=== PATIENT | male | born 1995 | race Caucasian/White ===

== ENCOUNTER 2019-11-07 16:06 | Emergency (ER) | payer BC, SELFPAY ==
[2019-11-07 16:10] VITALS: BP 119/81; PULSE 83; RESP 16; TEMP 36.8; O2SAT 96; BMI 37.0
--- NOTE | 2019-11-07 16:28 | CT_ITS ---
STUDY: CT ABDOMEN AND PELVIS WITH CONTRAST REASON FOR EXAM: Male, 24 years old. Epigastric pain RADIATION DOSAGE (If Supplied By Facility): CTDIvol = ( 19.99 ) mGy, DLP = ( 1309.83 ) mGycm TECHNIQUE: Transaxial images were obtained from the dome of the diaphragm to the symphysis pubis without oral contrast. 100cc ISOVUE 370 was administered. Sagittal and coronal images were reconstructed. Individualized dose optimization techniques were used for this CT. COMPARISON: None. FINDINGS: Noncalcified 6 mm right lower lobe pulmonary nodule. The visualized portions of the heart are within normal limits. There is decreased attenuation of the liver consistent with steatosis. Normal gallbladder and extrahepatic biliary system. Normal spleen. Normal pancreas. Normal bilateral adrenal glands. Normal right kidney. Normal left kidney. Normal visualized stomach. Normal small intestine. Normal colon. The appendix is visualized and appears normal. Normal abdominal aorta. Normal inferior vena cava. Normal retroperitoneum. Normal urinary bladder. Normal visualized prostate gland. There is a small umbilical hernia containing fat. Normal osseous structures. CT/Abdomen/Pelvis WITH Contrast IMPRESSION: Noncalcified 6 mm right lower lobe pulmonary nodule. If patient at this age without a history of or increase in risk factors for malignancy this is favored to represent a infectious or inflammatory process as clinically indicated. Follow-up with a dedicated chest CT may be considered. Fatty liver. Electronically Signed: Fan Palafox, at 19:22 EST Tel , Service support ,
--- NOTE | 2019-11-07 16:32 | ED.VISSUMM ---
- ER Visit Summary Date of Service: 11/07/19 Chief Complaint: Abdominal pain History of Present Illness: The patient is a 24 M presenting with abdominal pain. Patient states this started last night. He has had nausea, vomiting, diarrhea. He states he ate food at [employer] and is unsure if this is related. He states his symptoms started 15 minutes after eating the food from [employer]. He denies sick contacts. Denies recent antibiotics or recent travel. He states he had small streaks of blood in his diarrhea. He denies fever. Denies other complaints. Physical Examination: Vitals are stable. Patient is afebrile. Alert no acute distress. HEENT exam is unremarkable. Neck is supple. Lungs are clear and equal bilaterally. Heart is regular rate and rhythm. Abdomen is soft epigastric and right lower quadrant tenderness with no rebound or guarding Extremities are unremarkable. Skin is warm and dry. No focal neurologic deficit. Remainder of exam is unremarkable. Emergency Department Course and Treatment: Patient was given IV fluids, morphine, Zofran IV. CBC, chemistries unremarkable. Liver lipase are normal. CT abdomen pelvis shows noncalcified 6 mm right lower lobe pulmonary nodule. If patient at this age without a history of or increase in risk factors for malignancy this is favored to represent a infectious or inflammatory process as clinically indicated. Follow-up with a dedicated chest CT may be considered. Findings were discussed with the patient. He states he has been told in the past that he had a nodule in his lung. He is advised to follow-up with primary care physician. He is given prescription for Bentyl and Zofran. Advised return the ED for worsening complaints. Disposition: Discharge home Impression: Vomiting and diarrhea This note was generated with [employer] dictation software. It may contain incorrect words, spelling, and punctuation that were not noted in review of the chart prior to signing ED Disposition - Plan for ED Patient: Instructions: ABDOMINAL PAIN, Unkown Cause, (Male) Prescriptions: Dicyclomine HCl [Bentyl] 20 mg PO TIDAC #20 cap Prescription Printed Ondansetron [Zofran Odt] 4 mg PO Q8H PRN PRN #10 tab PRN Reason: Nausea Prescription Printed Referrals: Durga Kaiser MD [NON-STAFF] -
[2019-11-07] MEDS: 0.9% Normal Saline 1,000 ML 1000 ML IV (16:43)
[2019-11-07] MEDS: Ondansetron 4 MG/2 ML Vial IV (16:44)
[2019-11-07 16:46] LABS: Absolute Neutrophil Count 7.1 X10^3/uL (2.0-7.7); Basophil# 0.05 X10^3/uL; Basophil% 0.5 % (0-1); Eosinophil# 0.44 X10^3/uL; Eosinophils% 4.3 % (0-5); Hematocrit 48.7 % (40-54); Lymphocyte % 17.8 % (19-41); Mean Corp Hgb Conc 34.9 g/dL (32-36); Mean Corpuscular Hgb 30.2 pg (27.0-32.0); Mean Corpuscular Volume 86.5 fL (80-94); Mean Platelet Vol. 9.4 fl (6.2-12.0); Monocyte# 0.74 X10^3/uL; Monocyte% 7.3 % (0-10); NRBC Flagged by Analyzer 0 % (0-5); Neutrophil # 7.06 X10^3/uL (2.7-7.7); Neutrophil % 69.6 % (47-70); Platelet Count 201 K/mm3 (150-450); Red Blood Count 5.63 M/mm3 (4.6-6.2); White Blood Count 10.1 K/mm3 (4.4-11.0)
[2019-11-07 17:47] LABS: ALB/GLOB Ratio 1.2 RATIO (0.9-2.4); AST(SGOT) 21 U/L (15-37); Alanine Aminotransfer ALT/SGPT 57 U/L (16-61); Albumin, Serum 4.1 g/dL (3.2-5.0); Alkaline Phosphatase 88 U/L (45-117); Anion Gap 3 (5-15); BUN 16 mg/dL (7-18); BUN/Creat Ratio 14.8 RATIO (10-20); Chloride 106 mmol/L (98-107); Creatinine, Serum 1.08 mg/dL (0.70-1.30); EST Glomerular Filtration Rate 90 mL/min (>60); Est Glom Filt Rate - Afr Amer 109 mL/min (>60); Estimated Creatinine Clearance 106.38 ml/min; Globulin 3.5 g/dL (2.2-4.2); Glucose 96 mg/dL (74-106); Lipase 90 U/L (73-393); Potassium 4.3 mmol/L (3.5-5.1); Protein, Total 7.6 g/dL (6.4-8.2); Sodium Level 138 mmol/L (136-145)
[2019-11-07 18:32] VITALS: BP 119/65; PULSE 74; RESP 16; O2SAT 98
--- NOTE | 2019-11-07 20:00 | ED.DEP ---
ED Disposition - Plan for ED Patient: Instructions: ABDOMINAL PAIN, Unkown Cause, (Male) Prescriptions: Dicyclomine HCl [Bentyl] 20 mg PO TIDAC #20 capsule Ondansetron [Zofran Odt] 4 mg PO Q8H PRN PRN #10 tablet PRN Reason: Nausea Referrals: Durga Kaiser MD [NON-STAFF] -
[2019-11-07 20:14] VITALS: PULSE 76; RESP 18; O2SAT 98
== END 2019-11-07 20:15 | disposition home or self-care (01) ==
PROVIDERS: Emergency Provider Emergency Medicine
DX: R10.13 Epigastric pain (principal); R10.31 Right lower quadrant pain; R11.2 Nausea with vomiting, unspecified; R19.7 Diarrhea, unspecified; R91.1 Solitary pulmonary nodule
CPT/HCPCS: 74177; 80053; 83690; 85025; 96361; 96374; 96375; 99283; J7030; Q9967; A4216; J2405

== ENCOUNTER 2020-07-15 23:20 | Emergency (ER) | payer BC, SELFPAY ==
[2020-07-15 23:20] VITALS: BP 152/94; PULSE 96; RESP 18; TEMP 36.4; O2SAT 94; BMI 34.4
--- NOTE | 2020-07-15 23:40 | ED.VIS.INJ ---
History of Present Illness Chief Complaint: Bite Informant: Patient Onset: Today Mechanism/Context: Puncture Wound Quality of Pain: Aching Narrative: Patient is a 25-year-old male without any significant past medical history presenting with dog bite to his left wrist. Patient states he is watching his brother's dog who is 5 years old. He went to put the dog out of the way and the dog bit him. Patient states the dog is up-to-date with his vaccinations. The dog is never displayed any aggressive behavior before. Patient is not sure when his last tetanus was but thinks it was when he was 19. Patient initially had some paresthesias of his hand but that is since resolved.He did not take anything for pain prior to arrival. He denies any other complaints at this time. Tetanus Immunization: 5-10 years Past Medical History - Allergies and Home Meds Allergies/Adverse Reactions: Allergies methylphenidate [From Concerta] Adverse Reaction (Verified 07/15/20 23:22) NEEDS FOLLOW-UP Primary Care Physician: Rafal Villatoro MD [Primary Care Provider] - Past Medical History: None Surgical History: noncontributory Lives: With Family Smoking Status: Current every day smoker Review of Systems General: Denies: Chills, Fever, Sweats Eyes: Denies: Visual changes - bilaterally, Diplopia ENT: Denies: Rhinorrhea, Sore throat Cardiovascular: Denies: Chest pain, Palpitations Respiratory: Denies: Dyspnea, Cough, Dyspnea on exertion Gastrointestinal: Denies: Abdominal pain, Nausea, Vomiting, Diarrhea, Melena, Hematochezia Genitourinary: Denies: Dysuria, Hematuria, Frequency Musculoskeletal: Reports: Extremity Pain - Left wrist. Denies: Back pain Skin: Reports: Wounds - Dog bite to left wrist. Denies: Rash Neurological: Denies: Headache, Weakness, Numbness Physical Exam Vital Signs/Narrative: Vital Signs Temp Pulse Resp BP Pulse Ox 07/15/20 23:20 97.6 F L 96 18 152/94 H 94 Inital Vital Signs reviewed: Yes General: Well nourished, Well developed Head: Normocephalic, Atraumatic Eyes: Perrl, EOMI ENT: No trauma, - - Mucosal membranes moist Neck: Nontender, Full ROM Cardiovascular: Regular rate, Regular rhythm Respiratory: No distress Back: Nontender Extremeties: Laceration to the left wrist but no bony deformities or joint abnormalities. Normal range of motion. Normal intrinsic and extrinsic muscle strength of the hand. Normal sensation in all dermatomes distal to the injury. Skin: Normal color, No rash, Trauma - Laceration to the left wrist, palmar aspect. Full-thickness, 3 cm in length. Neurological: Alert, Oriented x3, Cranial nerves II-XII grossly intact, Normal Strength, Normal Sensation Psychological: Normal affect - Glascow Coma Scale Eye Opening: Spontaneous Motor: Obeys Commands Verbal: Oriented Coma Scale Total: 15 Diagnostic/Tx/Re-eval - Medical Decision Making Patient is evaluated for a dog bite to his left wrist. He is neuro-vascularly intact. Does not appear to have any tendinous injury. Closure is performed with loose wound edge approximation. He is given first dose of Augmentin in the emergency room. He is discharged home in stable condition. Laceration No standard instances Length: 1.18 in Depth: Sub Q Shape: Linear Prep: Sterile Conditions, Chlorhexadine Laceration Repair: Lidocaine with epi Irrigated (ml): 999 - running water for 5 mintues Number of Sutures/Juve: 2 Stitch Description: Ethilon, Simple, 4-0 Comment: Loose approximation. No immediate complications. No foreign bodies detected. ED Disposition - Plan for ED Patient: Disposition: Home or Assisted Living Diagnosis: Dog bite of left wrist Instructions: ED BITE Dog Prescriptions: Amox/Clavulanate Tablet [Augmentin Tablet] 875 mg PO Q12H #14 tab Prescription Printed Referrals: Rafal Villatoro MD [Primary Care Provider] - Additional Instructions: Please follow-up with your primary care doctor in 10 to 14 days for wound check and likely suture removal. Take antibiotics as prescribed. Return with any signs of infection. Alternate Tylenol and ibuprofen as needed for pain.
[2020-07-15] MEDS: Ibuprofen 600 MG Tablet PO (23:45)
[2020-07-15] MEDS: Diphth,Pertuss(Acell),Tet Vac 0.5 ML Vial IM (23:46)
[2020-07-16] MEDS: BACITRACIN 15 GM Tube 1 APPLIC TOPICAL (01:20)
[2020-07-16] MEDS: Amox/Clavulanate 875 MG Tablet PO (01:20)
[2020-07-16 01:21] VITALS: BP 143/82; PULSE 76; RESP 16; O2SAT 98
== END 2020-07-16 01:21 | disposition home or self-care (01) ==
PROVIDERS: Emergency Provider Emergency Medicine; PCP Family Medicine
DX: S61.552A Open bite of left wrist, initial encounter (principal); F17.200 Nicotine dependence, unspecified, uncomplicated; W54.0XXA Bitten by dog, initial encounter
CPT/HCPCS: 12001; 90375; 90471; 90675; 90715; 96372; 99285

== ENCOUNTER 2021-08-02 17:26 | Emergency (ER) | payer BC, SELFPAY ==
[2021-08-02 17:26] VITALS: BP 128/82; PULSE 110; RESP 16; TEMP 36.6; O2SAT 96; BMI 34.7
== END 2021-08-02 18:15 | disposition left against medical advice (07) ==
LOC: ED 20:32
PROVIDERS: PCP Family Medicine
DX: Z53.21 Procedure and treatment not carried out due to patient leaving prior to being seen by health care provider (principal)

== ENCOUNTER 2021-08-02 22:40 | Emergency (ER) | payer BC, MEDICAID, SELFPAY ==
[2021-08-02 22:41] VITALS: BP 150/135; PULSE 103; RESP 18; TEMP 36.6; O2SAT 98
[2021-08-03] VITALS (8 sets, daily range): BP systolic 103–145; BP diastolic 83–90; PULSE 101–113; RESP 16–29; TEMP 36.7; O2SAT 96–98
--- NOTE | 2021-08-03 00:07 | EKG12_ITS ---
Test Reason : DYSRHYTHMIA Blood Pressure : / mmHG Vent. Rate : 091 BPM Atrial Rate : 091 BPM P-R Int : 186 ms QRS Dur : 092 ms QT Int : 336 ms P-R-T Axes : 007 038 003 degrees QTc Int : 413 ms Normal sinus rhythm Normal ECG Confirmed by EMMA VERONICA, MISTY ([id number]), food expeditor SHAWNA WELLS ([id number]) on 08/03/2021 1:51:32 PM Referred By: MESSI Confirmed By:MISTY CARTER MD
--- NOTE | 2021-08-03 00:11 | EDS_ITS ---
HPI History of Present Illness Chief Complaint: General Illness Narrative Narrative: Patient presents with right-sided back pain, upper respiratory infection type symptoms, that he thought was Covid. He states his symptoms began approximately 6 days ago on Tuesday. He had a Covid test yesterday which was negative. He complains of shortness of breath and a cough. Over the last 1 to 2 days he developed right-sided chest pain and back pain, sometimes pleuritic. He denies any leg swelling. No DVT or PE risk factors. He has had nasal congestion and runny nose with a cough. He states he went to urgent care and had them do a urinalysis to check his kidneys which was negative. He presents because of the continued pain in his right posterior back. He denies any high fevers, nausea, vomiting, or other symptoms. [facility] Medical History (Updated 08/03/21 @ 04:57 by Alfie Rodriguez MD) ADD (attention deficit disorder) Hypothyroidism Home Medications levothyroxine 112 mcg PO DAILY 11/07/19 [History Last Taken Unknown] dextroamphetamine-amphetamine [Adderall] 20 mg PO DAILY 07/15/20 [History Last Taken Unknown] Allergy/AdvReac Type Severity Reaction Status Date / Time methylphenidate AdvReac NEEDS Verified 08/02/21 22:44 [From Offermatica] FOLLOW-UP Social History Smoking Status: Current every day smoker tobacco type: cigarettes ROS ROS ED ROS Narrative Constitutional: No fever, no chills. HEENT: No sore throat. No neck pain. No loss of vision. Positive rhinorrhea. Cardiovascular: Right posterior chest pain. No palpitations. No pedal edema. Respiratory: Positive cough, mild shortness of breath. Abdominal: No abdominal pain. No nausea. No vomiting. Genitourinary: No dysuria. No hematuria. Musculoskeletal: No myalgias. No arthralgias. Positive back pain. Neurologic: No headaches. No dizziness. No lightheadedness. Skin: No rash. No change in color. Psychiatric: No depression. No anxiety. EXAM Physical Exam Narrative Exam Narrative: Afebrile. Vital signs noted. HEENT: Normocephalic. Atraumatic. PERRL, EOMI. Neck soft and supple. No point tenderness or step off. Cardiovascular: Regular rate and rhythm. No murmurs, rubs, or gallops appreciated. Respiratory: No tachypnea. Lungs clear to auscultation bilaterally. Gastrointestinal: Abdomen soft, nontender, with normoactive bowel sounds. No rebound or guarding. Neurological: Awake. Alert. Nonfocal, nonlateralizing. Skin: No rash. Normal color. No pallor. Musculoskeletal: No pedal edema. Full range of motion extremities. Const Vital Signs: 08/02/21 22:41 08/03/21 00:31 08/03/21 01:19 Temperature 97.8 F Temperature Source Temporal Pulse Rate 103 H Respiratory Rate 18 17 Respiratory Effort Normal Non-Labored Respiratory Pattern Normal Blood Pressure 150/135 H Blood Pressure Mean 140 Pulse Ox 98 Oxygen Delivery Method Room Air 08/03/21 01:34 08/03/21 01:49 08/03/21 03:10 Temperature 98.1 F Temperature Source Oral Pulse Rate 101 H 104 H Respiratory Rate 26 H 28 H Respiratory Effort Respiratory Pattern Blood Pressure Blood Pressure Mean Pulse Ox 98 97 Oxygen Delivery Method Room Air Room Air 08/03/21 03:19 08/03/21 03:26 08/03/21 04:14 Temperature Temperature Source Pulse Rate 107 H Respiratory Rate 29 H Respiratory Effort Respiratory Pattern Blood Pressure 145/89 H 141/83 H 132/83 H Blood Pressure Mean 107 102 99 Pulse Ox 96 Oxygen Delivery Method Room Air 08/03/21 05:17 Temperature Temperature Source Pulse Rate 113 H Respiratory Rate 16 Respiratory Effort Respiratory Pattern Blood Pressure 103/90 H Blood Pressure Mean Pulse Ox 98 Oxygen Delivery Method MDM MDM MDM Narrative Medical decision making narrative: Patient is afebrile here. His slightly elevated blood pressure. Mild tachycardia at 103 intermittently. Pulse ox is 98% on room air. Comprehensive work-up was pursued. I will obtain an EKG and a chest x-ray. However, I will also obtain laboratories including D-dimer and troponin. WBC count shows slight neutropenia at 4.0, hemoglobin stable at 13.9, hematocrit 40.2. Platelet count shows slightly low platelets at 112. His D- dimer is elevated at 1.57. Electrolyte panel is grossly unremarkable. His initial high-sensitivity troponin was elevated at 391. However, he is chest pain-free and has been. His initial blood pressure reading was 150/135 and he was tachycardic, however he states that he has had a problem with tachycardia since he was a child. He states his heart rate always gets high. His blood pressure has come down to 137/74. He is pain-free. As he had an initial elevated high-sensitivity troponin, I discussed patient with the hospitalist. As he is pain-free, and there is a bed shortage, it was thought that this was secondary to the patient's elevated blood pressure. Once again, patient has been pain-free here in the emergency department. I sent his Covid swab off and it was also negative, but it could also be a false negative. Troponin are elevated with COVID-19 and he has symptoms. His second high-sensitivity troponin slightly lower at 378. I discussed the patient initially with the hospitalist, who thought that his elevated troponins may have been secondary to elevated blood pressures. I did discuss the patient with the banking center manager on-call, Dr. Roman. As troponin may be elevated with Covid, and the patient is neutropenic, he suggested performing a PCR, and bringing the patient in for echocardiogram. However, in discussion with the patient, he would like to sign out AGAINST MEDICAL ADVICE. I feel he has a decision-making capacity to sign out. He was informed of the risk of heart attack, stroke, permanent disability, and and acknowledges understanding and prefers to follow-up with his primary care provider. Return instructions to the emergency department were reviewed. Disposition is signed out AGAINST MEDICAL ADVICE. Patient is in stable condition. Lab Data Attestation: I reviewed the patient's lab results. Labs: Laboratory Results - last 24 hr 08/03/21 08/03/21 08/03/21 00:22 00:22 00:22 WBC 4.0 L RBC 4.75 Hgb 13.9 Hct 40.2 MCV 84.6 MCH 29.3 MCHC 34.6 RDW Std Deviation 36.6 RDW Coeff of Daniel 12.0 Plt Count 112 L MPV 9.5 D-Dimer Quant (PE/DVT) 1.57 H* Sodium 139 Potassium 4.1 Chloride 105 Carbon Dioxide 27.0 Anion Gap 7 BUN 16 Creatinine 1.07 Estim Creat Clear Calc 3.81 Est GFR (MDRD) Af Amer 108 Est GFR (MDRD) Non-Af 89 BUN/Creatinine Ratio 15.0 Glucose 129 H Calcium 8.5 Troponin I High Sens 391 H* 08/03/21 02:35 WBC RBC Hgb Hct MCV MCH MCHC RDW Std Deviation RDW Coeff of Daniel Plt Count MPV D-Dimer Quant (PE/DVT) Sodium Potassium Chloride Carbon Dioxide Anion Gap BUN Creatinine Estim Creat Clear Calc Est GFR (MDRD) Af Amer Est GFR (MDRD) Non-Af BUN/Creatinine Ratio Glucose Calcium Troponin I High Sens 378 H* Radiography Diagnostic Testing: Radiology Impression Chest CTA 08/03/21 00:52 IMPRESSION: Normal CTA chest examination, without a demonstrated pulmonary embolism or arterial dissection. Bilateral atelectasis/lung scarring. Electronically Signed: Barry Still MD at 2:13 EDT Tel , Service support , Discharge Plan Triage Chief Complaint: General Illness ED Provider: Alfie Rodriguez Dx/Rx/DC Orders Clinical Impression: SOB (shortness of breath), Back pain, Viral syndrome, Elevated troponin, Chest pain, Left against medical advice Instructions: ED Chest Pain, Uncertain Cause, ED Dyspnea Prescriptions: No Action levothyroxine 112 MCG tablet 112 mcg PO DAILY RF: 0 dextroamphetamine-amphetamine [Adderall] 20 MG tablet 20 mg PO DAILY RF: 0 Primary Care Provider: Rafal Villatoro Referrals: Rafal Villatoro MD [Primary Care Provider] - 08/03/21 Disposition Disposition: Against Medical Advice Discharge Date/Time: 08/03/21 05:18
[2021-08-03] MEDS: 0.9% Normal Saline 1,000 ML 999 ML IV (00:29)
[2021-08-03 00:32] LABS: Hematocrit 40.2 % (40-54); Hemoglobin 13.9 g/dL (13.0-16.5); Mean Corp Hgb Conc 34.6 g/dL (32-36); Mean Corpuscular Hgb 29.3 pg (27.0-32.0); Mean Corpuscular Volume 84.6 fL (80-94); Mean Platelet Vol. 9.5 fl (6.2-12.0); Platelet Count 112 K/mm3 (150-450); RBC Distribution Width SD 36.6 fl (35.1-43.9); Red Blood Count 4.75 M/mm3 (4.6-6.2)
[2021-08-03 00:46] LABS: D-Dimer Quantitative (DVT/PE) 1.57 FEU/ug/m (0.27-0.49)
--- NOTE | 2021-08-03 00:49 | ED.RN ---
DR EASTMAN AWARE OF CRITICAL D-DIMER RESULTS
--- NOTE | 2021-08-03 00:52 | CT_ITS ---
STUDY: CTA CHEST REASON FOR EXAM: Male, 26 years old. Shortness of breath, right-sided back pain RADIATION DOSAGE (If Supplied By Facility): CTDIvol = ( 17.42 ) mGy, DLP = ( 591.70 ) mGycm TECHNIQUE: The examination was performed with the intravenous administration of IV- 100 ML ISOVUE 370. Post-processing of the angiographic images was performed, with multiplanar reformation and 3D reconstruction. Individualized dose optimization techniques were used for this CT. COMPARISON: None. FINDINGS: Normal enhancement of the main pulmonary artery and right and left pulmonary arteries. Normal enhancement of the bilateral peripheral pulmonary arteries. There is no demonstrated pulmonary embolism. Normal thoracic aorta and visualized great vessels. There is no demonstrated aortic dissection. Normal heart and pericardium. Normal mediastinum. Normal hilar regions. Normal visualized trachea and bronchi. The lungs are well expanded. Normal pulmonary parenchyma. 6 mm right lower lobe subpleural nodule, probably sequela of infection given patient age. Trace bilateral dependent atelectasis. Scattered areas of platelike atelectasis/lung scarring. Normal pleura. Normal chest wall structures. There are degenerative changes of thoracic spine. Normal visualized upper abdomen. CT/CTA Chest W/WO Contrast IMPRESSION: Normal CTA chest examination, without a demonstrated pulmonary embolism or arterial dissection. Bilateral atelectasis/lung scarring. Electronically Signed: Barry Still MD at 2:13 EDT Tel , Service support ,
[2021-08-03 01:12] LABS: Anion Gap 7 (5-15); BUN 16 mg/dL (7-18); Calcium,Total 8.5 mg/dL (8.5-10.1); Chloride 105 mmol/L (98-107); Creatinine, Serum 1.07 mg/dL (0.70-1.30); EST Glomerular Filtration Rate 89 mL/min (>60); Est Glom Filt Rate - Afr Amer 108 mL/min (>60); Estimated Creatinine Clearance 3.81 ml/min; Glucose 129 mg/dL (74-106); Potassium 4.1 mmol/L (3.5-5.1); Sodium Level 139 mmol/L (136-145); Troponin-I HS 391 pg/mL (3.0-78.0)
--- NOTE | 2021-08-03 03:26 | ED.RN ---
Not given medication or bp since bp 141/83 at this time
[2021-08-03 04:00] LABS: Troponin-I HS 378 pg/mL (3.0-78.0)
== END 2021-08-03 05:18 | disposition left against medical advice (07) ==
PROVIDERS: Emergency Provider Emergency Medicine; PCP Family Medicine
DX: R06.02 Shortness of breath (principal); M54.9 Dorsalgia, unspecified; B34.9 Viral infection, unspecified; R77.8 Other specified abnormalities of plasma proteins; R07.9 Chest pain, unspecified; F17.210 Nicotine dependence, cigarettes, uncomplicated; E03.9 Hypothyroidism, unspecified; Z53.29 Procedure and treatment not carried out because of patient's decision for other reasons; Z79.899 Other long term (current) drug therapy
CPT/HCPCS: 71275; 80048; 84484; 85027; 85379; 87426; 93005; 99284; J7030; Q9967; A4216

== ENCOUNTER 2021-08-03 21:58 | Emergency (ER) | payer BC, SELFPAY ==
[2021-08-03 22:00] VITALS: BP 136/86; PULSE 120; RESP 16; TEMP 37.2; O2SAT 96; BMI 34.4
--- NOTE | 2021-08-03 22:31 | ED.RN ---
Pt states i'll come back tomorrow and i'm feeling fine. Pt informed that he doesnt need to return if he is feelng well.
== END 2021-08-03 22:31 | disposition left against medical advice (07) ==
LOC: ED 23:09
PROVIDERS: PCP Family Medicine
DX: Z53.21 Procedure and treatment not carried out due to patient leaving prior to being seen by health care provider (principal)

== ENCOUNTER 2021-08-04 10:27 | Emergency (ER) | payer BC, MEDICAID, SELFPAY ==
[2021-08-04 10:29] VITALS: BP 130/85; PULSE 117; RESP 18; TEMP 38.2; O2SAT 95; BMI 33.5
[2021-08-04 10:54] VITALS: BP 130/85; PULSE 118; RESP 19; TEMP 37.3; O2SAT 96
--- NOTE | 2021-08-04 11:15 | EKG12_ITS ---
Test Reason : GENERAL ILLNESS Blood Pressure : / mmHG Vent. Rate : 113 BPM Atrial Rate : 113 BPM P-R Int : 182 ms QRS Dur : 092 ms QT Int : 302 ms P-R-T Axes : 009 041 011 degrees QTc Int : 414 ms Sinus tachycardia Poor R wave progression Confirmed by LUIS VERONICA, RADHA ([id number]), associate editor SHAWNA WELLS ([id number]) on 08/05/2021 1:24:08 PM Referred By: EDWARD Confirmed By:RADHA SMTIH MD
--- NOTE | 2021-08-04 11:33 | RAD_ITS ---
History: chest pain EXAMINATION/TECHNIQUE: XR Chest 1 View: COMPARISON: None FINDINGS: LINES/DEVICES: None. LUNGS: No consolidation, edema or effusion. Linear scarring or atelectasis noted within the lingula. No pneumothorax. MEDIASTINUM AND CARDIOVASCULAR STRUCTURES: Cardiac silhouette not enlarged. Central airways and mediastinal contour are unremarkable. BONES AND SOFT TISSUES: Unremarkable. RAD/Chest 1 View (Portable) IMPRESSION: No radiographic evidence of acute cardiopulmonary disease. at 1211 Reported and signed by: Raúl Whittaker MD Electronically Signed: Raúl Whittaker MD at 12:10 EDT Tel , Service support ,
[2021-08-04 11:34] LABS: Absolute Lymphocyte Count 1.61 X10^3/uL (0.83-4.51); Absolute Neutrophil Count 3.1 X10^3/uL (2.0-7.7); Basophil# 0.02 X10^3/uL; Basophil% 0.4 % (0-1); Hematocrit 39.1 % (40-54); Hemoglobin 13.5 g/dL (13.0-16.5); Lymphocyte # 1.61 X10^3/ul (0.83-4.51); Mean Corp Hgb Conc 34.5 g/dL (32-36); Mean Corpuscular Hgb 28.5 pg (27.0-32.0); Mean Corpuscular Volume 82.5 fL (80-94); Mean Platelet Vol. 9.2 fl (6.2-12.0); Monocyte# 0.76 X10^3/uL; Monocyte% 13.7 % (0-10); NRBC Flagged by Analyzer 0 % (0-5); Neutrophil # 3.13 X10^3/uL (2.7-7.7); Neutrophil % 56.2 % (47-70); Platelet Count 122 K/mm3 (150-450); RBC Distribution Width CV 11.9 % (11.6-14.6); RBC Distribution Width SD 36.4 fl (35.1-43.9); Red Blood Count 4.74 M/mm3 (4.6-6.2); White Blood Count 5.6 K/mm3 (4.4-11.0)
[2021-08-04 11:44] VITALS: BP 130/85; PULSE 118; RESP 19; TEMP 37.3; O2SAT 96
[2021-08-04 11:51] LABS: Anion Gap 6 (5-15); BUN 12 mg/dL (7-18); BUN/Creat Ratio 10.2 RATIO (10-20); Calcium,Total 8.7 mg/dL (8.5-10.1); Chloride 101 mmol/L (98-107); Creatinine, Serum 1.18 mg/dL (0.70-1.30); EST Glomerular Filtration Rate 80 mL/min (>60); Est Glom Filt Rate - Afr Amer 97 mL/min (>60); Estimated Creatinine Clearance 101.92 ml/min; Glucose 130 mg/dL (74-106); Sodium Level 132 mmol/L (136-145); Troponin-I HS 61 pg/mL (3.0-78.0)
[2021-08-04] MEDS: Aspirin 81 MG TAB.CHEW 324 MG PO (11:53)
[2021-08-04 13:48] LABS: Troponin-I HS 57 pg/mL (3.0-78.0)
[2021-08-04 13:49] VITALS: BP 148/64; PULSE 90; RESP 18; O2SAT 96
--- NOTE | 2021-08-04 15:09 | EDS_ITS ---
HPI History of Present Illness Chief Complaint: General Illness Informant: patient Onset/Context/Timing Onset: Weeks (1) Context: Gradual Onset Timing: Continuous Quality: Dull Location: Substernal Worsened by: Sleeping in a bed Relieved by: Nothing Narrative Narrative: Patient presents with chest pain, headache, and fever that has been constant for the past 1 week. Patient states his temperature at home was up to 102. Patient describes his pain as dull and substernal. Patient states it is worse when he sleeps in the bed. Patient states he normally sleeps on a couch which is more comfortable for him. Patient admits to a cough but denies any sputum production. Patient admits to nausea but denies any vomiting or diarrhea. Patient does admit to some pain in his neck and back. Patient also admits to a headache that has been constant. [facility] Medical History (Updated 08/04/21 @ 15:[address] Uziel Tijerina DO) ADD (attention deficit disorder) Hypothyroidism Home Medications levothyroxine 112 mcg PO DAILY 11/07/19 [History Last Taken Unknown] dextroamphetamine-amphetamine [Adderall] 20 mg PO DAILY 07/15/20 [History Last Taken Unknown] Allergy/AdvReac Type Severity Reaction Status Date / Time bee venom protein (honey bee) Allergy Anaphylaxis Verified 08/04/21 10:31 methylphenidate AdvReac NEEDS Verified 08/04/21 08:46 [From Concerta] FOLLOW-UP Surgical History (Updated 08/04/21 @ 17:[address] Uziel Tijerina DO) Hx of thyroidectomy Social History Smoking Status: Current every day smoker tobacco type: cigarettes ROS ROS ED Constitutional Constitutional ED: Reports fever(s); Denies chills Eyes Eyes: Denies blurry vision or change in vision ENT ENT ED: Denies rhinorrhea or sore throat Cardiovascular Cardiovascular: Reports chest pain; Denies palpitations Respiratory/Chest Respiratory/Chest: Reports cough; Denies dyspnea Gastrointestinal Gastrointestinal: Reports nausea; Denies diarrhea or vomiting Genitourinary Genitourinary ED: Denies dysuria or hematuria Musculoskeletal Musculoskeletal: Reports back pain and neck pain Integumentary Denies abscess or rash Neurologic Neurologic: Reports headache(s); Denies weakness Allergic/Immunologic Allergic/Immunologic ED: Denies mouth swelling or urticaria EXAM Physical Exam Const Vital Signs: 08/04/21 10:29 08/04/21 10:54 08/04/21 11:44 Temperature 100.8 F H 99.2 F H 99.2 F H Temperature Source Temporal Temporal Temporal Pulse Rate 117 H 118 H 118 H Respiratory Rate 18 19 H 19 H Blood Pressure 130/85 H 130/85 H 130/85 H Blood Pressure Mean 100 100 100 Pulse Ox 95 96 96 Oxygen Delivery Method Room Air Room Air Room Air 08/04/21 13:49 08/04/21 15:11 Temperature Temperature Source Pulse Rate 90 79 Respiratory Rate 18 14 Blood Pressure 148/64 H Blood Pressure Mean 92 Pulse Ox 96 99 Oxygen Delivery Method Positive well nourished and well developed General Appearance ED: well developed HEENT Reports moist mucous membranes Neck supple and no JVD Resp normal respiratory effort and clear to auscultation bilaterally Cardio regular rhythm and no murmurs Rate: tachycardic GI normal to inspection, nondistended, normoactive bowel sounds and non-tender Palpation: soft Extremity normal to inspection General Extremety ED: Negative for edema or tenderness General Extremity: Negative for edema Neuro oriented x3, CN's II-XII intact bilaterally and no sensory deficits noted Sensorium / Orientation: alert Motor Exam: strength 5/5 throughout Psych mental status grossly normal Skin no rashes or lesions noted MDM MDM MDM Narrative Medical decision making narrative: EKG was obtained. On my interpretation, it showed a sinus tachycardia with a rate of 113. VA interval, QRS interval, and QTc intervals were all normal. [place] was normal. There are no acute ST or T wave changes. This was unchanged compared to previous EKG dated 08/03/2021. Portable 1 view chest x-ray was obtained. On my interpretation, lung dior are clear. There is normal cardiac silhouette. Bony thorax is normal. There is no acute process noted. Radiologist also interpreted the x-ray and agrees. CBC and basic metabolic profile were obtained and were within normal limits. High-sensitivity troponin was normal. 2-hour repeat high-sensitivity troponin was normal. Patient has a HEART score of 1. Review of his previous visit yesterday showed that his troponins were elevated yesterday. Patient signed out AMA yesterday. Patient was advised of his findings. Patient was advised that he should follow-up with his primary care physician for further evaluation. Patient was advised he likely needs an outpatient stress test. Patient understood and was agreeable with the plan. All questions were answered. Lab Data Attestation: I reviewed the patient's lab results. Labs: Laboratory Results - last 24 hr 08/04/21 08/04/21 08/04/21 11:23 11:23 13:25 WBC 5.6 RBC 4.74 Hgb 13.5 Hct 39.1 L MCV 82.5 MCH 28.5 MCHC 34.5 RDW Std Deviation 36.4 RDW Coeff of Daniel 11.9 Plt Count 122 L MPV 9.2 Immature Gran % (Auto) 0.700 Neut % (Auto) 56.2 Lymph % (Auto) 29.0 [place] % (Auto) 13.7 H Eos % (Auto) 0.0 Baso % (Auto) 0.4 Absolute Neuts (auto) 3.1 Absolute Lymphs (auto) 1.61 Nucleated RBC % 0 Sodium 132 L Potassium 4.0 Chloride 101 Carbon Dioxide 25.0 Anion Gap 6 BUN 12 Creatinine 1.18 Estim Creat Clear Calc 101.92 Est GFR (MDRD) Af Amer 97 Est GFR (MDRD) Non-Af 80 BUN/Creatinine Ratio 10.2 Glucose 130 H Calcium 8.7 Troponin I High Sens 61 57 Radiography Diagnostic Testing: Radiology Impression Chest X-Ray 08/04/21 11:33 IMPRESSION: No radiographic evidence of acute cardiopulmonary disease. at 1211 Reported and signed by: Raúl Whittaker MD Electronically Signed: Raúl Whittaker MD at 12:10 EDT Tel , Service support , EKG Initial EKG: Attestation: I personally reviewed and interpreted this EKG as follows: Interpretation: No Acute Injury Pattern and Sinus Tachycardia (113) Prior EKG tracings: available for review Prior: Unchanged (08/03/2021) Discharge Plan Triage Chief Complaint: General Illness ED Provider: Uziel Tijerina Dx/Rx/DC Orders Clinical Impression: Chest pain Instructions: ED Chest Pain, Uncertain Cause Prescriptions: No Action levothyroxine 112 MCG tablet 112 mcg PO DAILY RF: 0 dextroamphetamine-amphetamine [Adderall] 20 MG tablet 20 mg PO DAILY RF: 0 Primary Care Provider: Rafal Villatoro Referrals: Rafal Villatoro MD [Primary Care Provider] - [facility] appointment Disposition Disposition: Home, Self Care Discharge Date/Time: 08/04/21 15:23
[2021-08-04 15:11] VITALS: PULSE 79; RESP 14; O2SAT 99
--- NOTE | 2021-08-04 19:44 | ED.RN ---
patient called in asking about test results and vitals signs, information given to patient at this time
== END 2021-08-04 15:23 | disposition home or self-care (01) ==
PROVIDERS: Emergency Provider Emergency Medicine; PCP Family Medicine
DX: R07.9 Chest pain, unspecified (principal); R51.9 Headache, unspecified; R50.9 Fever, unspecified; F17.210 Nicotine dependence, cigarettes, uncomplicated; E03.9 Hypothyroidism, unspecified; Z79.899 Other long term (current) drug therapy
CPT/HCPCS: 71045; 80048; 84484; 85025; 87426; 93005; 99284; J7030

== ENCOUNTER 2021-08-08 12:03 | Inpatient (IN) | payer BC, MEDICAID, SELFPAY ==
[2021-08-08 12:03] VITALS: BP 133/87; PULSE 100; RESP 20; TEMP 37; O2SAT 95; BMI 34.7
--- NOTE | 2021-08-08 12:22 | RAD_ITS ---
STUDY: X-RAY CHEST REASON FOR EXAM: Male, 26 years old. Chest pain TECHNIQUE: Single AP portable view of the chest. COMPARISON: August 04, 2021 chest x-ray, CT scan chest August 03 2021 FINDINGS: There is a stable focus of minimal lingular atelectasis and/or scarring seen on the prior study. There is no demonstrated pleural abnormality. Normal size heart. Normal mediastinum and edgar. Normal visualized pulmonary arteries. Normal visualized aortic arch and descending thoracic aorta. There are diffuse degenerative changes of the visualized thoracic spine. Normal visualized ribs, clavicles, and shoulders. There is no demonstrated abnormality of the visualized soft tissue structures of the upper abdomen. RAD/Chest 1 View (Portable) IMPRESSION: Stable chest minimal lingular atelectasis and/or scarring. Electronically Signed: Macey Dorsey MD at 13:25 EDT Tel , Service support ,
--- NOTE | 2021-08-08 12:23 | EKG12_ITS ---
Test Reason : GEN ILLNESS Blood Pressure : / mmHG Vent. Rate : 100 BPM Atrial Rate : 100 BPM P-R Int : 194 ms QRS Dur : 098 ms QT Int : 338 ms P-R-T Axes : 009 037 -21 degrees QTc Int : 436 ms Normal sinus rhythm Inferior infarct , age undetermined Abnormal ECG Confirmed by LUIS VERONICA, RADHA ([id number]), sports editor SHAWNA WELLS ([id number]) on 08/10/2021 10:39:07 AM Referred By: ARGELIA Confirmed By:RADHA SMITH MD
--- NOTE | 2021-08-08 12:24 | EX.ED.DYSGE1 ---
HPI History of Present Illness Chief Complaint: General Illness Detail of Chief Complaint: Not feeling well for 11 days Informant: patient Narrative Narrative: Patient presents to the emergency department complaint not feeling well for the last 11 days. He complains of intermittent fevers, chest pain, shortness of breath and generally not feeling well. Patient states that at times he feels like he is dissociated from his body. Patient complained of some paresthesias to his right arm yesterday that then resolved. Patient's been seen in the emergency department twice for this illness and also has been to urgent care and his primary care physician x3. Patient states that he was told that he had a viral infection. Patient states he is been tested for Covid 5 times and has been negative all 5 times. Patient has history of asthma and hypothyroidism. Patient is a smoker. [facility] Medical History ADD (attention deficit disorder) Hypothyroidism Home Medications levothyroxine 112 mcg PO DAILY 11/07/19 [History Last Taken Unknown] dextroamphetamine-amphetamine [Adderall] 20 mg PO DAILY 07/15/20 [History Last Taken Unknown] Allergy/AdvReac Type Severity Reaction Status Date / Time bee venom protein (honey bee) Allergy Anaphylaxis Verified 08/04/21 10:31 methylphenidate AdvReac NEEDS Verified 08/04/21 08:46 [From Concerta] FOLLOW-UP Surgical History Hx of thyroidectomy Social History Smoking Status: Current every day smoker tobacco type: cigarettes ROS ROS ED Constitutional Constitutional ED: Reports systems reviewed and no addt'l complaints, except as documented; Denies body ache(s), change in weight or chills Eyes Eyes: Denies acute decrease in peripheral vision, change in vision, double vision or loss of vision ENT ENT ED: Reports none; Denies ear pain, lip swelling, loss taste/smell, neck pain, otalgia or sore throat Cardiovascular Cardiovascular: Reports none and chest pain; Denies abdominal pain, chest pain with activity, leg edema, lightheadedness, palpitations, rapid heart rate or syncope Respiratory/Chest Respiratory/Chest: Reports none, cough and dyspnea; Denies change in mental status, dry cough, hemoptysis, shortness of breath at rest or shortness of breath with exertion Gastrointestinal Gastrointestinal: Reports none; Denies abdominal pain, change in stool character, diarrhea, hematemesis, hematochezia, melena, rectal bleeding or vomiting Genitourinary Genitourinary ED: Reports none and urinary frequency; Denies abdominal discomfort, anuria, dysuria, genital pain or polyuria Musculoskeletal Musculoskeletal: Reports none; Denies arthralgias, back pain, difficulty walking, extremity pain, muscle weakness or myalgias Integumentary Reports none; Denies abscess or rash Neurologic Neurologic: Reports none; Denies abnormal gait, confusion, focal weakness, frequent falls, headache(s), loss of vision, numbness, paresthesias, radicular pain, vertigo or weakness Psychiatric Psychiatric: Reports systems reviewed and no addt'l complaints, except as documented and none; Denies behavioral changes, confusion, difficulty concentrating, hallucinations, suicidal ideation, tactile hallucinations or visual hallucinations Endocrine Endocrinology: Denies none, cold intolerance, excessive sweating, fatigue or heat intolerance Hematologic/Lymphatic Hematologic/Lymphatic: Reports none; Denies anemia, easy bleeding or easy bruising Allergic/Immunologic Allergic/Immunologic ED: Denies as per HPI, none, lip swelling, mouth swelling, throat swelling, tongue swelling or hives EXAM Physical Exam Const Vital Signs: 08/08/21 12:03 08/08/21 12:41 08/08/21 15:30 Temperature 98.6 F Temperature Source Temporal Pulse Rate 100 97 Respiratory Rate 20 H 23 H Respiratory Effort Normal Non-Labored Respiratory Pattern Normal Blood Pressure 133/87 H 106/63 Blood Pressure Mean 102 77 Pulse Ox 95 96 Oxygen Delivery Method Room Air Room Air 08/08/21 17:45 Temperature Temperature Source Pulse Rate 90 Respiratory Rate 15 Respiratory Effort Respiratory Pattern Blood Pressure 109/64 Blood Pressure Mean 79 Pulse Ox Oxygen Delivery Method Positive well nourished and well developed General Appearance ED: well developed and NAD HEENT Reports TM's clear and moist mucous membranes normocephalic and atraumatic; Negative for trauma or tenderness Tympanic Membrane ED: Yes TM's clear Eyes PERRL and EOMs intact bilaterally General Eye ED: Negative for pale conjunctiva or scleral icterus Neck no lymphadenopathy, supple and no JVD General: Negative for tenderness Chest Wall inspection of chest normal and palpation of chest normal Chest: Negative for tenderness Resp normal respiratory effort and clear to auscultation bilaterally Effort and Inspection: Negative for respiratory distress or pain with movement Auscultation: Negative for rhonchi, wheezes or diminished lung sounds Cardio regular rate, regular rhythm, S1 normal heart sound, S2 normal heart sound and no murmurs Peripheral Pulses: pulses 2+ throughout GI normal to inspection, nondistended, normoactive bowel sounds, soft to palpation, non-distended and no masses GI Narrative: Patient has some mild right upper quadrant tenderness on palpation. There are some mild guarding. There is no rebound, rigidity, or frail signs. Palpation: soft Back/Spine no CVA tenderness and no thoracic nor lumbar tenderness Extremity normal to inspection General Extremety ED: Negative for edema General Extremity: Negative for edema Neuro oriented x3, CN's II-XII intact bilaterally, no sensory deficits noted and gait normal Sensorium / Orientation: awake, alert, oriented to person, oriented to place and oriented to time Motor Exam: strength 5/5 throughout and strength abnormal Psych mental status grossly normal Skin no rashes or lesions noted and no wounds MDM MDM MDM Narrative Medical decision making narrative: Case discussed with patient and also with general surgeon on-call Dr. Jonh Pagan who presented to the emergency department to evaluate the patient. On ultrasound it was felt patient had thickened gallbladder wall and pericholecystic fluid which may be consistent with a calculus cholecystitis. After he was evaluated by general surgeon it was not felt that he had an acute cholecystitis and was recommended that I obtain a CT scan with IV and p.o. contrast and also consult GI regarding patient's elevated liver enzymes. CT scan of the abdomen pelvis with IV and p.o. contrast was read by radiology as acute cholecystitis. Boiler Water Tester Dr. Brannon evaluated patient in the emergency department as well. Case was once again discussed with general surgeon and also with hospitalist will evaluate patient for admission for concern of acute cholecystitis. Patient was started on Zosyn 4.5 g IV. Lab Data Attestation: I reviewed the patient's lab results. Labs: Laboratory Results - last 24 hr 08/08/21 08/08/21 08/08/21 12:32 12:32 12:32 WBC 6.6 RBC 4.34 L Hgb 12.6 L Hct 35.4 L MCV 81.6 MCH 29.0 MCHC 35.6 RDW Std Deviation 38.6 RDW Coeff of Daniel 12.9 Plt Count 157 MPV 9.5 Immature Gran % (Auto) 1.500 H Neut % (Auto) 57.0 Lymph % (Auto) 28.0 [place] % (Auto) 12.6 H Eos % (Auto) 0.3 Baso % (Auto) 0.6 Absolute Neuts (auto) 3.8 Absolute Lymphs (auto) 1.85 Nucleated RBC % 0 D-Dimer Quant (PE/DVT) Sodium 134 L Potassium 3.3 L Chloride 99 Carbon Dioxide 26.0 Anion Gap 9 BUN 9 Creatinine 0.98 Estim Creat Clear Calc 122.73 Est GFR (MDRD) Af Amer 119 Est GFR (MDRD) Non-Af 98 BUN/Creatinine Ratio 9.1 L Glucose 146 H Calcium 8.2 L Total Bilirubin 1.20 H AST 88 H ALT 196 H Alkaline Phosphatase 155 H Lactate Dehydrogenase 443 H Troponin I High Sens 8 C-React Prot Ext Range 133.00 H Total Protein 6.5 Albumin 2.5 L Globulin 4.0 Albumin/Globulin Ratio 0.6 L Lipase 87 Urine Color Urine Clarity Urine pH Ur Specific [place] Urine Protein Urine Glucose (UA) Urine Ketones Urine Occult Blood Urine Nitrite Urine Bilirubin Urine Urobilinogen Ur Leukocyte Esterase Urine RBC Urine WBC Ur Squamous Epith Cells Urine Bacteria Urine Mucus COVID-19 ([place]) 08/08/21 08/08/21 08/08/21 12:41 13:15 17:30 WBC RBC Hgb Hct MCV MCH MCHC RDW Std Deviation RDW Coeff of Daniel Plt Count MPV Immature Gran % (Auto) Neut % (Auto) Lymph % (Auto) [place] % (Auto) Eos % (Auto) Baso % (Auto) Absolute Neuts (auto) Absolute Lymphs (auto) Nucleated RBC % D-Dimer Quant (PE/DVT) 3.70 H* Sodium Potassium Chloride Carbon Dioxide Anion Gap BUN Creatinine Estim Creat Clear Calc Est GFR (MDRD) Af Amer Est GFR (MDRD) Non-Af BUN/Creatinine Ratio Glucose Calcium Total Bilirubin AST ALT Alkaline Phosphatase Lactate Dehydrogenase Troponin I High Sens C-React Prot Ext Range Total Protein Albumin Globulin Albumin/Globulin Ratio Lipase Urine Color Yellow Urine Clarity Clear Urine pH 6.5 Ur Specific [place] 1.010 Urine Protein 15 H Urine Glucose (UA) Normal Urine Ketones 5 H Urine Occult Blood Negative Urine Nitrite Negative Urine Bilirubin Negative Urine Urobilinogen 8 H Ur Leukocyte Esterase Negative Urine RBC 0 SEEN Urine WBC 0 SEEN Ur Squamous Epith Cells 0-5 SEEN Urine Bacteria RARE Urine Mucus 0 SEEN COVID-19 ([place]) Not Detected Radiography Diagnostic Testing: Radiology Impression Chest X-Ray 08/08/21 12:22 IMPRESSION: Stable chest minimal lingular atelectasis and/or scarring. Electronically Signed: Macey Dorsey MD at 13:25 EDT Tel , Service support , Gallbladder Ultrasound 08/08/21 13:43 IMPRESSION: Hepatic steatosis hepatic enlargement. Thick-walled appearing gallbladder with possible minimal sludge with pericholecystic fluid. Sonographic Joseph sign is described as negative, medication unknown. Consider possible chronic acalculous cholecystitis. Electronically Signed: Macey Dorsey MD at 15:36 EDT Tel , Service support , Abdomen/Pelvis CT 08/08/21 17:10 IMPRESSION: Acute cholecystitis. Electronically Signed: Lyn Snell MD at 19:47 EDT Tel , Service support , EKG Initial EKG: Attestation: I personally reviewed and interpreted this EKG as follows: Comments: Sinus rhythm with a ventricular rate of 100 bpm with old inferior infarct otherwise nothing acute Discharge Plan Dx/Rx/DC Orders Clinical Impression: Abdominal pain, Acute cholecystitis Disposition Disposition: Acute Care [facility]
[2021-08-08 12:42] LABS: Absolute Lymphocyte Count 1.85 X10^3/uL (0.83-4.51); Absolute Neutrophil Count 3.8 X10^3/uL (2.0-7.7); Basophil# 0.04 X10^3/uL; Basophil% 0.6 % (0-1); Eosinophil# 0.02 X10^3/uL; Eosinophils% 0.3 % (0-5); Hematocrit 35.4 % (40-54); Hemoglobin 12.6 g/dL (13.0-16.5); Lymphocyte # 1.85 X10^3/ul (0.83-4.51); Mean Corp Hgb Conc 35.6 g/dL (32-36); Mean Corpuscular Volume 81.6 fL (80-94); Mean Platelet Vol. 9.5 fl (6.2-12.0); Monocyte# 0.83 X10^3/uL; Monocyte% 12.6 % (0-10); NRBC Flagged by Analyzer 0 % (0-5); Neutrophil # 3.77 X10^3/uL (2.7-7.7); Platelet Count 157 K/mm3 (150-450); RBC Distribution Width CV 12.9 % (11.6-14.6); RBC Distribution Width SD 38.6 fl (35.1-43.9); Red Blood Count 4.34 M/mm3 (4.6-6.2); White Blood Count 6.6 K/mm3 (4.4-11.0)
[2021-08-08 12:46] LABS: Mucous, Urine 0 SEEN /hpf (<or=2+); Red Blood Cells-Urine 0 SEEN /hpf (0-5); White Blood Cells 0 SEEN /hpf (0-5)
[2021-08-08 12:50] LABS: Color, Urine Yellow (Yellow); Glucose, Dipstick Normal (Normal); Ketone-Dipstick 5 mg/dl (Negative); Leukocyte Esterase-Dipstick Negative /ul (Negative); Nitrite-Dipstick Negative (Negative); Occult Blood-Urine Negative /ul (Negative); Protein-Dipstick 15 mg/dl (Negative); Urine Bilirubin Dipstick Negative (Negative); Urine Clarity Clear (Clear); Urine Urobilinogen 8 mg/dl (Normal); Urine pH 6.5 (5.0 - 8.0)
[2021-08-08 12:56] LABS: Bacteria RARE /hpf (None Seen); Squamous Epithelial Cells - UA 0-5 SEEN /hpf (0-5)
[2021-08-08] MEDS: 0.9% Normal Saline 1,000 ML 150 ML IV (12:58)
[2021-08-08 13:00] LABS: ALB/GLOB Ratio 0.6 RATIO (0.9-2.4); AST(SGOT) 88 U/L (15-37); Alanine Aminotransfer ALT/SGPT 196 U/L (16-61); Albumin, Serum 2.5 g/dL (3.2-5.0); Alkaline Phosphatase 155 U/L (45-117); Anion Gap 9 (5-15); BUN 9 mg/dL (7-18); BUN/Creat Ratio 9.1 RATIO (10-20); Calcium,Total 8.2 mg/dL (8.5-10.1); Chloride 99 mmol/L (98-107); Creatinine, Serum 0.98 mg/dL (0.70-1.30); EST Glomerular Filtration Rate 98 mL/min (>60); Est Glom Filt Rate - Afr Amer 119 mL/min (>60); Estimated Creatinine Clearance 122.73 ml/min; Glucose 146 mg/dL (74-106); Lipase 87 U/L (73-393); Potassium 3.3 mmol/L (3.5-5.1); Protein, Total 6.5 g/dL (6.4-8.2); Sodium Level 134 mmol/L (136-145); Troponin-I HS 8 pg/mL (3.0-78.0)
--- NOTE | 2021-08-08 13:43 | US_ITS ---
STUDY: ABDOMINAL ULTRASOUND - RIGHT UPPER QUADRANT REASON FOR VISIT: Male, 26 years old abdominal pain TECHNIQUE: Ultrasound evaluation of the right upper quadrant was performed with real-time and static arboleda-scale imaging. TECHNICAL QUALITY: Adequate. COMPARISON: CT scan chest August 03, 2021 FINDINGS: Liver: The liver measures 18.9 cm. There is increased echogenicity consistent with fatty infiltration. The bile ducts are within normal limits. There is hepatic color flow. The direction of portal flow is hepatopetal. There is no demonstrated mass lesion. Gallbladder: There is a contracted gallbladder. The gallbladder wall measures 4.8 mm. There is a negative sonographic Joseph''s sign. There is pericholecystic fluid. There is trace sludge suggested within the gallbladder. Common Bile Duct (C.B.D.): The common bile duct measures 3.2 mm. Pancreas: Normal size of the head, body and tail of the pancreas. There is increased echogenicity of the pancreas. There is no demonstrated pancreatic mass or cyst. Right Kidney: Normal size of the right kidney. The right kidney measures 11.3 x 6.1 x 5 cm. Normal renal cortex. The right cortex measures 2.5 cm. There is no demonstrated renal mass or cyst. There is no right hydronephrosis. US/Gallbladder IMPRESSION: Hepatic steatosis hepatic enlargement. Thick-walled appearing gallbladder with possible minimal sludge with pericholecystic fluid. Sonographic Joseph sign is described as negative, medication unknown. Consider possible chronic acalculous cholecystitis. Electronically Signed: Macey Dorsey MD at 15:36 EDT Tel , Service support ,
[2021-08-08 15:30] VITALS: BP 106/63; PULSE 97; RESP 23; O2SAT 96
--- NOTE | 2021-08-08 17:10 | CT_ITS ---
STUDY: CT ABDOMEN AND PELVIS WITH CONTRAST REASON FOR EXAM: Male, 26 years old. Abdominal pain epigastric RADIATION DOSAGE (If Supplied By Facility): CTDIvol = ( 23.87 ) mGy, DLP = ( 1975.19 ) mGycm TECHNIQUE: CT images were obtained from the dome of the diaphragm to the symphysis pubis without oral contrast. Oral and amp; IV Gastrografin and amp; 100mL Isovue-300 was administered. Sagittal and coronal images were reconstructed. Individualized dose optimization techniques were used for this CT. COMPARISON: 07 November 2019 FINDINGS: The visualized lung bases are unremarkable. The visualized portions of the heart are within normal limits. Normal liver. There is acute cholecystitis. There is no biliary dilation. Normal spleen. Normal pancreas. Normal bilateral adrenal glands. Normal right kidney. Normal left kidney. Normal visualized stomach. Normal small intestine. Normal colon. The appendix is visualized and appears normal. Normal abdominal aorta. Normal inferior vena cava. Normal retroperitoneum. Normal urinary bladder. Normal abdominal wall. Normal osseous structures. CT/Abdomen/Pelvis WITH Contrast IMPRESSION: Acute cholecystitis. Electronically Signed: Lyn Snell MD at 19:47 EDT Tel , Service support ,
--- NOTE | 2021-08-08 17:20 | CON.PCM.SX_ITS ---
Assessment & Plan Assessment/Plan (1) Elevated liver function tests: (2) Epigastric abdominal pain: PLAN: His presentation is not classic for gallbladder disease and with a contracted gallbladder and no right upper quadrant abdominal discomfort I really do not think this is acute cholecystitis. I do believe he would benefit from coming into the hospital being admitted and having further work-up. I am going to obtain a CAT scan of the abdomen and pelvis with both IV and p.o. contrast. I have consulted Dr. Brannon from gastroenterology to come and evaluate the patient as well. He quite possibly could need an EGD to assess his stomach given the pain that he is having of the epigastric area. He certainly is behaving like somebody has some form of viral syndrome. And a significant number of his family members over the last several weeks has been sick but their illness only lasted a week and his is going on 11 days. In addition he does have a brother with hepatitis but he states that he has not been around him. We will probably need to order a HIDA scan with ejection fraction sometime tomorrow. HPI Consult Data Date of Consult: 08/08/21 HPI Narrative HPI Narrative: OCTAVIANO ALANIS, is a 26 M who presents to the emergency department complaint not feeling well for the last 11 days. He complains of intermittent fevers, chest pain, shortness of breath and generally not feeling well. Patient states that at times he feels like he is dissociated from his body. Patient complained of some paresthesias to his right arm yesterday that then resolved. Patient's been seen in the emergency department twice for this illness and also has been to urgent care and his primary care physician x3. Patient states that he was told that he had a viral infection. Patient states he is been tested for Covid 5 times and has been negative all 5 times. Patient has history of asthma and hypothyroidism. Patient is a smoker. Patient was initially seen in the emergency department on at that time he was tachycardic had an elevated troponin and negative Covid testing. The patient at that time left AGAINST MEDICAL ADVICE. Subsequently presented to the urgent care on complaining of cough congestion and mouth pain he has had some fever and chills and moderate fatigue as well. He went from the urgent care back to the emergency department he was still co mplaining of dull pain in the substernal area still complaining of some nausea but no vomiting nor diarrhea his troponins had normalized by then. Today his white count is still normal his hemoglobin is 12.6 hematocrit is 34.5 his D-dimer is elevated at 3.70 And all of his liver function tests are slightly elevated. I have no other liver function test to compare it to though. Gallbladder ultrasound was obtained which showed a contracted gallbladder gallbladder wall measured 4.8 mm negative sonographic Joseph sign there was some pericholecystic fluid and some trace sludge within the gallbladder itself. [facility] Medical History ADD (attention deficit disorder) Hypothyroidism Home Medications levothyroxine 112 mcg PO DAILY 11/07/19 [History Last Taken Unknown] dextroamphetamine-amphetamine [Adderall] 20 mg PO DAILY 07/15/20 [History Last Taken Unknown] Allergy/AdvReac Type Severity Reaction Status Date / Time bee venom protein (honey bee) Allergy Anaphylaxis Verified 08/04/21 10:31 methylphenidate AdvReac NEEDS Verified 08/04/21 08:46 [From Concerta] FOLLOW-UP Surgical History Hx of thyroidectomy Social History Smoking Status: Current every day smoker tobacco type: cigarettes ROS Constitutional Constitutional: Reports anorexia, chills, fatigue and fever(s) Eyes Eyes: Reports change in vision bilateral ENT HEENT: Reports facial pain and nasal congestion Cardiovascular Cardiovascular: Reports chest pain and chest pain with activity Respiratory/Chest Respiratory/Chest: Denies cough or dyspnea Gastrointestinal Gastrointestinal: Reports abdominal pain and nausea; Denies coffee ground emesis, constipation, diarrhea or vomiting Genitourinary Genitourinary: Denies change in urinary stream or difficulty urinating Musculoskeletal Musculoskeletal: Reports back pain Neurologic Neurologic: Reports weakness Physical Exam Const alert and oriented x3 General Appearance: cooperative HEENT normocephalic, head/scalp atraumatic and TM's normal bilaterally Eyes PERRL, EOMs intact bilaterally and conjunctivae normal Neck full ROM Resp clear to auscultation bilaterally Cardio Rate: regular rate Rhythm: regular rhythm GI soft to palpation Auscultation: normoactive bowel sounds Palpation: tender epigastric; Negative for guarding or hernia Back/Spine no CVA tenderness Extremity no calf tenderness Skin no rashes or lesions noted and no jaundice Neuro CN's II-XII intact bilaterally Psych mental status grossly normal and affect normal Appearance: grossly normal Lab / Micro Data Result Diagrams: 08/08/21 12:32 08/08/21 12:32 Labs: Laboratory Results - last 24 hr 08/08/21 12:32: WBC 6.6, RBC 4.34 L, Hgb 12.6 L, Hct 35.4 L, MCV 81.6, MCH 29.0, MCHC 35.6, RDW Std Deviation 38.6, RDW Coeff of Daniel 12.9, Plt Count 157, MPV 9.5, Immature Gran % (Auto) 1.500 H, Neut % (Auto) 57.0, Lymph % (Auto) 28.0, [place] % (Auto) 12.6 H, Eos % (Auto) 0.3, Baso % (Auto) 0.6, Absolute Neuts (auto) 3.8, Absolute Lymphs (auto) 1.85, Nucleated RBC % 0 08/08/21 12:32: Sodium 134 L, Potassium 3.3 L, Chloride 99, Carbon Dioxide 26.0, Anion Gap 9, BUN 9, Creatinine 0.98, Estim Creat Clear Calc 122.73, Est GFR (MDRD) Af Amer 119, Est GFR (MDRD) Non-Af 98, BUN/Creatinine Ratio 9.1 L, Glucose 146 H, Calcium 8.2 L, Total Bilirubin 1.20 H, AST 88 H, ALT 196 H, Alkaline Phosphatase 155 H, Troponin I High Sens 8, Total Protein 6.5, Albumin 2.5 L, Globulin 4.0, Albumin/Globulin Ratio 0.6 L, Lipase 87 08/08/21 12:41: Urine Color Yellow, Urine Clarity Clear, Urine pH 6.5, Ur Spec ific [place] 1.010, Urine Protein 15 H, Urine Glucose (UA) Normal, Urine Ketones 5 H, Urine Occult Blood Negative, Urine Nitrite Negative, Urine Bilirubin Negative, Urine Urobilinogen 8 H, Ur Leukocyte Esterase Negative, Urine RBC 0 SEEN, Urine WBC 0 SEEN, Ur Squamous Epith Cells 0-5 SEEN, Urine Bacteria RARE, Urine Mucus 0 SEEN 08/08/21 13:15: D-Dimer Quant (PE/DVT) 3.70 H* Radiology Impression Chest X-Ray 08/08/21 12:22 IMPRESSION: Stable chest minimal lingular atelectasis and/or scarring. Electronically Signed: Macey Dorsey MD at 13:25 EDT Tel , Service support , Gallbladder Ultrasound 08/08/21 13:43 IMPRESSION: Hepatic steatosis hepatic enlargement. Thick-walled appearing gallbladder with possible minimal sludge with pericholecystic fluid. Sonographic Joseph sign is described as negative, medication unknown. Consider possible chronic acalculous cholecystitis. Electronically Signed: Macey Dorsey MD at 15:36 EDT Tel , Service support ,
[2021-08-08 17:45] VITALS: BP 109/64; PULSE 90; RESP 15
--- NOTE | 2021-08-08 19:44 | CON.PCM.GI_ITS ---
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 He was doing well until about 2 weeks ago when he developed weakness, fever, chills and night sweats. He went and got a Covid test and it was negative. He followed up with his primary care doctor who sent him to urgent care and got another Covid test and that was negative. He got progressively weaker and weaker and weaker and decided to come to the emergency room. When he came to the emergency room he got another Covid test and that was subsequently negative. He had a biochemical analysis that did not show any signs of leukocytosis. It did show a mild hypokalemia and a mild hyponatremia consistent with dehydration. He got IV fluids. A CT scan abdomen pelvis was ordered but he left AGAINST MEDICAL ADVICE. He also was determined to have a elevated troponin level. His EKG was normal and chest x-ray was normal. Today his white count is still normal his hemoglobin is 12.6 hematocrit is 34.5 his D-dimer is elevated at 3.70 And all of his liver function tests are slightly elevated. Gallbladder ultrasound was obtained which showed a contracted gallbladder gallbladder wall measured 4.8 mm negative sonographic Joseph sign there was some pericholecystic fluid and some trace sludge within the gallbladder itself. I was called to see him today because he had an elevation of his liver function test and liver enzymes. He has no history of alcohol use or abuse. He has no history of hepatitis C. He has no family history of liver disease. He is not received any transfusions. He has never been to senior care. He did get a CT and it is reading it as acute cholecystitis. [facility], [facility] Medical History ADD (attention deficit disorder) Hypothyroidism Home Medications levothyroxine 112 mcg PO DAILY 11/07/19 [History Last Taken Unknown] dextroamphetamine-amphetamine [Adderall] 20 mg PO DAILY 07/15/20 [History Last Taken Unknown] Allergy/AdvReac Type Severity Reaction Status Date / Time bee venom protein (honey bee) Allergy Anaphylaxis Verified 08/04/21 10:31 methylphenidate AdvReac NEEDS Verified 08/04/21 08:46 [From Concerta] FOLLOW-UP Surgical History Hx of thyroidectomy Social History Smoking Status: Current every day smoker tobacco type: cigarettes ROS Review of Systems ROS Unobtainable: other Constitutional Constitutional: Denies fatigue, fever(s), poor appetite, weight gain or weight loss ENT HEENT: Denies mouth lesions Cardiovascular Cardiovascular: Denies abdominal bloating, abdominal edema or abdominal pain Respiratory/Chest Respiratory/Chest: Denies change in mental status, change in phlegm color, chest congestion or chest tightness Gastrointestinal Gastrointestinal: Denies belching, bloating, change in bowel habits, change in stool character, chewing difficulty, coffee ground emesis, constipation, cramping, diarrhea, dyspepsia, dysphagia, early satiety, excessive flatus, fecal incontinence, heartburn, hematemesis, hematochezia, hemorrhoids, loose stools, melena, nausea, odynophagia, rectal bleeding, tenesmus, vomiting or weight changes Genitourinary Genitourinary: Denies abdominal discomfort, burning urination or itching Musculoskeletal Musculoskeletal: Reports as per HPI; Denies muscle weakness or myalgias Integumentary Integumentary: Denies jaundice Neurologic Neurologic: Denies lack of coordination or weakness Psychiatric Psychiatric: Denies confusion, depression, memory loss, mood swings, paranoia or suicidal ideation Endocrine Endocrinology: Denies systems reviewed and no addt'l complaints, except as documented Hematologic/Lymphatic Hematologic/Lymphatic: Denies anemia, easy bleeding, easy bruising or lymphadenopathy Allergic/Immunologic Allergic/Immunologic: Denies systems reviewed and no addt'l complaints, except as documented Physical Exam Const alert General Appearance: cooperative Orientation / Consciousness: oriented to person HEENT hearing grossly normal bilaterally Head and Scalp: normal to inspection Face and Sinus: face symmetric Nose: external nose normal Mouth: oral and palatal mucosa normal Eyes conjunctivae normal General Eye: normal appearance of both eyes Neck full ROM General: normal visual inspection Lymph Lymphatic: no lymphadenopathy noted Chest inspection of chest normal and palpation of chest normal Chest: symmetrical chest wall rise Resp normal respiratory effort Effort and Inspection: able to speak in complete sentences Cardio regular rate GI non-distended Percussion: normal to percussion Rectal Exam: deferred Neuro Speech: speech normal Gait (Neuro): normal gait Lab / Micro Data Result Diagrams: 08/08/21 12:32 08/08/21 12:32 Labs: Laboratory Results - last 24 hr 08/08/21 12:32: WBC 6.6, RBC 4.34 L, Hgb 12.6 L, Hct 35.4 L, MCV 81.6, MCH 29.0, MCHC 35.6, RDW Std Deviation 38.6, RDW Coeff of Daniel 12.9, Plt Count 157, MPV 9.5, Immature Gran % (Auto) 1.500 H, Neut % (Auto) 57.0, Lymph % (Auto) 28.0, [place] % (Auto) 12.6 H, Eos % (Auto) 0.3, Baso % (Auto) 0.6, Absolute Neuts (auto) 3.8, Absolute Lymphs (auto) 1.85, Nucleated RBC % 0 08/08/21 12:32: Sodium 134 L, Potassium 3.3 L, Chloride 99, Carbon Dioxide 26.0, Anion Gap 9, BUN 9, Creatinine 0.98, Estim Creat Clear Calc 122.73, Est GFR (MDRD) Af Amer 119, Est GFR (MDRD) Non-Af 98, BUN/Creatinine Ratio 9.1 L, Glucose 146 H, Calcium 8.2 L, Total Bilirubin 1.20 H, AST 88 H, ALT 196 H, Alkaline Phosphatase 155 H, Troponin I High Sens 8, Total Protein 6.5, Albumin 2.5 L, Globulin 4.0, Albumin/Globulin Ratio 0.6 L, Lipase 87 08/08/21 12:41: Urine Color Yellow, Urine Clarity Clear, Urine pH 6.5, Ur Specific [place] 1.010, Urine Protein 15 H, Urine Glucose (UA) Normal, Urine Ketones 5 H, Urine Occult Blood Negative, Urine Nitrite Negative, Urine Bilirubin Negative, Urine Urobilinogen 8 H, Ur Leukocyte Esterase Negative, Urine RBC 0 SEEN, Urine WBC 0 SEEN, Ur Squamous Epith Cells 0-5 SEEN, Urine Bacteria RARE, Urine Mucus 0 SEEN 08/08/21 13:15: D-Dimer Quant (PE/DVT) 3.70 H* Radiology Impression Chest X-Ray 08/08/21 12:22 IMPRESSION: Stable chest minimal lingular atelectasis and/or scarring. Electronically Signed: Macey Dorsey MD at 13:25 EDT Tel , Service support , Gallbladder Ultrasound 08/08/21 13:43 IMPRESSION: Hepatic steatosis hepatic enlargement. Thick-walled appearing gallbladder with possible minimal sludge with pericholecystic fluid. Sonographic Joseph sign is described as negative, medication unknown. Consider possible chronic acalculous cholecystitis. Electronically Signed: Macey Dorsey MD at 15:36 EDT Tel , Service support , Assessment & Plan Assessment/Plan (1) Elevated liver function tests: PLAN: The differential diagnosis for elevated liver enzymes and liver func tion test in a patient that has an ALT to alkaline phosphatase ratio 2:1 in the setting of a viral syndrome would be acute infectious mononucleosis most (ie, 80-100%) of patients with acute infectious mononucleosis have elevated liver enzymes, even though jaundice is not usually present. Alkaline phosphatase, aspartate aminotransferase (AST), and bilirubin levels peak 5-14 days after onset, and gamma-glutamyltransferase (GGT) levels peak at 1-3 weeks after onset. Recommend to order Monospot test, CMV IgM and EBV IgM and IgG Also in the differential diagnosis would be could be acute cholecystitis with local inflammation to the hepatobiliary system. (2) Epigastric abdominal pain: PLAN: If he does not go for cholecystectomy he could get an upper en doscopy had to rule out peptic ulcer disease. Charges/Coding Visit Charges Inpatient E&M: 11581 Init Hosp L3
[2021-08-08 20:02] LABS: LDH 443 U/L (87-241)
--- NOTE | 2021-08-08 20:43 | PCM.HP.STD ---
HPI - General General Date of Admission: 08/08/21 Date of Service: 08/08/21 Chief Complaint: Flulike symptoms HPI Narrative OCTAVIANO ALANIS, is a 26 M with a significant history of ADHD; asthma; tobacco abuse; iatrogenic hypothyroidism from thyroidectomy who presents to emergency department with 11-day history of flulike symptoms. He described flulike symptoms as a headache; feeling groggy; epigastric pain; right upper quadrant pain; muscle aches; and nausea. Last time his bowels moved was 2 days ago. Also he reports chills and diaphoresis. He reports headache and pain at this left mastoid area. He reports fever with highest temperature of 103.7F. He reports shortness of breath with clear productive cough. He has not been vaccinated against COVID-19 virus. As part of work-up since his symptoms began he has had a chest CTA without pulmonary embolism or arterial dissection but with bilateral atelectasis/lung scarring. He also had mild elevation in his high sensitivity troponin on 08/03/2021. He received his 6 Covid test at the emergent department on the day of presentation. Patient was evaluated by both GI and general surgery at the emergency department. [facility] Medical History ADD (attention deficit disorder) Hypothyroidism Home Medications levothyroxine 112 mcg PO DAILY 11/07/19 [History Last Taken Unknown] dextroamphetamine-amphetamine [Adderall] 20 mg PO DAILY 07/15/20 [History Last Taken Unknown] Allergy/AdvReac Type Severity Reaction Status Date / Time bee venom protein (honey bee) Allergy Anaphylaxis Verified 08/04/21 10:31 methylphenidate AdvReac NEEDS Verified 08/04/21 08:46 [From Concerta] FOLLOW-UP Family History Other Autoimmune disease Thyroid disorder Surgical History Hx of thyroidectomy Social History Smoking Status: Current every day smoker tobacco type: cigarettes ROS ROS Narrative Constitutional: Reports fever, chills, fatigue, and anorexia. Eyes: Denies blurry vision, change in eye color, change in vision, discharge from eye(s), double vision, erythema, eye pain, loss of vision or other HEENT: Denies abnormal hearing, dysphagia, ear pain, epistaxis, headache(s), hearing loss, nasal congestion, nasal discharge, post nasal drip, sinus pressure, sore throat or other Cardiovascular: Denies chest pain or palpitations. Denies , orthopnea and paroxysmal nocturnal dyspnea Respiratory/Chest: Reports shortness of breath and cough. Denies wheezes. Gastrointestinal: Reports abdominal pain. Reports nausea. Denies diarrhea, dyspepsia, hematemesis, hematochezia, loose stools, melena, or other Genitourinary: Denies burning urination, difficulty urinating, dysuria, hematuria, nocturia, urinary frequency, urinary hesitancy, urinary incontinence, urinary urgency or other Musculoskeletal: Denies arthralgias, back pain, joint pain, joint stiffness, joint swelling, myalgias, neck pain or other Neurologic: Reports headache. Denies abnormal gait, abnormal speech, confusion, disequilibrium, dizziness, focal weakness, numbness, paresthesias, seizure-like activity, seizures, syncope, tingling, tremor(s) or other Psychiatric: Denies anxiety, depression, homicidal ideation, suicidal ideation or other Endocrinology: Denies change in body appearance, cold intolerance, excessive sweating, heat intolerance, polydipsia, polyuria or other Hematologic/Lymphatic: Denies anemia, easy bleeding, easy bruising, lymphadenopathy or other Integumentary: Denies rashes Allergic/Immunologic: Denies rhinitis, hives, eczema, or other Vital Signs Vital Signs Vital Signs: 08/08/21 12:03 08/08/21 12:41 08/08/21 15:30 Temperature 98.6 F Temperature Source Temporal Pulse Rate 100 97 Respiratory Rate 20 H 23 H Respiratory Effort Normal Non-Labored Respiratory Pattern Normal Blood Pressure 133/87 H 106/63 Blood Pressure Mean 102 77 Pulse Ox 95 96 Oxygen Delivery Method Room Air Room Air 08/08/21 17:45 Temperature Temperature Source Pulse Rate 90 Respiratory Rate 15 Respiratory Effort Respiratory Pattern Blood Pressure 109/64 Blood Pressure Mean 79 Pulse Ox Oxygen Delivery Method Weight Weight: 113 kg Body Mass Index (BMI) 34.7 Physical Exam Narrative Insert normal physical exam Physical exam: General: Well-nourished, well-developed. Head: Normocephalic, atraumatic, no tenderness Eyes: PERRLA, EOMI ENT, no trauma, moist mucous membranes, no rhinorrhea Neck: Nontender, full range of motion, no spinal tenderness, deformities, step-off CVS: Regular rate and rhythm. S1-S2 present. No murmur, gallop or rub. Respiratory : clear to auscultation bilaterally, chest wall nontender, no wheezing Abdomen: Soft, nondistended, normal bowel sounds, no masses. Positive Joseph sign : Deferred Back: Nontender, no CVA tenderness, no midline spinal tenderness, deformities, step-offs Extremities: Nontender full range of motion, no trauma Skin: Normal color, no trauma, abrasions Neuro: Alert, oriented, cranial nerves II through XII grossly intact. Psychiatry: Normal mood. Normal affect. Not depressed. Not anxious. Results Lab / Micro Data Result Diagrams: 08/08/21 12:32 08/08/21 12:32 Labs: Laboratory Results - last 24 hr 08/08/21 12:32: WBC 6.6, RBC 4.34 L, Hgb 12.6 L, Hct 35.4 L, MCV 81.6, MCH 29.0, MCHC 35.6, RDW Std Deviation 38.6, RDW Coeff of Daniel 12.9, Plt Count 157, MPV 9.5, Immature Gran % (Auto) 1.500 H, Neut % (Auto) 57.0, Lymph % (Auto) 28.0, [place] % (Auto) 12.6 H, Eos % (Auto) 0.3, Baso % (Auto) 0.6, Absolute Neuts (auto) 3.8, Absolute Lymphs (auto) 1.85, Nucleated RBC % 0 08/08/21 12:32: Sodium 134 L, Potassium 3.3 L, Chloride 99, Carbon Dioxide 26.0, Anion Gap 9, BUN 9, Creatinine 0.98, Estim Creat Clear Calc 122.73, Est GFR (MDRD) Af Amer 119, Est GFR (MDRD) Non-Af 98, BUN/Creatinine Ratio 9.1 L, Glucose 146 H, Calcium 8.2 L, Total Bilirubin 1.20 H, AST 88 H, ALT 196 H, Alkaline Phosphatase 155 H, Troponin I High Sens 8, Total Protein 6.5, Albumin 2.5 L, Globulin 4.0, Albumin/Globulin Ratio 0.6 L, Lipase 87 08/08/21 12:32: Lactate Dehydrogenase 443 H, C-React Prot Ext Range 133.00 H 08/08/21 12:41: Urine Color Yellow, Urine Clarity Clear, Urine pH 6.5, Ur Specific [place] 1.010, Urine Protein 15 H, Urine Glucose (UA) Normal, Urine Ketones 5 H, Urine Occult Blood Negative, Urine Nitrite Negative, Urine Bilirubin Negative, Urine Urobilinogen 8 H, Ur Leukocyte Esterase Negative, Urine RBC 0 SEEN, Urine WBC 0 SEEN, Ur Squamous Epith Cells 0-5 SEEN, Urine Bacteria RARE, Urine Mucus 0 SEEN 08/08/21 13:15: D-Dimer Quant (PE/DVT) 3.70 H* 08/08/21 17:30: COVID-19 ([place]) Not Detected Radiology Impression Chest X-Ray 08/08/21 12:22 IMPRESSION: Stable chest minimal lingular atelectasis and/or scarring. Electronically Signed: Macey Dorsey MD at 13:25 EDT Tel , Service support , Gallbladder Ultrasound 08/08/21 13:43 IMPRESSION: Hepatic steatosis hepatic enlargement. Thick-walled appearing gallbladder with possible minimal sludge with pericholecystic fluid. Sonographic Joseph sign is described as negative, medication unknown. Consider possible chronic acalculous cholecystitis. Electronically Signed: Macey Dorsey MD at 15:36 EDT Tel , Service support , Abdomen/Pelvis CT 08/08/21 17:10 IMPRESSION: Acute cholecystitis. Electronically Signed: Lyn Snell MD at 19:47 EDT Tel , Service support , Assessment & Plan Assessment/Plan (1) Acute cholecystitis: PLAN: Acute cholecystitis Review emergent department labs showed bandemia of 1.5%; and monocytosis of 12.6%. D-dimer was elevated at 3.70. C-reactive protein was elevated at 133. Lipase is normal. Albumin is low at 2.5. LDH is high at 443. Liver biochemistry is elevated. Acute CT abdomen was independently interpreted and I agree with radiologist interpretation. Started on Zosyn and continued. General surgery initially saw patient at the ED and requested abdomen and pelvis CT. Abdomen pelvis CT as above. GI saw patient and made recommendations. Follow GI recommendations of CMV and EBV test. [place] test negative. Check comprehensive respiratory panel. General surgery consult. Keep patient n.p.o. after midnight. As needed morphine IV and Zofran IV ordered. Trend CBC and CMP. Hypokalemia Review of labs showed potassium of 3.3. Sodium mildly low at 134. Lactated Ringer's with potassium ordered. Check magnesium. DVT prophylaxis: SCD ordered. Charges/Coding Visit Charges Inpatient E&M: 16482 Init Hosp L3
[2021-08-08] MEDS: Acetaminophen 500 MG Tablet PO (20:48)
[2021-08-08 21:06] LABS: Internal QC Validated? YES +Cl - CLEAR BKGD; Monotest Negative (Negative)
[2021-08-08 21:07] VITALS: BP 116/73; PULSE 98; RESP 17; TEMP 36.6; O2SAT 93; O2SAT 94
[2021-08-08 21:28] VITALS: BMI 37.3
[2021-08-08 21:43] VITALS: BP 101/59; PULSE 54; RESP 18; TEMP 37.4; O2SAT 94
[2021-08-08 22:55] LABS: Magnesium 2.1 mg/dL (1.6-2.6)
[2021-08-08] MEDS: 0.9% Saline Lock 10 ML Syringe IV (22:56)
--- NOTE | 2021-08-08 23:54 | PCS.PANDOC ---
PANDEMIC DOCUMENTATION INITIATED: Date: 07/06/2021 Time: 190
[2021-08-09] VITALS (14 sets, daily range): BP systolic 110–138; BP diastolic 58–92; PULSE 64–103; RESP 16–20; TEMP 36.4–38.8; O2SAT 94–100; BMI 37.3
--- NOTE | 2021-08-09 | GALL_PTH ---
PATIENT: OCTAVIANO ALANIS LOC: MS3 U#:[id number] AGE/SX: 26/M ROOM: [facility]316 RE08/08/[address]: Dr. Cece Grajeda DO : 1995 BED: 1 DIS: 08/10/2021 SPEC #: [id number] RECD: 08/10/21 12:59 STATUS: MELISSA REQ #: [id number] YUMIKO: 08/09/21 00:[address]: Jonh Pagan DEPT: SURGICAL PATHOLOGY RECD BY: Efra Varner ENTERED: 08/10/21 13:00 SP TYPE: GALLBLADDE OTHR DR: MD Dr. Jonh Herbert MD Dr. Joseph Agyepong, MD Dr. Kathryn Lee, DO Tissues: Gallbladder, NOS Procedures: Surgery Specimen Level III Comments: @ Ordering doctor for SUIII edited from to @ hi BARAHONA at 08/10/21 1525 @ Submitting doctor edited from to DR.DPEABO Julee BARAHONA at 08/10/21 1525 HEADER OPERATION: Laparoscopic cholecystectomy PRE-OP DIAGNOSIS: Acute cholecystitis TISSUE SUBMITTED: Gallbladder MICROSCOPIC DIAGNOSIS Gallbladder, cholecystectomy: Chronic cholecystitis and cholesterolosis. See comment. SJ:arelis 08/11/2021 COMMENT No stones are identified. MICROSCOPIC DESCRIPTION Slides are reviewed. GROSS DESCRIPTION Received is one container labeled with the patient's name and designated gallbladder. The specimen consists of a gallbladder measuring 8.8 x 3.6 x 3.5 cm. The external surface is smooth and glistening. Focally, it is granular, hemorrhagic and contains cautery artifact. The lumen of the gallbladder contains green mucoid bile and no calculi. The mucosa is bile-stained and without any mass lesions. The gallbladder wall averages 0.3 cm in thickness and is free of mass lesions. Access Clerk sections of the gallbladder and the cystic duct at margin of resection are submitted in one cassette. / AM:arelis 08/10/21 TC:3 CPT: 09234
[2021-08-09] MEDS: Ibuprofen 400 MG Tablet PO (03:00)
[2021-08-09 04:50] LABS: Absolute Lymphocyte Count 1.48 X10^3/uL (0.83-4.51); Absolute Neutrophil Count 3.8 X10^3/uL (2.0-7.7); Basophil# 0.04 X10^3/uL; Basophil% 0.6 % (0-1); Eosinophil# 0.09 X10^3/uL; Eosinophils% 1.4 % (0-5); Hematocrit 35.5 % (40-54); Hemoglobin 12.2 g/dL (13.0-16.5); Lymphocyte # 1.48 X10^3/ul (0.83-4.51); Lymphocyte % 22.8 % (19-41); Mean Corp Hgb Conc 34.4 g/dL (32-36); Mean Corpuscular Hgb 28.5 pg (27.0-32.0); Mean Corpuscular Volume 82.9 fL (80-94); Mean Platelet Vol. 9.6 fl (6.2-12.0); Monocyte# 0.89 X10^3/uL; Monocyte% 13.7 % (0-10); NRBC Flagged by Analyzer 0 % (0-5); Neutrophil # 3.77 X10^3/uL (2.7-7.7); Neutrophil % 58.3 % (47-70); Platelet Count 176 K/mm3 (150-450); RBC Distribution Width SD 39.4 fl (35.1-43.9); Red Blood Count 4.28 M/mm3 (4.6-6.2); White Blood Count 6.5 K/mm3 (4.4-11.0)
[2021-08-09 05:10] LABS: ALB/GLOB Ratio 0.6 RATIO (0.9-2.4); AST(SGOT) 95 U/L (15-37); Alanine Aminotransfer ALT/SGPT 203 U/L (16-61); Albumin, Serum 2.4 g/dL (3.2-5.0); Alkaline Phosphatase 175 U/L (45-117); Anion Gap 7 (5-15); BUN 8 mg/dL (7-18); BUN/Creat Ratio 9.3 RATIO (10-20); Calcium,Total 7.9 mg/dL (8.5-10.1); Chloride 103 mmol/L (98-107); Creatinine, Serum 0.86 mg/dL (0.70-1.30); EST Glomerular Filtration Rate 115 mL/min (>60); Est Glom Filt Rate - Afr Amer 139 mL/min (>60); Estimated Creatinine Clearance 135.58 ml/min; Globulin 3.7 g/dL (2.2-4.2); Glucose 130 mg/dL (74-106); Potassium 3.5 mmol/L (3.5-5.1); Protein, Total 6.1 g/dL (6.4-8.2); Sodium Level 135 mmol/L (136-145)
--- NOTE | 2021-08-09 07:29 | PN.SURG_ITS ---
Subjective Subjective Pain is about the same as it was yesterday. He has had some fevers through the night. Objective Data Objective Data Epigastric discomfort is noted. Vital Signs: Vital Signs Temp Pulse Resp BP Pulse Ox 98.0 F 103 H 18 110/58 L 95 08/09/21 05:31 08/09/21 02:54 08/09/21 02:54 08/09/21 02:54 08/09/21 02:54 Oxygen Delivery Method Room Air Weight: 260 lb Body Mass Index (BMI) 37.3 Intake & Output: Intake and Output for Last 24 Hours 08/07/21 08/08/21 08/09/21 23:59 23:59 23:59 Intake Total 1100 / 1100 Balance 1100 / 1100 Lab / Micro Data Result Diagrams: 08/09/21 04:23 08/09/21 04:23 Labs: Laboratory Results - last 24 hr 08/08/21 12:32: WBC 6.6, RBC 4.34 L, Hgb 12.6 L, Hct 35.4 L, MCV 81.6, MCH 29.0, MCHC 35.6, RDW Std Deviation 38.6, RDW Coeff of Daniel 12.9, Plt Count 157, MPV 9.5, Immature Gran % (Auto) 1.500 H, Neut % (Auto) 57.0, Lymph % (Auto) 28.0, [place] % (Auto) 12.6 H, Eos % (Auto) 0.3, Baso % (Auto) 0.6, Absolute Neuts (auto) 3.8, Absolute Lymphs (auto) 1.85, Nucleated RBC % 0 08/08/21 12:32: Sodium 134 L, Potassium 3.3 L, Chloride 99, Carbon Dioxide 26.0, Anion Gap 9, BUN 9, Creatinine 0.98, Estim Creat Clear Calc 122.73, Est GFR (MDRD) Af Amer 119, Est GFR (MDRD) Non-Af 98, BUN/Creatinine Ratio 9.1 L, Glucose 146 H, Calcium 8.2 L, Total Bilirubin 1.20 H, AST 88 H, ALT 196 H, Alkaline Phosphatase 155 H, Troponin I High Sens 8, Total Protein 6.5, Albumin 2.5 L, Globulin 4.0, Albumin/Globulin Ratio 0.6 L, Lipase 87 08/08/21 12:32: Lactate Dehydrogenase 443 H, C-React Prot Ext Range 133.00 H 08/08/21 12:32: Magnesium 2.1 08/08/21 12:41: Urine Color Yellow, Urine Clarity Clear, Urine pH 6.5, Ur Specific [place] 1.010, Urine Protein 15 H, Urine Glucose (UA) Normal, Urine Ketones 5 H, Urine Occult Blood Negative, Urine Nitrite Negative, Urine Bilirubin Negative, Urine Urobilinogen 8 H, Ur Leukocyte Esterase Negative, Urine RBC 0 SEEN, Urine WBC 0 SEEN, Ur Squamous Epith Cells 0-5 SEEN, Urine Bacteria RARE, Urine Mucus 0 SEEN 08/08/21 13:15: D-Dimer Quant (PE/DVT) 3.70 H* 08/08/21 17:30: COVID-19 ([place]) Not Detected 08/08/21 19:38: Monoscreen Negative 08/09/21 04:23: WBC 6.5, RBC 4.28 L, Hgb 12.2 L, Hct 35.5 L, MCV 82.9, MCH 28.5, MCHC 34.4, RDW Std Deviation 39.4, RDW Coeff of Daniel 13.0, Plt Count 176, MPV 9.6, Immature Gran % (Auto) 3.200 H, Neut % (Auto) 58.3, Lymph % (Auto) 22.8, [place] % (Auto) 13.7 H, Eos % (Auto) 1.4, Baso % (Auto) 0.6, Absolute Neuts (auto) 3.8, Absolute Lymphs (auto) 1.48, Nucleated RBC % 0 08/09/21 04:23: Sodium 135 L, Potassium 3.5, Chloride 103, Carbon Dioxide 25.0, Anion Gap 7, BUN 8, Creatinine 0.86, Estim Creat Clear Calc 135.58, Est GFR (MDRD) Af Amer 139, Est GFR (MDRD) Non-Af 115, BUN/Creatinine Ratio 9.3 L, Glucose 130 H, Calcium 7.9 L, Total Bilirubin 1.40 H, AST 95 H, ALT 203 H, Alkaline Phosphatase 175 H, Total Protein 6.1 L, Albumin 2.4 L, Globulin 3.7, Albumin/Globulin Ratio 0.6 L Micro: Microbiology 08/08/21 22:13 Mucosa - Nasopharyngeal Respiratory Panel (PCR) - Final Radiography Diagnostic Testing: Radiology Impression Chest X-Ray 08/08/21 12:22 IMPRESSION: Stable chest minimal lingular atelectasis and/or scarring. Electronically Signed: Macey Dorsey MD at 13:25 EDT Tel , Service support , Gallbladder Ultrasound 08/08/21 13:43 IMPRESSION: Hepatic steatosis hepatic enlargement. Thick-walled appearing gallbladder with possible minimal sludge with pericholecystic fluid. Sonographic Joseph sign is described as negative, medication unknown. Consider possible chronic acalculous cholecystitis. Electronically Signed: Macey Dorsey MD at 15:36 EDT Tel , Service support , Abdomen/Pelvis CT 08/08/21 17:10 IMPRESSION: Acute cholecystitis. Electronically Signed: Lyn Snell MD at 19:47 EDT Tel , Service support , Assessment & Plan Assessment/Plan (1) Acute cholecystitis: PLAN: Plan will be to take the patient to surgery today and perform a laparoscopic cholecystectomy on him.I have counseled the patient as to the risks of the procedure, including but not limited to: infection, bleeding, injury to any blood vessels/nerves, injury to any bowel/bladder, injury to any in traabdominal organs such as the liver/spleen, perforation of the GI tract, intraabdominal abscess/bleeding, incisional hernias, injury to the common bile duct/biliary ducts, injury to the spermatic cord/vessels/testicles, recurrence of hernia(s), complications of anesthesia, etc. The patient verbalizes understanding.
[2021-08-09 07:58] LABS: Lipase 126 U/L (73-393)
--- NOTE | 2021-08-09 09:08 | PN.HOSP_ITS ---
Subjective Subjective Patient was seen and examined. He is going for laparoscopic cholecystectomy. He was febrile overnight. No other acute events overnight. Objective Data Objective Data Vital Signs: Vital Signs Temp Pulse Resp BP Pulse Ox 98.0 F 103 H 18 110/58 L 94 08/09/21 05:31 08/09/21 02:54 08/09/21 02:54 08/09/21 02:54 08/09/21 08:05 Oxygen Delivery Method Room Air Weight: 117.934 kg Body Mass Index (BMI) 37.3 Intake & Output: Intake and Output for Last 24 Hours 08/07/21 08/08/21 08/09/21 23:59 23:59 23:59 Intake Total 1100 / 1100 Balance 1100 / 1100 Lab / Micro Data Result Diagrams: 08/09/21 04:23 08/09/21 04:23 Labs: Laboratory Results - last 24 hr 08/08/21 12:32: WBC 6.6, RBC 4.34 L, Hgb 12.6 L, Hct 35.4 L, MCV 81.6, MCH 29.0, MCHC 35.6, RDW Std Deviation 38.6, RDW Coeff of Daniel 12.9, Plt Count 157, MPV 9.5, Immature Gran % (Auto) 1.500 H, Neut % (Auto) 57.0, Lymph % (Auto) 28.0, [place] % (Auto) 12.6 H, Eos % (Auto) 0.3, Baso % (Auto) 0.6, Absolute Neuts (auto) 3.8, Absolute Lymphs (auto) 1.85, Nucleated RBC % 0 08/08/21 12:32: Sodium 134 L, Potassium 3.3 L, Chloride 99, Carbon Dioxide 26.0, Anion Gap 9, BUN 9, Creatinine 0.98, Estim Creat Clear Calc 122.73, Est GFR (MDRD) Af Amer 119, Est GFR (MDRD) Non-Af 98, BUN/Creatinine Ratio 9.1 L, Glucose 146 H, Calcium 8.2 L, Total Bilirubin 1.20 H, AST 88 H, ALT 196 H, Alkaline Phosphatase 155 H, Troponin I High Sens 8, Total Protein 6.5, Albumin 2.5 L, Globulin 4.0, Albumin/Globulin Ratio 0.6 L, Lipase 87 08/08/21 12:32: Lactate Dehydrogenase 443 H, C-React Prot Ext Range 133.00 H 08/08/21 12:32: Magnesium 2.1 08/08/21 12:41: Urine Color Yellow, Urine Clarity Clear, Urine pH 6.5, Ur Specific [place] 1.010, Urine Protein 15 H, Urine Glucose (UA) Normal, Urine Ketones 5 H, Urine Occult Blood Negative, Urine Nitrite Negative, Urine Bilirubin Negative, Urine Urobilinogen 8 H, Ur Leukocyte Esterase Negative, Urine RBC 0 SEEN, Urine WBC 0 SEEN, Ur Squamous Epith Cells 0-5 SEEN, Urine Bacteria RARE, Urine Mucus 0 SEEN 08/08/21 13:15: D-Dimer Quant (PE/DVT) 3.70 H* 08/08/21 17:30: COVID-19 ([place]) Not Detected 08/08/21 19:38: Monoscreen Negative 08/09/21 04:23: WBC 6.5, RBC 4.28 L, Hgb 12.2 L, Hct 35.5 L, MCV 82.9, MCH 28.5, MCHC 34.4, RDW Std Deviation 39.4, RDW Coeff of Daniel 13.0, Plt Count 176, MPV 9.6, Immature Gran % (Auto) 3.200 H, Neut % (Auto) 58.3, Lymph % (Auto) 22.8, [place] % (Auto) 13.7 H, Eos % (Auto) 1.4, Baso % (Auto) 0.6, Absolute Neuts (auto) 3.8, Absolute Lymphs (auto) 1.48, Nucleated RBC % 0 08/09/21 04:23: Sodium 135 L, Potassium 3.5, Chloride 103, Carbon Dioxide 25.0, Anion Gap 7, BUN 8, Creatinine 0.86, Estim Creat Clear Calc 135.58, Est GFR (MDRD) Af Amer 139, Est GFR (MDRD) Non-Af 115, BUN/Creatinine Ratio 9.3 L, Glucose 130 H, Calcium 7.9 L, Total Bilirubin 1.40 H, AST 95 H, ALT 203 H, Alkaline Phosphatase 175 H, Total Protein 6.1 L, Albumin 2.4 L, Globulin 3.7, Albumin/Globulin Ratio 0.6 L 08/09/21 04:23: Lipase 126, TSH 29.70 H Micro: Microbiology 08/08/21 22:13 Mucosa - Nasopharyngeal Respiratory Panel (PCR) - Final Radiography Diagnostic Testing: Radiology Impression Chest X-Ray 08/08/21 12:22 IMPRESSION: Stable chest minimal lingular atelectasis and/or scarring. Electronically Signed: Macey Dorsey MD at 13:25 EDT Tel , Service support , Gallbladder Ultrasound 08/08/21 13:43 IMPRESSION: Hepatic steatosis hepatic enlargement. Thick-walled appearing gallbladder with possible minimal sludge with pericholecystic fluid. Sonographic Joseph sign is described as negative, medication unknown. Consider possible chronic acalculous cholecystitis. Electronically Signed: Macey Dorsey MD at 15:36 EDT Tel , Service support , Abdomen/Pelvis CT 08/08/21 17:10 IMPRESSION: Acute cholecystitis. Electronically Signed: Lyn Snell MD at 19:47 EDT Tel , Service support , Physical Exam Narrative Physical exam: General: Alert, Oriented x3, Cooperative, No apparent distress, Well developed HEENT: Atraumatic Oral: Moist Mucosa Neck: Supple Lungs: Clear to auscultation Cardiovascular: HS I+II, regular, no murmurs Abdomen: Bowel Sounds Present, Soft, Non Tender, bowel sounds present and normal Extremities: No edema Assessment & Plan Assessment/Plan (1) Acute cholecystitis: (2) Hypokalemia: PLAN: 1. Acute right upper quadrant pain, possible acute cholecystitis Gallbladder ultrasound shows thickened gallbladder wall, minimal/, pericholecystic fluid, negative Joseph sign CT abdomen pelvis shows acute cholecystitis No tenderness in the right upper quadrant on exam Patient is going for laparoscopic cholecystectomy 2. Elevated liver function test, increased CRP/ESR Monoscreen negative CMV and EBV antibody screen is pending Will repeat blood work in am 3. Hypokalemia, resolved Charges/Coding Visit Charges Inpatient E&M: 57575 Subs Hosp L2
--- NOTE | 2021-08-09 11:40 | PN.GI_ITS ---
Subjective Subjective Patient states that he feels about the same. He has not tried to eat anything because he is n.p.o. for his cholecystectomy that is scheduled later on today. No fevers overnight. No nausea. No chest pain. No shortness of breath. Objective Data Objective Data Vital Signs: Vital Signs Temp Pulse Resp BP Pulse Ox 98.0 F 74 18 122/87 H 100 08/09/21 09:55 08/09/21 09:55 08/09/21 09:55 08/09/21 09:55 08/09/21 09:55 Oxygen Delivery Method Room Air Weight: 260 lb Body Mass Index (BMI) 37.3 Intake & Output: Intake and Output for Last 24 Hours 08/07/21 08/08/21 08/09/21 23:59 23:59 23:59 Intake Total 1100 / 1100 50 / 50 Balance 1100 / 1100 50 / 50 Lab / Micro Data Result Diagrams: 08/09/21 04:23 08/09/21 04:23 Labs: Laboratory Results - last 24 hr 08/08/21 12:32: WBC 6.6, RBC 4.34 L, Hgb 12.6 L, Hct 35.4 L, MCV 81.6, MCH 29.0, MCHC 35.6, RDW Std Deviation 38.6, RDW Coeff of Daniel 12.9, Plt Count 157, MPV 9.5, Immature Gran % (Auto) 1.500 H, Neut % (Auto) 57.0, Lymph % (Auto) 28.0, [place] % (Auto) 12.6 H, Eos % (Auto) 0.3, Baso % (Auto) 0.6, Absolute Neuts (auto) 3.8, Absolute Lymphs (auto) 1.85, Nucleated RBC % 0 08/08/21 12:32: Sodium 134 L, Potassium 3.3 L, Chloride 99, Carbon Dioxide 26.0, Anion Gap 9, BUN 9, Creatinine 0.98, Estim Creat Clear Calc 122.73, Est GFR (MDRD) Af Amer 119, Est GFR (MDRD) Non-Af 98, BUN/Creatinine Ratio 9.1 L, Glucose 146 H, Calcium 8.2 L, Total Bilirubin 1.20 H, AST 88 H, ALT 196 H, Alkaline Phosphatase 155 H, Troponin I High Sens 8, Total Protein 6.5, Albumin 2.5 L, Globulin 4.0, Albumin/Globulin Ratio 0.6 L, Lipase 87 08/08/21 12:32: Lactate Dehydrogenase 443 H, C-React Prot Ext Range 133.00 H 08/08/21 12:32: Magnesium 2.1 08/08/21 12:41: Urine Color Yellow, Urine Clarity Clear, Urine pH 6.5, Ur Specific [place] 1.010, Urine Protein 15 H, Urine Glucose (UA) Normal, Urine Ketones 5 H, Urine Occult Blood Negative, Urine Nitrite Negative, Urine Bilirubin Negative, Urine Urobilinogen 8 H, Ur Leukocyte Esterase Negative, Urine RBC 0 SEEN, Urine WBC 0 SEEN, Ur Squamous Epith Cells 0-5 SEEN, Urine Bacteria RARE, Urine Mucus 0 SEEN 08/08/21 13:15: D-Dimer Quant (PE/DVT) 3.70 H* 08/08/21 17:30: COVID-19 ([place]) Not Detected 08/08/21 19:38: Monoscreen Negative 08/09/21 04:23: WBC 6.5, RBC 4.28 L, Hgb 12.2 L, Hct 35.5 L, MCV 82.9, MCH 28.5, MCHC 34.4, RDW Std Deviation 39.4, RDW Coeff of Daniel 13.0, Plt Count 176, MPV 9.6, Immature Gran % (Auto) 3.200 H, Neut % (Auto) 58.3, Lymph % (Auto) 22.8, [place] % (Auto) 13.7 H, Eos % (Auto) 1.4, Baso % (Auto) 0.6, Absolute Neuts (auto) 3.8, Absolute Lymphs (auto) 1.48, Nucleated RBC % 0 08/09/21 04:23: Sodium 135 L, Potassium 3.5, Chloride 103, Carbon Dioxide 25.0, Anion Gap 7, BUN 8, Creatinine 0.86, Estim Creat Clear Calc 135.58, Est GFR (MDRD) Af Amer 139, Est GFR (MDRD) Non-Af 115, BUN/Creatinine Ratio 9.3 L, Glucose 130 H, Calcium 7.9 L, Total Bilirubin 1.40 H, AST 95 H, ALT 203 H, Alkaline Phosphatase 175 H, Total Protein 6.1 L, Albumin 2.4 L, Globulin 3.7, Albumin/Globulin Ratio 0.6 L 08/09/21 04:23: Lipase 126, TSH 29.70 H Micro: Microbiology 08/08/21 22:13 Mucosa - Nasopharyngeal Respiratory Panel (PCR) - Final Radiography Diagnostic Testing: Radiology Impression Chest X-Ray 08/08/21 12:22 IMPRESSION: Stable chest minimal lingular atelectasis and/or scarring. Electronically Signed: Macey Dorsey MD at 13:25 EDT Tel , Service support , Gallbladder Ultrasound 08/08/21 13:43 IMPRESSION: Hepatic steatosis hepatic enlargement. Thick-walled appearing gallbladder with possible minimal sludge with pericholecystic fluid. Sonographic Joseph sign is described as negative, medication unknown. Consider possible chronic acalculous cholecystitis. Electronically Signed: Macey Dorsey MD at 15:36 EDT Tel , Service support , Abdomen/Pelvis CT 08/08/21 17:10 IMPRESSION: Acute cholecystitis. Electronically Signed: Lyn Snell MD at 19:47 EDT Tel , Service support , Physical Exam Const alert General Appearance: cooperative Orientation / Consciousness: oriented to person HEENT hearing grossly normal bilaterally Head and Scalp: normal to inspection Face and Sinus: face symmetric Nose: external nose normal Mouth: oral and palatal mucosa normal Eyes conjunctivae normal General Eye: normal appearance of both eyes Neck full ROM General: normal visual inspection Lymph Lymphatic: no lymphadenopathy noted Chest inspection of chest normal and palpation of chest normal Chest: symmetrical chest wall rise Resp normal respiratory effort Effort and Inspection: able to speak in complete sentences Cardio regular rate GI non-distended Percussion: normal to percussion Rectal Exam: deferred Neuro Speech: speech normal Gait (Neuro): normal gait Assessment & Plan Assessment/Plan (1) Viral syndrome: PLAN: I still suspect that he has some type of viral syndrome. His Monospot test was normal. However with his inflammatory markers being so high and his LFTs going up a calculus cholecystitis could be a possibility. (2) Elevated liver function tests: PLAN: I believe that is liver function test, liver enzymes, CRP, ESR, LDH all corresponded to inflammation and did around the liver. I will also send off acute hepatitis a, B, C studies although this would not be a classic presentation for any of those diseases as he does not have any risk factors and I would expect his transaminitis to be a lot higher. (3) Abdominal pain: PLAN: CT has been read as cholecystitis and he is going for a cholecystectomy today. Hopefully will be able to get a liver biopsy when he undergoes his cholecystectomy. If his pain has not resolved totally he may need to have an upper endoscopy. (4) Acute cholecystitis: Charges/Coding Visit Charges Inpatient E&M: 80446 Subs Hosp L3
--- NOTE | 2021-08-09 12:08 | NURSING ---
Off the floor via bed, went to surgery.
[2021-08-09] MEDS: Lactated Ringers 1,000 ML 100 ML IV (12:30)
--- NOTE | 2021-08-09 13:37 | OP.PCM_ITS ---
Problems Associated Problem List Diagnoses (1) Acute cholecystitis: Report of Operation Date of Procedure: 08/09/21 Pre-Operative Diagnosis: Acute cholecystitis Post-Operative Diagnosis: Same Surgery/Procedure Performed:: Laparoscopic cholecystectomy Surgeon: Jonh Pagan non morse intercept technician: Kt Cruz Type of Anesthesia: General Anesthesiologist: Juanito Sheehan Specimen's removed: Gallbladder Drains: None Estimated Blood Loss (mL): < 25 cc Description of Procedure: Patient was brought into the operating room. Placed in the supine position. Under excellent general anesthetic the abdomen was sterilely prepped and draped in usual fashion. Local was injected infraumbilically. Dissection was carried down to the fascia. The fascia is grasped with the Robert. Varies needle was placed inside the abdomen. The abd omen was insufflated to 15 torr. A 10/12 trocar was placed without difficulty. Patient was placed in the head up and rotated to the left position. Subxiphoid #5 trochars placed, inferior to this another #5 trocar was placed, laterally a #5 trocar was placed. All these under direct visualization without injury to underlying structures. Fundus of the gallbladder was grasped retracted in the cephalad direction patient had moderate amount of adhesions on the fundus which were taken down bluntly. I dissected out the cystic duct place hemolocks proximally and distally and ligated the duct. I did not want a get down any further because there was appearance of contraction down towards the common bile duct and if I was going to try to get down further I was going to injure this and I did not want to do that. I dissected out the cystic artery placed hemoclips proximally distally and ligated the artery. I deliver the gallbladder from the gallbladder bed with use of electrocautery. Hemolock clips were placed on the posterior branch of the cystic artery. Placed the specimen in a specimen bag delivered through the umbilical port without difficulty. I had no spillage of bile or stones. Electrocautery was used on the liver bed. It was slightly raw so I placed some Ysabel in the liver bed area as well. Good with stasis was noted. I removed the trochars under direct visualization good with stasis was noted. Close the fascia the umbilical port with a [id number] stitch of 0 Vicryl. Skin incisions were closed with subcuticular stitches of 4-0 Monocryl. There is no doubt he had acute cholecystitis. The liver itself looks fine there is no signs of nodularity to it and had good blood supply. And it was relatively soft. No other abnormalities were identified in the stomach or in the duodenal area. There was too much of a fat To really look up at the GE junction. Admit VTE Documentation VTE Present on Admission: No VTE Mechan Device Prophylaxis: SCD's VTE Pharm Prophylaxis ordered?: No Reason prophylaxis not ordered:: Treatment Not Indicated
[2021-08-09] MEDS: 0.9% Normal Saline 1,000 ML 15 ML IV (14:15)
[2021-08-09 14:24] LABS: T4 Free Direct 1.06 ng/dL (0.76-1.46)
[2021-08-09 14:39] LABS: Free T3 1.4 pg/mL (2.18-3.98)
[2021-08-09] MEDS: 0.9% Saline Lock 10 ML Syringe IV (15:30)
[2021-08-09] MEDS: Morphine 2 MG/ML Syringe IV ×2 (15:30→19:42)
[2021-08-09] MEDS: Levothyroxine 112 MCG Tablet PO (15:37)
[2021-08-09] MEDS: Ondansetron 4 MG/2 ML Vial IV (21:12)
[2021-08-10 01:12] VITALS: BP 122/77; PULSE 76; RESP 16; TEMP 36.7; O2SAT 94
[2021-08-10] MEDS: Ibuprofen 400 MG Tablet PO (01:18)
[2021-08-10 05:45] VITALS: BP 111/73; PULSE 63; RESP 18; TEMP 36.4; O2SAT 95
[2021-08-10] MEDS: Levothyroxine 150 MCG Tablet PO (05:51)
[2021-08-10 08:10] VITALS: O2SAT 93
[2021-08-10 08:12] VITALS: BP 131/79; PULSE 65; RESP 16; TEMP 36.6; O2SAT 97
[2021-08-10 09:12] LABS: Absolute Lymphocyte Count 1.71 X10^3/uL (0.83-4.51); Absolute Neutrophil Count 6.7 X10^3/uL (2.0-7.7); Basophil# 0.02 X10^3/uL; Basophil% 0.2 % (0-1); Eosinophil# 0.04 X10^3/uL; Eosinophils% 0.4 % (0-5); Hematocrit 37.1 % (40-54); Hemoglobin 12.7 g/dL (13.0-16.5); Lymphocyte # 1.71 X10^3/ul (0.83-4.51); Lymphocyte % 17.2 % (19-41); Mean Corp Hgb Conc 34.2 g/dL (32-36); Mean Corpuscular Hgb 28.9 pg (27.0-32.0); Mean Corpuscular Volume 84.5 fL (80-94); Mean Platelet Vol. 9.8 fl (6.2-12.0); Monocyte# 1.07 X10^3/uL; Monocyte% 10.7 % (0-10); NRBC Flagged by Analyzer 0 % (0-5); Neutrophil # 6.72 X10^3/uL (2.7-7.7); Neutrophil % 67.5 % (47-70); Platelet Count 209 K/mm3 (150-450); RBC Distribution Width CV 13.6 % (11.6-14.6); RBC Distribution Width SD 42.4 fl (35.1-43.9); Red Blood Count 4.39 M/mm3 (4.6-6.2)
[2021-08-10 09:24] LABS: ALB/GLOB Ratio 0.6 RATIO (0.9-2.4); AST(SGOT) 82 U/L (15-37); Alanine Aminotransfer ALT/SGPT 193 U/L (16-61); Albumin, Serum 2.2 g/dL (3.2-5.0); Alkaline Phosphatase 156 U/L (45-117); Anion Gap 6 (5-15); BUN 9 mg/dL (7-18); BUN/Creat Ratio 12.1 RATIO (10-20); Calcium,Total 8.2 mg/dL (8.5-10.1); Chloride 104 mmol/L (98-107); Creatinine, Serum 0.74 mg/dL (0.70-1.30); EST Glomerular Filtration Rate 136 mL/min (>60); Est Glom Filt Rate - Afr Amer 164 mL/min (>60); Estimated Creatinine Clearance 157.56 ml/min; Globulin 3.9 g/dL (2.2-4.2); Glucose 172 mg/dL (74-106); Potassium 4.4 mmol/L (3.5-5.1); Protein, Total 6.1 g/dL (6.4-8.2); Sodium Level 135 mmol/L (136-145)
--- NOTE | 2021-08-10 10:10 | CASEMGMT ---
CIPRIANO ROSA Assessment: Face to Face with pt for initial transition planning/care coordination assessment. CIPRIANO ROSA introduced self and role at [facility], pt voices understanding and consents to assessment. Pt is A/O x4 and answers all questions appropriately at this time. Pt lying in bed in no distress. Care providers, pharmacy, and demographics verified/updated. Admitting Dx: acute cholecystitis PCP: Shauna Specialists:Pt denies. Preferred Pharmacy: [facility] Insurance: [employer] Prescription Benefit: yes LW/HPOA: Pt denies having LW/ DPOA and denies need for info regarding. LNOK: Sabina Disla, mother Living Arrangements: Pt lives in a mobile home with his fiance and three children. Pt reports being I in ADL's and denies concerns at home. Transportation: Pt does not drive. He reports his fiance transports him to medical appts. DME/HHC: Pt has a bp cuff and pulse ox at home. Denies hx of HHC. 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 He smokes a pack of cigarettes a day. Denies any alcohol, street drug or illegal drug use. Pt states no concerns with going home at time of dc. Pt states no further concerns/needs. CM to follow. Advised pt to ask CM if any further question/concerns/needs arise, voices understanding. Pt Goal: Plan:
--- NOTE | 2021-08-10 12:30 | PCM.PN.SRG ---
Subjective Subjective Patient feeling much better today. Epigastric pain has improved. Objective Data Objective Data Dressings are dry. No rebound guarding or peritoneal signs are identified. Vital Signs: Vital Signs Temp Pulse Resp BP Pulse Ox 97.8 F 65 16 131/79 H 97 08/10/21 08:12 08/10/21 08:12 08/10/21 08:12 08/10/21 08:12 08/10/21 08:12 Oxygen Flow Rate (L/min) 2 Oxygen Delivery Method Room Air Weight: 260 lb Body Mass Index (BMI) 37.3 Intake & Output: Intake and Output for Last 24 Hours 08/08/21 08/09/21 08/10/21 23:59 23:59 23:59 Intake Total 1100 / 1100 2466.00 / 2466.00 2097.00 / 2097.00 Output Total 675 / 675 Balance 1100 / 1100 2466.00 / 1791.00 1422.00 / 1422.00 Lab / Micro Data Result Diagrams: 08/10/21 05:04 08/10/21 05:04 Labs: Laboratory Results - last 24 hr 08/09/21 04:23: Free T3 pg/dL 1.4 L 08/09/21 04:23: Free T4 1.06 08/10/21 05:04: WBC 10.0, RBC 4.39 L, Hgb 12.7 L, Hct 37.1 L, MCV 84.5, MCH 28.9, MCHC 34.2, RDW Std Deviation 42.4, RDW Coeff of Daniel 13.6, Plt Count 209, MPV 9.8, Immature Gran % (Auto) 4.000 H, Neut % (Auto) 67.5, Lymph % (Auto) 17.2 L, [place] % (Auto) 10.7 H, Eos % (Auto) 0.4, Baso % (Auto) 0.2, Absolute Neuts (auto) 6.7, Absolute Lymphs (auto) 1.71, Nucleated RBC % 0 08/10/21 05:04: Sodium 135 L, Potassium 4.4, Chloride 104, Carbon Dioxide 25.0, Anion Gap 6, BUN 9, Creatinine 0.74, Estim Creat Clear Calc 157.56, Est GFR (MDRD) Af Amer 164, Est GFR (MDRD) Non-Af 136, BUN/Creatinine Ratio 12.1, Glucose 172 H, Calcium 8.2 L, Total Bilirubin 0.80, AST 82 H, ALT 193 H, Alkaline Phosphatase 156 H, Total Protein 6.1 L, Albumin 2.2 L, Globulin 3.9, Albumin/Globulin Ratio 0.6 L Micro: Microbiology 08/08/21 22:13 Mucosa - Nasopharyngeal Respiratory Panel (PCR) - Final Assessment & Plan Assessment/Plan (1) Acute cholecystitis: PLAN: Postoperative day #1 Liver function tests are improving. Okay to discharge home. Patient will need to follow back up with his primary care doctor to have adjustments of his Levoxyl dosing. It is currently too low at this time.
--- NOTE | 2021-08-10 12:37 | DCINST_ITS ---
Discharge Instructions Procedure General Surgery Diet Discharge Diet: Light diet - advance as tolerated (If you have questions about your diet instructions, please talk to your doctor.) Activity Discharge Activity: May Not Drive (for 1 week or while taking narcotic pain medicine.) May shower in (days): 1 Lifting Restrictions: 10 pounds Dressing / Incision Call your doctor if your incision/area has: Continuous Slow Oozing, Sudden Increased Bleeding, Increased Pain/ Swelling, Increased Redness and Foul Smelling Discharge Call your doctor if you observe: Fever of 101 or Higher Suture Line Care: Avoid Pulling/Pushing and Avoid Pinching/Bending Additional Dressing/Incision Instructions:: Change or remove dressing in 4 days. Leave steri-strips in place for 1 week. Follow Up Care Please Follow Up With: Kelly Noble PA-C When: Call office to schedule an appointment to be seen in about 10 days. Test Results: Test results from this visit will be discussed in further detail at your follow-up appointment, if applicable. Discharge Plan Admission Admit Date/Time: 08/08/21 20:12 Attending Provider: Cece Grajeda Primary Care Provider: Rafal Villatoro Consulting Providers: Jonh Pagan Instructions Patient Instructions: ED Chest Pain, Noncardiac Discharge Orders/Prescriptions Prescriptions: New oxycodone-acetaminophen [Endocet] 5-325 mg tablet 1 tab PO Q6H PRN (Reason: pain) 5 Days Qty: 20 RF: 0 Continued levothyroxine 112 MCG tablet 112 mcg PO DAILY RF: 0 Referrals / Follow Up: Rafal Villatoro MD [Primary Care Provider] - Kelly Noble PA-C [PHYSICIAN FLOOR SPECIALIST] -
--- NOTE | 2021-08-10 13:07 | PCS.PANDOC ---
PANDEMIC DOCUMENTATION INITIATED: Date: 07/06/2021 Time: 190
[2021-08-10 13:47] VITALS: BP 117/74; PULSE 90; RESP 16; TEMP 36.4; O2SAT 95
--- NOTE | 2021-08-10 14:07 | DS.PCM_ITS ---
Providers Date of Admission: 08/08/21 Primary Care Physician: Dr. Rafal Vilaltoro MD Consultations 08/08/21 21:34 Consult: General Surgery Routine Consulting Provider: Jonh Pagan Reason for Consult: Acute cholecystitis EMERGENT Consult: No MD Notified: Yes Date Notified: 08/08/21 Time Notified: 17:20 Method of Notification: Page Comments:: consulted in ER Reason For Visit: ACUTE CHOLECYSTITIS Diagnosis Discharge Diagnosis (1) Acute cholecystitis: Status: Acute Code(s): K81.0 - Acute cholecystitis Medications at Discharge Home Medications levothyroxine 112 mcg PO DAILY 11/07/19 oxycodone-acetaminophen [Endocet] 1 tab PO Q6H PRN 5 Days #20 tab 08/10/21 Hospital Course Operations cholecystecomy Procedures None Summary of Care Provided Minutes Spent on Discharge: 38 Hospital Course: Mr. Bauer is a 26-year-old white male presented to the emergency department [facility] on 08/08/2021 with flulike symptoms. On admission he reported that he had been having symptoms like this for approximately 11 days. These symptoms included headache, feeling groggy, epigastric pain, right upper quadrant pain, muscle aches, and nausea. He had not moved his bowels in 2 days but has had not been having much p.o. intake. He also complained of chills and diaphoresis. He had the highest documented fever of 103.7. He was assessed for Covid and his rapid Covid was negative. His CBC was overall unremarkable on admission. A right upper quadrant ultrasound showed a contracted gallbladder with a negative sonographic Joseph sign but pericholecystic fluid was present. He had transaminitis and there was concern for viral syndrome. A Monospot was performed and was negative. Also ordered were a GGT, CMV IgM, and EBV V IgM and IgG as well as an autoimmune work-up and a copper level given his persistently elevated LFTs. A laparoscopic cholecystectomy was performed on 08/09/2021. The patient reported a significant improvement in the way he was feeling after his gallbladder was removed. He was able to tolerate a p.o. diet without any issues and was cleared for discharge by both surgery and gastroenterology on 08/10/2021. He will follow up with both the services in the outpatient setting. He was discharged in stable condition. He is to follow-up with his PCP as his TSH was elevated with a normal free T4 and a low free T3. It is likely that he might need a mild adjustment in his Levoxyl but I will leave this up to his primary care who will be able to follow. Discharge diagnoses: Acute cholecystitis Acute transaminitis Hypothyroidism Asthma Tobacco abuse ADHD Physical Exam Const alert, oriented x3 and no apparent distress Constitutional Narrative: Obese young white male, lying in bed, appears comfortable, nontoxic General Appearance: cooperative, comfortable, well kempt and well developed Orientation / Consciousness: awake HEENT normocephalic, head/scalp atraumatic, hearing grossly normal bilaterally and moist oral mucous membranes Resp normal respiratory effort, no retractions, no use of accessory muscles and clear to auscultation bilaterally Auscultation: Negative for crackles, rales, rhonchi or wheezes Cardio regular rate, regular rhythm, S1 normal heart sound, S2 normal heart sound, no murmurs, no rub, no gallops, no clicks and no JVD GI normal to inspection, nondistended, normoactive bowel sounds, soft to palpation, non-tender and non-distended GI Narrative: Laparoscopic incisions without any significant drainage, Steri- Strips in place Extremity no clubbing, cyanosis or edema Skin no rashes or lesions noted, skin turgor normal and no jaundice Neuro oriented x3 Sensorium / Orientation: awake and alert Weight / BMI Weight Weight: 117.934 kg Body Mass Index (BMI) 37.3 ABG / Lab / Microbiology Data Result Diagrams: 08/10/21 05:04 08/10/21 05:04 Laboratory: Laboratory Results - last 24 hr 08/09/21 04:23: Free T3 pg/dL 1.4 L 08/09/21 04:23: Free T4 1.06 08/10/21 05:04: WBC 10.0, RBC 4.39 L, Hgb 12.7 L, Hct 37.1 L, MCV 84.5, MCH 28. 9, MCHC 34.2, RDW Std Deviation 42.4, RDW Coeff of Daniel 13.6, Plt Count 209, MPV 9.8, Immature Gran % (Auto) 4.000 H, Neut % (Auto) 67.5, Lymph % (Auto) 17.2 L, Thurston % (Auto) 10.7 H, Eos % (Auto) 0.4, Baso % (Auto) 0.2, Absolute Neuts (auto) 6.7, Absolute Lymphs (auto) 1.71, Nucleated RBC % 0 08/10/21 05:04: Sodium 135 L, Potassium 4.4, Chloride 104, Carbon Dioxide 25.0, Anion Gap 6, BUN 9, Creatinine 0.74, Estim Creat Clear Calc 157.56, Est GFR (MDRD) Af Amer 164, Est GFR (MDRD) Non-Af 136, BUN/Creatinine Ratio 12.1, Glucose 172 H, Calcium 8.2 L, Total Bilirubin 0.80, AST 82 H, ALT 193 H, Alkaline Phosphatase 156 H, Total Protein 6.1 L, Albumin 2.2 L, Globulin 3.9, Albumin/Globulin Ratio 0.6 L Microbiology: Microbiology 08/08/21 22:13 Mucosa - Nasopharyngeal Respiratory Panel (PCR) - Final D/C Instructions Discharge Diet: Light diet - advance as tolerated (If you have questions about your diet instructions, please talk to your doctor.) Discharge Activity: Return to Normal Activity (As tolerated) Return to work on: 08/12/21 May shower in (days): 1 Call your doctor if your incision/area has: Continuous Slow Oozing, Sudden Increased Bleeding, Increased Pain/ Swelling, Increased Redness and Foul Smelling Discharge Call your doctor if you observe: Fever of 101 or Higher Suture Line Care: Avoid Pulling/Pushing and Avoid Pinching/Bending Additional Dressing/Incision Instructions: Change or remove dressing in 4 days. Leave steri-strips in place for 1 week. Please Follow Up With: Kelly Noble PA-C When: Call office to schedule an appointment to be seen in about 10 days. Meaningful Use Info Meaningful Use Diagnoses (Choose all that apply): None applicable Discharge Plan Admission Admit Date/Time: 08/08/21 20:12 Primary Reason for Your Visit: Acute Cholecystitis Attending Provider: Cece Grajeda Primary Care Provider: Rafal Villatoro Consulting Providers: Jonh Pagan Discharge Orders/Prescriptions Prescriptions: New oxycodone-acetaminophen [Endocet] 5-325 mg tablet 1 tab PO Q6H PRN (Reason: pain) 5 Days Qty: 20 RF: 0 Continued levothyroxine 112 MCG tablet 112 mcg PO DAILY RF: 0 Referrals / Follow Up: Rafal Villatoro MD [Primary Care Provider] - In 1 Week (Thyroid meds dosing reevaluated) Chaparro Brannon DO [STAFF PHYSICIAN] - Within 2 Weeks (Hospital follow-up for elevated liver enzymes) Kelly Noble PA-C [PHYSICIAN RISK AND COMPLIANCE ANALYTICS DIRECTOR] - Disposition Disposition (needs filled in before D/C Order can be placed): Home, Self Care Charges/Coding Visit Charges Inpatient E&M: [id number] Disch Hosp
--- NOTE | 2021-08-10 14:21 | PCM.DC ---
Discharge Instructions Diet Discharge Diet: Light diet - advance as tolerated (If you have questions about your diet instructions, please talk to your doctor.) Activity Return to work on:: 08/12/21 May shower in (days): 1 Dressing / Incision Call your doctor if your incision/area has: Continuous Slow Oozing, Sudden Increased Bleeding, Increased Pain/ Swelling, Increased Redness and Foul Smelling Discharge Call your doctor if you observe: Fever of 101 or Higher Suture Line Care: Avoid Pulling/Pushing and Avoid Pinching/Bending Additional Dressing/Incision Instructions:: Change or remove dressing in 4 days. Leave steri-strips in place for 1 week. Follow Up Care Please Follow Up With: Kelly Noble PA-C Test Results: Test results from this visit will be discussed in further detail at your follow-up appointment, if applicable. Discharge Plan Admission Admit Date/Time: 08/08/21 20:12 Primary Reason for Your Visit: Acute Cholecystitis Attending Provider: Cece Grajeda Primary Care Provider: Rafal Villatoro Consulting Providers: Jonh Pagan Discharge Orders/Prescriptions Prescriptions: New oxycodone-acetaminophen [Endocet] 5-325 mg tablet 1 tab PO Q6H PRN (Reason: pain) 5 Days Qty: 20 RF: 0 Continued levothyroxine 112 MCG tablet 112 mcg PO DAILY RF: 0 Referrals / Follow Up: Rafal Villatoro MD [Primary Care Provider] - In 1 Week (Thyroid meds dosing reevaluated) Chaparro Brannon DO [STAFF PHYSICIAN] - Within 2 Weeks (Hospital follow-up for elevated liver enzymes) Kelly Noble PA-C [PHYSICIAN CUTTER AND PRESSER] - Disposition Disposition (needs filled in before D/C Order can be placed): Home, Self Care
[2021-08-11 08:09] LABS: HEPATITIS B SURFACE AG Negative (Negative); Hepatitis A IgM Antibody Negative (Negative); Hepatitis B Core AB IgM Negative (Negative)
[2021-08-11 14:05] LABS: Hep C Antibodies 0.1 s/co ratio (0.0-0.9)
[2021-08-11 14:13] LABS: CMV Acute Antibody IgM < 30.0 AU/mL (0.0-29.9)
[2021-08-11 14:14] LABS: CMV Acute Antibody IgM < 30.0 AU/mL (0.0-29.9)
[2021-08-11 17:39] LABS: ANTINUCLEAR ANTIBODIES DIRECT Negative (Negative); Anti-Mitochondrial AB <20.0 Units (0.0-20.0)
[2021-08-11 18:38] LABS: EBV Acute VCA IgM < 36.0 U/mL (0.0-35.9); EBV-VCA IgG 70.5 U/mL (0.0-17.9)
[2021-08-16 12:07] LABS: Cytoplasmic Ab (C-ANCA) <1:20 titer (Neg:<1:20)
[2021-08-16 12:29] LABS: Anti-Smooth Muscle ABS 7 Units (0-19); Copper, Serum or Plasma 178 ug/dL (63-121); Perinuclear Ab (P-ANCA) <1:20 titer (Neg:<1:20)
== END 2021-08-10 14:47 | disposition home or self-care (01) | DRG 419 ==
LOC: ED 20:22 → MS3 20:51
PROVIDERS: Internal Medicine; Internal Medicine Gastroenterology; Surgery; Admitting Provider Hospitalist; Emergency Provider Emergency Medicine; PCP Family Medicine; Visit Provider Internal Medicine
PROC: 0FT44ZZ Resection of Gallbladder, Percutaneous Endoscopic Approach (ICD-10-PCS; principal; 2021-08-09 13:00)
DX: K81.2 Acute cholecystitis with chronic cholecystitis (principal); J45.909 Unspecified asthma, uncomplicated; E89.0 Postprocedural hypothyroidism; F17.210 Nicotine dependence, cigarettes, uncomplicated; F90.9 Attention-deficit hyperactivity disorder, unspecified type; K76.0 Fatty (change of) liver, not elsewhere classified; R79.89 Other specified abnormal findings of blood chemistry; E87.6 Hypokalemia; Z79.890 Hormone replacement therapy; Z79.899 Other long term (current) drug therapy
CPT/HCPCS: 36415; 71045; 74177; 76705; 80053; 80074; 81001; 82390; 82525; 83516; 83615; 83690; 83735; 84439; 84443; 84481; 84484; 85025; 85379; 86038; 86140; 86225; 86235; 86256; 86308; 86645; 86664; 86665; 87633; 87635; 88304; 93005; 99285; 99406; J7030; J7120; Q9967; U0005; A4216; J2405; U0003

== ENCOUNTER 2021-08-13 07:06 | Emergency (ER) | payer BC, MEDICAID, SELFPAY ==
[2021-08-13 07:07] VITALS: BP 119/74; PULSE 129; RESP 16; TEMP 36.7; O2SAT 95; BMI 34.4
--- NOTE | 2021-08-13 07:09 | EX.ED.DYSGE1 ---
HPI History of Present Illness Chief Complaint: Allergic Reaction Informant: patient Onset/Context/Timing Onset: Days Context: Gradual Onset Timing: Continuous Current Severity: Mild Maximum Severity: Mild Narrative Narrative: 26-year-old male recent hospitalization for cholecystectomy. Patient states that within the last 48 hours he has had a rash over his abdomen and extremities that itches. He is also had some mild swelling of this lips. Denies any trouble breathing. Currently he is on no medications. States he was written for pain meds after his surgery but is never gotten this filled. Is never had allergic reaction before. Prior similar symptoms: No Recent Illness/Hospitalization: Yes PFSH PFSH Medical History ADD (attention deficit disorder) Asthma Elevated liver function tests Hypothyroidism Smoker Home Medications levothyroxine 112 mcg PO DAILY 11/07/19 [History Last Taken 08/08/21] oxycodone-acetaminophen [Endocet] 1 tab PO Q6H PRN 5 Days #20 tab 08/10/21 [Rx Last Taken Unknown] prednisone 40 mg PO DAILY 5 Days #10 tab 08/13/21 [Rx Last Taken Unknown] Allergy/AdvReac Type Severity Reaction Status Date / Time bee venom protein (honey bee) Allergy Anaphylaxis Verified 08/13/21 07:08 methylphenidate AdvReac NEEDS Verified 08/13/21 07:08 [From [facility]] FOLLOW-UP Family History Other Autoimmune disease Thyroid disorder Surgical History Hx of thyroidectomy Social History Smoking Status: Current every day smoker tobacco type: cigarettes ROS ROS ED ROS Narrative Rash with itching. Review of Systems ROS Unobtainable: Denies due to encephalopathy Constitutional Constitutional ED: Denies chills or fever(s) Eyes Eyes: Denies change in vision ENT ENT ED: Denies ear pain Cardiovascular Cardiovascular: Denies chest pain Respiratory/Chest Respiratory/Chest: Denies dyspnea Gastrointestinal Gastrointestinal: Denies abdominal pain, diarrhea, nausea or vomiting Genitourinary Genitourinary ED: Denies dysuria Musculoskeletal Musculoskeletal: Denies myalgias Integumentary Reports rash; Denies abscess Neurologic Neurologic: Reports headache(s) Psychiatric Psychiatric: Reports depression Endocrine Endocrinology: Reports polyuria Allergic/Immunologic Allergic/Immunologic ED: Reports urticaria EXAM Physical Exam Narrative Exam Narrative: Young male no acute distress vital signs stable afebrile. Minor swelling to his lips. Tongue unremarkable. Minor posterior pharyngeal erythema no exudate. No trouble swallowing or breathing. Neck nontender no lymphadenopathy. Lungs are clear equal symmetric bilaterally. Heart regular rhythm rate about 110 no murmur. Abdomen soft nondistended normal bowel sounds no peritoneal signs. Multiple laparoscopic incisions. That are well-healing. He also has a rash on his abdomen consistent with allergic reaction. It is red and raised. It blanches. Moving all 4 extremities. Neurologically is awake and alert with no focal motor deficits. Const Vital Signs: 08/13/21 07:07 Temperature 98.1 F Temperature Source Temporal Pulse Rate 129 H Respiratory Rate 16 Blood Pressure 119/74 Blood Pressure Mean 89 Pulse Ox 95 Oxygen Delivery Method Room Air Positive well nourished and well developed; Negative for obese, cachectic, contractures or unkempt General Appearance ED: well developed and NAD; Negative for unkempt, cachectic or contractures Nutritional Appearance: Negative for cachectic or obese HEENT Reports moist mucous membranes Negative for trauma or tenderness Eyes PERRL and EOMs intact bilaterally Neck no lymphadenopathy, supple and no JVD General: Negative for tenderness Chest Wall inspection of chest normal and palpation of chest normal Resp normal respiratory effort and clear to auscultation bilaterally Cardio regular rate, regular rhythm, S1 normal heart sound, S2 normal heart sound and no murmurs GI normal to inspection, nondistended, normoactive bowel sounds, non-distended and no masses; Negative for non-tender GI Narrative: Very mild tenderness at incision sites. Otherwise well-healing. No peritoneal signs. Rash consistent with allergic reaction. Auscultation: normoactive bowel sounds Palpation: soft Back/Spine no CVA tenderness General Back: Negative for CVA tenderness Extremity normal to inspection General Extremety ED: Negative for edema or tenderness General Extremity: Negative for edema Neuro oriented x3 and CN's II-XII intact bilaterally Sensorium / Orientation: alert; Negative for lethargic or stuporous Motor Exam: strength 5/5 throughout Psych mental status grossly normal Appearance: Negative for unkempt Attitude: No agitated Mood & Affect: Negative for depressed or tearful Skin No no rashes or lesions noted and no wounds Rashes: rashes noted MDM MDM MDM Narrative Medical decision making narrative: Patient with allergic reaction most likely from 1 medications he recently received but currently is on nothing. Will be given p.o. prednisone. He will be placed on prednisone the next 4 days and Benadryl as needed. He knows return if worse and he knows he can stop the Benadryl early if the rash resolves. Discharge Plan Triage Chief Complaint: Allergic Reaction ED Provider: Shailesh Hancock Dx/Rx/DC Orders Clinical Impression: Allergic reaction Instructions: ED General Allergic Reactions Prescriptions: New prednisone 20 mg tablet 40 mg PO DAILY 5 Days Qty: 10 RF: 0 No Action levothyroxine 112 MCG tablet 112 mcg PO DAILY RF: 0 oxycodone-acetaminophen [Endocet] 5-325 mg tablet 1 tab PO Q6H PRN (Reason: pain) 5 Days Qty: 20 RF: 0 Primary Care Provider: Rafal Villatoro Referrals: Rafal Villatoro MD [Primary Care Provider] - As Needed Activity Restrictions/Additional Instructions: This is secondary to allergic reaction most likely to one of the medications you had received. This should resolve. Daily prednisone 40 mg a day. Benadryl for itching. You may stop the prednisone if the rash resolves early. Follow-up if not improving. Return if worse. Disposition Disposition: Home, Self Care
[2021-08-13] MEDS: predniSONE 20 MG Tablet 60 MG PO (07:26)
[2021-08-13 07:48] VITALS: PULSE 108; RESP 17; O2SAT 98
== END 2021-08-13 07:49 | disposition home or self-care (01) ==
PROVIDERS: Emergency Provider Emergency Medicine; PCP Family Medicine
DX: T78.40XA Allergy, unspecified, initial encounter (principal); F17.210 Nicotine dependence, cigarettes, uncomplicated; E03.9 Hypothyroidism, unspecified; Z79.899 Other long term (current) drug therapy
CPT/HCPCS: 99283

== ENCOUNTER 2021-12-18 01:01 | Emergency (ER) | payer BC, MEDICAID, SELFPAY ==
[2021-12-18 01:02] VITALS: BP 134/90; PULSE 78; RESP 17; TEMP 36.6; O2SAT 98; BMI 35.9
--- NOTE | 2021-12-18 01:27 | EX.ED.DYSGE1 ---
HPI History of Present Illness Chief Complaint: Ear Problem Informant: patient Narrative Narrative: 26-year-old male arriving to the emergency department with 2 complaints. The first is left buttock and leg pain. This is been ongoing worse with movement and sitting. States the pain in the buttock radiates down the leg. No bowel or bladder dysfunction. No muscle or sensory changes. He denies any red flag history such as prolonged steroid use/back injections, IV drug use, trauma etc. He has not seen anybody for this but has talked with his sister who is a nurse. The second emergency tonight is continued left ear pain. He states he went to urgent care was told that he had swimmer's ear. He states he was placed on amoxicillin and on ofloxacin. He states he does not feel that the eardrops are getting into the ear as his ear feels quite swollen. He denies any fevers. He is not a diabetic. PFSH PFS Medical History ADD (attention deficit disorder) Asthma Elevated liver function tests Hypothyroidism Smoker Home Medications levothyroxine 112 mcg PO DAILY 11/07/19 [History Last Taken 08/08/21] ciprofloxacin HCl 500 mg PO BID #14 tablet 12/18/21 [Rx Last Taken Unknown] cyclobenzaprine 10 mg PO TID PRN #15 tablet 12/18/21 [Rx Last Taken Unknown] dextroamphetamine-amphetamine PO 12/18/21 [History Last Taken Unknown] ketorolac 10 mg PO Q8H PRN 5 Days #15 tab 12/18/21 [Rx Last Taken Unknown] Allergy/AdvReac Type Severity Reaction Status Date / Time bee venom protein (honey bee) Allergy Anaphylaxis Verified 12/18/21 01:08 methylphenidate AdvReac NEEDS Verified 12/18/21 01:08 [From Concerta] FOLLOW-UP Family History Other Autoimmune disease Thyroid disorder Surgical History History of cholecystectomy Hx of thyroidectomy Social History (Updated 12/18/21 @ 01:[address] Jonh Mcwilliams DO) Smoking Status: Current every day smoker tobacco type: cigarettes substance use type: does not use ROS ROS ED Constitutional Constitutional ED: Denies chills, fever(s) or weight loss Eyes Eyes: Denies change in vision or diplopia ENT ENT ED: Reports ear pain; Denies rhinorrhea or sore throat Cardiovascular Cardiovascular: Denies chest pain, orthopnea, palpitations or racing heartbeat Respiratory/Chest Respiratory/Chest: Denies cough, dyspnea or orthopnea Gastrointestinal Gastrointestinal: Denies abdominal pain, diarrhea, nausea or vomiting Genitourinary Genitourinary ED: Denies dysuria, hematuria or urinary frequency Musculoskeletal Musculoskeletal: Reports other Details: Left buttock and leg pain ; Denies arthralgias or myalgias Integumentary Denies abscess or rash Neurologic Neurologic: Denies headache(s) or weakness Psychiatric Psychiatric: Denies anxiety, depression, suicidal ideation or suicidal thoughts Endocrine Endocrinology: Denies polydipsia, polyphagia or polyuria Allergic/Immunologic Allergic/Immunologic ED: Denies mouth swelling, tongue swelling or urticaria EXAM Physical Exam Const Vital Signs: 12/18/21 01:02 Temperature 97.9 F Temperature Source Temporal Pulse Rate 78 Respiratory Rate 17 Blood Pressure 134/90 H Blood Pressure Mean 104 Pulse Ox 98 Oxygen Delivery Method Room Air Positive well nourished and well developed General Appearance ED: well developed HEENT Reports normocephalic, head/scalp atraumatic, TM's clear and moist mucous membranes HEENT Narrative: Left ear canal demonstrates erythema small amount of debris and swelling. However I can visualize the tympanic membrane I do not feel he needs a wick. Pain with movement of pinna. There is no mastoid tenderness or erythema. Negative for trauma Tympanic Membrane ED: Yes TM's clear Eyes PERRL and EOMs intact bilaterally Neck no lymphadenopathy, supple and no JVD Resp normal respiratory effort and clear to auscultation bilaterally Cardio regular rate, regular rhythm and no murmurs GI normal to inspection, nondistended, normoactive bowel sounds and non-tender Palpation: soft Back/Spine no CVA tenderness and normal ROM Extremity normal to inspection General Extremety ED: Negative for edema General Extremity: Negative for edema Neuro oriented x3 and CN's II-XII intact bilaterally Sensorium / Orientation: alert Motor Exam: strength 5/5 throughout Psych mental status grossly normal Mood & Affect: Negative for depressed or tearful Skin no rashes or lesions noted and no wounds MDM MDM MDM Narrative Medical decision making narrative: Patient be given a shot of Toradol and I can write for some Flexeril. He should visit with his doctor regarding sciatica and possible physical therapy. I do not see a need for emergent imaging tonight. We will change him to ciprofloxacin as well as polymyxin with hydrocortisone. He wishes to stay away from narcotics due to a family history of addiction which I would agree with. Return if worsening or concerns Discharge Plan Triage Chief Complaint: Ear Problem ED Provider: Jonh Mcwilliams Dx/Rx/DC Orders Clinical Impression: Left sided sciatica, Otitis externa Instructions: ED Sciatica, ED External Ear Infection (Adult) Prescriptions: New cyclobenzaprine [cyclobenzaprine] 10 MG tablet 10 mg PO TID PRN (Reason: Muscle Spasm) Qty: 15 RF: 0 ciprofloxacin HCl [ciprofloxacin HCl] 500 MG tablet 500 mg PO BID Qty: 14 RF: 0 ketorolac 10 mg tablet 10 mg PO Q8H PRN (Reason: pain) 5 Days Qty: 15 RF: 0 Discontinued amoxicillin 500 mg capsule RF: 0 ofloxacin 0.3 % drops RF: 0 No Action levothyroxine 112 MCG tablet 112 mcg PO DAILY RF: 0 dextroamphetamine-amphetamine 15 mg capsule,extended release 24hr PO RF: 0 Primary Care Provider: Rafal Villatoro Referrals: Rafal Villatoro MD [Primary Care Provider] - 1 Week Activity Restrictions/Additional Instructions: The eardrops are 3 drops 4 times daily. Make sure you lay with your left side up for approximately 5 minutes after insertion. Be sure to pull the ear back to allow the drops to go into the ear canal. Disposition Disposition: Home, Self Care
[2021-12-18] MEDS: Ketorolac 60 MG/2 ML Vial IM (01:37)
[2021-12-18] MEDS: Ciprofloxacin 500 MG Tablet PO (01:37)
[2021-12-18 01:41] VITALS: BP 113/71; RESP 15
[2021-12-18] MEDS: Neomycin/Polymyxin/Dexameth 5ML OPTH.BTL 4 DRP OTIC (02:05)
== END 2021-12-18 02:06 | disposition home or self-care (01) ==
PROVIDERS: Emergency Provider Emergency Medicine; PCP Family Medicine; Visit Provider Emergency Medicine
DX: M54.32 Sciatica, left side (principal); F17.210 Nicotine dependence, cigarettes, uncomplicated; H60.92 Unspecified otitis externa, left ear
CPT/HCPCS: 96372; 99283

== ENCOUNTER 2022-05-01 00:03 | Emergency (ER) | payer BC, MEDICAID, SELFPAY ==
[2022-05-01 00:04] VITALS: BP 131/87; PULSE 89; RESP 17; TEMP 36.8; O2SAT 99; BMI 37.6
[2022-05-01] MEDS: predniSONE 20 MG Tablet 60 MG PO (00:39)
--- NOTE | 2022-05-01 00:39 | EX.ED.VIS.UR ---
HPI HPI - URI History of Present Illness Chief Complaint: Cough Informant: patient Narrative Narrative: Patient presents 3-day history of nonproductive dry cough. No fevers headache. No nausea or vomiting. No loss of taste or smell. Home COVID testing 2 days negative. He is not vaccinated. Denies myalgias. History of asthma reports there is wheezing and does have tobacco history. Using inhaler with relief. Reporting indigestion symptoms with tasting gastric contacts a lot of burping. He had a cholecystectomy last year. There is also a rash to his right hand that is pruritic. No recent changes in medicines no plant exposures. No other complaints. ROS ROS ED Constitutional Constitutional ED: Denies chills, fever(s) or sweats Eyes Eyes: Denies change in vision ENT ENT ED: Denies dysphagia or sore throat Cardiovascular Cardiovascular: Denies chest pain, leg edema, palpitations or racing heartbeat Respiratory/Chest Respiratory/Chest: Reports cough; Denies dyspnea or dyspnea on exertion Gastrointestinal Gastrointestinal: Denies abdominal pain, diarrhea, nausea or vomiting Genitourinary Genitourinary ED: Denies dysuria, hematuria or urinary frequency Musculoskeletal Musculoskeletal: Denies back pain, extremity pain or neck pain Integumentary Reports rash; Denies wounds Neurologic Neurologic: Denies headache(s), paresthesias or weakness PFSH PFSH Medical History ADD (attention deficit disorder) Asthma Elevated liver function tests Hypothyroidism Smoker Home Medications levothyroxine 112 mcg PO DAILY 11/07/19 [History Last Taken 08/08/21] dextroamphetamine-amphetamine 15 mg PO DAILY 12/18/21 [History Last Taken Unknown] hydrocortisone 1 applic TOPICAL BID #28 g 05/01/22 [Rx Last Taken Unknown] omeprazole 40 mg PO DAILY #30 cap 05/01/22 [Rx Last Taken Unknown] prednisone 60 mg PO DAILY #12 tab 05/01/22 [Rx Last Taken Unknown] Allergy/AdvReac Type Severity Reaction Status Date / Time bee venom protein (honey bee) Allergy Anaphylaxis Verified 05/01/22 00:05 methylphenidate AdvReac NEEDS Verified 05/01/22 00:05 [From [employer]] FOLLOW-UP Family History Other Autoimmune disease Thyroid disorder Surgical History History of cholecystectomy Hx of thyroidectomy Social History Smoking Status: Current every day smoker tobacco type: cigarettes substance use type: does not use EXAM Physical Exam Const Vital Signs: 05/01/22 00:04 05/01/22 00:18 Temperature 98.2 F Temperature Source Temporal Pulse Rate 89 Respiratory Rate 17 Respiratory Effort Normal Respiratory Depth Normal Blood Pressure 131/87 H Blood Pressure Mean 101 Pulse Ox 99 Oxygen Delivery Method Room Air Room Air Positive well nourished and well developed General Appearance ED: well developed and NAD HEENT Reports moist mucous membranes normocephalic and atraumatic Throat: posterior oropharynx normal Eyes PERRL, EOMs intact bilaterally and conjunctivae normal General Eye ED: Yes normal appearance of both eyes Neck no lymphadenopathy and supple General: Negative for tenderness Chest Wall Chest: Negative for tenderness Resp normal respiratory effort and normal air movement Effort and Inspection: symmetric chest movement; Negative for respiratory distress Cardio regular rate, regular rhythm and no murmurs Rate: regular rate Rhythm: regular rhythm Peripheral Pulses: pulses 2+ throughout GI normal to inspection, nondistended, normoactive bowel sounds and non-tender Palpation: soft; Negative for guarding or rebound tenderness present Back/Spine no CVA tenderness and no thoracic nor lumbar tenderness Extremity normal to inspection General Extremety ED: Negative for edema or tenderness General Extremity: Negative for edema Neuro oriented x3 and no sensory deficits noted Sensorium / Orientation: awake and alert Skin no rashes or lesions noted and no wounds Skin Narrative: Right hand, scattered papules dorsal aspect with excoriations. No indurations. No streaking. No drainage. MDM MDM MDM Narrative Medical decision making narrative: Patient vital signs stable nontoxic. Discussed viral syndrome however he does asthma reporting increasing wheezing at home. He started on steroids orally. He declined any further COVID testing as one was negative at home. Has no other symptoms. Start omeprazole for his reflux symptoms topical hydrocortisone for his nonspecific rash in his hand. He has inhalers at home. He will follow-up with his PCP. All questions were answered. Discharge Plan Triage Chief Complaint: Cough ED Provider: Howie Jacobs Dx/Rx/DC Orders Clinical Impression: Asthma exacerbation, Viral URI with cough, GERD (gastroesophageal reflux disease), Rash and nonspecific skin eruption Instructions: Self-Care for Skin Rashes, ED Asthma, Acute (Adult), ED GERD (Adult), ED URI, Viral W/ Wheezing (Adult), ED URI, Viral, No Abx (Adult) Prescriptions: New prednisone 20 MG tablet 60 mg PO DAILY Qty: 12 RF: 0 omeprazole 40 mg capsule,delayed release(DR/EC) 40 mg PO DAILY Qty: 30 RF: 0 hydrocortisone 2.5 % cream 1 applic topical BID Qty: 28 RF: 0 No Action levothyroxine 112 MCG tablet 112 mcg PO DAILY RF: 0 dextroamphetamine-amphetamine 15 mg capsule,extended release 24hr 15 mg PO DAILY RF: 0 Stand Alone Forms: ED Work / School Excuse Primary Care Provider: Rafal Villatoro Referrals: Rafal Villatoro MD [Primary Care Provider] - 3-5 Days if not improving Disposition Disposition: Home, Self Care Discharge Date/Time: 05/01/22 00:46
== END 2022-05-01 00:46 | disposition home or self-care (01) ==
PROVIDERS: Emergency Provider Emergency Medicine; PCP Family Medicine; Visit Provider Emergency Medicine
DX: J45.901 Unspecified asthma with (acute) exacerbation (principal); J06.9 Acute upper respiratory infection, unspecified; K21.9 Gastro-esophageal reflux disease without esophagitis; R21 Rash and other nonspecific skin eruption; F17.210 Nicotine dependence, cigarettes, uncomplicated; E03.9 Hypothyroidism, unspecified; Z79.899 Other long term (current) drug therapy
CPT/HCPCS: 99283

== ENCOUNTER 2022-12-01 17:04 | Emergency (ER) | payer MEDICAID, SELFPAY ==
[2022-12-01 17:05] VITALS: BP 139/82; PULSE 90; RESP 18; TEMP 36.3; O2SAT 91; BMI 38.0
--- NOTE | 2022-12-01 17:38 | EX.ED.DYSGE1 ---
HPI History of Present Illness Chief Complaint: Ear Problem Narrative Narrative: 27-year-old male who denies significant past medical history, but is a smoker, presents with decreased hearing out of his right ear for the last week and a half. He denies any fevers or chills, no ear pain. He states his relative is an RN and she looked in and saw pus. He denies any discharge from the right ear. He states he put his headphones in and everything sounds muffled. He denies any ear redness. He does admit to using Q-tips in his ears at times. PFSH PFS Medical History ADD (attention deficit disorder) Asthma Elevated liver function tests Hypothyroidism Smoker Home Medications levothyroxine 112 mcg tablet 112 mcg PO DAILY thyroid 11/07/19 [History Last Taken 08/08/21] dextroamphetamine-amphetamine ER 15 mg 24hr capsule,extend release 15 mg PO DAILY 12/18/21 [History Last Taken Unknown] hydrocortisone 2.5 % topical cream 1 applic topical BID #28 grams 05/01/22 [Rx Last Taken Unknown] omeprazole 40 mg capsule,delayed release 40 mg PO DAILY #30 caps 05/01/22 [Rx Last Taken Unknown] prednisone 20 mg tablet 60 mg PO DAILY #12 tabs 05/01/22 [Rx Last Taken Unknown] ciprofloxacin 0.3 %-dexamethasone 0.1 % ear drops,suspension (Ciprodex) 4 drp EACH EAR BID 7 days #7.5 mL 12/01/22 [Rx Last Taken Unknown] Allergy/AdvReac Type Severity Reaction Status Date / Time bee venom protein (honey bee) Allergy Anaphylaxis Verified 12/01/22 17:05 methylphenidate AdvReac NEEDS Verified 12/01/22 17:05 [From Concerta] FOLLOW-UP Family History Other Autoimmune disease Thyroid disorder Surgical History History of cholecystectomy Hx of thyroidectomy Social History Smoking Status: Current every day smoker tobacco type: cigarettes substance use type: does not use ROS ROS ED ROS Narrative Constitutional: No fever, no chills. HEENT: No sore throat. No neck pain. No loss of vision. No rhinorrhea. Decreased hearing out of right ear, sounding muffled. Cardiovascular: No chest pain. No palpitations. No pedal edema. Respiratory: No cough, no shortness of breath. Abdominal: No abdominal pain. No nausea. No vomiting. Genitourinary: No dysuria. No hematuria. Musculoskeletal: No myalgias. No arthralgias. Neurologic: No headaches. No dizziness. No lightheadedness. Skin: No rash. No change in color. Psychiatric: No depression. No anxiety. EXAM Physical Exam Narrative Exam Narrative: Afebrile. Vital signs noted. HEENT: Normocephalic. Atraumatic. PERRL, EOMI. Neck soft and supple. No point tenderness or step off. No mastoid tenderness or erythema. Noted soft wax occluding TM on right. Cardiovascular: Regular rate and rhythm. No murmurs, rubs, or gallops appreciated. Respiratory: No tachypnea. Lungs clear to auscultation bilaterally. Gastrointestinal: Abdomen soft, nontender, with normoactive bowel sounds. No rebound or guarding. Neurological: Awake. Alert. Nonfocal, nonlateralizing. Skin: No rash. Normal color. No pallor. Musculoskeletal: No pedal edema. Full range of motion extremities. Const Vital Signs: 12/01/22 17:05 Temperature 97.3 F L Temperature Source Temporal Pulse Rate 90 Respiratory Rate 18 Blood Pressure 139/82 H Blood Pressure Mean 101 Pulse Ox 91 Oxygen Delivery Method Room Air MDM MDM MDM Narrative Medical decision making narrative: Right ear canal is irrigated. Smoking cessation was discussed. While he does not have a complete cerumen impaction, there is soft wax noted in the canal. Noted swelling so I do not think that he has swimmer's ear or otitis externa. Attempt was made by RN to irrigate right ear, but this was unsuccessful. I discussed the patient with Dr. Mango Meneses with otolaryngology. Based on the description, this could also be otitis externa and mycoses. He suggested placing the patient on Ciprodex drops, and follow-up in the next 1 to 2 days. There they can clean out the ear canal, confirmed that it is fungal, and add any medications at that time. I stressed the importance of follow-up with otolaryngology with the patient. I feel he can be discharged safely home with follow-up. Return instructions to the emergency department were reviewed. Disposition is discharged home in stable condition. Discharge Plan Triage Chief Complaint: Ear Problem Other Complaint: Dizziness ED Provider: Alfie Rodriguez Dx/Rx/DC Orders Clinical Impression: Hearing problem of right ear, Otitis externa in mycoses Instructions: ED External Ear Infection (Adult) Prescriptions: New ciprofloxacin-dexamethasone [Ciprodex] 0.3-0.1 % drops,suspension 4 drp EACH EAR BID 7 Days Qty: 7.5 0RF No Action levothyroxine 112 MCG tablet 112 mcg PO DAILY dextroamphetamine-amphetamine 15 mg capsule,extended release 24hr 15 mg PO DAILY prednisone 20 MG tablet 60 mg PO DAILY Qty: 12 0RF omeprazole 40 mg capsule,delayed release(DR/EC) 40 mg PO DAILY Qty: 30 0RF hydrocortisone 2.5 % cream 1 applic topical BID Qty: 28 0RF Rx Instructions: to affected area Stand Alone Forms: ED Work / School Excuse Primary Care Provider: Rafal Villatoro Referrals: Rafal Villatoro MD [Primary Care Provider] - Mango Meneses MD [Med Staff - Active Staff] - 1-2 Days if not improving Disposition Disposition: Home, Self Care
[2022-12-01 18:59] VITALS: BP 118/78; PULSE 78; RESP 16; TEMP 36.9; O2SAT 99
== END 2022-12-01 19:00 | disposition home or self-care (01) ==
PROVIDERS: Emergency Provider Emergency Medicine; PCP Family Medicine; Visit Provider Emergency Medicine
DX: H60.91 Unspecified otitis externa, right ear (principal); F17.210 Nicotine dependence, cigarettes, uncomplicated
CPT/HCPCS: 99283

== ENCOUNTER 2023-08-20 15:10 | Emergency (ER) | payer MEDICAID, SELFPAY ==
[2023-08-20 15:11] VITALS: BP 145/92; PULSE 105; RESP 14; TEMP 36.4; O2SAT 98; BMI 37.3
--- NOTE | 2023-08-20 16:34 | EX.ED.DYSGE1 ---
HPI History of Present Illness Chief Complaint: Dizziness Informant: patient Narrative Narrative: Intermittent dizziness for the past 2 to 3 weeks, along with occasional tinnitus in the right ear. No nausea or vomiting. No earache or decreased hearing at this time. He denies any near-syncope or syncope. No neck pain, sinus pain, headaches with this. No fevers or chills. He states it is worse when he gets up in the morning, he triggers it with turning his head which also makes it worse, the episodes are intermittent and do go away. For instance right now he is sitting still in bed and he has no symptoms. He denies any peripheral neurologic symptoms with this. He states separately sometimes he wakes up in the morning and has what feels like a racing heartbeat. He does not feel dizzy or have any other symptoms from that. He states he went to urgent care today for this, they checked his vital signs and saw that he went from a normal rate up to the 120s, and immediately sent him over to the emergency department. He states he was asymptomatic with this. He also states that he was in a different hospital ER several days ago because of abdominal pain that is now resolved, they did do labs and a CT and rule out appendicitis and everything out emergent and sent him home. States he has had prior issues with his right ear such as an infection that he had to be referred to ENT for earlier this year. He denies any otorrhea now. [facility] Medical History ADD (attention deficit disorder) Asthma Elevated liver function tests Hypothyroidism Smoker Home Medications levothyroxine 112 mcg tablet 112 mcg PO DAILY thyroid 11/07/19 [History Last Taken 08/08/21] dextroamphetamine-amphetamine ER 15 mg 24hr capsule,extend release 15 mg PO DAILY 12/18/21 [History Last Taken Unknown] hydrocortisone 2.5 % topical cream 1 applic topical BID #28 grams 05/01/22 [Rx Last Taken Unknown] omeprazole 40 mg capsule,delayed release 40 mg PO DAILY #30 caps 05/01/22 [Rx Last Taken Unknown] prednisone 20 mg tablet 60 mg (3 x 20 mg) PO DAILY #12 tabs 05/01/22 [Rx Last Taken Unknown] ciprofloxacin 0.3 %-dexamethasone 0.1 % ear drops,suspension (Ciprodex) 4 drp EACH EAR BID 7 days #7.5 mL 12/01/22 [Rx Last Taken Unknown] meclizine 25 mg tablet 25 mg PO Q8H PRN PRN Dizziness #20 tabs 08/20/23 [Rx Last Taken Unknown] Allergy/AdvReac Type Severity Reaction Status Date / Time bee venom protein (honey bee) Allergy Anaphylaxis Verified 08/20/23 15:11 methylphenidate AdvReac NEEDS Verified 08/20/23 15:11 [From Concerta] FOLLOW-UP Family History Other Autoimmune disease Thyroid disorder Surgical History History of cholecystectomy Hx of thyroidectomy Social History Smoking Status: Current every day smoker tobacco type: cigarettes substance use type: does not use ROS ROS ED Constitutional Constitutional ED: Denies chills or fever(s) Eyes Eyes: Denies blurry vision, change in vision or diplopia ENT ENT ED: Reports as per HPI, disequillibrium, dizziness, tinnitus and vertigo; Denies ear pain, rhinorrhea or sore throat Cardiovascular Cardiovascular: Reports palpitations; Denies chest pain Respiratory/Chest Respiratory/Chest: Denies cough or dyspnea Gastrointestinal Gastrointestinal: Denies abdominal pain, diarrhea, nausea or vomiting Genitourinary Genitourinary ED: Denies dysuria or hematuria Musculoskeletal Musculoskeletal: Denies back pain or neck pain Integumentary Denies abscess or rash Neurologic Neurologic: Denies headache(s), paresthesias or weakness Psychiatric Psychiatric: Denies anxiety or suicidal thoughts EXAM Physical Exam Const Vital Signs: 08/20/23 15:11 Temperature 97.6 F L Temperature Source Temporal Pulse Rate 105 H Respiratory Rate 14 Blood Pressure 145/92 H Blood Pressure Mean 109 Pulse Ox 98 Oxygen Delivery Method Room Air Positive well nourished, well developed and obese General Appearance ED: well developed and NAD Nutritional Appearance: obese HEENT Reports moist mucous membranes HEENT Narrative: TMs normal bilaterally. EAC normal bilaterally. No sign of a perforation right TM. No otorrhea. Normal light reflex bilaterally. normocephalic and atraumatic Eyes PERRL and EOMs intact bilaterally Eyes Narrative: No pathologic vertical or rotatory or nonfatigable horizontal nystagmus Neck full ROM and supple Resp normal respiratory effort and clear to auscultation bilaterally Cardio regular rate, regular rhythm and no murmurs Rate: Negative for tachycardic GI non-tender and non-distended Auscultation: normoactive bowel sounds Palpation: soft Back/Spine no CVA tenderness General Back: other FROM Extremity normal to inspection General Extremety ED: Negative for edema, pulses abnormal or tenderness General Extremity: Negative for edema or pulses abnormal Neuro oriented x3, CN's II-XII intact bilaterally and no sensory deficits noted Neuro Narrative: Normal gait. Normal [id number] and [id number] bilaterally. Positive [place] to the right. Sensorium / Orientation: awake and alert Motor Exam: strength 5/5 throughout Psych mental status grossly normal Skin no rashes or lesions noted and no wounds MDM MDM MDM Narrative Medical decision making narrative: I think this clearly is peripheral vertigo, since he has been having it for several weeks with no evidence of an ear condition that I can treat with antibiotics or drops here, I will refer him to ENT and prescribe him meclizine to use as needed. His vital signs are unremarkable, we did an EKG and it is unremarkable as well. He is in agreement with this, and comfortable with that overall plan. Rhythm Strip Rhythm Strip: Sinus Rhythm Rate: 95 Ectopy: None EKG Initial EKG: Attestation: I personally reviewed and interpreted this EKG as follows: Interpretation: Sinus Rhythm and No Acute Injury Pattern Discharge Plan Triage Chief Complaint: Dizziness ED Provider: Jose Jauregui Dx/Rx/DC Orders Clinical Impression: Peripheral vertigo involving right ear Instructions: ED Vertigo, Unspecified Prescriptions: New meclizine [meclizine] 25 mg tablet 25 mg PO Q8H PRN PRN (Reason: Dizziness) Qty: 20 0RF No Action levothyroxine 112 MCG tablet 112 mcg PO DAILY dextroamphetamine-amphetamine 15 mg capsule,extended release 24hr 15 mg PO DAILY prednisone 20 MG tablet 60 mg PO DAILY Qty: 12 0RF omeprazole 40 mg capsule,delayed release(DR/EC) 40 mg PO DAILY Qty: 30 0RF hydrocortisone 2.5 % cream 1 applic topical BID Qty: 28 0RF Rx Instructions: to affected area ciprofloxacin-dexamethasone [Ciprodex] 0.3-0.1 % drops,suspension 4 drp EACH EAR BID 7 Days Qty: 7.5 0RF Primary Care Provider: Rafal Villatoro Referrals: Rafal Villatoro MD [Primary Care Provider] - Merrick Riojas MD [Med Staff - Active Staff] - 3-5 Days if not improving Disposition Disposition: Home, Self Care
== END 2023-08-20 17:21 | disposition home or self-care (01) ==
PROVIDERS: Emergency Provider Emergency Medicine; PCP Family Medicine; Visit Provider Emergency Medicine
DX: H81.391 Other peripheral vertigo, right ear (principal); F17.210 Nicotine dependence, cigarettes, uncomplicated; E66.9 Obesity, unspecified
CPT/HCPCS: 93005; 99282

== ENCOUNTER 2024-04-22 02:02 | Emergency (ER) | payer MEDICAID, SELFPAY ==
[2024-04-22 02:03] VITALS: BP 133/79; PULSE 91; RESP 18; TEMP 36.4; O2SAT 98; BMI 39.6
--- NOTE | 2024-04-22 02:14 | RAD_ITS ---
EXAM: XR CHEST, 1 VIEW CLINICAL INDICATION: chest pain TECHNIQUE: Frontal view of the chest. COMPARISON: August 08, 2021 FINDINGS: LUNGS AND PLEURAL SPACES: Redemonstration of a short segment scar at the periphery of the left lower lung. No consolidation or edema. No pneumothorax. No effusion. HEART: Unremarkable. Cardiac silhouette not enlarged. MEDIASTINUM: Central airways and mediastinal contour are unremarkable. BONES/JOINTS: Unremarkable. No acute fracture. SOFT TISSUES: Unremarkable. RAD/Chest 1 View (Portable) IMPRESSION: No radiographic evidence of acute cardiopulmonary disease. Electronically Signed: Blaine Cruz MD at 3:03 EDT ,
--- NOTE | 2024-04-22 02:14 | EDS_ITS ---
HPI History of Present Illness Chief Complaint: Chest Pain Informant: patient Narrative Narrative: 28-year-old male states for the past 3 days he has had a discomfort in his anterior lower left parasternal region. He states is not a pain more like somebody as there finger pushing on it. He states that today's developed pain directly into the back behind it and now his low back. He states that night he was short of breath but wonders if he psyched myself out. The patient denies any known injuries to the back. No DVT PE risk factors. He takes levothyroxine. He is a smoker notes that he is developed a very intermittent cough with occasional yellow sputum production. Denies fever vomiting. No diarrhea and no rashes. [facility] Medical History Peripheral vertigo Lung nodule Panic disorder Anxiety Abnormal EKG Smoker Asthma Elevated liver function tests Dental infection ADD (attention deficit disorder) Hypothyroidism Home Medications ?Medication ?Instructions ?Recorded ?Last Taken ?Type levothyroxine 112 mcg tablet 112 mcg PO MOTUWETHFR thyroid 11/07/19 08/08/21 History epinephrine 0.3 mg/0.3 mL 0.3 ml IM PRN allergic re 09/02/23 Unknown History injection, auto-injector levothyroxine 112 mcg tablet 224 mcg PO SUSA 04/22/24 Unknown History (Euthyrox) Allergy/AdvReac Type Severity Reaction Status Date / Time bee venom protein (honey bee) Allergy Anaphylaxis Verified 04/22/24 02:03 methylphenidate (From AdvReac NEEDS Verified 04/22/24 02:03 Concerta) FOLLOW-UP Family History Mother Thyroid disorder Myocardial infarction, Onset Age: 40 Heart disease Father COPD (chronic obstructive pulmonary disease) Brother Bipolar disorder Grandfather Diabetes CVA (cerebral vascular accident) Grandfather COPD (chronic obstructive pulmonary disease) Other Autoimmune disease Surgical History History of cholecystectomy Hx of thyroidectomy Social History Smoking Status: Current every day smoker tobacco type: cigarettes substance use type: does not use ROS ROS ED Constitutional Constitutional ED: Denies chills, fever(s) or weight loss Eyes Eyes: Denies change in vision or diplopia ENT ENT ED: Denies ear pain, rhinorrhea or sore throat Cardiovascular Cardiovascular: Reports chest pain; Denies orthopnea, palpitations or racing heartbeat Respiratory/Chest Respiratory/Chest: Reports cough, dyspnea and sputum; Denies orthopnea Gastrointestinal Gastrointestinal: Denies abdominal pain, diarrhea, nausea or vomiting Genitourinary Genitourinary ED: Denies dysuria, hematuria or urinary frequency Musculoskeletal Musculoskeletal: Reports back pain; Denies arthralgias or myalgias Integumentary Denies abscess or rash Neurologic Neurologic: Denies headache(s) or weakness Psychiatric Psychiatric: Denies anxiety, depression, suicidal ideation or suicidal thoughts Endocrine Endocrinology: Denies polydipsia, polyphagia or polyuria Allergic/Immunologic Allergic/Immunologic ED: Denies mouth swelling, tongue swelling or urticaria EXAM Physical Exam Const Vital Signs: 04/22/24 02:03 04/22/24 03:03 Temperature 97.6 F L Temperature Source Temporal Pulse Rate 91 73 Respiratory Rate 18 11 L Blood Pressure 133/79 H 124/76 H Blood Pressure Mean 97 92 Pulse Ox 98 97 Oxygen Delivery Method Room Air Positive well nourished, well developed and obese General Appearance ED: well developed Nutritional Appearance: obese HEENT Reports normocephalic, head/scalp atraumatic and moist mucous membranes Eyes PERRL and EOMs intact bilaterally Neck no lymphadenopathy, supple and no JVD Resp normal respiratory effort and clear to auscultation bilaterally Cardio regular rate, regular rhythm and no murmurs GI normal to inspection, nondistended, normoactive bowel sounds and non-tender Palpation: soft Back/Spine no CVA tenderness and normal ROM Extremity normal to inspection General Extremety ED: Negative for edema General Extremity: Negative for edema Neuro oriented x3 and CN's II-XII intact bilaterally Sensorium / Orientation: alert Motor Exam: strength 5/5 throughout Psych mental status grossly normal Mood & Affect: Negative for depressed or tearful Skin no rashes or lesions noted and no wounds MDM MDM MDM Narrative Medical decision making narrative: Differential diagnosis includes but not limited to ACS, pleural effusion, pneumonia, aortic dissection, pulmonary embolism, shingles, muscle spasm, cos tochondritis May have been interpretation of the chest x-ray is no acute process. Noted probable scarring left base. White count 12.1 stable hemoglobin platelet count 217. D-dimer is normal. Troponin is 4 again patient's had symptoms for about 3 days. BMP unremarkable. Patient's had no events on the monitor. I cannot reproduce his pain. I am not seeing anything obviously emergent to explain his symptoms. Patient will be discharged home. Vies to quit smoking. Patient was advised to establish primary care as he states he was recently dismissed from his primary care's office. History & Record Review Discussion w/independent historian: Patient Additional record(s) reviewed:: Prior labs Lab Data Attestation: I reviewed the patient's lab results. Labs: Laboratory Results - last 24 hr 04/22/24 02:12 WBC 12.1 H RBC 5.16 Hgb 14.7 Hct 43.9 MCV 85.1 MCH 28.5 MCHC 33.5 RDW Std Deviation 37.5 RDW Coeff of Daniel 12.2 Plt Count 217 MPV 9.8 Immature Gran % (Auto) 0.300 Neut % (Auto) 47.4 Lymph % (Auto) 39.5 [place] % (Auto) 7.1 Eos % (Auto) 5.0 Baso % (Auto) 0.7 Absolute Neuts (auto) 5.7 Absolute Lymphs (auto) 4.76 H Nucleated RBC % 0 D-Dimer Quant (PE/DVT) < 0.27 L Sodium 141 Potassium 3.8 Chloride 110 H Carbon Dioxide 24.0 Anion Gap 7 BUN 16 Creatinine 1.13 Estim Creat Clear Calc 134.42 Est GFR (MDRD) Af Amer 99 Est GFR (MDRD) Non-Af 82 BUN/Creatinine Ratio 14.2 Glucose 105 Calcium 8.9 Troponin I High Sens 4 Radiography Diagnostic Testing: Clinical Impression(s) from Imaging Studies Chest X-Ray 04/22/24 02:14 IMPRESSION: No radiographic evidence of acute cardiopulmonary disease. Electronically Signed: Blaine Cruz MD at 3:03 EDT , EKG Initial EKG: Attestation: I personally reviewed and interpreted this EKG as follows: Comments: NSR ventricular rate of 86. Q wave in III (Chronic) Discharge Plan Triage Chief Complaint: Chest Pain ED Provider: Jonh Mcwilliams Dx/Rx/DC Orders Clinical Impression: Back pain, Chest pain Instructions: ED Chest Pain, Noncardiac Prescriptions: No Action epinephrine 0.3 mg/0.3 mL auto-injector 0.3 ml IM PRN Patient Comments: INJECT 0.3 ML INTRAMUSCULARLY NEEDED FOR ALLERGIC REACTION levothyroxine 112 MCG tablet 112 mcg PO MOTUWETHFR levothyroxine [Euthyrox] 112 mcg tablet 224 mcg PO SUSA Primary Care Provider: Care Physician,No Primary Referrals: Rafal Villatoro MD [Non-Staff] - Thor Jacobs MD [Med Staff - Active Staff] - 3-5 Days if not improving (for primary care or primary care physician of your choice) Print Language: Samoan Disposition Disposition: Home, Self Care
--- NOTE | 2024-04-22 02:14 | EKG12_ITS ---
Test Reason : CP Blood Pressure : / mmHG Vent. Rate : 086 BPM Atrial Rate : 086 BPM P-R Int : 188 ms QRS Dur : 084 ms QT Int : 344 ms P-R-T Axes : 005 020 018 degrees QTc Int : 411 ms Normal sinus rhythm Inferior infarct (cited on or before 22-APR-2024) Abnormal ECG Confirmed by EMMA VERONICA, MISTY ([id number]), film editor supervisor MARIAA VILLA ([id number]) on 04/23/2024 6:55:16 AM Referred By: PEARL Confirmed By:MISTY CARTER MD
[2024-04-22 02:36] LABS: Absolute Lymphocyte Count 4.76 X10^3/uL (0.83-4.51); Absolute Neutrophil Count 5.7 X10^3/uL (2.0-7.7); Basophil# 0.08 X10^3/uL; Basophil% 0.7 % (0-1); Hematocrit 43.9 % (40-54); Hemoglobin 14.7 g/dL (13.0-16.5); Lymphocyte # 4.76 X10^3/ul (0.83-4.51); Lymphocyte % 39.5 % (19-41); Mean Corp Hgb Conc 33.5 g/dL (32-36); Mean Corpuscular Hgb 28.5 pg (27.0-32.0); Mean Corpuscular Volume 85.1 fL (80-94); Mean Platelet Vol. 9.8 fl (6.2-12.0); Monocyte# 0.86 X10^3/uL; Monocyte% 7.1 % (0-10); NRBC Flagged by Analyzer 0 % (0-5); Neutrophil # 5.71 X10^3/uL (2.7-7.7); Neutrophil % 47.4 % (47-70); Platelet Count 217 K/mm3 (150-450); RBC Distribution Width CV 12.2 % (11.6-14.6); RBC Distribution Width SD 37.5 fl (35.1-43.9); Red Blood Count 5.16 M/mm3 (4.6-6.2); White Blood Count 12.1 K/mm3 (4.4-11.0)
[2024-04-22 02:50] LABS: Anion Gap 7 (5-15); BUN 16 mg/dL (7-18); BUN/Creat Ratio 14.2 RATIO (10-20); Calcium,Total 8.9 mg/dL (8.5-10.1); Chloride 110 mmol/L (98-107); Creatinine, Serum 1.13 mg/dL (0.70-1.30); EST Glomerular Filtration Rate 82 mL/min (>60); Est Glom Filt Rate - Afr Amer 99 mL/min (>60); Estimated Creatinine Clearance 134.42 ml/min; Glucose 105 mg/dL (74-106); Potassium 3.8 mmol/L (3.5-5.1); Sodium Level 141 mmol/L (136-145); Troponin-I HS (w/2H Reflex) 4 pg/mL (3.0-78.0)
[2024-04-22 02:58] LABS: D-Dimer Quantitative (DVT/PE) < 0.27 FEU/ug/m (0.27-0.49)
[2024-04-22 03:03] VITALS: BP 124/76; PULSE 73; RESP 11; O2SAT 97
[2024-04-22 03:22] VITALS: BP 110/76; PULSE 69; RESP 16; TEMP 36.2; O2SAT 98
[2024-04-22 04:17] LABS: Reflex Troponin-HS? (from REC) Y
== END 2024-04-22 03:22 | disposition home or self-care (01) ==
PROVIDERS: Emergency Provider Emergency Medicine; Visit Provider Emergency Medicine
DX: M54.9 Dorsalgia, unspecified (principal); R07.9 Chest pain, unspecified; F17.210 Nicotine dependence, cigarettes, uncomplicated; J45.909 Unspecified asthma, uncomplicated; E66.9 Obesity, unspecified; Z79.899 Other long term (current) drug therapy
CPT/HCPCS: 71045; 80048; 84484; 85025; 85379; 93005; 99284; A4216

== ENCOUNTER 2024-05-07 13:00 | Emergency (ER) | payer MEDICAID, SELFPAY ==
[2024-05-07 13:01] VITALS: BP 158/92; PULSE 102; RESP 18; TEMP 36.3; O2SAT 100; BMI 40.3
--- NOTE | 2024-05-07 13:58 | EKG12_ITS ---
Test Reason : DIZZINESS Blood Pressure : / mmHG Vent. Rate : 083 BPM Atrial Rate : 083 BPM P-R Int : 196 ms QRS Dur : 090 ms QT Int : 358 ms P-R-T Axes : 011 039 013 degrees QTc Int : 420 ms Normal sinus rhythm Normal ECG Confirmed by EMMA VERONICA, MISTY ([id number]), publishing editor SHAWNA WELLS ([id number]) on 05/08/2024 11:24:30 AM Referred By: Confirmed By:MISTY CARTER MD
--- NOTE | 2024-05-07 14:03 | EX.ED.DYSGE1 ---
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 He started feeling dizzy and his hands were shaking. He had 3 water bottles full of water today but has not urinated and was not sweating. He does feel improved but not quite back to baseline at this time. PFSH PFS Medical History Peripheral vertigo Lung nodule Panic disorder Anxiety Abnormal EKG Smoker Asthma Elevated liver function tests Dental infection ADD (attention deficit disorder) Hypothyroidism Home Medications ?Medication ?Instructions ?Recorded ?Last Taken ?Type levothyroxine 112 mcg tablet 112 mcg PO MOTUWETHFR thyroid 11/07/19 08/08/21 History epinephrine 0.3 mg/0.3 mL 0.3 ml IM PRN allergic re 09/02/23 Unknown History injection, auto-injector levothyroxine 112 mcg tablet 224 mcg PO SUSA 04/22/24 Unknown History (Euthyrox) Allergy/AdvReac Type Severity Reaction Status Date / Time bee venom protein (honey bee) Allergy Anaphylaxis Verified 05/07/24 13:01 methylphenidate (From AdvReac NEEDS Verified 05/07/24 13:01 Concerta) FOLLOW-UP Family History Mother Thyroid disorder Myocardial infarction, Onset Age: 40 Heart disease Father COPD (chronic obstructive pulmonary disease) Brother Bipolar disorder Grandfather Diabetes CVA (cerebral vascular accident) Grandfather COPD (chronic obstructive pulmonary disease) Other Autoimmune disease Surgical History History of cholecystectomy Hx of thyroidectomy Social History Smoking Status: Current every day smoker tobacco type: cigarettes substance use type: does not use ROS ROS ED Constitutional Constitutional ED: Denies chills or fever(s) ENT ENT ED: Denies rhinorrhea or sore throat Cardiovascular Cardiovascular: Denies chest pain or palpitations Respiratory/Chest Respiratory/Chest: Denies cough or dyspnea Gastrointestinal Gastrointestinal: Denies abdominal pain, nausea or vomiting Musculoskeletal Musculoskeletal: Denies back pain or extremity pain Integumentary Denies Abrasions or rash Neurologic Neurologic: Reports weakness; Denies headache(s) Psychiatric Psychiatric: Denies anxiety or depression Allergic/Immunologic Allergic/Immunologic ED: Denies lip swelling or urticaria EXAM Physical Exam Const Vital Signs: 05/07/24 13:01 05/07/24 15:22 Temperature 97.4 F L Temperature Source Temporal Pulse Rate 102 H 84 Respiratory Rate 18 17 Blood Pressure 158/92 H 101/68 Blood Pressure Mean 114 79 Pulse Ox 100 94 Oxygen Delivery Method Room Air Room Air Positive well nourished and well developed General Appearance ED: well developed HEENT Reports dry mucous membranes Mouth ED: Yes dry mucous membranes Mouth: dry mucous membranes Eyes EOMs intact bilaterally Chest Wall inspection of chest normal and palpation of chest normal Resp normal respiratory effort and clear to auscultation bilaterally Cardio Rate: tachycardic GI non-tender Auscultation: hypoactive bowel sounds Palpation: soft Extremity normal to inspection Neuro oriented x3 and no sensory deficits noted Motor Exam: strength 5/5 throughout Psych mental status grossly normal Skin no rashes or lesions noted MDM MDM MDM Narrative Medical decision making narrative: Patient placed on cardiac cath lab radiology technologist. EKG obtained to evaluate for cardiac arrhythmia/ischemia. IV line established. Labwork obtained to evaluate for leukocytosis, anemia, and electrolyte derangement. Patient given a liter of IV fluids. Lab Data Labs: Laboratory Results - last 24 hr 05/07/24 05/07/24 14:09 15:17 WBC 9.9 RBC 5.22 Hgb 15.4 Hct 43.8 MCV 83.9 MCH 29.5 MCHC 35.2 RDW Std Deviation 37.4 RDW Coeff of Daniel 12.4 Plt Count 203 MPV 9.5 Immature Gran % (Auto) 0.300 Neut % (Auto) 59.7 Lymph % (Auto) 28.7 [place] % (Auto) 7.2 Eos % (Auto) 3.5 Baso % (Auto) 0.6 Absolute Neuts (auto) 5.9 Absolute Lymphs (auto) 2.84 Nucleated RBC % 0 Urine Color Straw Urine Clarity Clear Urine pH 6.5 Ur Specific Irons 1.010 Urine Protein Negative Urine Glucose (UA) Normal Urine Ketones Negative Urine Occult Blood Negative Urine Nitrite Negative Urine Bilirubin Negative Urine Urobilinogen Normal Ur Leukocyte Esterase Negative Urine RBC 0 SEEN Urine WBC 0 SEEN Ur Squamous Epith Cells 0 SEEN Urine Bacteria 1+ Urine Mucus 0 SEEN Treatment and Re-Evaluation :: EKG is sinus rhythm 83 bpm with no evidence of acute ischemia. CBC is unremarkable. There is a delay in receiving the chemistry studies as the lab is having difficulty with one of the analyzer's. Urinalysis is pending, but urine was seen at bedside and is clear/light yellow in color. Urinalysis returns with no acute findings. Patient is improved at this time and will be discharged home. Return instructions provided. Discharge Plan Triage Chief Complaint: Dizziness ED Provider: Camelia Preciado Dx/Rx/DC Orders Clinical Impression: Heat effect, Dizziness Instructions: First Aid: Heat Exposure, Heat Stress: Warning Signs Prescriptions: No Action epinephrine 0.3 mg/0.3 mL auto-injector 0.3 ml IM PRN Patient Comments: INJECT 0.3 ML INTRAMUSCULARLY NEEDED FOR ALLERGIC REACTION levothyroxine 112 MCG tablet 112 mcg PO MOTUWETHFR levothyroxine [Euthyrox] 112 mcg tablet 224 mcg PO SUSA Primary Care Provider: Care Physician,No Primary Referrals: Care Physician,No Primary [Primary Care Provider] - [employer] PRODUCTION SUPERINTENDENT HYDRO, PRODUCTION SUPERINTENDENT HYDRO-C [Non-Staff] - As Needed Print Language: Setswana Disposition Disposition: Home, Self Care
[2024-05-07 14:22] LABS: Absolute Lymphocyte Count 2.84 X10^3/uL (0.83-4.51); Absolute Neutrophil Count 5.9 X10^3/uL (2.0-7.7); Basophil# 0.06 X10^3/uL; Basophil% 0.6 % (0-1); Eosinophil# 0.35 X10^3/uL; Eosinophils% 3.5 % (0-5); Hematocrit 43.8 % (40-54); Hemoglobin 15.4 g/dL (13.0-16.5); Lymphocyte # 2.84 X10^3/ul (0.83-4.51); Lymphocyte % 28.7 % (19-41); Mean Corp Hgb Conc 35.2 g/dL (32-36); Mean Corpuscular Hgb 29.5 pg (27.0-32.0); Mean Corpuscular Volume 83.9 fL (80-94); Mean Platelet Vol. 9.5 fl (6.2-12.0); Monocyte# 0.71 X10^3/uL; Monocyte% 7.2 % (0-10); NRBC Flagged by Analyzer 0 % (0-5); Neutrophil # 5.92 X10^3/uL (2.7-7.7); Neutrophil % 59.7 % (47-70); Platelet Count 203 K/mm3 (150-450); RBC Distribution Width CV 12.4 % (11.6-14.6); RBC Distribution Width SD 37.4 fl (35.1-43.9); Red Blood Count 5.22 M/mm3 (4.6-6.2); White Blood Count 9.9 K/mm3 (4.4-11.0)
[2024-05-07] MEDS: 0.9% Normal Saline (1000mL) 1,000 ML 1000 ML IV (15:10)
[2024-05-07 15:22] VITALS: BP 101/68; PULSE 84; RESP 17; O2SAT 94
[2024-05-07 15:29] LABS: Color, Urine Straw (Yellow); Glucose, Dipstick Normal (Normal); Ketone-Dipstick Negative (Negative); Leukocyte Esterase-Dipstick Negative /ul (Negative); Mucous, Urine 0 SEEN /hpf (<or=2+); Nitrite-Dipstick Negative (Negative); Occult Blood-Urine Negative /ul (Negative); Protein-Dipstick Negative (Negative); Red Blood Cells-Urine 0 SEEN /hpf (0-5); Squamous Epithelial Cells - UA 0 SEEN /hpf (0-5); Urine Bilirubin Dipstick Negative (Negative); Urine Clarity Clear (Clear); Urine Urobilinogen Normal (Normal); Urine pH 6.5 (5.0 - 8.0); White Blood Cells 0 SEEN /hpf (0-5)
[2024-05-07 15:40] LABS: Bacteria 1+ /hpf (None Seen)
[2024-05-07 15:55] VITALS: BP 119/71; PULSE 78; RESP 17; TEMP 36.9; O2SAT 96
[2024-05-07 17:49] LABS: Anion Gap 9 (5-15); BUN 13 mg/dL (7-18); BUN/Creat Ratio 11.7 RATIO (10-20); Calcium,Total 9.7 mg/dL (8.5-10.1); Chloride 107 mmol/L (98-107); Creatinine, Serum 1.11 mg/dL (0.70-1.30); EST Glomerular Filtration Rate 84 mL/min (>60); Est Glom Filt Rate - Afr Amer 101 mL/min (>60); Estimated Creatinine Clearance 132.86 ml/min; Glucose 101 mg/dL (74-106); Potassium 3.7 mmol/L (3.5-5.1); Sodium Level 138 mmol/L (136-145)
== END 2024-05-07 15:56 | disposition home or self-care (01) ==
PROVIDERS: Emergency Provider Emergency Medicine; Visit Provider Emergency Medicine
DX: T67.9XXA Effect of heat and light, unspecified, initial encounter (principal); R42 Dizziness and giddiness; F17.210 Nicotine dependence, cigarettes, uncomplicated; J45.909 Unspecified asthma, uncomplicated; X58.XXXA Exposure to other specified factors, initial encounter
CPT/HCPCS: 80048; 81001; 85025; 93005; 96360; 99285; J7030; A4216

== ENCOUNTER 2024-06-21 11:47 | Emergency (ER) | payer MEDICAID, SELFPAY ==
[2024-06-21 11:48] VITALS: BP 127/85; PULSE 95; RESP 18; TEMP 36.4; O2SAT 96; BMI 38.9
--- NOTE | 2024-06-21 12:06 | CT_ITS ---
STUDY: CT BRAIN WITHOUT CONTRAST REASON FOR EXAM: Male, 29 years old. Paresthesia, trouble with speech, reported problem RADIATION DOSAGE (If Supplied By Facility): CTDIvol = ( 44.99 ) mGy, DLP = ( 829.85 ) mGycm TECHNIQUE: Transaxial CT imaging of the brain was performed without administration of intravenous contrast material. Individualized dose optimization techniques were used for this CT. COMPARISON: No relevant priors. FINDINGS: Normal soft tissue structures. Normal calvarium. Normal size ventricles and extra-axial spaces for the patient''s age. Normal white matter tracts of the cerebral hemispheres. Normal basal ganglia and thalami. Normal brainstem. Normal cerebellum. There is no intracranial hemorrhage. There are no findings of an acute ischemic infarction. Nodular mucosal thickening of the maxillary sinuses more prominent on the left side. Partial opacification of the ethmoid sinus. Mucosal thickening of the sphenoid sinus posteriorly. CT/Brain/Head without Contrast IMPRESSION: Normal unenhanced CT scan of the brain. Sinusitis as described. Electronically Signed: Lalo Arreola MD at 12:53 EDT ,
--- NOTE | 2024-06-21 12:06 | EKG12_ITS ---
Test Reason : CHEST PAIN Blood Pressure : / mmHG Vent. Rate : 095 BPM Atrial Rate : 095 BPM P-R Int : 176 ms QRS Dur : 080 ms QT Int : 328 ms P-R-T Axes : 012 028 013 degrees QTc Int : 412 ms Poor data quality, interpretation may be adversely affected Normal sinus rhythm Inferior infarct , age undetermined Abnormal ECG Confirmed by EMMA VERONICA, MISTY ([id number]), publishing editor MARIAA VILLA ([id number]) on 06/22/2024 9:31:19 AM Referred By: EDUARDO Confirmed By:MISTY CARTER MD
[2024-06-21 12:39] LABS: Absolute Neutrophil Count 4.9 X10^3/uL (2.0-7.7); Basophil# 0.06 X10^3/uL; Basophil% 0.7 % (0-1); Eosinophils% 2.3 % (0-5); Hematocrit 45.5 % (40-54); Hemoglobin 15.6 g/dL (13.0-16.5); Lymphocyte % 29.3 % (19-41); Mean Corp Hgb Conc 34.3 g/dL (32-36); Mean Corpuscular Hgb 28.9 pg (27.0-32.0); Mean Corpuscular Volume 84.4 fL (80-94); Mean Platelet Vol. 9.8 fl (6.2-12.0); Monocyte# 0.88 X10^3/uL; Monocyte% 10.3 % (0-10); NRBC Flagged by Analyzer 0 % (0-5); Neutrophil # 4.86 X10^3/uL (2.7-7.7); Neutrophil % 56.9 % (47-70); Platelet Count 186 K/mm3 (150-450); RBC Distribution Width CV 12.4 % (11.6-14.6); RBC Distribution Width SD 37.7 fl (35.1-43.9); Red Blood Count 5.39 M/mm3 (4.6-6.2); White Blood Count 8.5 K/mm3 (4.4-11.0)
[2024-06-21 12:43] LABS: Anion Gap 3 (5-15); BUN 11 mg/dL (7-18); BUN/Creat Ratio 9.7 RATIO (10-20); Calcium,Total 9.2 mg/dL (8.5-10.1); Chloride 108 mmol/L (98-107); Creatinine, Serum 1.13 mg/dL (0.70-1.30); EST Glomerular Filtration Rate 82 mL/min (>60); Est Glom Filt Rate - Afr Amer 99 mL/min (>60); Estimated Creatinine Clearance 128.21 ml/min; Glucose 103 mg/dL (74-106); Potassium 3.9 mmol/L (3.5-5.1); Sodium Level 139 mmol/L (136-145)
[2024-06-21 12:47] VITALS: BP 124/62; PULSE 88; RESP 16; O2SAT 95
[2024-06-21 13:00] VITALS: BP 117/70; PULSE 78; RESP 22; O2SAT 98
[2024-06-21 13:01] LABS: Mucous, Urine 0 SEEN /hpf (<or=2+); Red Blood Cells-Urine 0 SEEN /hpf (0-5); White Blood Cells 0 SEEN /hpf (0-5)
[2024-06-21 13:07] LABS: Color, Urine Yellow (Yellow); Glucose, Dipstick Normal (Normal); Ketone-Dipstick Negative (Negative); Leukocyte Esterase-Dipstick 25 /ul (Negative); Nitrite-Dipstick Negative (Negative); Occult Blood-Urine Negative /ul (Negative); Protein-Dipstick Negative (Negative); Specific Gravity, Urine 1.015 (1.002-1.030); Urine Bilirubin Dipstick Negative (Negative); Urine Clarity Clear (Clear); Urine Urobilinogen Normal (Normal)
[2024-06-21 13:45] LABS: Squamous Epithelial Cells - UA 0-5 SEEN /hpf (0-5)
[2024-06-21 13:46] LABS: Bacteria 3+ /hpf (None Seen)
[2024-06-21 13:47] LABS: Amorphous Sediment 2+
[2024-06-21 14:04] VITALS: BP 116/70; PULSE 71; RESP 15; O2SAT 98
[2024-06-21 15:00] VITALS: BP 121/80; PULSE 81; RESP 16; O2SAT 98
--- NOTE | 2024-06-21 15:03 | EX.ED.DYSGE1 ---
HPI History of Present Illness Chief Complaint: Chest Pain Detail of Chief Complaint: Numerous complaints which include headache, trouble with speech, chest pain Informant: patient Onset/Context/Timing Onset: Days Context: Sudden Onset Timing: Intermittent Quality: Duration varies depending on symptom documented HPI narrative Current Severity: Mild Maximum Severity: Moderate Worsened by: HPI narrative Relieved by: nothing specific Associated Symptoms Associated Symptoms: None Narrative Narrative: Patient is a 29-year-old male with history of hypothyroidism who presents with jittery sensation in his body, he denies weight loss or wets. He denies constipation or diarrhea. He does report vague chest discomfort. He also reports a headache. He denies double vision, blurred vision or loss of vision. Eyes mendoza ears or decreased hearing. He denies trouble with speech or swallowing. He does complain of paresthesia in his hands and perioral. He denies abdominal pain. He reports a quivering in his abdomen. He denies vomiting or diarrhea. Denies dysuria, frequency, urgency or hematuria. He denies cough or shortness of breath. He denies pleuritic pain. He denies leg pain, swelling discoloration. There is no history of VTE. Has no risk factors for VTE. Patient denies black or maroon-colored stool. Patient denies change in color, consistency or caliber of his stool. Prior similar symptoms: No Recent Illness/Hospitalization: No [facility] Medical History Peripheral vertigo Lung nodule Panic disorder Anxiety Abnormal EKG Smoker Asthma Elevated liver function tests Dental infection ADD (attention deficit disorder) Hypothyroidism Home Medications ?Medication ?Instructions ?Recorded ?Last Taken ?Type levothyroxine 112 mcg tablet 112 mcg PO MOTUWETHFR thyroid 11/07/19 08/08/21 History epinephrine 0.3 mg/0.3 mL 0.3 ml IM PRN allergic re 09/02/23 Unknown History injection, auto-injector levothyroxine 112 mcg tablet 224 mcg PO SUSA 04/22/24 Unknown History (Euthyrox) amoxicillin 875 mg-potassium 875 mg PO Q12H #20 TABLETS 06/21/24 Unknown Rx clavulanate 125 mg tablet Allergy/AdvReac Type Severity Reaction Status Date / Time bee venom protein (honey bee) Allergy Anaphylaxis Verified 05/07/24 13:01 methylphenidate (From AdvReac NEEDS Verified 05/07/24 13:01 Concerta) FOLLOW-UP Family History Mother Thyroid disorder Myocardial infarction, Onset Age: 40 Heart disease Father COPD (chronic obstructive pulmonary disease) Brother Bipolar disorder Grandfather Diabetes CVA (cerebral vascular accident) Grandfather COPD (chronic obstructive pulmonary disease) Other Autoimmune disease Surgical History History of cholecystectomy Hx of thyroidectomy Social History Smoking Status: Current every day smoker tobacco type: cigarettes substance use type: does not use ROS ROS ED Constitutional Constitutional ED: Denies chills, fever(s), subjective, sweats or weight loss Eyes Eyes: Denies blurry vision, change in vision or diplopia ENT ENT ED: Denies ear pain, rhinorrhea or sore throat Cardiovascular Cardiovascular: Denies chest pain, orthopnea, palpitations or racing heartbeat Respiratory/Chest Respiratory/Chest: Reports dyspnea; Denies cough, dyspnea on exertion or orthopnea Gastrointestinal Gastrointestinal: Reports abdominal pain; Denies diarrhea, melena, nausea or vomiting Genitourinary Genitourinary ED: Denies dysuria, hematuria or urinary frequency Musculoskeletal Musculoskeletal: Denies arthralgias, back pain or myalgias Integumentary Denies abscess, Abrasions or rash Neurologic Neurologic: Reports headache(s); Denies paresthesias or weakness Psychiatric Psychiatric: Reports anxiety; Denies depression Endocrine Endocrinology: Denies cold intolerance or heat intolerance Hematologic/Lymphatic Hematologic/Lymphatic: Reports systems reviewed and no addt'l complaints, except as documented EXAM Physical Exam Const Vital Signs: 06/21/24 11:48 06/21/24 12:47 06/21/24 13:00 Temperature 97.5 F L Temperature Source Temporal Pulse Rate 95 88 78 Respiratory Rate 18 16 22 H Blood Pressure 127/85 H 124/62 H 117/70 Blood Pressure Mean 99 82 85 Pulse Ox 96 95 98 Oxygen Delivery Method Room Air Room Air 06/21/24 14:04 06/21/24 15:00 Temperature Temperature Source Pulse Rate 71 81 Respiratory Rate 15 16 Blood Pressure 116/70 121/80 H Blood Pressure Mean 85 93 Pulse Ox 98 98 Oxygen Delivery Method Room Air Room Air Positive well nourished and well developed; Negative for unkempt General Appearance ED: well developed and NAD; Negative for unkempt, cyanotic, diaphoretic or pallor HEENT Reports TM's clear and moist mucous membranes HEENT Narrative: Head is atraumatic and normocephalic. Ears normal. TMs normal. Nares patent. Posterior pharynx out erythema exudate. Uvula midline. No deviation with protrusion. There is no dysarthria or aphasia. Negative for trauma Tympanic Membrane ED: Yes TM's clear Eyes PERRL and EOMs intact bilaterally General Eye ED: Negative for pale conjunctiva or scleral icterus Neck no lymphadenopathy, supple and no JVD Chest Wall inspection of chest normal and palpation of chest normal Resp normal respiratory effort and clear to auscultation bilaterally Cardio regular rate, regular rhythm, S1 normal heart sound, S2 normal heart sound and no murmurs GI normal to inspection, nondistended, normoactive bowel sounds, non-tender, non-distended and no masses; Negative for hepatosplenomegaly Inspection: abdominal distention Auscultation: normoactive bowel sounds Palpation: soft Back/Spine no CVA tenderness Extremity normal to inspection Extremity Narrative: There is no asymmetry, swelling, discoloration, leg vein distention, palpable cords or tenderness along the distribution of the deep venous system. General Extremety ED: Negative for edema or tenderness General Extremity: Negative for edema Neuro oriented x3, CN's II-XII intact bilaterally and no sensory deficits noted Neuro Narrative: There is no dysmetria. There is no clonus or Babinski sign. Sensorium / Orientation: alert Motor Exam: strength 5/5 throughout Psych Appearance: Negative for unkempt Skin no rashes or lesions noted, no wounds and skin turgor normal General Skin Exam: elasticity normal; Negative for jaundice or pallor MDM MDM MDM Narrative Medical decision making narrative: Differential diagnosis is anxiety, with regards to his chest pain history is not consistent with PE or cardiac. Will obtain CBC to assess for white count and anemia. Electrolyte panel to assess renal function. UA to assess for infection since he is reporting odd odor to his urine and going more frequently. Lab Data Attestation: I reviewed the patient's lab results. Lab results narrative: CBC is basic metabolic panel is normal. UA macro is negative and there is no RBCs and WBCs. Patient does have 3+ bacteria. Since he is complaining of odor and frequency will send culture and placed on antibiotics. Labs: Laboratory Results - last 24 hr 06/21/24 06/21/24 12:15 12:55 WBC 8.5 RBC 5.39 Hgb 15.6 Hct 45.5 MCV 84.4 MCH 28.9 MCHC 34.3 RDW Std Deviation 37.7 RDW Coeff of Daniel 12.4 Plt Count 186 MPV 9.8 Immature Gran % (Auto) 0.500 Neut % (Auto) 56.9 Lymph % (Auto) 29.3 Bertie % (Auto) 10.3 H Eos % (Auto) 2.3 Baso % (Auto) 0.7 Absolute Neuts (auto) 4.9 Absolute Lymphs (auto) 2.50 Nucleated RBC % 0 Sodium 139 Potassium 3.9 Chloride 108 H Carbon Dioxide 28.0 Anion Gap 3 L BUN 11 Creatinine 1.13 Estim Creat Clear Calc 128.21 Est GFR (MDRD) Af Amer 99 Est GFR (MDRD) Non-Af 82 BUN/Creatinine Ratio 9.7 L Glucose 103 Calcium 9.2 Urine Color Yellow Urine Clarity Clear Urine pH 8.0 Ur Specific [place] 1.015 Urine Protein Negative Urine Glucose (UA) Normal Urine Ketones Negative Urine Occult Blood Negative Urine Nitrite Negative Urine Bilirubin Negative Urine Urobilinogen Normal Ur Leukocyte Esterase 25 H Urine RBC 0 SEEN Urine WBC 0 SEEN Ur Squamous Epith Cells 0-5 SEEN Amorphous Sediment 2+ Urine Bacteria 3+ Urine Mucus 0 SEEN Radiography Diagnostic Testing: Clinical Impression(s) from Imaging Studies Brain CT 06/21/24 12:06 IMPRESSION: Normal unenhanced CT scan of the brain. Sinusitis as described. Electronically Signed: Lalo Arreola MD at 12:53 EDT , CT is remarkable for sinus infection. Patient has evidence of sphenoid, ethmoid and maxillary sinusitis most likely chronic. Will place on Augmentin which will cover urologic pathogens as well. This would explain his headache. Discharge Plan Triage Chief Complaint: Chest Pain ED Provider: Audie Adkins Dx/Rx/DC Orders Clinical Impression: Sinusitis chronic, ethmoidal, Sinusitis chronic, sphenoidal, Chronic sinusitis of both maxillary sinuses, Paresthesia, Bacteriuria Instructions: ED Sinusitis (Antibiotic Treatment), ED Paraesthesias Prescriptions: New amoxicillin-pot clavulanate 875-125 mg tablet 875 mg PO Q12H Qty: 20 0RF No Action epinephrine 0.3 mg/0.3 mL auto-injector 0.3 ml IM PRN Patient Comments: INJECT 0.3 ML INTRAMUSCULARLY NEEDED FOR ALLERGIC REACTION levothyroxine 112 MCG tablet 112 mcg PO MOTUWETHFR levothyroxine [Euthyrox] 112 mcg tablet 224 mcg PO SUSA Primary Care Provider: Care Physician,No Primary Referrals: Care Physician,No Primary [Primary Care Provider] - Activity Restrictions/Additional Instructions: Contact your physician. The name of physicians located on your insurance card issued by care source Print Language: [place] African Disposition Disposition: Home, Self Care
== END 2024-06-21 15:22 | disposition home or self-care (01) ==
PROVIDERS: Emergency Provider Emergency Medicine; Visit Provider Emergency Medicine
DX: J32.2 Chronic ethmoidal sinusitis (principal); J32.3 Chronic sphenoidal sinusitis; J32.0 Chronic maxillary sinusitis; R20.2 Paresthesia of skin; R82.71 Bacteriuria; F17.210 Nicotine dependence, cigarettes, uncomplicated; J45.909 Unspecified asthma, uncomplicated
CPT/HCPCS: 70450; 80048; 81001; 85025; 93005; 99284; A4216

== ENCOUNTER 2024-10-17 18:29 | Emergency (ER) | payer MEDICAID, SELFPAY ==
[2024-10-17 18:30] VITALS: BP 124/74; PULSE 96; RESP 18; TEMP 36.8; O2SAT 95; BMI 40.1
--- NOTE | 2024-10-17 19:43 | ED.RN ---
Pt states he is on house arrest. Security and charge nurse were made aware.
--- NOTE | 2024-10-17 20:38 | EDS_ITS ---
HPI History of Present Illness Chief Complaint: Dental Informant: patient Narrative Narrative: Patient is a 29-year-old male with history of tobacco use presenting with dental abscess drainage as well as nausea. Patient states he had an abscess is about 1 cm in size of his right lower gum that has been draining for the few days. He states he drains it in he swallows and he feels nauseous. Today he felt nauseous and felt like his heart was beating fast. He took his temperature is 95.9. He was concerned that he was getting septic. He is on house arrest and only come to the ER is by taking squad to be called 911. He notes that he had some leftover amoxicillin 500 mg from recent sinus infection. He has been taking that twice a day for the past 2 days. Denies any fevers. Denies any difficulty swallowing. Denies any associated abdominal pain. Has had some mild diarrhea. Reports chronic conjunctivitis, right ear pain and ringing in his ear which he has seen ENT for in the past. No other complaints or concerns reported at this time. [facility] Medical History Peripheral vertigo Lung nodule Panic disorder Anxiety Abnormal EKG Smoker Asthma Elevated liver function tests Dental infection ADD (attention deficit disorder) Hypothyroidism Home Medications ?Medication ?Instructions ?Recorded ?Last Taken ?Type levothyroxine 112 mcg tablet 112 mcg PO MOTUWETHFR thyroid 11/07/19 08/08/21 History epinephrine 0.3 mg/0.3 mL 0.3 ml IM PRN allergic re 09/02/23 Unknown History injection, auto-injector levothyroxine 112 mcg tablet 224 mcg PO SUSA 04/22/24 Unknown History (Euthyrox) amoxicillin 875 mg-potassium 875 mg PO Q12H #20 TABLETS 06/21/24 Unknown Rx clavulanate 125 mg tablet amoxicillin 875 mg-potassium 1 tab PO BID #10 tabs 10/17/24 Unknown Rx clavulanate 125 mg tablet ondansetron 4 mg disintegrating 4 mg PO Q8H PRN PRN Nausea #10 tabs 10/17/24 Unknown Rx tablet Allergy/AdvReac Type Severity Reaction Status Date / Time bee venom protein (honey bee) Allergy Anaphylaxis Verified 10/17/24 18:30 methylphenidate (From AdvReac NEEDS Verified 10/17/24 18:30 Concerta) FOLLOW-UP Family History Mother Thyroid disorder Myocardial infarction, Onset Age: 40 Heart disease Father COPD (chronic obstructive pulmonary disease) Brother Bipolar disorder Grandfather Diabetes CVA (cerebral vascular accident) Grandfather COPD (chronic obstructive pulmonary disease) Other Autoimmune disease Surgical History History of cholecystectomy Hx of thyroidectomy Social History Smoking Status: Current every day smoker tobacco type: cigarettes substance use type: does not use ROS ROS ED Constitutional Constitutional ED: Denies chills or fever(s) ENT ENT ED: Reports ear pain right and other Details: Drainage from the right lower gum?denies dental pain ; Denies rhinorrhea or sore throat Cardiovascular Cardiovascular: Denies chest pain Respiratory/Chest Respiratory/Chest: Denies cough or dyspnea Gastrointestinal Gastrointestinal: Reports diarrhea and nausea; Denies abdominal pain or vomiting Musculoskeletal Musculoskeletal: Denies arthralgias or myalgias Integumentary Denies rash Psychiatric Psychiatric: Reports anxiety EXAM Physical Exam Const Vital Signs: 10/17/24 18:30 Temperature 98.2 F Temperature Source Oral Pulse Rate 96 Respiratory Rate 18 Blood Pressure 124/74 H Blood Pressure Mean 90 Pulse Ox 95 Oxygen Delivery Method Room Air Positive well nourished and well developed General Appearance ED: well developed and NAD HEENT HEENT Narrative: Normocephalic atraumatic. Moist mucous membranes. Patient is a small area of swelling of the right lower gum around the region of the first molar. No fluctuance or drainage at this time. No associated dental tenderness. He does have some scattered tartar and caries. Moist mucosal membranes. Normal oropharynx. Normal uvula. Normal phonation. No trismus. Normal nasal exam. Right tympanic membrane?full and mildly injected. No air-fluid level or loss of bony landmarks appreciated. Normal left tympanic membrane. Normal external ears and ear canals. Eyes PERRL and EOMs intact bilaterally Eyes Narrative: Conjunctival injection present, no drainage Neck supple Chest Wall inspection of chest normal and palpation of chest normal Resp normal respiratory effort Cardio regular rate and regular rhythm GI normal to inspection, nondistended, normoactive bowel sounds and non-tender Palpation: soft Extremity normal to inspection General Extremety ED: Negative for edema General Extremity: Negative for edema Neuro oriented x3 Sensorium / Orientation: alert Psych mental status grossly normal Skin no rashes or lesions noted and no wounds MDM MDM MDM Narrative Medical decision making narrative: Patient valuated for spontaneous draining from his gums. Suspect he has a dental abscess. He is partially treated that with amoxicillin that he had leftover. He is overall well-appearing. He does not have vital sign abnormalities does not appear toxic. Will be given a prescription for Zofran as well as Augmentin. He has dentist and PCP follow-up scheduled. Is given referral for ophthalmology for his chronic conjunctivitis. Encouraged to follow back up with ENT. Given return precautions. Discharged home in stable condition. Discharge Plan Triage Chief Complaint: Dental ED Provider: Adelaida Keith Dx/Rx/DC Orders Clinical Impression: Abscess, dental, Nausea Instructions: ED Dental Abscess Prescriptions: New amoxicillin-pot clavulanate 875-125 mg tablet 1 tab PO BID Qty: 10 0RF ondansetron 4 mg tablet,disintegrating 4 mg PO Q8H PRN PRN (Reason: Nausea) Qty: 10 0RF No Action epinephrine 0.3 mg/0.3 mL auto-injector 0.3 ml IM PRN Patient Comments: INJECT 0.3 ML INTRAMUSCULARLY NEEDED FOR ALLERGIC REACTION levothyroxine 112 MCG tablet 112 mcg PO MOTUWETHFR levothyroxine [Euthyrox] 112 mcg tablet 224 mcg PO SUSA amoxicillin-pot clavulanate 875-125 mg tablet 875 mg PO Q12H Qty: 20 0RF Stand Alone Forms: ED Work / School Excuse Primary Care Provider: Care Physician,No Primary Referrals: Care Physician,No Primary [Primary Care Provider] - Sravan Powers MD [Med Staff - Active Staff] - Print Language: Belarusian Disposition Disposition: Home, Self Care
[2024-10-17] MEDS: Amox/Clavulanate 875 MG Tablet PO (20:43)
[2024-10-17] MEDS: Ondansetron ODT 4 MG Tablet PO (20:43)
[2024-10-17 20:44] VITALS: BP 121/62; PULSE 95; RESP 18; TEMP 36.8; O2SAT 97
== END 2024-10-17 20:50 | disposition home or self-care (01) ==
PROVIDERS: Emergency Provider Emergency Medicine; Visit Provider Emergency Medicine
DX: K04.7 Periapical abscess without sinus (principal); R19.7 Diarrhea, unspecified; H10.409 Unspecified chronic conjunctivitis, unspecified eye; E89.0 Postprocedural hypothyroidism; F98.8 Other specified behavioral and emotional disorders with onset usually occurring in childhood and adolescence; K02.9 Dental caries, unspecified; F17.210 Nicotine dependence, cigarettes, uncomplicated; Z79.890 Hormone replacement therapy
CPT/HCPCS: 99284

== ENCOUNTER → 2024-11-16 | Outpatient (CLI) | payer MEDICAID, SELFPAY ==
[2024-11-16 15:35] LABS: Bacteria 0 SEEN /hpf (None Seen); Mucous, Urine 0 SEEN /hpf (<or=2+)
[2024-11-16 17:31] LABS: Absolute Lymphocyte Count 3.86 X10^3/uL (0.83-4.51); Absolute Neutrophil Count 4.8 X10^3/uL (2.0-7.7); Basophil# 0.07 X10^3/uL; Basophil% 0.7 % (0-1); Eosinophil# 0.47 X10^3/uL; Eosinophils% 4.6 % (0-5); Hematocrit 44.8 % (40-54); Lymphocyte # 3.86 X10^3/ul (0.83-4.51); Lymphocyte % 38.1 % (19-41); Mean Corp Hgb Conc 33.5 g/dL (32-36); Mean Corpuscular Hgb 28.6 pg (27.0-32.0); Mean Corpuscular Volume 85.5 fL (80-94); Mean Platelet Vol. 9.7 fl (6.2-12.0); Monocyte# 0.92 X10^3/uL; Monocyte% 9.1 % (0-10); NRBC Flagged by Analyzer 0 % (0-5); Neutrophil # 4.79 X10^3/uL (2.7-7.7); Neutrophil % 47.2 % (47-70); Platelet Count 198 K/mm3 (150-450); RBC Distribution Width CV 12.2 % (11.6-14.6); Red Blood Count 5.24 M/mm3 (4.6-6.2); White Blood Count 10.1 K/mm3 (4.4-11.0)
[2024-11-16 17:48] LABS: Color, Urine Yellow (Yellow); Glucose, Dipstick Normal (Normal); Ketone-Dipstick Negative (Negative); Leukocyte Esterase-Dipstick Negative /ul (Negative); Nitrite-Dipstick Negative (Negative); Occult Blood-Urine Negative /ul (Negative); Protein-Dipstick Negative (Negative); Urine Bilirubin Dipstick Negative (Negative); Urine Clarity Clear (Clear); Urine Urobilinogen Normal (Normal)
[2024-11-16 17:54] LABS: Vitamin B12 856 pg/mL (211-911); Vitamin D,25 Hydroxy 21.9 ng/mL
[2024-11-16 18:07] LABS: ALB/GLOB Ratio 1.1 RATIO (0.9-2.4); AST(SGOT) 18 U/L (15-37); Alanine Aminotransfer ALT/SGPT 40 U/L (16-61); Albumin, Serum 3.9 g/dL (3.2-5.0); Alkaline Phosphatase 97 U/L (45-117); Anion Gap 4 (5-15); BUN 14 mg/dL (7-18); BUN/Creat Ratio 12.8 RATIO (10-20); Calcium,Total 9.5 mg/dL (8.5-10.1); Chloride 106 mmol/L (98-107); Creatinine, Serum 1.09 mg/dL (0.70-1.30); EST Glomerular Filtration Rate 85 mL/min (>60); Est Glom Filt Rate - Afr Amer 103 mL/min (>60); Globulin 3.7 g/dL (2.2-4.2); Glucose 96 mg/dL (74-106); Potassium 4.1 mmol/L (3.5-5.1); Protein, Total 7.6 g/dL (6.4-8.2); Sodium Level 140 mmol/L (136-145); T4 Free Direct 0.62 ng/dL (0.76-1.46)
[2024-11-16 18:29] LABS: Red Blood Cells-Urine 0-5 SEEN /hpf (0-5); Squamous Epithelial Cells - UA 0-5 SEEN /hpf (0-5); White Blood Cells 0-5 SEEN /hpf (0-5)
== END | disposition home or self-care (01) ==
PROVIDERS: PCP Family Medicine; Referring Provider Family Medicine; Visit Provider Family Medicine
DX: R53.83 Other fatigue (principal); F17.200 Nicotine dependence, unspecified, uncomplicated; E03.9 Hypothyroidism, unspecified
CPT/HCPCS: 36415; 80053; 81001; 82306; 82607; 84439; 84443; 85025

== ENCOUNTER → 2025-02-01 | Outpatient (CLI) | payer MEDICAID, SELFPAY | END | disposition home or self-care (01) | LOC: MFPLAB 12:02 | PROVIDERS: PCP Family Medicine; Referring Provider Family Medicine; Visit Provider Family Medicine | DX: E03.9 Hypothyroidism, unspecified (principal) | CPT/HCPCS: 36415; 84439 ==

== ENCOUNTER → 2025-02-04 | Outpatient (CLI) | payer MEDICAID, SELFPAY | END | disposition home or self-care (01) | LOC: SL 13:18 | PROVIDERS: PCP Family Medicine; Referring Provider Nurse Practitioner Family; Visit Provider Nurse Practitioner Family | DX: G47.10 Hypersomnia, unspecified (principal) | CPT/HCPCS: 95806 ==

== ENCOUNTER → 2025-02-25 | Outpatient (CLI) | payer MEDICAID, SELFPAY | END | disposition home or self-care (01) | LOC: SL 10:37 | PROVIDERS: PCP Family Medicine; Visit Provider Nurse Practitioner Family | DX: Z00.00 Encounter for general adult medical examination without abnormal findings (principal) ==

== ENCOUNTER 2025-03-04 07:44 | Emergency (ER) | payer MEDICAID, SELFPAY ==
[2025-03-04 07:45] VITALS: BP 146/91; PULSE 93; RESP 18; TEMP 36.6; O2SAT 99; BMI 31.9
--- NOTE | 2025-03-04 08:07 | CT_ITS ---
PROCEDURE: ABDOMEN/PELVIS WITHOUT CONT 03/04/2025 REASON FOR EXAM: Right lower quadrant pain. Nausea and vomiting. TECHNIQUE: Abdomen and pelvis CT without intravenous contrast. Noncontrast technique limits evaluation of the abdominal and pelvic viscera. Coronal and Sagittal reconstruction series were provided. One or more dose reduction techniques were used (e.g., Automated exposure control, adjustment of the mA and/or kV according to patient size, use of iterative reconstruction technique). PATIENT PREPARATION: Per protocol ORAL CONTRAST TYPE: None. COMPARISON: None FINDINGS: Lung bases: Unremarkable Liver: Diffuse fatty infiltration. Gallbladder: Surgically absent. Spleen: Normal size. Pancreas: Normal size. No surrounding inflammation. Adrenals: Unremarkable Kidneys: Punctate nonobstructive calculus in the lower pole calyx of the left kidney. Bladder: Unremarkable Bowel: Colonic diverticulosis without diverticulitis. Appendix: The appendix is unremarkable. Lymph nodes: Unremarkable. Vasculature: The abdominal aorta and IVC contours are normal. Noncontrast technique limits evaluation. Peritoneum / Retroperitoneum: Unremarkable Bones: Unremarkable CT/Abdomen/Pelvis without Cont IMPRESSION: Status post cholecystectomy. Fatty infiltration of the liver. Punctate nonobstructive calculus in the lower pole calyx of the left kidney. Reading Location: [place] [id number]
--- NOTE | 2025-03-04 08:08 | ED.VIS.GI ---
HPI HPI - GI History of Present Illness Chief Complaint: Abd Pain Detail of Chief Complaint: Abdominal pain Informant: patient Narrative Narrative: Patient presents with abdominal pain that started 2 weeks ago. Describes a discomfort and pressure in the right lower abdomen. He denies fever. Denies nausea vomiting or diarrhea. Patient states that he went to [facility] 2 weeks ago and had a CT scan that was unremarkable. He continues to have the same discomfort and has not gone away. At 1 point the other day he felt a lump in his right lower abdomen but then he was able to push on it and it seemed to disappear. Patient does complain of some urinary frequency and at times he thinks he sees blood in the urine. He denies blood in his stool or black tarry stool PFSH PFSH Medical History Peripheral vertigo Lung nodule Panic disorder Anxiety Abnormal EKG Smoker Asthma Elevated liver function tests Dental infection ADD (attention deficit disorder) Hypothyroidism Home Medications ?Medication ?Instructions ?Recorded ?Last Taken ?Type epinephrine 0.3 mg/0.3 mL 0.3 ml IM PRN allergic re 09/02/23 Unknown History injection, auto-injector albuterol sulfate 90 mcg/actuation 2 puff inhalation Q4H PRN 01/16/25 Unknown History aerosol inhaler shortness of breath or wheezing levothyroxine 150 mcg tablet 150 mcg PO QDAY 01/18/25 Unknown History Allergy/AdvReac Type Severity Reaction Status Date / Time bee venom protein (honey bee) Allergy Anaphylaxis Verified 03/04/25 07:47 methylphenidate (From AdvReac NEEDS Verified 03/04/25 07:47 Concerta) FOLLOW-UP Family History Mother Thyroid disorder Myocardial infarction, Onset Age: 40 Heart disease Father , heart attack 2009 COPD (chronic obstructive pulmonary disease) Brother Bipolar disorder Grandfather Diabetes CVA (cerebral vascular accident) Grandfather COPD (chronic obstructive pulmonary disease) Other Autoimmune disease Surgical History History of cholecystectomy Hx of thyroidectomy Social History household members: significant other number of children: 3 current occupational status: employed current occupation: [employer] sexually active: Yes Smoking Status: Current every day smoker tobacco type: cigarettes alcohol intake: never substance use type: does not use ROS ROS ED Review of Systems ROS Unobtainable: other Constitutional Constitutional ED: Reports lethargy; Denies chills, fever(s), sweats or weight loss Eyes Eyes: Denies blurry vision, change in vision or diplopia ENT ENT ED: Denies rhinorrhea or sore throat Cardiovascular Cardiovascular: Denies chest pain, orthopnea or racing heartbeat Respiratory/Chest Respiratory/Chest: Denies cough, dyspnea, dyspnea on exertion, orthopnea or sputum Gastrointestinal Gastrointestinal: Reports abdominal pain; Denies diarrhea, nausea or vomiting Genitourinary Genitourinary ED: Denies dysuria, hematuria or urinary frequency Musculoskeletal Musculoskeletal: Denies arthralgias, back pain, myalgias or neck pain Integumentary Denies abscess, Abrasions or rash Neurologic Neurologic: Denies headache(s) or weakness Psychiatric Psychiatric: Denies anxiety, depression or suicidal thoughts Endocrine Endocrinology: Denies polydipsia, polyphagia or polyuria Hematologic/Lymphatic Hematologic/Lymphatic: Denies easy bleeding, easy bruising or lymphadenopathy Allergic/Immunologic Allergic/Immunologic ED: Denies mouth swelling, tongue swelling or urticaria EXAM Physical Exam Const Vital Signs: 03/04/25 07:45 Temperature 97.8 F Temperature Source Oral Pulse Rate 93 Respiratory Rate 18 Blood Pressure 146/91 H Blood Pressure Mean 109 Pulse Ox 99 Oxygen Delivery Method Room Air Positive well nourished and well developed General Appearance ED: well developed and NAD HEENT Reports TM's clear and moist mucous membranes normocephalic and atraumatic; Negative for trauma or tenderness Tympanic Membrane ED: Yes TM's clear Eyes PERRL and EOMs intact bilaterally General Eye ED: Negative for pale conjunctiva or scleral icterus Neck no lymphadenopathy, supple and no JVD General: Negative for tenderness Chest Wall inspection of chest normal and palpation of chest normal Chest: Negative for tenderness Resp normal respiratory effort and clear to auscultation bilaterally Effort and Inspection: Negative for respiratory distress or pain with movement Auscultation: Negative for rhonchi, wheezes or diminished lung sounds Cardio regular rate, regular rhythm, S1 normal heart sound, S2 normal heart sound and no murmurs Peripheral Pulses: pulses 2+ throughout GI normal to inspection, nondistended, normoactive bowel sounds, soft to palpation, non-distended and no masses GI Narrative: Mild tenderness over the right lower quadrant. No masses palpated. There is no rebound, rigidity, or peritoneal signs. Back/Spine no CVA tenderness and no thoracic nor lumbar tenderness Extremity normal to inspection General Extremety ED: Negative for edema General Extremity: Negative for edema Neuro oriented x3, CN's II-XII intact bilaterally, no sensory deficits noted and gait normal Sensorium / Orientation: awake, alert, oriented to person, oriented to place and oriented to time Motor Exam: strength 5/5 throughout and strength abnormal Psych mental status grossly normal Skin no rashes or lesions noted and no wounds MDM MDM MDM Narrative Medical decision making narrative: Patient presents with abdominal pain for over 2 weeks. He has had intermittent episodes of hard stools and watery stools. Clinically looks well. He does have tenderness palpation of the right lower quadrant. CBC with differential, 9.5 with hemoglobin 15.4 and platelet count of 216. Chemistries unremarkable. LFTs were normal except his minimally elevated ALT of 51. Alk phos was normal at 82 and lipase normal at 32. Urinalysis normal. CT scan of the abdomen pelvis showed no acute process. He had normal appendix. No signs of urolithiasis or hernia or other abnormality. This point patient will be discharged to home. He is advised to use ibuprofen or Tylenol for discomfort. He does do a lot of lifting at work. Also in the differential would be irritable bowel. Will refer to GI for follow-up. Lab Data Attestation: I reviewed the patient's lab results. Labs: Laboratory Results - last 24 hr 03/04/25 03/04/25 07:55 08:00 WBC 9.5 RBC 5.17 Hgb 15.4 Hct 44.7 MCV 86.5 MCH 29.8 MCHC 34.5 RDW Std Deviation 40.0 RDW Coeff of Daniel 12.8 Plt Count 216 MPV 9.5 Immature Gran % (Auto) 0.400 Neut % (Auto) 47.6 Lymph % (Auto) 39.2 [place] % (Auto) 7.6 Eos % (Auto) 4.4 Baso % (Auto) 0.8 Absolute Neuts (auto) 4.5 Absolute Lymphs (auto) 3.70 Nucleated RBC % 0 Sodium 140 Potassium 4.2 Chloride 105 Carbon Dioxide 24.8 Anion Gap 10 BUN 15 Creatinine 1.09 Estim Creat Clear Calc 120.12 Est GFR (MDRD) Non-Af 95 BUN/Creatinine Ratio 13.9 Glucose 115 H Calcium 9.8 Total Bilirubin 0.36 AST 26 ALT 51 H Alkaline Phosphatase 82 Total Protein 7.1 Albumin 4.4 Globulin 2.7 Albumin/Globulin Ratio 1.7 Lipase 32 Urine Color Yellow Urine Clarity Sl. Cloudy Urine pH 6.5 Ur Specific [place] 1.020 Urine Protein 15 H Urine Glucose (UA) Normal Urine Ketones Negative Urine Occult Blood Negative Urine Nitrite Negative Urine Bilirubin Negative Urine Urobilinogen Normal Ur Leukocyte Esterase Negative Urine RBC 0 SEEN Urine WBC 0 SEEN Ur Squamous Epith Cells 0 SEEN Amorphous Sediment 1+ Urine Bacteria 0 SEEN Urine Mucus 0 SEEN Radiography Diagnostic Testing: Clinical Impression(s) from Imaging Studies Abdomen/Pelvis CT 03/04/25 08:07 IMPRESSION: Status post cholecystectomy. Fatty infiltration of the liver. Punctate nonobstructive calculus in the lower pole calyx of the left kidney. Reading Location: [place] [id number] Discharge Plan Triage Chief Complaint: Abd Pain ED Provider: Eli Gale Dx/Rx/DC Orders Clinical Impression: Abdominal pain Instructions: ED Abdominal Pain Unkn Cause Male... Prescriptions: No Action epinephrine 0.3 mg/0.3 mL auto-injector 0.3 ml IM PRN Patient Comments: INJECT 0.3 ML INTRAMUSCULARLY NEEDED FOR ALLERGIC REACTION albuterol sulfate 90 mcg/actuation HFA aerosol inhaler 2 puff inhalation Q4H PRN (Reason: shortness of breath or wheezing) levothyroxine 150 mcg tablet 150 mcg PO QDAY Primary Care Provider: Vickey Arias Referrals: Vickey Arias MD [Primary Care Provider] - Chaparro Brannon DO [Med Staff - Active Staff] - 3-5 Days Print Language: [place] Disposition Disposition: Home, Self Care
[2025-03-04 08:20] LABS: Bacteria 0 SEEN /hpf (None Seen); Mucous, Urine 0 SEEN /hpf (<or=2+); Red Blood Cells-Urine 0 SEEN /hpf (0-5); Squamous Epithelial Cells - UA 0 SEEN /hpf (0-5); White Blood Cells 0 SEEN /hpf (0-5)
[2025-03-04 08:22] LABS: Absolute Neutrophil Count 4.5 X10^3/uL (2.0-7.7); Basophil# 0.08 X10^3/uL; Basophil% 0.8 % (0-1); Eosinophil# 0.42 X10^3/uL; Eosinophils% 4.4 % (0-5); Hematocrit 44.7 % (40-54); Hemoglobin 15.4 g/dL (13.0-16.5); Lymphocyte % 39.2 % (19-41); Mean Corp Hgb Conc 34.5 g/dL (32-36); Mean Corpuscular Hgb 29.8 pg (27.0-32.0); Mean Corpuscular Volume 86.5 fL (80-94); Mean Platelet Vol. 9.5 fl (6.2-12.0); Monocyte# 0.72 X10^3/uL; Monocyte% 7.6 % (0-10); NRBC Flagged by Analyzer 0 % (0-5); Neutrophil # 4.49 X10^3/uL (2.7-7.7); Neutrophil % 47.6 % (47-70); Platelet Count 216 K/mm3 (150-450); RBC Distribution Width CV 12.8 % (11.6-14.6); Red Blood Count 5.17 M/mm3 (4.6-6.2); White Blood Count 9.5 K/mm3 (4.4-11.0)
[2025-03-04 09:08] LABS: Color, Urine Yellow (Yellow); Glucose, Dipstick Normal (Normal); Ketone-Dipstick Negative (Negative); Leukocyte Esterase-Dipstick Negative /ul (Negative); Nitrite-Dipstick Negative (Negative); Occult Blood-Urine Negative /ul (Negative); Protein-Dipstick 15 mg/dl (Negative); Urine Bilirubin Dipstick Negative (Negative); Urine Clarity Sl. Cloudy (Clear); Urine Urobilinogen Normal (Normal); Urine pH 6.5 (5.0 - 8.0)
[2025-03-04 09:18] LABS: ALB/GLOB Ratio 1.7 RATIO (0.9-2.4); AST(SGOT) 26 U/L (<=37); Alanine Aminotransfer ALT/SGPT 51 U/L (<=46); Albumin, Serum 4.4 g/dL (3.5-5.0); Alkaline Phosphatase 82 U/L (40-129); Anion Gap 10 (5-15); BUN 15 mg/dL (4-19); BUN/Creat Ratio 13.9 RATIO (10-20); Calcium,Total 9.8 mg/dL (7.6-11.0); Carbon Dioxide 24.8 mmol/L (21.0-32.0); Chloride 105 mmol/L (98-108); Creatinine, Serum 1.09 mg/dL (0.70-1.20); EST Glomerular Filtration Rate 95 (>60); Estimated Creatinine Clearance 120.12 ml/min (50-250); Globulin 2.7 g/dL (2.2-4.2); Glucose 115 mg/dL (70-99); Lipase 32 U/L (13-75); Potassium 4.2 mmol/L (3.3-5.1); Protein, Total 7.1 g/dL (5.9-8.4); Sodium Level 140 mmol/L (133-145); Total Bilirubin 0.36 mg/dL (0.00-1.30)
[2025-03-04 09:24] LABS: Amorphous Sediment 1+
[2025-03-04 09:43] LABS: Lactic Acid 1.2 mmol/L (0.0-2.0)
[2025-03-04 09:45] VITALS: PULSE 80; O2SAT 16
[2025-03-04 09:49] VITALS: BP 146/91; PULSE 80; RESP 18; TEMP 36.6; O2SAT 16
== END 2025-03-04 09:52 | disposition home or self-care (01) ==
PROVIDERS: Emergency Provider Emergency Medicine; PCP Family Medicine; Visit Provider Emergency Medicine
DX: R10.813 Right lower quadrant abdominal tenderness (principal); F17.210 Nicotine dependence, cigarettes, uncomplicated; J45.909 Unspecified asthma, uncomplicated
CPT/HCPCS: 74176; 80053; 81001; 83605; 83690; 85025; 99283; A4216

== ENCOUNTER 2025-07-11 23:33 | Emergency (ER) | payer MEDICAID, SELFPAY ==
[2025-07-11 23:33] VITALS: BP 126/78; PULSE 89; RESP 18; TEMP 36.8; O2SAT 99; BMI 43.6
--- NOTE | 2025-07-11 23:55 | CT_ITS ---
PROCEDURE: ABDOMEN/PELVIS W IV CONT ONLY 07/12/2025 REASON FOR EXAM: RLQ PAIN TECHNIQUE: ABDOMEN/PELVIS W IV CONT ONLY Coronal and Sagittal reconstruction series were provided. CONTRAST: Isovue-350 VOLUME: 100 mL One or more dose reduction techniques were used (e.g., Automated exposure control, adjustment of the mA and/or kV according to patient size, use of iterative reconstruction technique. RADIATION DOSE SUMMARY: CTDlvol: 24.17 mGy DLP: 1440 mGycm COMPARISON: None. FINDINGS: Hepatic steatosis. The gallbladder is not visualized. 4 mm nodule in the right lower lobe. No follow-up is needed. Normal liver. Normal extrahepatic biliary system. Normal spleen. Normal pancreas. Normal bilateral adrenal glands. Normal size of the right kidney. There is no right renal mass. There are no right renal calculi. There is no right hydronephrosis. Normal visualized right ureter. Normal size of the left kidney. There is no left renal mass. There are no left renal calculi. There is no left hydronephrosis. Normal visualized left ureter. Normal visualized stomach. Normal small intestine. Normal colon. The appendix is visualized and appears normal. There is no demonstrated peritoneal fluid. Normal abdominal aorta. Normal inferior vena cava. Normal retroperitoneum. Normal urinary bladder. There is no pelvic mass lesion or lymphadenopathy. There is no pelvic fluid. Normal abdominal wall. Normal osseous structures. CT/Abdomen/Pelvis W IV Cont ONLY IMPRESSION: Normal appendix. No CT evidence of an acute abnormality. Reading [facility] [address]
--- OUTSIDE RECORDS SUMMARY | 2025-07-12 00:05 | XMS RPT_ITS | CCD ---
Author Organization [facility] Care Team Providers Care Steam Cleaner Name Role Phone Eleuterio Villatoro MD Primary Care Provider NADEGE VILCHIS Consulting Unavailable KEYSHA GARCIA Consulting Unavailable Eleuterio Villatoro MD Primary Care Provider ELEUTERIO VILLATORO Primary Care Unavailab ELEUTERIO Pardo Primary Care Unavailab ELEUTERIO Pardo Primary Care Unavailab JODI Allan Attending Unavailable ELEUTERIO VILLATORO Primary Care Unavailab le AA NO PCP, NO PCP Primary Care Unavailable KIET LANZA MD Admitting Unavailable KIET LANZA MD Attending Unavailable NELSON HERNANDEZ DO Admitting Unavailabl e MARY DONELSON Attending Unavailabl e AA NO PCP, NO PCP Primary Care Unavailable MARY DO~[id number], MARY Green Admitti ng Unavailable MARY DO~[id number], MARY Green Attendi ng Unavailable ELEUTERIO VILLATORO Primary Care Unavailable ANDES DO~[id number], RICHARD ENCARNACION Admitting Unavailable ANDES DO~[id number], RICHARD ENCARNACION Attending Unavailable ELEUTERIO VILLATORO Primary Care Unavailable Unavailable Primary Care Provider Unavailabl e INEZ GALLOWAY Attending Unavailable Unavailable Primary Care Provider Unavailabl MECCA Gonsalez Attending Unavailable ELEUTERIO VILLATORO Primary Care Unavailab ELEUTERIO Pardo Attending Unavailab le BURSLEY, CHRISTOPHER B Primary Care Unavailab le BURSLEY, CHRISTOPHER B Primary Care Unavailab le BURSLEY, CHRISTOPHER B Primary Care Unavailab le PODLOGAR, MECCA Referring Unavailable BURSLEY, CHRISTOPHER B Primary Care Unavailab le PODLOGAR, MECCA Referring Unavailable BURSLEY, CHRISTOPHER B Primary Care Unavailab le PODLOGAR, MECCA Referring Unavailable SEQUEIRASANGITA STEVENS Referring Unavailable Unavailable Primary Care Provider UnavailVIDYA Raymond Primary Care Unavailable KWESI BROWN Attending Unavailable Care Physician, No Primary Primary Care Provider Unavailable Dr. Adelaida Keith DO Attending Provider Dr. Adelaida Keith DO Emergency Provider Care Physician, No Primary Referring Provider Un available Nelson Maldonado Attending Provider Juana VERONICA, Dr. Vidya Olmos Primary Care Provider Juana VERONICA, Dr. Vidya Olmos Attending Provider Juana VERONICA, Dr. Vidya Olmos Referring Provider Tiago PATEL-Rubia Houser Attending Provider Tiago GEARCASE ASSEMBLER-CRubia Referring Provider Care Physician, No Primary Primary Care Provider Unavailable Dr. Eli Gale DO Emergency Provider [phone] PAULA VERONICA, DR BENTON Primary Care Unavailable VIDYA ARIAS MD Unavailable Vidya Arias Primary Care Unavailable Vidya Arias Attending Unavailable Vidya Arias Referring Unavailable Care Physician, No Primary Primary Care Unava ilable Adelaida Keith Attending Unavailable Eli Gale Attending Unavailable Vidya Arias Primary Care Unavailable Vidya Arias Attending Unavailable Vidya Arias Primary Care Unavailable Vidya Arias Referring Unavailable Vidya Arias Primary Care Unavailable Vidya Arias Attending Unavailable Vidya Arias Primary Care Unavailable Rubia Ordoñez Attending Unavailable Rubia Ordoñez Referring Unavailable Vidya Arias Referring Unavailable Vidya Arias Primary Care Unavailable Rubia Ordoñez Attending Unavailable Nelson Maldonado Attending Unavailable Care Physician, No Primary Primary Care Unava ilable Care Physician, No Primary Referring Unava ilable Vidya Arias Referring Unavailable Vidya Arias Primary Care Unavailable Vidya Arias Attending Unavailable Vidya Arias Referring Unavailable Vidya Arias Primary Care Unavailable Vidya Arias Attending Unavailable Vidya Arias Primary Care Unavailable Rubia Ordoñez Attending Unavailable Vicky GEARCASE ASSEMBLER, Kristina Attending Unavailable Vicky GEARCASE ASSEMBLER, Kristina Referring Unavailable Vidya Arias Primary Care Unavailable Allergies Allergy Classification Reported Allergen(s) Allergy Type Date of Onset Reaction(s) Facility (20 sources) Methylphenidate; Translations: [METHYLPHENIDATE ANALOGUES] Drug Allergy 06-08-20 18 Mental Status Change [facility] (20 sources) Bee Venom Protein (Honey Bee); Translations: [BEE VENOM PROTEIN (HONEY BEE)] Drug Allergy 06-07-20 19 Swelling [facility] (1 source) bee venom; Translations: [bee venom (honey bee)] Propensity to adverse reactions (disorder) [facility] (1 source) Methylphenidate Drug Allergy [facility] (2 sources) Methylphenidate; Translations: [METHYLPHENIDATE HCL] Drug Allergy 02-07-20 24 Unknown [facility] Work Phone: (1 source) Methylphenidate Drug Allergy 03-04-20 25 [facility] (1 source) bee venom protein (honey bee) Drug allergy (disorder) 03-04-20 25 [facility] Medications Current Medications Medication Drug Class(es) Dates Sig (Normalized) Sig (Original) [id number] 200 actuat albuterol 0.09 mg/actuat metered dose inhaler (20 sources) beta2-Adrenergic Agonist Start: 01-16-2025 Albuterol Sulfate 90 mcg/actuation HFA aerosol inhaler Active 2 NMA INHALATION Q4H as needed for shortness of breath or wheezing January 16, 2025 1:00am Start: 02-07-2024 End: 03-08-2024 take 2 puff(s) by inhalation every four hours for wheezing albuterol (Ventolin HFA) 90 mcg/actuation inhaler Indications: Viral upper respiratory tract infection , Mild intermittent asthma with acute exacerbation Inhale 2 puffs every 4 hours if needed for wheezing or shortness of breath. 18 g 0 02/07/2024 03/08/2024 Active Start: 09-30-2023 End: 04-22-2024 Albuterol Sulfate (Ventolin Hfa) 90 mcg/actuation HFA aerosol inhaler Discontinued INHALATION September 30, 2023 1:00am April 22, 2024 2:03am Start: 05-01-2023 End: 02-07-2024 take 2-4 puff(s) by inhalation every two hours for wheezing Ventolin HFA 90 mcg/actuation inhaler inhale 2-4 puffs INTO THE LUNGS every 2 hours if needed for wheezing or shortness of breath 0 05/01/2023 02/07/2024 Discontinued (Reorder) Start: 04-30-2023 take 2-4 puff(s) by inhalation every two hours as needed for wheezing albuterol HFA (PROVENTIL HFA, VENTOLIN HFA) 90 mcg/actuation inhaler Inhale 2-4 Puffs as instructed every 2 hours as needed for wheezing/shortness of breath. 1 Each 04/30/2023 Active Start: 10-18-2022 take 2 puff(s) by in halation every six hours as needed for wheezing albuterol HFA (PROVENTIL HFA, VENTOLIN HFA) 90 mcg/actuation inhaler Inhale 2 Puffs as instructed every 6 hours as needed for wheezing/shortness of breath. 1 Each 2 10/18/2022 Active Comment on above: Inhale 2 Puffs as in structed every 6 hours as needed for wheezing/shortness of breath. Inhale 2-4 Puffs as instructed every 2 hours as needed for wheezing/shortness of breath. albuterol 0.833 mg/ml / ipratropium bromide 0.167 mg/ml inhalation solution (20 sources) Anticholinergic, beta2-Adrenergic Agonist Start: 05-01-2023 ipratropium-albuteroL (Duo-Neb) 0.5-2.5 mg/3 mL nebulizer solution inhale contents of 1 vial ( 3 milliliters ) in nebulizer by mouth... (REFER TO PRESCRIPTION NOTES). 0 05/01/2023 Active Start: 04-30-2023 take 3 mL by inhalat ion every six hours as needed ipratropium-albuterol (DUONEB) 0.5 mg-3 mg(2.5 mg base)/3 mL nebu Inhale 3 mL as instructed every 6 hours as needed for wheezing/shortness of breath. 20 Each 04/30/2023 Active Comment on above: Inhale 3 mL as instr ucted every 6 hours as needed for wheezing/shortness of breath. brompheniramine maleate 0.4 mg/ml / dextromethorphan hydrobromide 2 mg/ml / pseudoephedrine hydrochloride 6 mg/ml oral solution (6 sources) alpha-Adrenergic Agonist, Uncompetitive D-idyais-U-aspartate Receptor Antagonist, Sigma-1 Agonist Start: 06-12-20 take 10 mL by mouth every six hours as needed Bromphenirami ne-Pseudoeph- DM (BROMFED DM) 2-30-10 mg/5 mL syrup Take 10 mL by mouth four times a day as needed. 118 mL 06/12/2024 Active Start: 02-07-2024 End: 02-17-2024 take 10 mL by mouth four times daily as needed for cough [id number] 2-30-10 mg/ 5 mL syrup Indications: Viral upper respiratory tract infection Take 10 mL by mouth 4 times a day as needed for cough or congestion for up to 10 days. 120 mL 0 02/07/2024 02/17/2024 [id number] 0.3 ml EPINEPHrine 1 mg/ml auto-injector (20 sources) alpha-Adrenergic Agonist, beta-Adrenergic Agonist, Catecholamine Start: 09-02-2023 Epinephrine 0.3 mg/0.3 mL auto-injector Active 0.3 mL IM NEEDED September 02, 2023 12:00am Start: 05-20-2023 EPINEPHrine 0. 3 mg/0.3 mL injection syringe INJECT 0.3 ML INTRAMUSCULARLY NEEDED FOR ALLERGIC REACTION 0 05/20/2023 Active Start: 08-05-2021 End: 05-19-2023 EPINEPHrine (EPIPEN) 0.3 mg/ 0.3 mL auto-injector Indications: Bee sting allergy Inject 0.3 mL intramuscularly as needed (For allergic reaction). 2 Each 1 05/19/2023 Active Comment on above: Inject 0.3 mL intram uscularly as needed (For allergic reaction). fluticasone propionate 0.05 mg/actuat metered dose nasal spray (5 sources) Corticosteroid Start: 06-12-20 24 take 2 spray(s) by mouth once daily fluticasone (FLONASE) 50 mcg/actuation nasal spray Use 2 Sprays in each nostril once daily. Rinse mouth after use. 11.1 mL 06/12/2024 Active levothyroxine (20 sources) l-Thyroxine Start: 01-18-20 25 take 1 tablet by mouth once daily Levothyroxine 150 mcg tablet Active 150 ug PO daily January 18, 2025 1:00am Start: 04-22-2024 End: 01-18-2025 Levothyroxine (Euthyrox) 112 mcg tablet Discontinued 224 ug PO SUSA April 22, 2024 12:00am January 18, 2025 2:51pm Start: 11-07-2019 End: 01-18-2025 Levothyroxine 112 MCG tablet Discontinued 112 ug PO MOTUWETHFR November 07, 2019 1:00am January 18, 2025 2:51pm Comment on above: Take 1 tablet by huey th once daily. Take on empty stomach. For thyroid. Take one Tuesday- and two tablets on Tuesday. Take on empty stomach Take one Tuesday- ay and two tablets on Tuesday and Tuesday. Take on empty stomach methylPREDNISolone (1 source) Corticosteroid Start: 02-07-20 24 methylPREDNISolone (Medrol Dospak) 4 mg tablets Indications: Viral upper respiratory tract infection , Mild intermittent asthma with acute exacerbation Follow schedule on package instructions. 21 tablet 0 02/07/2024 Active naproxen 500 mg oral tablet (1 source) Nonsteroidal Anti-inflammatory Drug Start: 12-04-19 24 naproxen (Naprosyn) 500 mg tablet nirmatrelvir tablet 300 mg (150 mg x 2) and ritonavir tablet 100 mg in a dose pack (PAXLOVID) (5 sources) Start: 07-25-20 End: 07-30-20 24 nirmatrelvir tablet 300 mg (150 mg x 2) and ritonavir tablet 100 mg in a dose pack (PAXLOVID) Indications: COVID-19 Administer TWO pink nirmatrelvir 150 mg tablets and ONE white ritonavir 100 mg tablet for a total of three tablets twice daily. 30 tablet 07/25/2024 07/30/2024 Active Start: 07-27-2023 End: 08-01-2023 nirmatrelvir tablet 300 mg ( 150 mg x 2) and ritonavir tablet 100 mg in a dose pack (PAXLOVID) Indications: COVID-19 Administer TWO pink nirmatrelvir 150 mg tablets and ONE white ritonavir 100 mg tablet for a total of three tablets twice daily. 30 tablet 0 07/27/2023 08/01/2023 Active Start: 01-21-2023 End: 01-26-2023 nirmatrelvir tablet 300 mg ( 150 mg x 2) and ritonavir tablet 100 mg in a dose pack (PAXLOVID) Indications: COVID-19 Administer TWO pink nirmatrelvir 150 mg tablets and ONE white ritonavir 100 mg tablet for a total of three tablets twice daily. 30 tablet 0 01/21/2023 01/26/2023 Active Start: 08-06-2022 End: 08-11-2022 nirmatrelvir tablet 300 mg ( 150 mg x 2) and ritonavir tablet 100 mg in a dose pack (PAXLOVID) Indications: Telehealth encounter for confirmed COVID-19 Administer TWO pink nirmatrelvir 150 mg tablets and ONE white ritonavir 100 mg tablet for a total of three tablets twice daily. 30 tablet 0 08/06/2022 08/11/2022 Start: 08-06-2022 End: 08-11-2022 nirmatrelvir tablet 300 mg ( 150 mg x 2) and ritonavir tablet 100 mg in a dose pack (PAXLOVID) Indications: Telehealth encounter for confirmed COVID-19 Administer TWO pink nirmatrelvir 150 mg tablets and ONE white ritonavir 100 mg tablet for a total of three tablets twice daily. 30 tablet 0 08/06/2022 08/11/2022 Active Comment on above: Administer TWO pink nirmatrelvir 150 mg tablets and ONE white ritonavir 100 mg tablet for a total of three tablets twice daily. Completed/Discontinued Medications Medication Drug Class(es) Dates Sig (Normalized) Sig (Original) amoxicillin 500 mg oral capsule (10 sources) Penicillin-class Antibacterial Start: 11-15-2024 End: 01-16-2025 take 1 capsule by mouth three times daily Amoxicillin 500 mg capsule Discontinued 500 mg PO THREE TIMES A DAY November 15, 2024 1:00am January 16, 2025 4:35pm Start: 12-18-2021 End: 12-18-2021 Amoxicillin 500 mg capsule D iscontinued December 18, 2021 1:00am December 18, 2021 2:22am Start: 12-18-2021 End: 12-18-2021 Amoxicillin Discontinued Ej [facility] 2021 2:08am December 18, 2021 2:22am amoxicillin 875 mg / clavulanate 125 mg oral tablet (9 sources) Penicillin-class Antibacterial Start: 10-17-2024 End: 11-15-2024 Amoxicillin-Pot Clavulanate 875-125 mg tablet Discontinued 1 {tbl} PO TWICE A DAY October 17, 2024 1:00am November 15, 2024 11:01am Start: 06-21-2024 End: 11-15-2024 take 1 tablet by mouth every twelve hours Amoxicillin-Pot Clavulanate 875-125 mg tablet Discontinued 875 mg PO Q12H June 21, 2024 12:00am November 15, 2024 11:01am Start: 12-04-2023 End: 02-07-2024 amoxicillin-pot clavulanate (Augmentin) 875-125 mg tablet 24 hr amphetamine aspartate 3.75 mg / amphetamine sulfate 3.75 mg / dextroamphetamine saccharate 3.75 mg / dextroamphetamine sulfate 3.75 mg extended release oral capsule (9 sources) Central Nervous System Stimulant Start: 09-28-2021 End: 11-09-2023 take 1 capsule by mouth once daily Dextroamphetamine-Amphetamine 15 mg capsule,extended release 24hr Discontinued 15 mg PO DAILY December 18, 2021 1:00am November 09, 2023 3:29pm Comment on above: Take 1 capsule by [facility] once daily for 30 days. benzonatate 200 mg oral capsule (1 source) Non-narcotic Antitussive Start: 02-07-2024 End: 02-14-2024 take 1 capsule by mouth three times daily as needed for cough benzonatate (Tessalon) 200 mg capsule Indications: Viral upper respiratory tract infection Take 1 capsule (200 mg) by mouth 3 times a day as needed for cough for up to 7 days. Do not crush or chew. 21 capsule 0 02/07/2024 02/14/2024 24 hr buPROPion hydrochloride 150 mg extended release oral tablet (6 sources) Aminoketone Start: 07-20-2023 End: 11-09-2023 take 1 tablet by mouth once daily Bupropion Hcl 150 mg tablet extended release 24 hr Discontinued 150 mg PO DAILY September 02, 2023 12:00am November 09, 2023 3:29pm Start: 12-18-2020 End: 03-10-2022 take 1 tablet by mouth twice daily buPROPion SR (WELLBUTRIN SR) 150 mg 12 hr tablet Indications: Tobacco use Take 1 tablet by mouth twice daily. 60 tablet 2 12/18/2020 03/10/2022 Discontinued Comment on above: Take 1 tablet by huey twice daily. ciprofloxacin 3 mg/ml / dexamethasone 1 mg/ml otic suspension (5 sources) Corticosteroid, Quinolone Antimicrobial Start: 12-01-2022 End: 11-09-2023 Ciprofloxacin-Dexametha sone (Ciprodex) 0.3-0.1 % drops,suspension Discontinued 4 NMA EACH EAR TWICE A DAY 7.5 December 01, 2022 1:00am November 09, 2023 3:29pm Start: 12-01-2022 Ciprofloxacin- Dexamethasone (Ciprodex) 0.3-0.1 % drops,suspension Active 4 DRP EACH EAR TWICE A DAY 7.5 December 01, 2022 1:00am hydrocortisone 25 mg/ml topical cream (6 sources) Corticosteroid Start: 05-01-2022 End: 09-02-2023 Hydrocortisone 2.5 % cream Discontinued 1 NMA TOPICAL TWICE A DAY May 01, 2022 12:00am September 02, 2023 11:51am to affected area meclizine hydrochloride 25 mg oral tablet (5 sources) Antiemetic Start: 08-20-2023 End: 11-09-2023 take 1 tablet by mouth every eight hours as needed for dizziness Meclizine 25 mg tablet Discontinued 25 mg PO EVERY 8 HOURS NEEDED as needed for Dizziness August 20, 2023 4:42pm November 09, 2023 3:29pm 24 hr nicotine 0.583 mg/hr transdermal system (16 sources) Cholinergic Nicotinic Agonist Start: 01-18-2025 End: 03-04-2025 apply 1 dose transdermal route every twenty-four hours Nicotine 14 mg/24 hr patch 24 hour Discontinued 1 NMA TD Q24H 14 January 18, 2025 1:00am March 04, 2025 7:56am begin after 21 mg have been completed Start: 01-18-2025 End: 03-04-2025 apply 1 dose transdermal route every twenty-four hours Nicotine 21 mg/24 hr patch 24 hour Discontinued 1 NMA TD Q24H January 18, 2025 1:00am March 04, 2025 7:56am Start: 01-18-2025 End: 03-04-2025 Nicotine 7 mg/24 hr patch 24 hour Discontinued 1 NMA TD Q24H January 18, 2025 1:00am March 04, 2025 7:56am begin once 14 mg patches have been completed Start: 01-18-2025 End: 01-18-2025 apply 1 dose transdermal route once daily, then apply 1 dose transdermal route once daily Nicotine 21-14-7 mg/24 hr patch, TD daily, sequential Discontinued 0 TD .COMPLEX 56 January 18, 2025 1:00am January 18, 2025 4:52pm apply 1-21 mg NICOTINE PATCH daily for 28 days; follow with 1-14 mg PATCH daily for 14 days, then 1-7mg PATCH daily for 14 days transdermal ofloxacin 3 mg/ml otic solution (6 sources) Quinolone Antimicrobial Start: 12-18-2021 End: 12-18-2021 Ofloxacin 0.3 % drops Discontinued NMA December 18, 2021 1:00am December 18, 2021 2:22am Start: 12-18-2021 End: 12-18-2021 Ofloxacin Discontinued DRP J anuary 2021 2:08am December 18, 2021 2:22am omeprazole 20 mg delayed release oral capsule (11 sources) Proton Pump Inhibitor Start: 07-20-2023 End: 11-09-2023 take 1 capsule by mouth once daily Omeprazole 20 mg capsule,delayed release(DR/EC) Discontinued 20 mg PO DAILY September 30, 2023 1:00am November 09, 2023 3:30pm Start: 05-01-2022 End: 09-02-2023 take 1 capsule by mouth once daily Omeprazole 40 mg capsule,delayed release(DR/EC) Discontinued 40 mg PO DAILY May 01, 2022 12:00am September 02, 2023 11:51am ondansetron 4 mg disintegrating oral tablet (4 sources) Serotonin-3 Receptor Antagonist Start: 10-17-2024 End: 11-15-2024 take 1 tablet by mouth every eight hours as needed for nausea Ondansetron 4 mg tablet,disintegrating Discontinued 4 mg PO EVERY 8 HOURS NEEDED as needed for Nausea October 17, 2024 1:00am November 15, 2024 11:01am predniSONE 20 mg oral tablet (6 sources) Start: 05-01-2022 End: 09-02-2023 take 3 tablets by mouth once daily Prednisone 20 MG tablet Discontinued 60 mg PO DAILY May 01, 2022 12:00am September 02, 2023 11:51am Start: 05-01-2022 take 60 mg by mouth once daily Prednisone Active 60 MG PO DAILY May 01, 2022 12:35am sertraline 50 mg oral tablet (8 sources) Serotonin Reuptake Inhibitor Start: 09-02-2023 End: 11-09-2023 take 1 tablet by mouth once daily Sertraline 50 mg tablet Discontinued 50 mg PO DAILY September 02, 2023 12:00am November 09, 2023 3:30pm Start: 09-28-2021 End: 08-06-2022 take 1 tablet by mouth once daily sertraline (ZOLOFT) 50 mg tablet Indications: Anxiety with depression Take 1 tablet by mouth once daily. 30 tablet 2 03/10/2022 08/06/2022 Discontinued (Discontinued by Patient) Comment on above: Take 1 tablet by huey th once daily. Problems Active Problems Problem Classification Problem Date Documented Date Episodic/Chronic Administrative/socia l admission (1 source) Person with feared health complaint in whom no diagnosis is made; Translations: [Concern about STD in male without diagnosis] Onset: 08-16-2023 Episodic Allergic reactions (8 sources) Allergic reaction; Translations: [Allergy, unspecified, initial encounter] Onset: 2023 Episodic Anxiety disorders (20 sources) Mixed anxiety and depressive disorder; Translations: [Other specified anxiety disorders] Onset: 03-10-2022 Chronic Asthma (12 sources) Exacerbation of asthma; Translations: [Unspecified asthma with (acute) exacerbation] Onset: 10-18-2022 05-09-2022 Chronic Attention-deficit, conduct, and disruptive behavior disorders (20 sources) Attention deficit hyperactivity disorder, combined type; Translations: [Attention-deficit hyperactivity disorder, combined type] Onset: 06-18-2020 Chronic Biliary tract disease (6 sources) Acute cholecystitis; Translations: [Acute cholecystitis] 08-11-2021 Episodic Cardiac dysrhythmias (7 sources) Tachycardia; Translations: [Tachycardia, unspecified] Onset: 05-07-2025 08-04-2021 Episodic Complications of surgical procedures or medical care (20 sources) Postoperative hypothyroidism; Translations: [Postprocedural hypothyroidism] Onset: 03-10-2022 Chronic Conditions associated with dizziness or vertigo (14 sources) Peripheral vertigo; Translations: [Other peripheral vertigo, right ear] 08-20-2023 Episodic Diseases of white blood cells (2 sources) Leukocytosis; Translations: [Elevated white blood cell count, unspecified] Onset: 01-09-2024 11-01-2023 Chronic Disorders usually diagnosed in infancy, childhood, or adolescence (1 source) Behavioral and emotional disorder 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; Translations: [Unspecified behavioral and emotional disorders with onset usually occurring in childhood and adolescence] Onset: 10-27-2015 09-03-2022 Chronic Esophageal disorders (6 sources) Gastroesophageal reflux disease; Translations: [Gastro-esophageal reflux disease without esophagitis] 05-09-2022 Chronic Fluid and electrolyte disorders (6 sources) Hypokalemia; Translations: [Hypokalemia] 08-11-2021 Episodic Genitourinary symptoms and ill-defined conditions (4 sources) Bacteriuria; Translations: [Bacteriuria] 06-29-2024 Episodic Mood disorders (20 sources) Moderate major depression, single episode; Translations: [Major depressive disorder, single episode, moderate] Onset: 03-10-2022 03-10-2022 Chronic Mycoses (5 sources) Otomycosis; Translations: [Superficial mycosis, unspecified] 12-09-2022 Episodic Nausea and vomiting (4 sources) Nausea; Translations: [Nausea] 10-25-2024 Episodic Nonspecific chest pain (16 sources) Chest pain; Translations: [Chest pain, unspecified] 08-11-2021 Episodic Open wounds of extremities (6 sources) Dog bite of wrist; Translations: [Open bite of left wrist, initial encounter] 07-17-2020 Episodic Other aftercare (1 source) Other terminal clerk (current) drug therapy; Translations: [OTH PENITENTIARY CURRENT DRUG THERAPY] Onset: 12-14-2023 Episodic Other aftercare (1 source) longterm (current) use of systemic steroids; Translations: [PENITENTIARY USE OF SYSTEMIC STEROIDS] Onset: 12-14-2023 Episodic Other ear and sense organ disorders (6 sources) Otitis externa; Translations: [Unspecified otitis externa, unspecified ear] 12-26-2021 Chronic Other ear and sense organ disorders (5 sources) Hearing problem; Translations: [Unspecified hearing loss, right ear] 12-09-2022 Chronic Other hematologic conditions (6 sources) Raised cardiac enzyme or marker; Translations: [Other specified abnormalities of plasma proteins] 08-11-2021 Episodic Other infections; including parasitic (1 source) Late effects of other and unspecified infectious and parasitic diseases; Translations: [COVID-19 long hauler] 10-31-2023 Chronic Other injuries and conditions due to external causes (4 sources) Effects of heat; Translations: [Effect of heat and light, unspecified, initial encounter] 05-15-2024 Episodic Other lower respiratory disease (6 sources) Dyspnea; Translations: [Shortness of breath] 08-11-2021 Episodic Other nervous system disorders (1 source) Disturbance of attention; Translations: [Attention and concentration deficit] Onset: 10-27-2015 09-03-2022 Chronic Other nervous system disorders (4 sources) Paresthesia; Translations: [Paresthesia of skin] 06-29-2024 Episodic Other nutritional; endocrine; and metabolic disorders (20 sources) Body mass index 40+ - severely obese; Translations: [Morbid (severe) obesity due to excess calories] Onset: 03-10-2022 Chronic Other skin disorders (6 sources) Eruption; Translations: [Rash and other nonspecific skin eruption] 05-09-2022 Episodic Other upper respiratory infections (12 sources) Chronic ethmoidal sinusitis; Translations: [Chronic ethmoidal sinusitis] 06-29-2024 Chronic Residual codes; unclassified (8 sources) Daytime hypersomnia; Translations: [Hypersomnia, unspecified] 01-18-2025 Chronic Residual codes; unclassified (2 sources) Obstructive sleep apnea syndrome; Translations: [Obstructive sleep apnea (adult) (pediatric)] 02-22-2025 Chronic Residual codes; unclassified (1 source) Obstructive sleep apnea (adult) (pediatric); Translations: [Obstructive sleep apnea (adult) (pediatric)] Onset: 06-26-2025 Chronic Residual codes; unclassified (1 source) Hypersomnia, unspecified; Translations: [Hypersomnia, unspecified] Onset: 02-11-2025 Chronic Residual codes; unclassified (6 sources) Left against medical advice; Translations: [Procedure and treatment not carried out because of patient's decision for other reasons] 08-11-2021 Episodic Residual codes; unclassified (1 source) Procedure not done; Translations: [Procedure and treatment not carried out, unspecified reason] 06-21-2024 Episodic Spondylosis; intervertebral disc disorders; other back problems (16 sources) Sciatica; Translations: [Sciatica, left side] 12-26-2021 Episodic Substance-related disorders (9 sources) Nicotine dependence, cigarettes, uncomplicated; Translations: [Cigarette smoker ] Onset: 12-14-2023 01-18-2025 Chronic Thyroid disorders (2 sources) Hypothyroidism; Translations: [Hypothyroidism, unspecified] Onset: 02-07-2024 02-07-2024 Chronic Unclassified (1 source) cough, chest conjestion Onset: 04-30-2023 Unclassified (1 source) COVID-19 long hauler; Translations: [COVID-19 long hauler] Onset: 10-31-2023 Viral infection (11 sources) Viral disease; Translations: [Viral infection, unspecified] Onset: 10-18-2022 Episodic Viral infection (2 sources) Disease caused by 2019-nCoV; Translations: [COVID-19] Onset: 07-28-2023 Past or Other Problems Problem Classification Problem Date Documented Date Episodic/Chronic Abdominal pain (18 sources) Epigastric pain; Translations: [Epigastric pain] Onset: 08-16-2023 08-11-2021 Episodic Disorders of teeth and jaw (11 sources) Infection of tooth; Translations: [Periapical abscess without sinus] Onset: 11-16-2024 08-04-2021 Episodic E Codes: Adverse effects of medical drugs (1 source) Adverse effect of benzodiazepines, initial encounter; Translations: [ADVRS EFF BENZODIAZEPINES INIT ENC] Onset: 02-16-2023 Episodic Malaise and fatigue (2 sources) Weakness; Translations: [Other fatigue] Onset: 09-16-2023 Episodic Other ear and sense organ disorders (2 sources) Otalgia, right ear; Translations: [OTALGIA RIGHT EAR] Onset: 01-04-2023 Episodic Other lower respiratory disease (1 source) Chronic cough; Translations: [CHRONIC COUGH] Onset: 2023 Episodic Other lower respiratory disease (1 source) Nodule of lung; Translations: [Solitary pulmonary nodule] Onset: 12-02-2016 09-03-2022 Episodic Other screening for suspected conditions (not mental disorders or infectious disease) (5 sources) Electrocardiogram abnormal; Translations: [Abnormal electrocardiogram [ECG] [EKG]] Onset: 03-12-2025 09-02-2023 Episodic Other upper respiratory disease (1 source) Nasal congestion; Translations: [NASAL CONGESTION] Onset: 2023 Episodic Other upper respiratory infections (20 sources) Viral upper respiratory tract infection; Translations: [Acute upper respiratory infection, unspecified] Onset: 2023 05-09-2022 Episodic Residual codes; unclassified (20 sources) Tobacco use and exposure - finding; Translations: [Tobacco use] Onset: 03-10-2022 Episodic Results Test Name Value Interpretation Reference Range Facil ity .Auto Diffon 03-09-2025 Basophil, Absolute 0.0 10 3/mcL Normal 0.0-0.3 [facility] Comment on above: Performed By: #### C ORT, CBC, BMP, TSH, ANEU, ADIFF, GFR, MG #### [address] [address] Basophils/100 WBC (Bld) 0.5 % Normal 0.0-2.5 [facility] Comment on above: Performed By: #### C ORT, CBC, BMP, TSH, ANEU, ADIFF, GFR, MG #### [address] [address] Eosinophil, Absolute 0.5 10 3/mcL Normal 0.0-0.7 [facility] Comment on above: Performed By: #### C ORT, CBC, BMP, TSH, ANEU, ADIFF, GFR, MG #### [address] [address] Eosinophils/100 WBC (Bld) 6.4 % High 0.0-6.0 [facility] Comment on above: Performed By: #### C ORT, CBC, BMP, TSH, ANEU, ADIFF, GFR, MG #### [address] [address] Lymphocyte, Absolute 3.3 10 3/mcL Normal 0.9-4.3 [facility] Comment on above: Performed By: #### C ORT, CBC, BMP, TSH, ANEU, ADIFF, GFR, MG #### [address] [address] Lymphocytes/100 WBC (Bld) 39.9 % Normal 20.0-40.0 [facility] Comment on above: Performed By: #### C ORT, CBC, BMP, TSH, ANEU, ADIFF, GFR, MG #### [address] [address] Monocyte, Absolute 0.6 10 3/mcL Normal 0.1-1.4 [facility] Comment on above: Performed By: #### C ORT, CBC, BMP, TSH, ANEU, ADIFF, GFR, MG #### [address] [address] Monocytes/100 WBC (Bld) 7.2 % Normal 2.0-13.0 [facility] Comment on above: Performed By: #### C ORT, CBC, BMP, TSH, ANEU, ADIFF, GFR, MG #### [address] [address] Neutrophils/100 WBC (Bld) 46.0 % Low 50.0-75.0 [facility] Comment on above: Performed By: #### C ORT, CBC, BMP, TSH, ANEU, ADIFF, GFR, MG #### [address] [address] .GFRon 03-09-2025 Estimated Glomerular Filtration Rate 112 ml/min/1.73sqm Normal [facility] Comment on above: Result Comment: Stages of Chronic Kidney Disease (CKD) Stage Description eGFR(ml/min/1.73 sq.m.) CKD 1 Normal kidney function or >=90 normal kindney function with possible kidney damage (ex. Proteinuria) CKD 2 Kidney damage with mild loss 60-89 of kidney function CKD 3a Mild to moderate loss of kidney 45-59 function CKD 3b Moderate to severe loss of 30-44 of kindey function CKD 4 Severe loss of kidney function 15-29 CKD 5 Kidney failure <15 Note: (go live 2024) the eGFR calculation was updated to the 2020 CKD-EPI creatinine equation without a race factor to calculate the eGFR results. Performed By: #### C ORT, CBC, BMP, TSH, ANEU, ADIFF, GFR, MG #### [address] [address] .NEUABSon 03-09-2025 Neutrophil, Absolute 3.9 10 3/mcL Normal 2.3-8.1 [facility] Comment on above: Performed By: #### C ORT, CBC, BMP, TSH, ANEU, ADIFF, GFR, MG #### [address] [address] [facility] BUN/Creatinine Ratio 14.7 ratio Normal 10.0-22.0 [facility] Comment on above: Performed By: #### C ORT, CBC, BMP, TSH, ANEU, ADIFF, GFR, MG #### [address] [address] Calcium [Mass/Vol] 9.9 mg/dL Normal 8.7-10.4 [facility] Comment on above: Performed By: #### C ORT, CBC, BMP, TSH, ANEU, ADIFF, GFR, MG #### [address] [address] Chloride [Moles/Vol] 107 mmol/L Normal 98-110 [facility] Comment on above: Performed By: #### C ORT, CBC, BMP, TSH, ANEU, ADIFF, GFR, MG #### [address] [address] CO2 [Moles/Vol] 27 mmol/L Normal 22-32 [facility] Comment on above: Performed By: #### C ORT, CBC, BMP, TSH, ANEU, ADIFF, GFR, MG #### [address] [address] Creatinine [Mass/Vol] 0.95 mg/dL Normal 0.60-1.40 [facility] Comment on above: Result Comment: Test ing performed on [employer] analyzer using enzymatic creatinine methodology. Performed By: #### C ORT, CBC, BMP, TSH, ANEU, ADIFF, GFR, MG #### [place] [id number] Electrolyte Balance 7.0 mEq/L Normal 4.0-15.0 [facility] Comment on above: Performed By: #### C ORT, CBC, BMP, TSH, ANEU, ADIFF, GFR, MG #### [place] [id number] Glucose [Mass/Vol] 103 mg/dL Normal 70-110 [facility] Comment on above: Performed By: #### C ORT, CBC, BMP, TSH, ANEU, ADIFF, GFR, MG #### [address] [address] Potassium [Moles/Vol] 4.5 mmol/L Normal 3.5-5.0 [facility] Comment on above: Performed By: #### C ORT, CBC, BMP, TSH, ANEU, ADIFF, GFR, MG #### [address] [address] Sodium [Moles/Vol] 141 mmol/L Normal 136-145 [facility] Comment on above: Performed By: #### C ORT, CBC, BMP, TSH, ANEU, ADIFF, GFR, MG #### [address] [address] Urea nitrogen [Mass/Vol] 14.0 mg/dL Normal 8.0-22.0 [facility] Comment on above: Performed By: #### C ORT, CBC, BMP, TSH, ANEU, ADIFF, GFR, MG #### [place] [id number] CBCon 03-09-2025 Erythrocyte distribution width (RBC) [Ratio] 13.6 % Normal 11.5-15.5 [facility] Comment on above: Performed By: #### C ORT, CBC, BMP, TSH, ANEU, ADIFF, GFR, MG #### [place] [address] Hematocrit (Bld) [Volume fraction] 45.0 % Normal 40.0-52.0 [facility] Comment on above: Performed By: #### C ORT, CBC, BMP, TSH, ANEU, ADIFF, GFR, MG #### [place] [address] Hgb 15.4 G/dL Normal 13.0-17.5 [facility] Comment on above: Performed By: #### C ORT, CBC, BMP, TSH, ANEU, ADIFF, GFR, MG #### [place] [address] MCH (RBC) [Entitic mass] 29.7 pg Normal 27.0-33.0 [facility] Comment on above: Performed By: #### C ORT, CBC, BMP, TSH, ANEU, ADIFF, GFR, MG #### [place] [address] MCHC 34.3 G/dL Normal 32.0-36.0 [facility] Comment on above: Performed By: #### C ORT, CBC, BMP, TSH, ANEU, ADIFF, GFR, MG #### [place] [address] MCV (RBC) [Entitic vol] 86.5 fL Normal 81.0-100.0 [facility] Comment on above: Performed By: #### C ORT, CBC, BMP, TSH, ANEU, ADIFF, GFR, MG #### [place] [address] Platelet 211 10 3/mcL Normal 150-450 [facility] Comment on above: Performed By: #### C ORT, CBC, BMP, TSH, ANEU, ADIFF, GFR, MG #### [place] [address] Platelet mean volume (Bld) [Entitic vol] 7.9 fL Normal 6.4-10.5 [facility] Comment on above: Performed By: #### C ORT, CBC, BMP, TSH, ANEU, ADIFF, GFR, MG #### [place] [address] RBC 5.20 10 6/mcL Normal 4.50-6.00 [facility] Comment on above: Performed By: #### C ORT, CBC, BMP, TSH, ANEU, ADIFF, GFR, MG #### [place] [address] WBC 8.4 10 3/mcL Normal 4.5-10.8 [facility] Comment on above: Performed By: #### C ORT, CBC, BMP, TSH, ANEU, ADIFF, GFR, MG #### [place] [address] CORT 03-09-2025 Cortisol Level 8.6 mcg/dL Normal [facility] Comment on above: Result Comment: Shane isol AM Reference Range 6.5-26.0 mcg/dL Cortisol PM Reference Range 3.5-15.0 mcg/dL Performed By: #### C ORT, CBC, BMP, TSH, ANEU, ADIFF, GFR, MG #### [place] [address] MGon 03-09-2025 Magnesium [Mass/Vol] 2.0 mg/dL Normal 1.6-2.4 [facility] Comment on above: Performed By: #### C ORT, CBC, BMP, TSH, ANEU, ADIFF, GFR, MG #### [place] [address] TSHon 03-09-2025 TSH 9.529 mIU/mL High 0.550-4.780 [facility] Comment on above: Performed By: #### C ORT, CBC, BMP, TSH, ANEU, ADIFF, GFR, MG #### [address], [place] [address] Abdomen/Pelvis without Conto n 03-04-2025 Abdomen/Pelvis without Cont [facility] Imaging Services [address] [place] [address] Abdomen/Pelvis without Cont MR#: [id number] Acct: [id number] Name: SANTY ALANIS Rep #: [id number] : 1995 M 29 From: Lalo england MD PCP: Dr. Vidya Arias MD Status: REG ER Study: Abdomen/Pelvis without Cont Date of Exam: 02/19 03/15 Exam# [id number] Ordering Dr: Eli Gale DO PROCEDURE: ABDOMEN/PELVIS WITHOUT CONT 03/04/2025 REASON FOR EXAM: Right lower quadrant pain. Nausea and vomiting. TECHNIQUE: Abdomen and pelvis CT without intravenous contrast. Noncontrast technique limits evaluation of the abdominal and pelvic viscera. Coronal and Sagittal reconstruction series were provided. One or more dose reduction techniques were used (e.g., Automated exposure control, adjustment of the mA and/or kV according to patient size, use of iterative reconstruction technique). PATIENT PREPARATION: Per protocol ORAL CONTRAST TYPE: None. COMPARISON: None FINDINGS: Lung bases: Unremarkable Liver: Diffuse fatty infiltration. Gallbladder: Surgically absent. Spleen: Normal size. Pancreas: Normal size. No surrounding inflammation. Adrenals: Unremarkable Kidneys: Punctate nonobstructive calculus in the lower pole calyx of the left kidney. Bladder: Unremarkable Bowel: Colonic diverticulosis without diverticulitis. Appendix: The appendix is unremarkable. Lymph nodes: Unremarkable. Vasculature: The abdominal aorta and IVC contours are normal. Noncontrast technique limits evaluation. Peritoneum / Retroperitoneum: Unremarkable Bones: Unremarkable CT/Abdomen/Pelvis without Cont IMPRESSION: Status post cholecystectomy. Fatty infiltration of the liver. Punctate nonobstructive calculus in the lower pole calyx of the left kidney. Reading Location: [place] [address] CC: Dr. Vidya Arias MD; Dr. Eli Gale DO Schedule Analyst: Signed Normal [facility] Absolute neutrophil countOrd ered By: Eli Gale on 03-04-2025 Neutrophils (Bld) [#/Vol] 4.5 10*3/uL 2.0-7.7 [facility] Amorphous sediment detection in urine sediment by light microscopyOrdered By: Eli Gale on 03-04-2025 Amorphous sediment LM Ql (Urine sed) 1+ [facility] Anion gap in Serum or Plasma Ordered By: Eli Gale on 03-04-2025 Anion gap [Moles/Vol] 10 mmol/L 5-15 [facility] BUN/creatinine ratioOrdered By: Eli Gale on 03-04-2025 Urea nitrogen/Creatinine [Mass ratio] 13.9 mg/mg 10-20 [facility] Basophil percentageOrdered B y: Eli Gale on 03-04-2025 Basophils/100 WBC (Bld) 0.8 % 0-1 [facility] Bilirubin Test strip Ql (U)O rdered By: Eli Gale on 03-04-2025 Bilirubin Ql (U) Negative Negative [facility] Bilirubin, totalOrdered By: Eli Gale on 03-04-2025 Bilirubin [Mass/Vol] 0.36 mg/dL 0.00-1.30 [facility] CBC W/Diff, Automatedon 02-19 Absolute Lymph 3.70 X10 3/uL Normal 0.83-4.51 [facility] Comment on above: Performed By: #### L 500.4050, L501.2450, L100.0100 ####[facility] [address] [place], [address] Absolute Neut 4.5 X10 3/uL Normal 2.0-7.7 [facility] Comment on above: Performed By: #### L 500.4050, L501.2450, L100.0100 ####[facility] [address] [place], [address] Basophils/100 WBC (Bld) 0.8 % Normal 0-1 [facility] Comment on above: Performed By: #### L 500.4050, L501.2450, L100.0100 ####[facility] [address] [place], [address] Eosinophils/100 WBC (Bld) 4.4 % Normal 0-5 [facility] Comment on above: Performed By: #### L 500.4050, L501.2450, L100.0100 ####[facility] [address] [place], [address] Erythrocyte distribution width (RBC) [Ratio] 12.8 % Normal 11.6-14.6 [facility] Comment on above: Performed By: #### L 500.4050, L501.2450, L100.0100 ####[facility] [address] [place], [address] Hematocrit (Bld) [Volume fraction] 44.7 % Normal 40-54 [facility] Comment on above: Performed By: #### L 500.4050, L501.2450, L100.0100 ####[facility] [address] [place], [address] Hemoglobin (Bld) [Mass/Vol] 15.4 g/dL Normal 13.0-16.5 [facility] Comment on above: Performed By: #### L 500.4050, L501.2450, L100.0100 ####[facility] [address] [place], [address] IG% 0.400 Normal 0.0-0.9 [facility] Comment on above: Result Comment: IG% - Immature Granulocytes (promyelocytes, myelocytes and metamyelocytes) > 1% indicates that a LEFT SHIFT is Present. Performed By: #### L 500.4050, L501.2450, L100.0100 ####[facility] [address] [place], [address] Lymphocytes/100 WBC (Bld) 39.2 % Normal 19-41 [facility] Comment on above: Performed By: #### L 500.4050, L501.2450, L100.0100 ####[facility] [address] [place], [address] MCH (RBC) [Entitic mass] 29.8 pg Normal 27.0-32.0 [facility] Comment on above: Performed By: #### L 500.4050, L501.2450, L100.0100 ####[facility] [address] [place], [address] MCHC (RBC) [Mass/Vol] 34.5 g/dL Normal 32-36 [facility] Comment on above: Performed By: #### L 500.4050, L501.2450, L100.0100 ####[facility] [address] [place], [address] MCV (RBC) [Entitic vol] 86.5 fL Normal 80-94 [facility] Comment on above: Performed By: #### L 500.4050, L501.2450, L100.0100 ####[facility] [address] [place], [address] Monocytes/100 WBC (Bld) 7.6 % Normal 0-10 [facility] Comment on above: Performed By: #### L 500.4050, L501.2450, L100.0100 ####[facility] [address] [place], [address] Neutrophils/100 WBC (Bld) 47.6 % Normal 47-70 [facility] Comment on above: Performed By: #### L 500.4050, L501.2450, L100.0100 ####[facility] [address] [place], [address] Nucleated RBC (Bld) [#/Vol] 0 10*3/uL Normal 0-5 [facility] Comment on above: Performed By: #### L 500.4050, L501.2450, L100.0100 ####[facility] [address] [place], [address] Platelet mean volume (Bld) [Entitic vol] 9.5 fL Normal 6.2-12.0 [facility] Comment on above: Performed By: #### L 500.4050, L501.2450, L100.0100 ####[facility] [address] [place], [address] Platelets (Bld) [#/Vol] 216 10*3/uL Normal 150-450 [facility] Comment on above: Performed By: #### L 500.4050, L501.2450, L100.0100 ####[facility] [address] [place], [address] RBC (Bld) [#/Vol] 5.17 10*6/uL Normal 4.6-6.2 [facility] Comment on above: Performed By: #### L 500.4050, L501.2450, L100.0100 ####[facility] [address] [place], [address] RDW SD 40.0 fl Normal 35.1-43.9 [facility] Comment on above: Performed By: #### L 500.4050, L501.2450, L100.0100 ####[facility] [address] [place], [address] WBC (Bld) [#/Vol] 9.5 10*3/uL Normal 4.4-11.0 [facility] Comment on above: Performed By: #### L 500.4050, L501.2450, L100.0100 ####[facility] [address] [place], [address] Carbon dioxide, total [Moles /volume] in Central venous bloodOrdered By: Eli Gale on 03-04-2025 CO2 [Moles/Vol] 24.8 mmol/L 21.0-32.0 [facility] Chloride assayOrdered By: Ana Gale on 03-04-2025 Chloride [Moles/Vol] 105 mmol/L 98-108 [facility] Comprehensive Metabolic Prof ilon 03-04-2025 Albumin [Mass/Vol] 4.4 g/dL Normal 3.5-5.0 [facility] Comment on above: Performed By: #### L 500.4050, L501.2450, L100.0100 ####[facility] [address] [place], [address] Albumin/Globulin [Mass ratio] 1.7 {ratio} Normal 0.9-2.4 [facility] Comment on above: Performed By: #### L 500.4050, L501.2450, L100.0100 ####[facility] [address] [place], [address] ALK PHOS 82 U/L Normal 40-129 [facility] Comment on above: Performed By: #### L 500.4050, L501.2450, L100.0100 ####[facility] [address] [place], [address] ALT [Catalytic activity/Vol] 51 U/L High <=46 [facility] Comment on above: Performed By: #### L 500.4050, L501.2450, L100.0100 ####[facility] [address] [place], [address] AST [Catalytic activity/Vol] 26 U/L Normal <=37 [facility] Comment on above: Performed By: #### L 500.4050, L501.2450, L100.0100 ####[facility] [address] [place], [address] Bilirubin [Mass/Vol] 0.36 mg/dL Normal 0.00-1.30 [facility] Comment on above: Performed By: #### L 500.4050, L501.2450, L100.0100 ####[facility] [address] [place], [address] BUN/CRE 13.9 RATIO Normal 10-20 [facility] Comment on above: Performed By: #### L 500.4050, L501.2450, L100.0100 ####[facility] [address] [place], [address] Calcium [Mass/Vol] 9.8 mg/dL Normal 7.6-11.0 [facility] Comment on above: Performed By: #### L 500.4050, L501.2450, L100.0100 ####[facility] [address] [place], [address] Chloride [Moles/Vol] 105 mmol/L Normal 98-108 [facility] Comment on above: Performed By: #### L 500.4050, L501.2450, L100.0100 ####[facility] [address] [place], [address] CO2 [Moles/Vol] 24.8 mmol/L Normal 21.0-32.0 [facility] Comment on above: Performed By: #### L 500.4050, L501.2450, L100.0100 ####[facility] [address] [place], [address] Creatinine [Mass/Vol] 1.09 mg/dL Normal 0.70-1.20 [facility] Comment on above: Performed By: #### L 500.4050, L501.2450, L100.0100 ####[facility] [address] [place], [address] ECRCL 120.12 ml/min Normal 50-250 [facility] Comment on above: Performed By: #### L 500.4050, L501.2450, L100.0100 ####[facility] [address] [place], [address] GAP 10 Normal 5-15 [facility] Comment on above: Performed By: #### L 500.4050, L501.2450, L100.0100 ####[facility] [address] [place], [address] GFR/1.73 sq M.predicted among non-blacks MDRD (S/P/Bld) [Vol rate/Area] 95 mL/min/{1.73_m2} Normal >60 [facility] Comment on above: Result Comment: mL/m in/1.73m2 CKD-EPI Creatinine Equation (2020) Performed By: #### L 500.4050, L501.2450, L100.0100 ####[facility] [address] [place], [address] Globulin (S) [Mass/Vol] 2.7 g/dL Normal 2.2-4.2 [facility] Comment on above: Performed By: #### L 500.4050, L501.2450, L100.0100 ####[facility] [address] [place], [address] Glucose [Mass/Vol] 115 mg/dL High 70-99 [facility] Comment on above: Performed By: #### L 500.4050, L501.2450, L100.0100 ####[facility] [address] [place], [address] Potassium [Moles/Vol] 4.2 mmol/L Normal 3.3-5.1 [facility] Comment on above: Performed By: #### L 500.4050, L501.2450, L100.0100 ####[facility] [address] [place], [address] Sodium [Moles/Vol] 140 mmol/L Normal 133-145 [facility] Comment on above: Performed By: #### L 500.4050, L501.2450, L100.0100 ####[facility] [address] [place], [address] T PROT 7.1 g/dL Normal 5.9-8.4 [facility] Comment on above: Performed By: #### L 500.4050, L501.2450, L100.0100 ####[facility] [address] [place], [address] Urea nitrogen [Mass/Vol] 15 mg/dL Normal 4-19 [facility] Comment on above: Performed By: #### L 500.4050, L501.2450, L100.0100 ####[facility] [address] [place], [address] Emergency Department Summary on 03-04-2025 Emergency Department Summary [facility] Medical Records Department [address] [place] [address] Emergency Department Summary 03/04/25 MR#: [id number] Acct: [id number] Name: SANTY ALANIS Rep #: [id number] : 1995 29 From: Eli Gale DO PCP: Dr. Vidya Arias MD Status:DEP ER Location: ED HPI HPI - GI History of Present Illness Chief Complaint: Abd Pain Detail of Chief Complaint: Abdominal pain Informant: patient Narrative Narrative: Patient presents with abdominal pain that started 2 weeks ago. Describes a discomfort and pressure in the right lower abdomen. He denies fever. Denies nausea vomiting or diarrhea. Patient states that he went to [facility] 2 weeks ago and had a CT scan that was unremarkable. He continues to have the same discomfort and has not gone away. At 1 point the other day he felt a lump in his right lower abdomen but then he was able to push on it and it seemed to disappear. Patient does complain of some urinary frequency and at times he thinks he sees blood in the urine. He denies blood in his stool or black tarry stool PFSH PFSH Medical History Peripheral vertigo Lung nodule Panic disorder Anxiety Abnormal EKG Smoker Asthma Elevated liver function tests Dental infection ADD (attention deficit disorder) Hypothyroidism Home Medications ???Medication ???Instructions ???Recorded ???Last Taken ???Type epinephrine 0.3 mg/0.3 mL 0.3 ml IM PRN allergic re 09/02/23 Unknown History injection, auto-injector albuterol sulfate 90 mcg/actuation 2 puff inhalation Q4H PRN Unknown History aerosol inhaler shortness of breath or wheezing levothyroxine 150 mcg tablet 150 mcg PO QDAY 01/18/25 Unknown H istory Allergy/AdvReac Type Severity Reaction Status Date / Time bee venom protein (honey bee) Allergy Anaphylaxis Verified 03/04/25 07:47 methylphenidate (From AdvReac NEEDS Verified 03/04/25 07:47 Concerta) FOLLOW-UP Family History Mother Thyroid disorder Myocardial infarction, Onset Age: 40 Heart disease Father , heart attack 2009 COPD (chronic obstructive pulmonary disease) Brother Bipolar disorder Grandfather Diabetes CVA (cerebral vascular accident) Grandfather COPD (chronic obstructive pulmonary disease) Other Autoimmune disease Surgical History History of cholecystectomy Hx of thyroidectomy Social History household members: significant other number of children: 3 current occupational status: employed current occupation: [employer] sexually active: Yes Smoking Status: Current every day smoker tobacco type: cigarettes alcohol intake: never substance use type: does not use ROS ROS ED Review of Systems ROS Unobtainable: other Constitutional Constitutional ED: Reports lethargy; Denies chills, fever(s), sweats or weight loss Eyes Eyes: Denies blurry vision, change in vision or diplopia ENT ENT ED: Denies rhinorrhea or sore throat Cardiovascular Cardiovascular: Denies chest pain, orthopnea or racing heartbeat Respiratory/Chest Respiratory/Chest: Denies cough, dyspnea, dyspnea on exertion, orthopnea or sputum Gastrointestinal Gastrointestinal: Reports abdominal pain; Denies diarrhea, nausea or vomiting Genitourinary Genitourinary ED: Denies dysuria, hematuria or urinary frequency Musculoskeletal Musculoskeletal: Denies arthralgias, back pain, myalgias or neck pain Integumentary Denies abscess, Abrasions or rash Neurologic Neurologic: Denies headache(s) or weakness Psychiatric Psychiatric: Denies anxiety, depression or suicidal thoughts Endocrine Endocrinology: Denies polydipsia, polyphagia or polyuria Hematologic/Lymphati c Hematologic/Lymphati c: Denies easy bleeding, easy bruising or lymphadenopathy Allergic/Immunologic Allergic/Immunologic ED: Denies mouth swelling, tongue swelling or urticaria EXAM Physical Exam Const Vital Signs: 03/04/25 07:45 Temperature 97.8 F Temperature Source Oral Pulse Rate 93 Respiratory Rate 18 Blood Pressure 146/91 H Blood Pressure Mean 109 Pulse Ox 99 Oxygen Delivery Method Room Air Positive well nourished and well developed General Appearance ED: well developed and NAD HEENT Reports TM's clear and moist mucous membranes normocephalic and atraumatic; Negative for trauma or tenderness Tympanic Membrane ED: Yes TM's clear Eyes PERRL and EOMs intact bilaterally General Eye ED: Negative for pale conjunctiva or scleral icterus Neck no lymphadenopathy, supple and no JVD General: Negative for tenderness Chest Wall inspection of chest normal and palpation of chest normal (more content not included)... Normal [facility] Eosinophil percentageOrdered By: Eli Gale on 03-04-2025 Eosinophils/100 WBC (Bld) 4.4 % 0-5 [facility] Epithelial cells.squamous LM Ql (Urine sed)Ordered By: Eli Gale on 03-04-2025 Epithelial cells.squamous LM.HPF (Urine sed) [#/Area] 0 /[HPF] 0-5 [facility] Erythrocyte distribution wid th (RBC) [Ratio]Ordered By: Eli Gale on 03-04-2025 Erythrocyte distribution width (RBC) [Entitic vol] 40.0 fL 35.1-43.9 [facility] Erythrocyte distribution wid th ratioOrdered By: [facility] G[facility] on 03-04-2025 Erythrocyte distribution width (RBC) [Ratio] 12.8 % 11.6-14.6 [facility] Estimation of creatinine rodolfo aranceOrdered By: Eli Gale on 03-04-2025 Estimated Creatinine Clearance Calc 120.12 ml/min 50-250 [facility] GFR/1.73 sq M.predicted shalom g non-blacks MDRD (S/P/Bld) [Vol rate/Area]Ordered By: Eli Gale on 03-04-2025 Estimated GFR (MDRD) Non-Af Amer 95 >60 [facility] Comment on above: mL/min/1.73m2 CKD-EP I Creatinine Equation (2020) Glucose Ql (U)Ordered By: Ana Gale on 03-04-2025 Urine Glucose (UA) Normal mg/dl Normal [facility] Hematocrit Auto (Bld) [Volum e fraction]Ordered By: Eli Gale on 03-04-2025 Hematocrit (Bld) [Volume fraction] 44.7 % 40-54 [facility] Hemoglobin measurementOrdere d By: Eli Gale on 03-04-2025 Hemoglobin (Bld) [Mass/Vol] 15.4 g/dL 13.0-16.5 [facility] Immature granulocytes/100 WB C Auto (Bld)Ordered By: Eli Gale on 03-04-2025 Immature granulocytes/100 WBC (Bld) 0.400 % 0.0-0.9 [facility] Comment on above: IG% - Immature Granu locytes (promyelocytes, myelocytes and metamyelocytes) > 1% indicates that a LEFT SHIFT is Present. Ketones Test strip Ql (U)Ord ered By: Eli Gale on 03-04-2025 Ketones Ql (U) Negative Negative [facility] Laboratory - Chemistry and C hemistry - challengeOrdered By: Eli Gale on 03-04-2025 AST [Catalytic activity/Vol] 26 U/L <38 [facility] Lactic Acidon 03-04-2025 Lactate [Moles/Vol] 1.2 mmol/L Normal 0.0-2.0 [facility] Comment on above: Order Comment: Y Performed By: #### L 503.6005 ####[facility] [id number] [place], [place], [id number] Lactic acid measurementOrder ed By: Eli Gale on 03-04-2025 Lactate [Moles/Vol] 1.2 mmol/L 0.0-2.0 [facility] Lipaseon 03-04-2025 Lipase [Catalytic activity/Vol] 32 U/L Normal 13-75 [facility] Comment on above: Result Comment: Neela morelos note: LIPASE revised reference range effective 23. New Lipase methodology. Expected to produce lower values than the previous assay method. NEW Reference Range: 13 - 75 U/L Performed By: #### L 500.4050, L501.2450, L100.0100 ####[facility] [id number] [place], [address] Lipase measurementOrdered By : Eli Gale on 03-04-2025 Lipase [Catalytic activity/Vol] 32 U/L 13-75 [facility] Comment on above: Please note:LIPASE r evised reference range effective 23. New Lipase methodology. Expected to produce lower values than the previous assay method. NEW Reference Range: 13 - 75 U/L Lymphocytes Auto (Unsp spec) [#/Vol]Ordered By: Eli Gale on 03-04-2025 Lymphocytes (Bld) [#/Vol] 3.70 10*3/uL 0.83-4.51 [facility] Lymphocytes/100 WBC Auto (Un sp spec)Ordered By: Eli Gale on 03-04-2025 Lymphocytes/100 WBC (Bld) 39.2 % 19-41 [facility] MCV (mean corpuscular volume ) determinationOrdered By: Eli Gale on 03-04-2025 MCV (RBC) [Entitic vol] 86.5 fL 80-94 [facility] Mean corpuscular hemoglobin (MCH) determinationOrdered By: Eli Gale on 03-04-2025 MCH (RBC) [Entitic mass] 29.8 pg 27.0-32.0 [facility] Mean corpuscular hemoglobin concentration (MCHC) determinationOrdered By: Eli Gale on 03-04-2025 MCHC (RBC) [Mass/Vol] 34.5 g/dL 32-36 [facility] Mean platelet volume determi nationOrdered By: Eli Gale on 03-04-2025 Platelet mean volume (Bld) [Entitic vol] 9.5 fL 6.2-12.0 [facility] Microscopic analysis of urin e for red blood cells (RBC)Ordered By: Eli Gale on 03-04-2025 Urine RBC 0 SEEN /hpf 0-5 [facility] Monocyte percentageOrdered B y: Eli Gale on 03-04-2025 Monocytes/100 WBC (Bld) 7.6 % 0-10 [facility] Mucus LM Ql (Urine sed)Order ed By: Eli Gale on 03-04-2025 Mucus Ql (Urine sed) 0 SEEN /hpf [facility] Neutrophil percentageOrdered By: Rem Unggiesl on 03-04-2025 Neutrophils/100 WBC (Bld) 47.6 % 47-70 [facility] Nitrite Test strip Ql (U)Ord ered By: Eli Gale on 03-04-2025 Nitrite Ql (U) Negative Negative [facility] Nucleated red blood cell per centageOrdered By: Eli Gale on 03-04-2025 Nucleated RBC/100 WBC (Bld) [Ratio] 0 % 0-5 [facility] Platelet countOrdered By: Ana Gale on 03-04-2025 Platelets (Bld) [#/Vol] 216 10*3/uL 150-450 [facility] Potassium (Unsp spec) [Mass/ Vol]Ordered By: Eli Gale on 03-04-2025 Potassium [Moles/Vol] 4.2 mmol/L 3.3-5.1 [facility] Protein Test strip Ql (U)Ord ered By: Eli Gale on 03-04-2025 Protein Ql (U) 15 mg/dl High Negative [facility] RBC Auto (Bld) [#/Vol]Ordere d By: Eli Gale on 03-04-2025 RBC (Bld) [#/Vol] 5.17 10*6/uL 4.6-6.2 [facility] Serum creatinine measurement (mass/volume)Ordered By: Eli Gale on 03-04-2025 Creatinine [Mass/Vol] 1.09 mg/dL 0.70-1.20 [facility] Serum globulin measurementOr dered By: Eli Gale on 03-04-2025 Globulin (S) [Mass/Vol] 2.7 g/dL 2.2-4.2 [facility] Serum glucose measurement (m ass/volume)Ordered By: Eli Gale on 03-04-2025 Glucose [Mass/Vol] 115 mg/dL High 70-99 [facility] Serum or plasma alanine savage otransferase (ALT) measurementOrdered By: Eli Garcesgisel on 03-04-2025 ALT [Catalytic activity/Vol] 51 U/L High <47 [facility] Serum or plasma albumin kasandra urement (mass/volume)Ordered By: Eli Garcesgisel on 03-04-2025 Albumin [Mass/Vol] 4.4 g/dL 3.5-5.0 [facility] Serum or plasma albumin/glob ulin mass ratioOrdered By: Eli Garcesgisel on 03-04-2025 Albumin/Globulin [Mass ratio] 1.7 {ratio} 0.9-2.4 [facility] Serum or plasma alkaline dru sphatase measurementOrdered By: Eli Garcesgisel on 03-04-2025 ALP [Catalytic activity/Vol] 82 U/L 40-129 [facility] Serum or plasma calcium kasandra urement (mass/volume)Ordered By: Eli Garcesgisel on 03-04-2025 Calcium [Mass/Vol] 9.8 mg/dL 7.6-11.0 [facility] Serum or plasma urea nitroge n measurement (mass/volume)Ordered By: Eli Garcesgisel on 03-04-2025 Urea nitrogen [Mass/Vol] 15 mg/dL 4-19 [facility] Sodium levelOrdered By: Yolandakye dalia Shahla on 03-04-2025 Sodium [Moles/Vol] 140 mmol/L 133-145 [facility] Total proteinOrdered By: Yolanda burton Shahla on 03-04-2025 Protein [Mass/Vol] 7.1 g/dL 5.9-8.4 [facility] Urinalysis, Completeon 03-04 AMORPHOUS 1+ Normal [facility] Comment on above: Order Comment: CLEAN CATCH Performed By: #### L 400.0001 ####[facility] [address] [place], [place], [id number] BACTERIA 0 SEEN Normal None Seen [facility] Comment on above: Order Comment: CLEAN CATCH Performed By: #### L 400.0001 ####[facility] [id number] [place], [address] EPI,SQUAMOUS 0 SEEN Normal 0-5 [facility] Comment on above: Order Comment: CLEAN CATCH Performed By: #### L 400.0001 ####[facility] [address] [place], [address] Mucus Ql (Urine sed) 0 SEEN Normal [facility] Comment on above: Order Comment: CLEAN CATCH Performed By: #### L 400.0001 ####[facility] [address] [place], [address] RBC 0 SEEN Normal 0-5 [facility] Comment on above: Order Comment: CLEAN CATCH Performed By: #### L 400.0001 ####[facility] [address] [place], [address] WBC 0 SEEN Normal 0-5 [facility] Comment on above: Order Comment: CLEAN CATCH Performed By: #### L 400.0001 ####[facility] [address] [place], [place], [id number] Urine blood detectionOrdered By: Eli Gale on 03-04-2025 Urine Occult Blood Negative Negative [facility] Urine clarityOrdered By: Yolanda Gale on 03-04-2025 Clarity (U) Sl. Cloudy Clear [facility] Urine color determinationOrd ered By: Eli Gale on 03-04-2025 Color (U) Yellow Yellow [facility] Urine leukocyte esterase det ection by dipstickOrdered By: Eli Gale on 03-04-2025 Leukocyte esterase Test strip Ql (U) Negative Negative [facility] Urine pHOrdered By: Eli Alfaro gur on 03-04-2025 pH (U) 6.5 [pH] 5.0 - 8.0 [facility] Urine sediment bacteria coun t by microscopy (number/high power field)Ordered By: Eli Gale on 03-04-2025 Bacteria LM.HPF (Urine sed) [#/Area] 0 /[HPF] None Seen [facility] Urine specific gravity measu rementOrdered By: Remus Ungur on 03-04-2025 Specific gravity (U) [Rel density] 1.020 1.002-1.030 [facility] Urobilinogen Ql (U)Ordered B y: Remus Ungur on 03-04-2025 Urine Urobilinogen Normal mg/dl Normal [facility] White blood cell (WBC) count Ordered By: Remus Ungur on 03-04-2025 WBC (Bld) [#/Vol] 9.5 10*3/uL 4.4-11.0 [facility] White blood cell countOrdere d By: Remus Ungur on 03-04-2025 Urine WBC 0 SEEN /hpf 0-[address] [facility] [address] ABD/PEL W IVCONon 025 CT ABD/PEL W IVCON * * *Final Report* * * DATE OF EXAM: Feb 16 2025 1:38AM [facility] [place] ABD/PEL W IVCON / PROCEDURE REASON: Abdominal abscess/infection suspected * * * * Physician Interpretation * * * * EXAMINATION: CT ABDOMEN AND PELVIS WITH IV CONTRAST CLINICAL HISTORY: Right-sided pain TECHNIQUE: CT of the abdomen and pelvis was performed using standard technique, scanning from just above the dome of the diaphragm to the symphysis pubis. MQ: CTAP_3 Contrast: IV: 100 ml of Omnipaque 350 : ml of CT Radiation dose: Integrated Dose-length product (DLP) for this visit = 1373.7 mGy*cm. CT Dose Reduction Employed: Automated exposure control(AEC) and iterative recon COMPARISON: 08/16/2023 RESULT: Motion artifacts Liver: Mild low-attenuation in the liver parenchyma suggestive of steatosis. Biliary: No bile duct dilation. Gallbladder is absent. Spleen: No mass. Pancreas: No mass or duct dilation. Adrenals: No mass. Kidneys: Detection for potential nephrolithiasis is limited by excreted contrast in the collecting systems. No hydronephrosis. Small hypoattenuating focus in the upper pole of the right kidney again seen, too small to be further characterized. GI tract: Few colonic diverticuli, without associated active inflammatory change. Unremarkable appendix. Lymph nodes: No abdominal or pelvic lymphadenopathy. Mesentery/Peritoneum : No ascites or mass. Retroperitoneum: No mass. Vasculature: Non-aneurysmal abdominal aorta. Pelvis: No mass, ascites or fluid collection. Bones/Soft Tissues: Small fat-containing umbilical hernia. Early degenerative changes. Lower thorax: Mild basilar atelectasis. 4 mm right lower lobe nodule again seen, unchanged. A couple of tiny lung nodules in the rest of the lung bases are considered non-specific in this age group. Localizer images: No additional findings. IMPRESSION: Unremarkable appendix. Few colonic diverticuli, without associated active inflammatory change. Mild hepatic steatosis. Schedule Analyst: PSCB Transcribe Date/Time: Feb 16 2025 2:01A Dictated by : ARTURO SPRAGUE MD This examination was interpreted and the report reviewed and electronically signed by: ARTURO SPRAGUE MD on Feb 16 2025 2:13AM EST [id number] [facility] ED NOTEon 02-16-2025 ED NOTE HNO ID: [id number] Author: BRODIE SCHWAB HUC Service: ? Author Type: ? Type: ED Notes Filed: 02/16/2025 01:39 Note Text: PTS FAMILY CAME TO NURSES STATION ASKING FOR WATER FOR PT. RELAYED TO WAIT TILL CT RESULT IS BACK BEFORE ANYTHING TO EAT OR DRINK. [facility] ED NOTE HNO ID: [id number] Author: BRODIE SCHWAB HUC Service: ? Author Type: ? Type: ED Notes Filed: 02/16/2025 01:17 Note Text: PTS FAMILY CAME TO NURSES STATION ASKING WHEN PT WILL BE GOING TO CT. CALLED CT SANTY FOR UPDATE. FINISHING UP ONE AND THEN WILL BE OVER TO GET RELAYED TO PT. [facility] ED PROV NOTEon 02-16-2025 ED PROV NOTE HNO ID: [id number] Author: KWESI BROWN MD Service: Emergency Medicine Author Type: Physician Type: ED Provider Notes Filed: 02/16/2025 02:26 Note Text: ED Provider Note Patient Name: Santy Alanis : 1995 SERVICE DATE: 02/15/25 History Patient presents with: Flank Pain: Right Abdominal Pain: Right 29-year-old male presenting to the emergency department for evaluation of abdominal pain. Patient states that over the last 4 days has been having right lower quadrant abdominal pain. He states that it is dull and constant and at times flares up it is worse currently 2 out of 10. Denies any nausea or vomiting. States that he has been dealing with some constipation interspersed with diarrhea. He states that he has not had a bowel movement in 2 days. He states that he has been having some intermittent diarrhea when he is not feeling ill. He is at prior cholecystectomy. He is concerned that he may have appendicitis. Denies any history of kidney stones. Does state that the pain seems to radiate from the right lower quadrant into the right flank/back area. Denies any fevers. Denies any sick contacts. History provided by: Patient PAST MEDICAL HISTORY Diagnosis Date - ADHD - Anxiety - Childhood asthma URI induced as an adult - Current moderate episode of major depressive disorder without prior episode (HCC) - Family history of heart attack - Graves disease - History of chlamydia - Lung nodule age 19 - Morbid obesity with BMI of 40.0-44.9, adult (HCC) - Panic disorder - Post-surgical hypothyroidism - Tobacco use PAST SURGICAL HISTORY Procedure Laterality Date - LAPS SURG CHOLECYSTECTOMY W/CHOLANGIOGRAPHY 08/09/2021 - THYROIDECTOMY TOTAL/COMPLETE FAMILY HISTORY Problem Relation Age of Onset - Thyroid Mother - Heart Attack Mother 40 - Heart disease Mother 16 - COPD Father - Bipolar disorder Brother - Diabetes Maternal Grandfather - Stroke Maternal Grandfather - COPD Paternal Grandfather Social History Tobacco Use - Smoking status: Every Day Current packs/day: 1.00 Average packs/day: 1 pack/day for 9.0 years (9.0 ttl pk-yrs) Types: Cigarettes - Smokeless tobacco: Never Vaping Use - Vaping status: Never Used Substance and Sexual Activity - Alcohol use: No - Drug use: Never - Sexual activity: Yes Partners: Female ALLERGIES Allergen Reactions - Bee Venom Protein (* Swelling - Concerta [Methylphe* Mental Status Change Review of Systems Constitutional: Negative for chills and fever. HENT: Negative for congestion. Eyes: Negative for visual disturbance. Respiratory: Negative for chest tightness and shortness of breath. Cardiovascular: Negative for chest pain. Gastrointestinal: Positive for abdominal pain, constipation and diarrhea. Negative for nausea and vomiting. Endocrine: Negative for polyuria. Genitourinary: Negative for difficulty urinating. Musculoskeletal: Negative for arthralgias, neck pain and neck stiffness. Skin: Negative for rash. Neurological: Negative for dizziness, light-headedness and numbness. Psychiatric/Behavior al: Negative for behavioral problems. Physical Exam Vitals [02/15/252200] BP Pulse Temp Temp src Resp SpO2 Weight Height 123/83 83 36.8 ?C (98.2 ?F) Oral 18 98 % 134.6 kg (296 lb 11.8 oz) 1.803 m (5' 11) Physical Exam Vitals and nursing note reviewed. Constitutional: General: He is not in acute distress. Appearance: He is well-developed. He is obese. He is not diaphoretic. HENT: Head: Normocephalic and atraumatic. Right Ear: External ear normal. Left Ear: External ear normal. Mouth/Throat: Pharynx: No oropharyngeal exudate. Eyes: General: Right eye: No discharge. Left eye: No discharge. Conjunctiva/sclera: Conjunctivae normal. Pupils: Pupils are equal, round, and reactive to light. Neck: Thyroid: No thyromegaly. Trachea: No tracheal deviation. Cardiovascular: Rate and Rhythm: Normal rate and regular rhythm. Heart sounds: Normal heart sounds. No murmur heard. No friction rub. No gallop. Pulmonary: Effort: Pulmonary effort is normal. No respiratory distress. Breath sounds: Normal breath sounds. No stridor. Abdominal: General: There is no distension. Palpations: Abdomen is soft. There is no mass. Tenderness: There is abdominal tenderness in the right lower quadrant. There is right CVA tenderness. There is no guarding or rebound. Musculoskeletal: Cervical back: Normal range of motion and neck supple. Lymphadenopathy: Cervical: No cervical adenopathy. Skin: General: Skin is warm. Capillary Refill: Capillary refill takes less than 2 seconds. Findings: No rash. Neurological: Mental Status: He is alert and oriented to person, place, and time. Diagnostic Testing ED Labs Ordered and Reviewed COMPLETE BLOOD COUNT AND DIFFERENTIAL - Abnormal; Notable for the following components: Result Value Ref Range Abs Lymph 4 (more content not included)... Normal [facility] CBC W Auto Differential pane l (Bld)on 02-15-2025 Basophils (Bld) [#/Vol] 0.10 10*3/uL Normal <0.11 [facility] Comment on above: Order Comment: Speci men Type: BLOOD SPECIMEN Ordering Facility: [facility] Address: [address] [place] [address] Performed By: #### 5 7021-8 #### [facility] CLIA [id number] [address] [place] [address] [place] Basophils/100 WBC (Bld) 1.0 % Normal [facility] Comment on above: Order Comment: Speci men Type: BLOOD SPECIMEN Ordering Facility: [facility] Address: [address] [place] [address] Performed By: #### 5 7021-8 #### [facility] CLIA [id number] [address] [place] [address] [place] Differential cell count method Nom (Bld) Auto Normal [facility] Comment on above: Order Comment: Speci men Type: BLOOD SPECIMEN Ordering Facility: [facility] Address: [address] [place] [address] Performed By: #### 5 7021-8 #### [facility] CLIA [id number] [address] [place] [address] [place] Eosinophils (Bld) [#/Vol] 0.53 10*3/uL High <0.46 [facility] Comment on above: Order Comment: Speci men Type: BLOOD SPECIMEN Ordering Facility: [facility] Address: [address] [place] [address] Performed By: #### 5 7021-8 #### [facility] CLIA [id number] [address] [place] [address] [place] Eosinophils/100 WBC (Bld) 5.4 % Normal [facility] Comment on above: Order Comment: Speci men Type: BLOOD SPECIMEN Ordering Facility: [facility] Address: [address] [place] [address] Performed By: #### 5 7021-8 #### [facility] CLIA [id number] [address] [place] [address] [place] Erythrocyte distribution width (RBC) [Ratio] 12.8 % Normal 11.5-15.0 [facility] Comment on above: Order Comment: Speci men Type: BLOOD SPECIMEN Ordering Facility: [facility] Address: [address] [place] [address] Performed By: #### 5 7021-8 #### [facility] CLIA [id number] [address] [place] [address] [place] Hematocrit (Bld) [Volume fraction] 42.6 % Normal 39.0-51.0 [facility] Comment on above: Order Comment: Speci men Type: BLOOD SPECIMEN Ordering Facility: [facility] Address: [address] [place] [address] Performed By: #### 5 7021-8 #### [facility] CLIA [id number] [address] [place] [address] [place] Hemoglobin (Bld) [Mass/Vol] 14.8 g/dL Normal 13.0-17.0 [facility] Comment on above: Order Comment: Speci men Type: BLOOD SPECIMEN Ordering Facility: [facility] Address: [address] [place] [address] Performed By: #### 5 7021-8 #### [facility] CLIA [id number] [address] [place] [address] [place] Immature granulocytes (Bld) [#/Vol] 0.03 10*3/uL Normal <0.10 [facility] Comment on above: Order Comment: Speci men Type: BLOOD SPECIMEN Ordering Facility: [facility] Address: [address] [place] [address] Performed By: #### 5 7021-8 #### [facility] CLIA [id number] [address] [place] [address] [place] Immature granulocytes/100 WBC (Bld) 0.3 % Normal [facility] Comment on above: Order Comment: Speci men Type: BLOOD SPECIMEN Ordering Facility: [facility] Address: [address] [place] [address] Performed By: #### 5 7021-8 #### [facility] CLIA [id number] [address] [place] [address] [place] Lymphocytes (Bld) [#/Vol] 4.52 10*3/uL High 1.00-4.00 [facility] Comment on above: Order Comment: Speci men Type: BLOOD SPECIMEN Ordering Facility: [facility] Address: [address] [place] [address] Performed By: #### 5 7021-8 #### [facility] CLIA [id number] [address] [place] [address] [place] [facility] Lymphocytes/100 WBC (Bld) 46.4 % Normal [facility] Comment on above: Order Comment: Speci men Type: BLOOD SPECIMEN Ordering Facility: [facility] Address: [address] [place] [address] Performed By: #### 5 7021-8 #### [facility] CLIA [id number] [address] [place] [address] [place] MCH (RBC) [Entitic mass] 29.6 pg Normal 26.0-34.0 [facility] Comment on above: Order Comment: Speci men Type: BLOOD SPECIMEN Ordering Facility: [facility] Address: [address] [place] [address] Performed By: #### 5 7021-8 #### [facility] CLIA [id number] [address] [place] [address] [place] MCHC (RBC) [Mass/Vol] 34.7 g/dL Normal 30.5-36.0 [facility] Comment on above: Order Comment: Speci men Type: BLOOD SPECIMEN Ordering Facility: [facility] Address: [address] [place] [address] Performed By: #### 5 7021-8 #### [facility] CLIA [id number] [address] [place] [address] [place] MCV (RBC) [Entitic vol] 85.2 fL Normal 80.0-100.0 [facility] Comment on above: Order Comment: Speci men Type: BLOOD SPECIMEN Ordering Facility: [facility] Address: [address] [place] [address] Performed By: #### 5 7021-8 #### [facility] CLIA [id number] [address] [place] [address] STATES [facility] Monocytes (Bld) [#/Vol] 0.77 10*3/uL Normal <0.87 [facility] Comment on above: Order Comment: Speci men Type: BLOOD SPECIMEN Ordering Facility: [facility] Address: [address] [place] [address] Performed By: #### 5 7021-8 #### [facility] CLIA [id number] [address] [place] [address] [place] Monocytes/100 WBC (Bld) 7.9 % Normal [facility] Comment on above: Order Comment: Speci men Type: BLOOD SPECIMEN Ordering Facility: [facility] Address: [address] [place] [address] Performed By: #### 5 7021-8 #### [facility] CLIA [id number] [address] [place] [address] [place] Neutrophils (Bld) [#/Vol] 3.80 10*3/uL Normal 1.45-7.50 [facility] Comment on above: Order Comment: Speci men Type: BLOOD SPECIMEN Ordering Facility: [facility] Address: [address] [place] [address] Performed By: #### 5 7021-8 #### [facility] CLIA [id number] [address] [place] [address] [place] Neutrophils/100 WBC (Bld) 39.0 % Normal [facility] Comment on above: Order Comment: Speci men Type: BLOOD SPECIMEN Ordering Facility: [facility] Address: [address] [place] [address] Performed By: #### 5 7021-8 #### [facility] CLIA [id number] [address] [place] [address] [place] Nucleated RBC (Bld) [#/Vol] 10*3/uL Normal <0.01 [facility] Comment on above: Order Comment: Speci men Type: BLOOD SPECIMEN Ordering Facility: [facility] Address: [address] [place] [address] Performed By: #### 5 7021-8 #### [facility] CLIA [id number] [address] [place] [address] [place] Nucleated RBC/100 WBC (Bld) [Ratio] 0.0 /100 WBC Normal [facility] Comment on above: Order Comment: Speci men Type: BLOOD SPECIMEN Ordering Facility: [facility] Address: [address] [place] [address] Performed By: #### 5 7021-8 #### [facility] CLIA [id number] [address] [place] [address] [place] Platelet mean volume (Bld) [Entitic vol] 9.4 fL Normal 9.0-12.7 [facility] Comment on above: Order Comment: Speci men Type: BLOOD SPECIMEN Ordering Facility: [facility] Address: [address] [place] [address] Performed By: #### 5 7021-8 #### [facility] CLIA [id number] [address] [place] [address] [place] Platelets (Bld) [#/Vol] 203 10*3/uL Normal 150-400 [facility] Comment on above: Order Comment: Speci men Type: BLOOD SPECIMEN Ordering Facility: [facility] Address: [address] [place] [address] Performed By: #### 5 7021-8 #### [facility] CLIA [id number] [address] [place] [address] [place] RBC (Bld) [#/Vol] 5.00 10*6/uL Normal 4.20-6.00 [facility] Comment on above: Order Comment: Speci men Type: BLOOD SPECIMEN Ordering Facility: [facility] Address: [address] [place] [address] Performed By: #### 5 7021-8 #### [facility] CLIA [id number] [address] [place] [address] [place] WBC (Bld) [#/Vol] 9.75 10*3/uL Normal 3.70-11.00 [facility] Comment on above: Order Comment: Speci men Type: BLOOD SPECIMEN Ordering Facility: [facility] Address: [address] [place] [address] Performed By: #### 5 7021-8 #### [facility] CLIA [id number] [address] [place] [address] [place] Comprehensive metabolic 2000 panelon 02-15-2025 Albumin [Mass/Vol] 4.3 g/dL Normal 3.9-4.9 [facility] Comment on above: Order Comment: Speci men Type: BLOOD SPECIMEN Ordering Facility: [facility] Address: [address] [place] [address] Performed By: #### 3 040-3, 18706-5 #### [facility] CLIA [id number] [address] [place] [address] [place] ALP [Catalytic activity/Vol] 89 U/L Normal 38-113 [facility] Comment on above: Order Comment: Speci men Type: BLOOD SPECIMEN Ordering Facility: [facility] Address: [address] [place] [address] Performed By: #### 3 040-3, 04748-5 #### [facility] CLIA [id number] [address] [place] [address] [place] ALT [Catalytic activity/Vol] 53 U/L Normal 10-54 [facility] Comment on above: Order Comment: Speci men Type: BLOOD SPECIMEN Ordering Facility: [facility] Address: [address] [place] [address] Performed By: #### 3 040-3, 48665-2 #### [facility] CLIA [id number] [address] [place] [address] [place] Anion gap [Moles/Vol] 10 mmol/L Normal 8-15 [facility] Comment on above: Order Comment: Speci men Type: BLOOD SPECIMEN Ordering Facility: [facility] Address: [address] [place] [address] Performed By: #### 3 040-3, 70808-7 #### [facility] CLIA [id number] [address] [place] [address] [place] AST [Catalytic activity/Vol] 25 U/L Normal 14-40 [facility] Comment on above: Order Comment: Speci men Type: BLOOD SPECIMEN Ordering Facility: [facility] Address: [address] [place] [address] Performed By: #### 3 3, #### [facility] CLIA [id number] [address] [place] [address] [place] Bilirubin [Mass/Vol] mg/dL Low 0.2-1.3 [facility] Comment on above: Order Comment: Speci men Type: BLOOD SPECIMEN Ordering Facility: [facility] Address: [address] [place] [address] Performed By: #### 3 3, #### [facility] CLIA [id number] [address] [place] [address] [place] Calcium [Mass/Vol] 9.6 mg/dL Normal 8.5-10.2 [facility] Comment on above: Order Comment: Speci men Type: BLOOD SPECIMEN Ordering Facility: [facility] Address: [address] [place] [address] Performed By: #### 3 , #### [facility] CLIA [id number] [address] [place] [address] [place] Chloride [Moles/Vol] 105 mmol/L Normal 98-107 [facility] Comment on above: Order Comment: Speci men Type: BLOOD SPECIMEN Ordering Facility: [facility] Address: [address] [place] [address] Performed By: #### 3 , #### [facility] CLIA [id number] [address] [place] [address] [place] CO2 [Moles/Vol] 24 mmol/L Normal 22-30 [facility] Comment on above: Order Comment: Speci men Type: BLOOD SPECIMEN Ordering Facility: [facility] Address: [address] [place] [address] Performed By: #### 3 3, #### [facility] CLIA [id number] [address] [place] [address] [place] Creatinine [Mass/Vol] 1.05 mg/dL Normal 0.73-1.22 [facility] Comment on above: Order Comment: Ariana valderrama Type: BLOOD SPECIMEN Ordering Facility: [facility] Address: [address] [place] [address] Performed By: #### 3 040-3, 07729-8 #### [facility] CLIA [id number] [address] [place] [address] [place] Creatinine and Glomerular filtration rate.predicted panel (S/P/Bld) 99 mL/min/1.73m??? Normal >=60 [facility] Comment on above: Order Comment: Ariana valderrama Type: BLOOD SPECIMEN Ordering Facility: [facility] Address: [address] [place] [address] Result Comment: Bindu mated Glomerular Filtration Rate (eGFR) is calculated using the 2020 CKD-EPI creatinine equation. This equation utilizes serum creatinine, sex, and age as parameters. The creatinine assay has traceable calibration to isotope dilution-mass spectrometry. Refer to KDIGO guidelines for clinical interpretation. In patients with unstable renal function, e.g. those with acute kidney injury, the eGFR may not accurately reflect actual GFR. Performed By: #### 3 040-3, 01329-9 #### [facility] CLIA [id number] [address] [place] [address] [place] Glucose [Mass/Vol] 113 mg/dL High 74-99 [facility] Comment on above: Order Comment: Ariana valderrama Type: BLOOD SPECIMEN Ordering Facility: [facility] Address: [address] [place] [address] Result Comment: The [place] Diabetes Association (ADA) provides guidance for cutoff values for fasting glucose and random glucose. The ADA defines fasting as no caloric intake for at least 8 hours. Fasting plasma glucose results between 100 to 125 mg/dL indicate increased risk for diabetes (prediabetes). Fasting plasma glucose results greater than or equal to 126 mg/dL meet the criteria for diagnosis of diabetes. In the absence of unequivocal hyperglycemia, results should be confirmed by repeat testing. In a patient with classic symptoms of hyperglycemia or hyperglycemic crisis, random plasma glucose results greater than or equal to 200 mg/dL meet the criteria for diagnosis of diabetes. Reference: Standards of Medical Care in Diabetes 2016, [place] Diabetes Association. Diabetes Care. 2016.39(Suppl 1). Performed By: #### 3 -3, 28968-3 #### [facility] CLIA [id number] [address] [place] [address] [place] Potassium [Moles/Vol] 4.3 mmol/L Normal 3.7-5.1 [facility] Comment on above: Order Comment: Speci men Type: BLOOD SPECIMEN Ordering Facility: [facility] Address: [address] [place] [address] Performed By: #### 3 -3, #### [facility] CLIA [id number] [address] [place] [address] [place] Protein [Mass/Vol] 6.9 g/dL Normal 6.3-8.0 [facility] Comment on above: Order Comment: Speci men Type: BLOOD SPECIMEN Ordering Facility: [facility] Address: [address] [place] [address] Performed By: #### 3 , 75420-3 #### [facility] CLIA [id number] [address] [place] [address] [place] Sodium [Moles/Vol] 139 mmol/L Normal 136-144 [facility] Comment on above: Order Comment: Speci men Type: BLOOD SPECIMEN Ordering Facility: [facility] Address: [address] [place] [address] Performed By: #### 3 -3, #### [facility] CLIA [id number] [address] [place] [address] [place] Urea nitrogen [Mass/Vol] 15 mg/dL Normal 9-24 [facility] Comment on above: Order Comment: Speci men Type: BLOOD SPECIMEN Ordering Facility: [facility] Address: [address] [place] [address] Performed By: #### 3 -3, 00722-8 #### [facility] CLIA [id number] [address] [place], [place] [address] [place] ED NOTEon 02-15-2025 ED NOTE HNO ID: [id number] Author: JESUS MANUEL LIVINGSTON, RN Service: ? Author Type: Registered Nurse Type: ED Notes Filed: 02/15/2025 22:03 Note Text: Patient with R flank and RLQ abd pain for about 3 days. Denies n/v. Endorses diarrhea. Patient reports irregular BM's recently, sometimes constipated and sometimes diarrhea. Denies having kidney stones. Normal [facility] Lipase SerPl-cCncon 02-16-20 25 Lipase [Catalytic activity/Vol] 37 U/L Normal [facility] Comment on above: Order Comment: Speci men Type: BLOOD SPECIMEN Ordering Facility: [facility] Address: [address] [place] [address] Performed By: #### 3 040-3, 15500-1 #### [facility] CLIA [id number] [address] [place] [address] [place] Urinalysis complete panel (U )on 02-15-2025 Bilirubin Ql (U) Negative Normal Negative [facility] Comment on above: Order Comment: Speci men Type: URINE SPECIMEN Ordering Facility: [facility] Address: [address] [place] [address] Performed By: #### 2 4356-8 #### [facility] CLIA [id number] [address] [place] [address] [place] Clarity (Unsp spec) Clear Normal Clear [facility] Comment on above: Order Comment: Speci men Type: URINE SPECIMEN Ordering Facility: [facility] Address: [address] [place] [address] Performed By: #### 2 4356-8 #### [facility] CLIA [id number] [address] [place] [address] [place] Color (U) Yellow Normal Yellow [facility] Comment on above: Order Comment: Speci men Type: URINE SPECIMEN Ordering Facility: [facility] Address: [address] [place] [address] Performed By: #### 2 4356-8 #### [facility] CLIA [id number] [address] [place] [address] [place] Glucose Test strip (U) [Mass/Vol] Negative Normal Negative [facility] Comment on above: Order Comment: Speci men Type: URINE SPECIMEN Ordering Facility: [facility] Address: [address] [place] [address] Performed By: #### 2 4356-8 #### [facility] CLIA [id number] [address] [place] [address] [place] Hemoglobin Ql (U) Negative Normal Negative [facility] Comment on above: Order Comment: Speci men Type: URINE SPECIMEN Ordering Facility: [facility] Address: [address] [place] [address] Performed By: #### 2 4356-8 #### [facility] CLIA [id number] [address] [place] [address] [place] Ketones Ql (U) Negative Normal Negative [facility] Comment on above: Order Comment: Speci men Type: URINE SPECIMEN Ordering Facility: [facility] Address: [address] [place] [address] Performed By: #### 2 4356-8 #### [facility] CLIA [id number] [address] [place] [address] [place] Leukocyte esterase Test strip Ql (U) Negative Normal Negative [facility] Comment on above: Order Comment: Speci men Type: URINE SPECIMEN Ordering Facility: [facility] Address: [address] [place] [address] Performed By: #### 2 4356-8 #### [facility] CLIA [id number] [address] [place] [address] [place] Nitrite Ql (U) Negative Normal Negative [facility] Comment on above: Order Comment: Speci men Type: URINE SPECIMEN Ordering Facility: [facility] Address: [address] [place] [address] Performed By: #### 2 4356-8 #### [facility] CLIA [id number] [address] [place] [address] [place] pH (U) 6.0 [pH] Normal 5.0-8.0 [facility] Comment on above: Order Comment: Speci men Type: URINE SPECIMEN Ordering Facility: [facility] Address: [address] [place] [address] Performed By: #### 2 4356-8 #### [facility] CLIA [id number] [address] [place] [address] Protein (U) [Mass/Vol] Negative Normal Negative [facility] Comment on above: Order Comment: Speci men Type: URINE SPECIMEN Ordering Facility: [facility] Address: [address] [place] [address] Performed By: #### 2 4356-8 #### [facility] CLIA [id number] [address] [place] [address] [place] RBC LM.HPF (Urine sed) [#/Area] 0-3 /HPF Normal 0-3 /HPF [facility] Comment on above: Order Comment: Speci men Type: URINE SPECIMEN Ordering Facility: [facility] Address: [address] [place] [address] Performed By: #### 2 4356-8 #### [facility] IA [id number] [address] [place] [address] [place] Specific gravity (U) [Rel density] 1.025 Normal 1.005-1.030 [facility] Comment on above: Order Comment: Speci men Type: URINE SPECIMEN Ordering Facility: [facility] Address: [address] [place] [address] Performed By: #### 2 4356-8 #### [facility] IA [id number] [address] [place] [address] Urobilinogen Ql (U) 0.2 EU/dL Normal 0.2-1.0 EU/dL [facility] Comment on above: Order Comment: Speci men Type: URINE SPECIMEN Ordering Facility: [facility] Address: [address] [place] [address] Performed By: #### 2 4356-8 #### [facility] CLIA [id number] [address] [place] [address] [place] WBC LM.HPF (Urine sed) [#/Area] 0-5 /HPF Normal 0-5 /HPF [facility] Comment on above: Order Comment: Speci men Type: URINE SPECIMEN Ordering Facility: [facility] Address: [address], [place] [address] Performed By: #### 2 4356-8 #### [facility] CLIA [id number] [address] [place], [place] [address] [place] T4 Free Directon 02-01-2025 T4 FREE DIRECT 1.20 ng/dL Normal 0.76-1.46 [facility] Comment on above: Order Comment: Order Date: 02/01/25Order Info: 3024-7 - T4F Performed By: #### L 506.0400 ####[facility] [id number] [place], [address] T4 freeOrdered By: Vidya garcia on 02-01-2025 Free T4 [Mass/Vol] 1.20 ng/dL 0.76-1.46 [facility] Pulmonary Visit Reporton Pulmonary Visit Report [facility] [address] [place] [address] OFFICE VISIT Date of Service: 01/18/25 MR#: [id number] Acct: [id number] Name: SANTY ALANIS Rep #: [id number] : 1995 Provider: Rubia Ordoñez NP Age/Sex: 29/M [facility] Status: Signed Assessment and Plan Assessment and Plan (1) Daytime hypersomnia: Status: Acute Plan: Current smoker who is experiencing daytime hypersomnia, witnessed apnea, snoring, family history of DEDE and PLMD for which I recommend a PSG. I also recommend the use of Sonata if the patient is unable to fall asleep in the sleep lab. The refrigeration technician should perform a mini neuro evaluation prior to releasing the patient in the morning. The patient understands that if the sleep study shows that he has sleep apnea at he would likely then be set up with a PAP device. He is agreeable to this plan. I highly suspect obstructive sleep apnea but central apnea could also be present along with PLMD. The patient is asked to avoid drowsy driving and operating of heavy machinery. I have discussed his sleep schedule as well and he is encouraged to work towards obtaining more sleep during the day. Unfortunately shift work is likely contributing to his daytime tiredness. (2) Smoking greater than 20 pack years: Status: Acute Plan: The patient is interested in pursuing smoking cessation today. The benefits of smoking cessation were reviewed with patient today. He is encouraged to pursue this lifestyle change. I have discussed habits, quit date, various pharmacological options for treatment. The patient would like to proceed with use of nicotine patches and these were prescribed and he was educated on their use. Orders: Orders Polysomnography Today G47.10 - Hypersomnia, unspecified Medications: New nicotine 1 patch transdermal Q24H 28 ea 0RF nicotine begin after 21 mg have been completed 1 patch transdermal Q24H 14 ea 0RF nicotine begin once 14 mg patches have been completed 1 patch transdermal Q24H 14 ea 0RF Plan Details Follow Up: 10 Weeks (LMR) HPI HPI Comments Details: Patient is a 29-year-old male who is here today to be evaluated for suspected sleep apnea. He is ambulatory and currently on room air. He is referred by Dr. Vidya Arias. He does have a history of hypothyroidism nicotine dependence and fatigue. The patient does admit to snoring and waking himself from sleep snoring and gasping and this is witnessed by his girlfriend. 10 to 30-second of apnea is witnessed. He is a side-lying sleeper. N octuria occurs x 2-3. He does awaken with a dry mouth in endorses morning headaches. He is unrefreshed upon awakening. He goes to bed at 7am and gets up at 12 and then will take another nap for 2 hours before his work shift. Neck circumference is 49.5 cm. ESS is 9. He will use caffeine at 12-2 pm either a coffee or redbull. He does not have trouble driving home from work. He does get tired driving at night. He is a current smoker at 1 pack/day. He started at the age of 15 and at his highest smoked 2 packs/day. He is asking for help with nicotine patches for smoking cessation today. 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 His mother brother have sleep apnea and he is unsure if his father did. His sister was diagnosed with Periodic Limb Movement Disorder and also early onset Parkinson disease from her in lab sleep testing. His blood pressure is elevated today, he reports that it improves after he sees the doctor. STOP-BANG Assessment: 1. Do you snore? [Y] 2. Are you frequently tired during the day? [Y] 3. Have you been observed gasping or choking while asleep? [Y] 4. Do you have high blood pressure? [Y] 5. BMI - greater than 35kg/m2? [Y] 6. Age - over 50 years old? [N] 7. Neck Circumference - greater than 37 cm for females or 40 cm for males? [Y] 8. Gender - male? [Y] Total STOP-BANG score = [7] which indicates [high] risk for obstructive sleep apnea (yes to 3 or more questions = high risk of sleep apnea). Intake Vital Signs 11/15/24 09:20 01/18/25 06:28 Height 5 ft 10 in 5 ft 10 in Weight: 290 lb BMI 41.5 BP 151/96 H Blood Pressure Location Rt brachial Position Sitting Respiration 20 H Pulse 106 H Pulse Source Monitor Temp 97.6 F L Temperature Source Temporal Artery Pulse Oximetry (%) 97 Oxygen Delivery Method room air Intake Visit Reasons: Suspected sleep apnea Operations Administrative Assistant Required: No Accompanied by: Self Is patient in pain?: No Allergies bee venom protein (honey bee) Allergy (Verified 01/18/25 13:51) Anaphylaxis methylphenidate (From Concerta) Adverse Reaction (Verified 01/18/25 13:51) NEEDS FOLLOW-UP Medications ???Medication ???In (more content not included)... Normal [facility] [id number]-[id number] DOrdered By: Branden Arias on 11-16-2024 Vitamin D 25-Hydroxy 21.9 ng/mL [facility] Comment on above: Vitamin D 25(OH) Sta tus Range Deficiency <20 ng/mL (50nmol/L) Insufficiency 20 - 30 ng/mL (50 - 75 nmol/L) Sufficiency 30 - 100 ng/mL (75 - 250 nmol/L) Toxicity >100 ng/mL (>250 nmol/L) Absolute neutrophil countOrd ered By: Vidya Arias on 11-16-2024 Neutrophils (Bld) [#/Vol] 4.8 10*3/uL 2.0-7.7 [facility] Albumin to globulin ratioOrd ered By: Vidya Arias on 11-16-2024 Albumin/Globulin [Mass ratio] 1.1 {ratio} 0.9-2.4 [facility] Basophil percentageOrdered B y: Vidya Arias on 11-16-2024 Basophils/100 WBC (Bld) 0.7 % 0-1 [facility] Bilirubin Test strip Ql (U)O rdered By: Vidya Arias on 11-16-2024 Bilirubin Ql (U) Negative Negative [facility] Bilirubin, totalOrdered By: Vidya Arias on 11-16-2024 Bilirubin [Mass/Vol] 0.40 mg/dL 0.20-1.00 [facility] Comment on above: For patients on eltr ombopag therapy, use of Dimension [place] TBIL is not recommended. Blood urea nitrogen (BUN)/cr eatinine ratioOrdered By: Vidya Arias on 11-16-2024 Urea nitrogen/Creatinine [Mass ratio] 12.8 mg/mg 10-20 [facility] CBC W/Diff, Automatedon 10-22 Absolute Lymph 3.86 X10 3/uL Normal 0.83-4.51 [facility] Comment on above: Performed By: #### L 500.4050, L400.0001, L100.0100, L506.0400, L501.9520, L506.1000, L503.0105 #### [facility] [address] [place], [address] Absolute Neut 4.8 X10 3/uL Normal 2.0-7.7 [facility] Comment on above: Performed By: #### L 500.4050, L400.0001, L100.0100, L506.0400, L501.9520, L506.1000, L503.0105 #### [facility] [address] [place], [address] Basophils/100 WBC (Bld) 0.7 % Normal 0-1 [facility] Comment on above: Performed By: #### L 500.4050, L400.0001, L100.0100, L506.0400, L501.9520, L506.1000, L503.0105 #### [facility] [address] [place], [address] Eosinophils/100 WBC (Bld) 4.6 % Normal 0-5 [facility] Comment on above: Performed By: #### L 500.4050, L400.0001, L100.0100, L506.0400, L501.9520, L506.1000, L503.0105 #### [facility] [address] [place], [address] Erythrocyte distribution width (RBC) [Ratio] 12.2 % Normal 11.6-14.6 [facility] Comment on above: Performed By: #### L 500.4050, L400.0001, L100.0100, L506.0400, L501.9520, L506.1000, L503.0105 #### [facility] [address] [place], [address] Hematocrit (Bld) [Volume fraction] 44.8 % Normal 40-54 [facility] Comment on above: Performed By: #### L 500.4050, L400.0001, L100.0100, L506.0400, L501.9520, L506.1000, L503.0105 #### [facility] [address] [place], [address] Hemoglobin (Bld) [Mass/Vol] 15.0 g/dL Normal 13.0-16.5 [facility] Comment on above: Performed By: #### L 500.4050, L400.0001, L100.0100, L506.0400, L501.9520, L506.1000, L503.0105 #### [facility] [address] [place], [address] IG% 0.300 Normal 0.0-0.9 [facility] Comment on above: Result Comment: IG% - Immature Granulocytes (promyelocytes, myelocytes and metamyelocytes) > 1% indicates that a LEFT SHIFT is Present. Performed By: #### L 500.4050, L400.0001, L100.0100, L506.0400, L501.9520, L506.1000, L503.0105 #### [facility] [address] [place], [address] Lymphocytes/100 WBC (Bld) 38.1 % Normal 19-41 [facility] Comment on above: Performed By: #### L 500.4050, L400.0001, L100.0100, L506.0400, L501.9520, L506.1000, L503.0105 #### [facility] [address] [place], [address] MCH (RBC) [Entitic mass] 28.6 pg Normal 27.0-32.0 [facility] Comment on above: Performed By: #### L 500.4050, L400.0001, L100.0100, L506.0400, L501.9520, L506.1000, L503.0105 #### [facility] [address] [place], [address] MCHC (RBC) [Mass/Vol] 33.5 g/dL Normal 32-36 [facility] Comment on above: Performed By: #### L 500.4050, L400.0001, L100.0100, L506.0400, L501.9520, L506.1000, L503.0105 #### [facility] [address] [place], [address] MCV (RBC) [Entitic vol] 85.5 fL Normal 80-94 [facility] Comment on above: Performed By: #### L 500.4050, L400.0001, L100.0100, L506.0400, L501.9520, L506.1000, L503.0105 #### [facility] [address] [place], [address] Monocytes/100 WBC (Bld) 9.1 % Normal 0-10 [facility] Comment on above: Performed By: #### L 500.4050, L400.0001, L100.0100, L506.0400, L501.9520, L506.1000, L503.0105 #### [facility] [address] [place], [address] Neutrophils/100 WBC (Bld) 47.2 % Normal 47-70 [facility] Comment on above: Performed By: #### L 500.4050, L400.0001, L100.0100, L506.0400, L501.9520, L506.1000, L503.0105 #### [facility] [address] [place], [address] Nucleated RBC (Bld) [#/Vol] 0 10*3/uL Normal 0-5 [facility] Comment on above: Performed By: #### L 500.4050, L400.0001, L100.0100, L506.0400, L501.9520, L506.1000, L503.0105 #### [facility] [address] [place], [address] Platelet mean volume (Bld) [Entitic vol] 9.7 fL Normal 6.2-12.0 [facility] Comment on above: Performed By: #### L 500.4050, L400.0001, L100.0100, L506.0400, L501.9520, L506.1000, L503.0105 #### [facility] [address] [place], [address] Platelets (Bld) [#/Vol] 198 10*3/uL Normal 150-450 [facility] Comment on above: Performed By: #### L 500.4050, L400.0001, L100.0100, L506.0400, L501.9520, L506.1000, L503.0105 #### [facility] [address] [place], [address] RBC (Bld) [#/Vol] 5.24 10*6/uL Normal 4.6-6.2 [facility] Comment on above: Performed By: #### L 500.4050, L400.0001, L100.0100, L506.0400, L501.9520, L506.1000, L503.0105 #### [facility] [address] [place], [address] RDW SD 38.0 fl Normal 35.1-43.9 [facility] Comment on above: Performed By: #### L 500.4050, L400.0001, L100.0100, L506.0400, L501.9520, L506.1000, L503.0105 #### [facility] [address] [place], [address] WBC (Bld) [#/Vol] 10.1 10*3/uL Normal 4.4-11.0 [facility] Comment on above: Performed By: #### L 500.4050, L400.0001, L100.0100, L506.0400, L501.9520, L506.1000, L503.0105 #### [facility] [address] [place], [address] Carbon dioxide measurementOr dered By: Vidya Arias on 11-16-2024 CO2 [Moles/Vol] 30.0 mmol/L 21.0-32.0 [facility] Chloride measurementOrdered By: Vidya Arias on 11-16-2024 Chloride [Moles/Vol] 106 mmol/L 98-107 [facility] Comprehensive Metabolic Prof ilon 11-16-2024 Albumin [Mass/Vol] 3.9 g/dL Normal 3.2-5.0 [facility] Comment on above: Performed By: #### L 500.4050, L400.0001, L100.0100, L506.0400, L501.9520, L506.1000, L503.0105 #### [facility] [address] [place], [address] Albumin/Globulin [Mass ratio] 1.1 {ratio} Normal 0.9-2.4 [facility] Comment on above: Performed By: #### L 500.4050, L400.0001, L100.0100, L506.0400, L501.9520, L506.1000, L503.0105 #### [facility] [address] [place], [address] ALK P 97 U/L Normal 45-117 [facility] Comment on above: Performed By: #### L 500.4050, L400.0001, L100.0100, L506.0400, L501.9520, L506.1000, L503.0105 #### [facility] [address] [place], [address] ALT [Catalytic activity/Vol] 40 U/L Normal 16-61 [facility] Comment on above: Performed By: #### L 500.4050, L400.0001, L100.0100, L506.0400, L501.9520, L506.1000, L503.0105 #### [facility] [address] [place], [address] AST [Catalytic activity/Vol] 18 U/L Normal 15-37 [facility] Comment on above: Performed By: #### L 500.4050, L400.0001, L100.0100, L506.0400, L501.9520, L506.1000, L503.0105 #### [facility] [address] [place], [address] Bilirubin [Mass/Vol] 0.40 mg/dL Normal 0.20-1.00 [facility] Comment on above: Result Comment: For patients on eltrombopag therapy, use of Dimension [place] TBIL is not recommended. Performed By: #### L 500.4050, L400.0001, L100.0100, L506.0400, L501.9520, L506.1000, L503.0105 #### [facility] [address] [place], [address] BUN/CRE 12.8 RATIO Normal 10-20 [facility] Comment on above: Performed By: #### L 500.4050, L400.0001, L100.0100, L506.0400, L501.9520, L506.1000, L503.0105 #### [facility] [address] [place], [address] CA,Total 9.5 mg/dL Normal 8.5-10.1 [facility] Comment on above: Performed By: #### L 500.4050, L400.0001, L100.0100, L506.0400, L501.9520, L506.1000, L503.0105 #### [facility] [address] [place], [address] Chloride [Moles/Vol] 106 mmol/L Normal 98-107 [facility] Comment on above: Performed By: #### L 500.4050, L400.0001, L100.0100, L506.0400, L501.9520, L506.1000, L503.0105 #### [facility] [address] [place], [address] CO2 [Moles/Vol] 30.0 mmol/L Normal 21.0-32.0 [facility] Comment on above: Performed By: #### L 500.4050, L400.0001, L100.0100, L506.0400, L501.9520, L506.1000, L503.0105 #### [facility] [address] [place], [address] Creatinine [Mass/Vol] 1.09 mg/dL Normal 0.70-1.30 [facility] Comment on above: Result Comment: The validity of the calculated GFR GFRAA in patients over 70 years has not been determined. Clinical correlation is essential. Performed By: #### L 500.4050, L400.0001, L100.0100, L506.0400, L501.9520, L506.1000, L503.0105 #### [facility] [address] [place], [address] EST GFR - AA 103 mL/min Normal >60 [facility] Comment on above: Result Comment: Afri can Citizen [place] GFR Calc Performed By: #### L 500.4050, L400.0001, L100.0100, L506.0400, L501.9520, L506.1000, L503.0105 #### [facility] [address] [place], [address] GAP 4 Low 5-15 [facility] Comment on above: Performed By: #### L 500.4050, L400.0001, L100.0100, L506.0400, L501.9520, L506.1000, L503.0105 #### [facility] [address] [place], [address] GFR/1.73 sq M.predicted among non-blacks MDRD (S/P/Bld) [Vol rate/Area] 85 mL/min/{1.73_m2} Normal >60 [facility] Comment on above: Result Comment: Non- GFR Calc Performed By: #### L 500.4050, L400.0001, L100.0100, L506.0400, L501.9520, L506.1000, L503.0105 #### [facility] [address] [place], [address] Globulin (S) [Mass/Vol] 3.7 g/dL Normal 2.2-4.2 [facility] Comment on above: Performed By: #### L 500.4050, L400.0001, L100.0100, L506.0400, L501.9520, L506.1000, L503.0105 #### [facility] [address] [place], [address] Glucose [Mass/Vol] 96 mg/dL Normal 74-106 [facility] Comment on above: Performed By: #### L 500.4050, L400.0001, L100.0100, L506.0400, L501.9520, L506.1000, L503.0105 #### [facility] [address] [place], [address] Potassium [Moles/Vol] 4.1 mmol/L Normal 3.5-5.1 [facility] Comment on above: Performed By: #### L 500.4050, L400.0001, L100.0100, L506.0400, L501.9520, L506.1000, L503.0105 #### [facility] [address] [place], [address] Sodium [Moles/Vol] 140 mmol/L Normal 136-145 [facility] Comment on above: Performed By: #### L 500.4050, L400.0001, L100.0100, L506.0400, L501.9520, L506.1000, L503.0105 #### [facility] [address] [place], [address] T PROT 7.6 g/dL Normal 6.4-8.2 [facility] Comment on above: Performed By: #### L 500.4050, L400.0001, L100.0100, L506.0400, L501.9520, L506.1000, L503.0105 #### [facility] [address] [place], [address] Urea nitrogen [Mass/Vol] 14 mg/dL Normal 7-18 [facility] Comment on above: Performed By: #### L 500.4050, L400.0001, L100.0100, L506.0400, L501.9520, L506.1000, L503.0105 #### [facility] [address] [place], [address] Direct serum free thyroxine (FT4) measurementOrdered By: Vidya Arias on 11-16-2024 Free T4 [Mass/Vol] 0.62 ng/dL Low 0.76-1.46 [facility] Eosinophil percentageOrdered By: Vidya Arias on 11-16-2024 Eosinophils/100 WBC (Bld) 4.6 % 0-5 [facility] Epithelial cells.squamous LM Ql (Urine sed)Ordered By: Vidya Arias on 11-16-2024 Epithelial cells.squamous LM.HPF (Urine sed) [#/Area] 0 /[HPF] 0-5 [facility] Erythrocyte distribution wid th ratioOrdered By: Vidya Arias on 11-16-2024 Erythrocyte distribution width (RBC) [Ratio] 12.2 % 11.6-14.6 [facility] Erythrocyte distribution wid th standard deviationOrdered By: Vidya Arias on 11-16-2024 Erythrocyte distribution width (RBC) [Entitic vol] 38.0 fL 35.1-43.9 [facility] Estimated glomerular filtrat ion rate (GFR) AmericanOrdered By: Vidya Arias on 11-16-2024 Estimated GFR (MDRD) Amer 103 mL/min >60 [facility] Comment on above: GFR Calc Glomerular filtration rate ( GFR) estimationOrdered By: Vidya Arias on 11-16-2024 Estimated GFR (MDRD) Non-Af Amer 85 mL/min >60 [facility] Comment on above: Non- GFR Calc Glucose Ql (U)Ordered By: Magi Arias on 11-16-2024 Urine Glucose (UA) Normal mg/dl Normal [facility] Glucose measurementOrdered B y: Vidya Arias on 11-16-2024 Glucose [Mass/Vol] 96 mg/dL 74-106 [facility] Hematocrit Auto (Bld) [Volum e fraction]Ordered By: Vidya Arias on 11-16-2024 Hematocrit (Bld) [Volume fraction] 44.8 % 40-54 [facility] Hemoglobin measurementOrdere d By: Vidya Arias on 11-16-2024 Hemoglobin (Bld) [Mass/Vol] 15.0 g/dL 13.0-16.5 [facility] Immature granulocytes/100 WB C Auto (Bld)Ordered By: Vidya Arias on 11-16-2024 Immature granulocytes/100 WBC (Bld) 0.300 % 0.0-0.9 [facility] Comment on above: IG% - Immature Granu locytes (promyelocytes, myelocytes and metamyelocytes) > 1% indicates that a LEFT SHIFT is Present. Ketones Test strip Ql (U)Ord ered By: Vidya Arias on 11-16-2024 Ketones Ql (U) Negative Negative [facility] - Chemistry and C hemistry - challengeOrdered By: Vidya Arias on 11-16-2024 AST [Catalytic activity/Vol] 18 U/L 15-37 [facility] Lymphocytes Auto (Unsp spec) [#/Vol]Ordered By: Vidya Arias on 11-16-2024 Lymphocytes (Bld) [#/Vol] 3.86 10*3/uL 0.83-4.51 [facility] Lymphocytes/100 WBC Auto (Un sp spec)Ordered By: Vidya Arias on 11-16-2024 Lymphocytes/100 WBC (Bld) 38.1 % 19-41 [facility] MCV (mean corpuscular volume ) determinationOrdered By: Vidya Arias on 11-16-2024 MCV (RBC) [Entitic vol] 85.5 fL 80-94 [facility] Mean corpuscular hemoglobin (MCH) determinationOrdered By: Vidya Arias on 11-16-2024 MCH (RBC) [Entitic mass] 28.6 pg 27.0-32.0 [facility] Mean corpuscular hemoglobin concentration (MCHC) determinationOrdered By: Vdiya Arias on 11-16-2024 MCHC (RBC) [Mass/Vol] 33.5 g/dL 32-36 [facility] Mean platelet volume determi nationOrdered By: Vidya Arias on 11-16-2024 Platelet mean volume (Bld) [Entitic vol] 9.7 fL 6.2-12.0 [facility] Microscopic analysis of urin e for red blood cells (RBC)Ordered By: Vidya Arias on 11-16-2024 Urine RBC 0-5 SEEN /hpf 0-5 [facility] Monocyte percentageOrdered B y: Vidya Arias on 11-16-2024 Monocytes/100 WBC (Bld) 9.1 % 0-10 [facility] Mucus LM Ql (Urine sed)Order ed By: Vidya Arias on 11-16-2024 Mucus Ql (Urine sed) 0 SEEN /hpf [facility] Neutrophil percentageOrdered By: Vidya Arias on 11-16-2024 Neutrophils/100 WBC (Bld) 47.2 % 47-70 [facility] Nitrite Test strip Ql (U)Ord ered By: Vidya Arias on 11-16-2024 Nitrite Ql (U) Negative Negative [facility] Nucleated red blood cell per centageOrdered By: Vidya Arias on 11-16-2024 Nucleated RBC/100 WBC (Bld) [Ratio] 0 % 0-5 [facility] Platelet countOrdered By: Magi Arias on 11-16-2024 Platelets (Bld) [#/Vol] 198 10*3/uL 150-450 [facility] Potassium measurementOrdered By: Vidya Arias on 11-16-2024 Potassium [Moles/Vol] 4.1 mmol/L 3.5-5.1 [facility] Protein Test strip Ql (U)Ord ered By: Vidya Arias on 11-16-2024 Protein Ql (U) Negative Negative [facility] RBC Auto (Bld) [#/Vol]Ordere d By: Vidya Arias on 11-16-2024 RBC (Bld) [#/Vol] 5.24 10*6/uL 4.6-6.2 [facility] Serum anion gap measurementO rdered By: Vidya Arias on 11-16-2024 Anion gap [Moles/Vol] 4 mmol/L Low 5-15 [facility] Serum globulin measurementOr dered By: Vidya Arias on 11-16-2024 Globulin (S) [Mass/Vol] 3.7 g/dL 2.2-4.2 [facility] Serum or plasma alanine savage otransferase (ALT) measurementOrdered By: Vidya Arias on 11-16-2024 ALT [Catalytic activity/Vol] 40 U/L 16-61 [facility] Serum or plasma albumin kasandra urement (mass/volume)Ordered By: Vidya Arias on 11-16-2024 Albumin [Mass/Vol] 3.9 g/dL 3.2-5.0 [facility] Serum or plasma alkaline dru sphatase measurementOrdered By: Vidya Arias on 11-16-2024 ALP [Catalytic activity/Vol] 97 U/L 45-117 [facility] Serum or plasma calcium kasandra urement (mass/volume)Ordered By: Vidya Arias on 11-16-2024 Calcium [Mass/Vol] 9.5 mg/dL 8.5-10.1 [facility] Serum or plasma creatinine m easurement (mass/volume)Ordered By: Vidya Arias on 11-16-2024 Creatinine [Mass/Vol] 1.09 mg/dL 0.70-1.30 [facility] Comment on above: The validity of the calculated GFR & GFRAA in patients over 70 years has not been determined. Clinical correlation is essential. Serum or plasma urea nitroge n measurement (mass/volume)Ordered By: Vidya Arias on 11-16-2024 Urea nitrogen [Mass/Vol] 14 mg/dL 7-18 [facility] Sodium levelOrdered By: Vidya Arias on 11-16-2024 Sodium [Moles/Vol] 140 mmol/L 136-145 [facility] T4 Free Directon 11-16-2024 T4 FREE DIRECT 0.62 ng/dL Low 0.76-1.46 [facility] Comment on above: Performed By: #### L 500.4050, L400.0001, L100.0100, L506.0400, L501.9520, L506.1000, L503.0105 ####[facility] [address] [place], [address] TSH QnOrdered By: Vidya busch on 11-16-2024 Thyroid Stimulating Hormone (TSH) 16.600 uIU/mL High 0.358-3.740 [facility] Thyroid Stim Hormone (TSH)on 11-16-2024 TSH 16.600 uIU/mL High 0.358-3.740 [facility] Comment on above: Performed By: #### L 500.4050, L400.0001, L100.0100, L506.0400, L501.9520, L506.1000, L503.0105 #### [facility] [address] [place], [address] (922) Total proteinOrdered By: Pal Arias on 11-16-2024 Protein [Mass/Vol] 7.6 g/dL 6.4-8.2 [facility] Urinalysis, Completeon 11-16 EPI,SQUAMOUS 0-5 SEEN Normal 0-5 [facility] Comment on above: Order Comment: CLEAN CATCH Performed By: #### L 500.4050, L400.0001, L100.0100, L506.0400, L501.9520, L506.1000, L503.0105 #### [facility] [address] [place], [address] RBC 0-5 SEEN Normal 0-5 [facility] Comment on above: Order Comment: CLEAN CATCH Performed By: #### L 500.4050, L400.0001, L100.0100, L506.0400, L501.9520, L506.1000, L503.0105 #### [facility] [address] [place], [address] WBC 0-5 SEEN Normal 0-5 [facility] Comment on above: Order Comment: CLEAN CATCH Performed By: #### L 500.4050, L400.0001, L100.0100, L506.0400, L501.9520, L506.1000, L503.0105 #### [facility] [address] [place], [address] BACTERIA 0 SEEN Normal None Seen [facility] Comment on above: Order Comment: CLEAN CATCH Performed By: #### L 500.4050, L400.0001, L100.0100, L506.0400, L501.9520, L506.1000, L503.0105 #### [facility] [address] [place], [address] Mucus Ql (Urine sed) 0 SEEN Normal [facility] Comment on above: Order Comment: CLEAN CATCH Performed By: #### L 500.4050, L400.0001, L100.0100, L506.0400, L501.9520, L506.1000, L503.0105 #### [facility] [address] [place], [address] Urine blood detectionOrdered By: Vidya Arias on 11-16-2024 Urine Occult Blood Negative Negative [facility] Urine clarityOrdered By: Pal Arias on 11-16-2024 Clarity (U) Clear Clear [facility] Urine color determinationOrd ered By: Vidya Arias on 11-16-2024 Color (U) Yellow Yellow [facility] Urine leukocyte esterase det ection by dipstickOrdered By: Vidya Arias on 11-16-2024 Leukocyte esterase Test strip Ql (U) Negative Negative [facility] Urine pHOrdered By: Vidya han on 11-16-2024 pH (U) 6.0 [pH] 5.0 - 8.0 [facility] Urine sediment bacteria coun t by microscopy (number/high power field)Ordered By: Vidya Arias on 11-16-2024 Bacteria LM.HPF (Urine sed) [#/Area] 0 /[HPF] None Seen [facility] Urine specific gravity measu rementOrdered By: Vidya Arias on 11-16-2024 Specific gravity (U) [Rel density] 1.020 1.002-1.030 [facility] Urobilinogen Ql (U)Ordered B y: Vidya Arias on 11-16-2024 Urine Urobilinogen Normal mg/dl Normal [facility] Vitamin B12on 11-16-2024 Cobalamin (Vitamin B12) [Mass/Vol] 856 pg/mL Normal 211-911 [facility] Comment on above: Performed By: #### L 500.4050, L400.0001, L100.0100, L506.0400, L501.9520, L506.1000, L503.0105 #### [facility] [address] [place], [place], [id number] Vitamin B12 measurementOrder ed By: Vidya Arias on 11-16-2024 Cobalamin (Vitamin B12) [Mass/Vol] 856 pg/mL 211-911 [facility] Vitamin D,25 Hydroxyon 11-16 Vitamin D 25-OH 21.9 ng/mL Normal [facility] Comment on above: Result Comment: Yesenia min D 25(OH) Status Range Deficiency <20 ng/mL (50nmol/L) Insufficiency 20 - 30 ng/mL (50 - 75 nmol/L) Sufficiency 30 - 100 ng/mL (75 - 250 nmol/L) Toxicity >100 ng/mL (>250 nmol/L) Performed By: #### L 500.4050, L400.0001, L100.0100, L506.0400, L501.9520, L506.1000, L503.0105 #### [facility] [address] [place], [place], [id number] White blood cell (WBC) count Ordered By: Vidya Arias on 11-16-2024 WBC (Bld) [#/Vol] 10.1 10*3/uL 4.4-11.0 [facility] White blood cell countOrdere d By: Vidya Arias on 11-16-2024 Urine WBC 0-5 SEEN /hpf 0-5 [facility] Office Vis iton 11-15-2024 Internal Medicine Office Visit [facility] [place], [place] [address] OFFICE VISIT Date of Service: 11/15/24 MR#: [id number] Acct: [id number] Name: SANTY ALANIS Rep #: [id number] : 1995 Provider: REBECA Simmons Age/Sex: 29/M [facility] Status: Signed Intake Vital Signs 10/17/24 18:30 11/15/24 09:20 Height 5 ft 10 in 5 ft 10 in Intake Visit Reasons: FEVER/COUGH/SORE THROAT/SINUS Allergies bee venom protein (honey bee) Allergy (Verified 10/17/24 18:30) Anaphylaxis methylphenidate (From Concerta) Adverse Reaction (Verified 10/17/24 18:30) NEEDS FOLLOW-UP Medications ???Medication ???Instructions ???Recorded ???Confirmed ???Type levothyroxine 112 mcg tablet 112 mcg PO MOTUWETHFR thyroid 11/07/19 11/15/24 History epinephrine 0.3 mg/0.3 mL 0.3 ml IM PRN allergic re 09/02/23 11/15/24 History injection, auto-injector levothyroxine 112 mcg tablet 224 mcg PO SUSA 04/22/24 11/15/24 History (Euthyrox) amoxicillin 500 mg capsule 500 mg PO TID #30 caps 11/15/24 11/15/24 Rx Nurse's Note: Patient has a Sore throat, and red throat and white patches and KIM and Sinus pressure and chest congestion. [facility] Peripheral vertigo Lung nodule Panic disorder Anxiety Abnormal EKG Smoker Asthma Elevated liver function tests Dental infection ADD (attention deficit disorder) Hypothyroidism Surgical History History of cholecystectomy Hx of thyroidectomy Family History Mother Thyroid disorder Myocardial infarction, Onset Age: 40 Heart disease Father COPD (chronic obstructive pulmonary disease) Brother Bipolar disorder Grandfather Diabetes CVA (cerebral vascular accident) Grandfather COPD (chronic obstructive pulmonary disease) Other Autoimmune disease Social History Smoking Status: Current every day smoker tobacco type: cigarettes substance use type: does not use HPI HPI Details: SANTY ZEKE, is a 29 M who presents to the office today for sore throat x 2 to 3 days along with headache, chills, and fevers. Patient states that he looked in his throat and saw that it was red and swollen and came in for evaluation. ROS Const Constitutional: Positive for body ache, chills and fever(s) ENT ENT: Positive for sore throat; No ear or mastoid pain Resp Respiratory: No cough Exam Const General: cooperative, healthy appearing, comfortable, no acute distress, well developed, well groomed, not in distress, ill appearing (Nothing acute but can tell he does not feel well) and not lethargic Nutritional Appearance: overweight Orientation: alert and awake HENMT Throat: abnormal tonsil bilaterally erythema and exudates Neck Lymphatic: lymphadenopathy Other: Patient has some small shotty submandibular adenopathy that is mobile at the same time tender Resp Effort Inspection: normal respiratory effort, able to speak in complete sentences, symmetric chest movement and normal respiratory pattern Results POC Rapid Strep A Office Rapid Strep A Positive Last Edit by Lavinia Ott MA on 11/15/24 10:12 Coding Level of Care Code Off vis,est,level 3 Diagnoses Strep throat J02.0 Assessment and Plan Assessment and Plan (1) Strep throat: Status: Acute Plan: Patient presents to the office with 2 day history of sore throat, headache, chills, and some fatigue. Physical exam shows that he has evident acute changes to the tonsils to include erythema and exudates. There is no significant hypertrophy or concern for obstruction. He does not have signs of abscess. Can tell he does not feel well at the same time there is no evidence of acute distress. We discussed anatomy and physiology as well as pathophysiology of strep. Discussed the importance of completing ENTIRE antibiotic course. Can take Ibuprofen for inflammation. Stay hydrated with plenty of fluids. Lots of rest. Patient to seek medical attention in the ED with any difficulties swallowing, inability to stay hydrated, or any breathing difficulties. Notify with any other questions or concerns. Orders: Orders POC Rapid Strep A Today J02.9 - Acute pharyngitis, unspecified Medications: New amoxicillin 500 mg PO TID 30 caps 0RF Plan Details Follow Up: 1 (week) 11/15/24 0181 Date Nelson Szymanskiignsandra Signature: Date (if applicable) CC: Normal [facility] S. pyogenes Ag IA.rapid Ql ( Throat)on 11-15-2024 S. pyogenes Ag IA Ql (Unsp spec) Positive [facility] Emergency Department Summary on 10-17-2024 Emergency Department Summary [facility] Medical Records Department [address] [place] [address] Emergency Department Summary 10/17/24 MR#: [id number] Acct: [id number] Name: SANTY ALANIS Rep #: [id number] : 1995 29 From: Adelaida Keith DO PCP: Care Physician,No Primary Status:DEP ER Location: ED HPI History of Present Illness Chief Complaint: Dental Informant: patient Narrative Narrative: Patient is a 29-year-old male with history of tobacco use presenting with dental abscess drainage as well as nausea. Patient states he had an abscess is about 1 cm in size of his right lower gum that has been draining for the few days. He states he drains it in he swallows and he feels nauseous. Today he felt nauseous and felt like his heart was beating fast. He took his temperature is 95.9. He was concerned that he was getting septic. He is on house arrest and only come to the ER is by taking squad to be called 911. He notes that he had some leftover amoxicillin 500 mg from recent sinus infection. He has been taking that twice a day for the past 2 days. Denies any fevers. Denies any difficulty swallowing. Denies any associated abdominal pain. Has had some mild diarrhea. Reports chronic conjunctivitis, right ear pain and ringing in his ear which he has seen ENT for in the past. No other complaints or concerns reported at this time. [facility] Medical History Peripheral vertigo Lung nodule Panic disorder Anxiety Abnormal EKG Smoker Asthma Elevated liver function tests Dental infection ADD (attention deficit disorder) Hypothyroidism Home Medications ???Medication ???Instructions ???Recorded ???Last Taken ???Type levothyroxine 112 mcg tablet 112 mcg PO MOTUWETHFR thyroid 11/07/19 08/08/21 History epinephrine 0.3 mg/0.3 mL 0.3 ml IM PRN allergic re 09/02/23 Unknown History injection, auto-injector levothyroxine 112 mcg tablet 224 mcg PO SUSA 04/22/24 Unknown History (Euthyrox) amoxicillin 875 mg-potassium 875 mg PO Q12H #20 TABLETS 06/21/24 Unknown Rx clavulanate 125 mg tablet amoxicillin 875 mg-potassium 1 tab PO BID #10 tabs 10/17/24 Unknown Rx clavulanate 125 mg tablet ondansetron 4 mg disintegrating 4 mg PO Q8H PRN PRN Nausea #10 tabs 10/17/24 Unknown Rx tablet Allergy/AdvReac Type Severity Reaction Status Date / Time bee venom protein (honey bee) Allergy Anaphylaxis Verified 10/17/24 18:30 methylphenidate (From AdvReac NEEDS Verified 10/17/24 18:30 Concerta) FOLLOW-UP Family History Mother Thyroid disorder Myocardial infarction, Onset Age: 40 Heart disease Father COPD (chronic obstructive pulmonary disease) Brother Bipolar disorder Grandfather Diabetes CVA (cerebral vascular accident) Grandfather COPD (chronic obstructive pulmonary disease) Other Autoimmune disease Surgical History History of cholecystectomy Hx of thyroidectomy Social History Smoking Status: Current every day smoker tobacco type: cigarettes substance use type: does not use ROS ROS ED Constitutional Constitutional ED: Denies chills or fever(s) ENT ENT ED: Reports ear pain right and other Details: Drainage from the right lower gum???denies dental pain ; Denies rhinorrhea or sore throat Cardiovascular Cardiovascular: Denies chest pain Respiratory/Chest Respiratory/Chest: Denies cough or dyspnea Gastrointestinal Gastrointestinal: Reports diarrhea and nausea; Denies abdominal pain or vomiting Musculoskeletal Musculoskeletal: Denies arthralgias or myalgias Integumentary Denies rash Psychiatric Psychiatric: Reports anxiety EXAM Physical Exam Const Vital Signs: 10/17/24 18:30 Temperature 98.2 F Temperature Source Oral Pulse Rate 96 Respiratory Rate 18 Blood Pressure 124/74 H Blood Pressure Mean 90 Pulse Ox 95 Oxygen Delivery Method Room Air Positive well nourished and well developed General Appearance ED: well developed and NAD HEENT HEENT Narrative: Normocephalic atraumatic. Moist mucous membranes. Patient is a small area of swelling of the right lower gum around the region of the first molar. No fluctuance or drainage at this time. No associated dental tenderness. He does have some scattered tartar and caries. Moist mucosal membranes. Normal oropharynx. Normal uvula. Normal phonation. No trismus. Normal nasal exam. Right tympanic membrane???full and mildly injected. No air-fluid level or loss of bony landmarks appreciated. Normal left tympanic membrane. Normal external ears and ear canals. Eyes PERRL and EOMs intact bilaterally Eyes Narrative: Conjunctival injectio (more content not included)... Normal [facility] Basic metabolic 2000 panelOr dered By: Debbie Bob on 07-25-2024 Anion gap [Moles/Vol] 10 mmol/L 8 - 15 mmol/L [facility] Calcium [Mass/Vol] 10.1 mg/dL 8.5 - 10. 2 mg/dL [facility] Chloride [Moles/Vol] 106 mmol/L 98 - 107 mmol/L [facility] CO2 [Moles/Vol] 24 mmol/L 22 - 30 mmol/L [facility] Creatinine [Mass/Vol] 1.13 mg/dL 0.73 - 1.22 mg/dL [facility] GFR/1.73 sq M.predicted among non-blacks MDRD (S/P/Bld) [Vol rate/Area] 91 mL/min/{1.73_m2} - PINF [facility] Comment on above: Estimated Glomerular Filtration Rate (eGFR) is calculated using the 2020 CKD-EPI creatinine equation. This equation utilizes serum creatinine, sex, and age as parameters. The creatinine assay has traceable calibration to isotope dilution-mass spectrometry. Refer to KDIGO guidelines for clinical interpretation. In patients with unstable renal function, e.g. those with acute kidney injury, the eGFR may not accurately reflect actual GFR. Glucose [Mass/Vol] 134 mg/dL High 74 - 99 mg/dL [facility] Comment on above: The [place] Diabete s Association (ADA) provides guidance for cutoff values for fasting glucose and random glucose. The ADA defines fasting as no caloric intake for at least 8 hours. Fasting plasma glucose results between 100 to 125 mg/dL indicate increased risk for diabetes (prediabetes). Fasting plasma glucose results greater than or equal to 126 mg/dL meet the criteria for diagnosis of diabetes. In the absence of unequivocal hyperglycemia, results should be confirmed by repeat testing. In a patient with classic symptoms of hyperglycemia or hyperglycemic crisis, random plasma glucose results greater than or equal to 200 mg/dL meet the criteria for diagnosis of diabetes. Reference: Standards of Medical Care in Diabetes 2016, [place] Diabetes Association. Diabetes Care. 2016.39(Suppl 1). Interpretation and review of laboratory results Abnormal [facility] Potassium [Moles/Vol] 4.0 mmol/L 3.7 - 5.1 mmol/L [facility] Sodium [Moles/Vol] 140 mmol/L 136 - 144 mmol/L [facility] Urea nitrogen [Mass/Vol] 11 mg/dL 9 - 24 mg/dL [facility] Basic metabolic 2000 panelon 07-25-2024 Anion gap [Moles/Vol] 10 mmol/L Normal 8-15 [facility] Comment on above: Order Comment: Speci men Type: BLOOD SPECIMENOrdering Facility: [facility] Address: [address] [place] [address] Performed By: #### 2 4321-2 ####[facility] [id number] [place] [address] [place] Calcium [Mass/Vol] 10.1 mg/dL Normal 8.5-10.2 [facility] Comment on above: Order Comment: Speci men Type: BLOOD SPECIMENOrdering Facility: [facility] Address: [address] [place] [address] Performed By: #### 2 4321-2 ####[facility] [id number] [place] [address] [place] Chloride [Moles/Vol] 106 mmol/L Normal 98-107 [facility] Comment on above: Order Comment: Speci men Type: BLOOD SPECIMENOrdering Facility: [facility] Address: [address] [place] [address] Performed By: #### 2 4321-2 ####[facility] [id number] [place] [address] [place] CO2 [Moles/Vol] 24 mmol/L Normal 22-30 [facility] Comment on above: Order Comment: Speci men Type: BLOOD SPECIMENOrdering Facility: [facility] Address: [address] [place] [address] Performed By: #### 2 4321-2 ####[facility] [id number] [place] [address] [place] Creatinine [Mass/Vol] 1.13 mg/dL Normal 0.73-1.22 [facility] Comment on above: Order Comment: Speci men Type: BLOOD SPECIMENOrdering Facility: [facility] Address: [address] [place] [address] Performed By: #### 2 4321-2 ####[facility] [id number] [address] [facility] Creatinine and Glomerular filtration rate.predicted panel (S/P/Bld) 91 mL/min/1.73m??? Normal >=60 [facility] Comment on above: Order Comment: Speci men Type: BLOOD SPECIMENOrdering Facility: [facility] Address: [address] [place] [address] Result Comment: Bindu mated Glomerular Filtration Rate (eGFR) is calculated using the 2020 CKD-EPI creatinine equation. This equation utilizes serum creatinine, sex, and age as parameters. The creatinine assay has traceable calibration to isotope dilution-mass spectrometry. Refer to KDIGO guidelines for clinical interpretation. In patients with unstable renal function, e.g. those with acute kidney injury, the eGFR may not accurately reflect actual GFR. Performed By: #### 2 4321-2 ####[facility]CL[facility] [id number] [place] [address] [place] Glucose [Mass/Vol] 134 mg/dL High 74-99 [facility] Comment on above: Order Comment: Speci men Type: BLOOD SPECIMENOrdering Facility: [facility] Address: [address] [place] [address] Result Comment: The [place] Diabetes Association (ADA) provides guidance for cutoff values for fasting glucose and random glucose. The ADA defines fasting as no caloric intake for at least 8 hours. Fasting plasma glucose results between 100 to 125 mg/dL indicate increased risk for diabetes (prediabetes). Fasting plasma glucose results greater than or equal to 126 mg/dL meet the criteria for diagnosis of diabetes. In the absence of unequivocal hyperglycemia, results should be confirmed by repeat testing. In a patient with classic symptoms of hyperglycemia or hyperglycemic crisis, random plasma glucose results greater than or equal to 200 mg/dL meet the criteria for diagnosis of diabetes. Reference: Standards of Medical Care in Diabetes 2016, [place] Diabetes Association. Diabetes Care. 2016.39(Suppl 1). Performed By: #### 2 4321-2 ####[facility] [id number] [place] [address] [place] Potassium [Moles/Vol] 4.0 mmol/L Normal 3.7-5.1 [facility] Comment on above: Order Comment: Speci men Type: BLOOD SPECIMENOrdering Facility: [facility] Address: [address] [place], [place] [id number] Performed By: #### 2 4321-2 ####[facility] [id number] [place] [address] [place] Sodium [Moles/Vol] 140 mmol/L Normal 136-144 [facility] Comment on above: Order Comment: Speci men Type: BLOOD SPECIMENOrdering Facility: [facility] Address: [address] [place], [place] [id number] Performed By: #### 2 4321-2 ####[facility] [id number] [place] [address] [place] Urea nitrogen [Mass/Vol] 11 mg/dL Normal 9-24 [facility] Comment on above: Order Comment: Speci men Type: BLOOD SPECIMENOrdering Facility: [facility] Address: [facility] [place] [id number] Performed By: #### 2 4321-2 ####[facility] MOHINI RAMACHANDRANA [id number] [place] [address] [place] CNOVon 07-25-2024 CNOV Office Visit ([facility]) SANTY ALANIS Mik ([id number]) 1995 M T Date Time Provider Department 07/25/24 12:15 PM SANGITA SEQUEIRA [facility] During your visit today, we recorded the following information about you: Temperature Pulse Respiration Blood pressure 97.9 degrees 86/minute 16/minute 122/78 Weight 124.8 kg Sangita Sequeira APRN.BROACH OPERATOR 07/25/2024 3:43 PM Signed This note was created using goOutMapriter. Subjective Santy Alanis is a 29 year old male. Pertinent PMH reviewed: asthma, obesity, Graves disease and allergies reviewed 29 year old patient presenting today with shortness of breath, sinus pain, cough, chills and dizziness that started yesterday. Pt states he took a COVID test at home yesterday which was positive. His son was also positive for COVID Tuesday. Pt states he has had COVID x4 and each time is given Paxlovid which helps. He has been using Flonase and tylenol every 4 hours which have provided some relief. Pt denies nausea, vomiting, chest pain, fever and rash. The history is provided by the patient. No foreign languages department chair was used. URI He complains of shortness of breath. There is no wheezing. The current episode started yesterday. The problem has been unchanged. Associated symptoms include headaches. Pertinent negatives include no appetite change, chest pain, ear pain, fever, nasal congestion, postnasal drip, rhinorrhea or sore throat. His symptoms are aggravated by nothing. His symptoms are alleviated by nothing. His past medical history is significant for asthma. There is no history of COPD or pneumonia. PAST MEDICAL HISTORY No date: ADHD No date: Anxiety No date: Childhood asthma Comment: URI induced as an adult No date: Current moderate episode of major depressive disorder without prior episode (HCC) No date: Family history of heart attack No date: Graves disease No date: History of chlamydia No date: Lung nodule Comment: age 19 No date: Morbid obesity with BMI of 40.0-44.9, adult (HCC) No date: Panic disorder No date: Post-surgical hypothyroidism No date: Tobacco use PAST SURGICAL HISTORY 08/09/2021: LAPS SURG CHOLECYSTECTOMY W/CHOLANGIOGRAPHY No date: THYROIDECTOMY TOTAL/COMPLETE ALLERGIES Bee Venom Protein (Honey Bee) and Concerta [Methylphenidate Analogues] MEDICATIONS fluticasone (FLONASE) 50 mcg/actuation nasal spray Use 2 Sprays in each nostril once daily. Rinse mouth after use. Brompheniramine-Pseu doeph-DM (BROMFED DM) 2-30-10 mg/5 mL syrup Take 10 mL by mouth four times a day as needed. levothyroxine (LEVOXYL) 112 mcg tablet Take one Tuesday-Tuesday and two tablets on Tuesday and Tuesday. Take on empty stomach EPINEPHrine (EPIPEN) 0.3 mg/0.3 mL auto-injector Inject 0.3 mL intramuscularly as needed (For allergic reaction). ipratropium-albutero l (DUONEB) 0.5 mg-3 mg(2.5 mg base)/3 mL nebu Inhale 3 mL as instructed every 6 hours as needed for wheezing/shortness of breath. albuterol HFA (PROVENTIL HFA, VENTOLIN HFA) 90 mcg/actuation inhaler Inhale 2 Puffs as instructed every 6 hours as needed for wheezing/shortness of breath. nirmatrelvir tablet 300 mg (150 mg x 2) and ritonavir tablet 100 mg in a dose pack (PAXLOVID) Administer TWO pink nirmatrelvir 150 mg tablets and ONE white ritonavir 100 mg tablet for a total of three tablets twice daily. albuterol HFA (PROVENTIL HFA, VENTOLIN HFA) 90 mcg/actuation inhaler Inhale 2-4 Puffs as instructed every 2 hours as needed for wheezing/shortness of breath. (Patient not taking: Reported on 08/20/2023) FAMILY HISTORY Problem Relation Age of Onset Thyroid Mother Heart Attack Mother 40 Heart disease Mother 16 COPD Father Bipolar disorder Brother Diabetes Maternal Grandfather Stroke Maternal Grandfather COPD Paternal Grandfather Social History Tobacco Use Smoking status: Every Day Current packs/day: 1.00 Average packs/day: 1 pack/day for 9.0 years (9.0 ttl pk-yrs) Types: Cigarettes Smokeless tobacco: Never Vaping Use Vaping status: Never Used Substance Use Topics Alcohol use: No Drug use: Never Review of Systems Constitutional: Positive for chills and fatigue. Negative for appetite change, diaphoresis and fever. HENT: Positive for congestion, sinus pressure and sinus pain. Negative for ear discharge, ear pain, postnasal drip, rhinorrhea and sore throat. Eyes: Negative for pain, discharge and itching. Respiratory: Positive for shortness of breath. Negative for wheezing. Cardiovascular: Negative for chest pain and palpitations. Gastrointestinal: Negative for diarrhea, nausea and vomiting. Musculoskeletal: Negative for neck pain and neck stiffness. Skin: Negative for rash. Allergic/Immunologic : Positive for environmental allergies. Negative for food allergies. Neurological: Positive for dizziness and headaches. Objective BP 122/78 Pulse 86 Temp 36.6 ?C (97.9 ?F) (Tympan (more content not included)... Normal [facility] CNOVon 06-21-2024 CNOV Office Visit ([facility]) SANTY ALANIS ([id number]) 1995 [facility] Date Time Provider Department 06/21/24 11:30 AM OLIVIA ALMONTE [facility] During your visit today, we recorded the following information about you: Olivia Almonte PA 06/21/2024 11:35 AM Signed I was asked to triage this patient by nursing staff. Patient comes in complaining of dizziness, chest discomfort, tingling in the fingers. Patient states that he has had dizziness worsening over the past week. He states he has nasal congestion and sinus pressure. He is also having neck pain and headaches. Patient states that today he started noticing tingling in all of his fingertips. He states he has been having some intermittent chest discomfort, states he is a smoker and also vapes. He has been coughing and feels short of breath. Patient states he had COVID last year and had an abnormal EKG after this and was seen by cardiology and was told everything was fine. Patient is also reporting that his urine smells like chlorine. He is concerned he may have to be dehydrated. Due to all of patient's symptoms including chest discomfort, tingling, dizziness, I did recommend evaluation in the emergency room. Patient in no acute distress at this time. He declines EMS, will drive himself. Allergies As of Date: 06/21/2024 Noted Allergy Reaction BEE VENOM PROTEIN (HONEY BEE) 06/07/2019 7 - Swelling CONCERTA (METHYLPHENIDATE ANALOGU*06/08/2018 1 - Mental Status Change Date Reviewed: 06/12/2024 Reviewed by: Polina Solorzano MA - Fully Assessed Primary Visit Diagnosis:Procedure not carried out [Z53.9] Prescriptions as of 06/21/2024 - fluticasone (FLONASE) 50 mcg/actuation nasal spray Use 2 Sprays in each nostril once daily. Rinse mouth after use. - Brompheniramine-Pseu doeph-DM (BROMFED DM) 2-30-10 mg/5 mL syrup Take 10 mL by mouth four times a day as needed. - levothyroxine (LEVOXYL) 112 mcg tablet Take one Tuesday-Tuesday and two tablets on Tuesday and Tuesday. Take on empty stomach - EPINEPHrine (EPIPEN) 0.3 mg/0.3 mL auto-injector Inject 0.3 mL intramuscularly as needed (For allergic reaction). - albuterol HFA (PROVENTIL HFA, VENTOLIN HFA) 90 mcg/actuation inhaler Inhale 2-4 Puffs as instructed every 2 hours as needed for wheezing/shortness of breath. - ipratropium-albutero l (DUONEB) 0.5 mg-3 mg(2.5 mg base)/3 mL nebu Inhale 3 mL as instructed every 6 hours as needed for wheezing/shortness of breath. - albuterol HFA (PROVENTIL HFA, VENTOLIN HFA) 90 mcg/actuation inhaler Inhale 2 Puffs as instructed every 6 hours as needed for wheezing/shortness of breath. Problem List As Of Date 06/21/2024 Noted Resolved ADHD (attention deficit hyperactivity disorder)*06/18/2020 Anxiety [F41.9] 03/10/2022 Post-surgical hypothyroidism [E89.0] 03/10/2022 Tobacco use [Z72.0] 03/10/2022 Morbid obesity with BMI of 40.0-44.9, adult (HC*03/10/2022 Current moderate episode of major depressive di*03/10/2022 Encounter Status:Closed by OLIVIA ALMONTE on 06/21/24 [facility] 06-13-2024 [facility] Telephone ([facility]) SANTY ALANIS ([id number]) 1995 M [facility] Date Time Provider Department 06/13/24 KENRICK BROWN [facility] During your visit today, we recorded the following information about you: Kenrick Brown APRN.[facility] 06/13/2024 7:05 AM Signed Please notify that covid/flu/rsv testing negative. Continue with plan of care as discussed during visit. Kristin White MA 06/13/2024 7:38 AM Signed Patient notified of results, verbalized understanding of instructions given. Kristin White MA Allergies As of Date: 06/13/2024 Noted Allergy Reaction BEE VENOM PROTEIN (HONEY BEE) 06/07/2019 7 - Swelling CONCERTA (METHYLPHENIDATE ANALOGU*06/08/2018 1 - Mental Status Change Date Reviewed: 06/12/2024 Reviewed by: Polina Solorzano MA - Fully Assessed Reason for Visit: Results [95] Prescriptions as of 06/13/2024 - fluticasone (FLONASE) 50 mcg/actuation nasal spray Use 2 Sprays in each nostril once daily. Rinse mouth after use. - Brompheniramine-Pseu doeph-DM (BROMFED DM) 2-30-10 mg/5 mL syrup Take 10 mL by mouth four times a day as needed. - levothyroxine (LEVOXYL) 112 mcg tablet Take one Tuesday-Tuesday and two tablets on Tuesday and Tuesday. Take on empty stomach - EPINEPHrine (EPIPEN) 0.3 mg/0.3 mL auto-injector Inject 0.3 mL intramuscularly as needed (For allergic reaction). - albuterol HFA (PROVENTIL HFA, VENTOLIN HFA) 90 mcg/actuation inhaler Inhale 2-4 Puffs as instructed every 2 hours as needed for wheezing/shortness of breath. - ipratropium-albutero l (DUONEB) 0.5 mg-3 mg(2.5 mg base)/3 mL nebu Inhale 3 mL as instructed every 6 hours as needed for wheezing/shortness of breath. - albuterol HFA (PROVENTIL HFA, VENTOLIN HFA) 90 mcg/actuation inhaler Inhale 2 Puffs as instructed every 6 hours as needed for wheezing/shortness of breath. Problem List As Of Date 06/13/2024 Noted Resolved ADHD (attention deficit hyperactivity disorder)*06/18/2020 Anxiety [F41.9] 03/10/2022 Post-surgical hypothyroidism [E89.0] 03/10/2022 Tobacco use [Z72.0] 03/10/2022 Morbid obesity with BMI of 40.0-44.9, adult (HC*03/10/2022 Current moderate episode of major depressive di*03/10/2022 Encounter Status:Closed by KRISTIN WHITE on 06/13/24 Normal [facility] CNOVon 06-12-2024 CNOV Office Visit ([facility]WSTR) SANTY ALANIS ([id number]) 1995 M T Date Time Provider Department 06/12/24 7:30 PM OLIVIA ALMONTE [facility] During your visit today, we recorded the following information about you: Temperature Pulse Respiration Blood pressure 98 degrees 96/minute 16/minute 124/76 Weight 124.8 kg Olivia Almonte PA 06/12/2024 8:01 PM Signed This note was created using [employer]. Subjective Santy Alanis is a 29 year old male. HPI 29-year-old male presents for nasal congestion, sinus pressure, sinus pain, headache, cough x 3 days. Patient states he started getting nasal congestion about 3 days ago. He has a lot of sinus pressure and headache. He states he feels a little bit dizzy from the sinus pressure. This has been going on for about 3 days. He states he has a chronic cough because he is a smoker. Cough is unchanged. He denies any fevers. No vomiting or diarrhea. Still able to eat and drink. Patient states he has had sick contacts, no known exposure to COVID. Patient did have COVID last year and states that this feels similar. He is requesting a test for COVID. He does have history of asthma. No increase in wheezing or shortness of breath. No other complaint. PAST MEDICAL HISTORY Diagnosis Date ADHD Anxiety Childhood asthma URI induced as an adult Current moderate episode of major depressive disorder without prior episode (HCC) Family history of heart attack Graves disease History of chlamydia Lung nodule age 19 Morbid obesity with BMI of 40.0-44.9, adult (HCC) Panic disorder Post-surgical hypothyroidism Tobacco use PAST SURGICAL HISTORY Procedure Laterality Date LAPS SURG CHOLECYSTECTOMY W/CHOLANGIOGRAPHY 08/09/2021 THYROIDECTOMY TOTAL/COMPLETE ALLERGIES Bee Venom Protein (Honey Bee) and Concerta [Methylphenidate Analogues] MEDICATIONS levothyroxine (LEVOXYL) 112 mcg tablet Take one Tuesday-Tuesday and two tablets on Tuesday and Tuesday. Take on empty stomach EPINEPHrine (EPIPEN) 0.3 mg/0.3 mL auto-injector Inject 0.3 mL intramuscularly as needed (For allergic reaction). ipratropium-albutero l (DUONEB) 0.5 mg-3 mg(2.5 mg base)/3 mL nebu Inhale 3 mL as instructed every 6 hours as needed for wheezing/shortness of breath. albuterol HFA (PROVENTIL HFA, VENTOLIN HFA) 90 mcg/actuation inhaler Inhale 2 Puffs as instructed every 6 hours as needed for wheezing/shortness of breath. fluticasone (FLONASE) 50 mcg/actuation nasal spray Use 2 Sprays in each nostril once daily. Rinse mouth after use. Brompheniramine-Pseu doeph-DM (BROMFED DM) 2-30-10 mg/5 mL syrup Take 10 mL by mouth four times a day as needed. albuterol HFA (PROVENTIL HFA, VENTOLIN HFA) 90 mcg/actuation inhaler Inhale 2-4 Puffs as instructed every 2 hours as needed for wheezing/shortness of breath. (Patient not taking: Reported on 08/20/2023) FAMILY HISTORY Problem Relation Age of Onset Thyroid Mother Heart Attack Mother 40 Heart disease Mother 16 COPD Father Bipolar disorder Brother Diabetes Maternal Grandfather Stroke Maternal Grandfather COPD Paternal Grandfather Social History Tobacco Use Smoking status: Every Day Packs/day: 1.00 Years: 9.00 Additional pack years: 0.00 Total pack years: 9.00 Types: Cigarettes Smokeless tobacco: Never Vaping Use Vaping Use: Never used Substance Use Topics Alcohol use: No Drug use: Never Review of Systems Constitutional: Negative for chills and fever. HENT: Positive for congestion, sinus pressure and sinus pain. Negative for sore throat. Respiratory: Positive for cough. Negative for shortness of breath. Gastrointestinal: Negative for diarrhea and vomiting. Neurological: Positive for dizziness and headaches. Objective BP 124/76 Pulse 96 Temp 36.7 ?C (98 ?F) Resp 16 Wt 124.8 kg (275 lb 2.2 oz) SpO2 98% BMI 39.48 kg/m? Physical Exam Vitals and nursing note reviewed. Constitutional: General: He is not in acute distress. Appearance: Normal appearance. He is not toxic-appearing. HENT: Right Ear: Tympanic membrane and ear canal normal. Left Ear: Tympanic membrane and ear canal normal. Nose: Congestion present. Right Sinus: Maxillary sinus tenderness present. Left Sinus: Maxillary sinus tenderness present. Mouth/Throat: Mouth: Mucous membranes are moist. Eyes: Conjunctiva/sclera: Conjunctivae normal. Cardiovascular: Rate and Rhythm: Normal rate and regular rhythm. Pulmonary: Effort: Pulmonary effort is normal. Breath sounds: Normal breath sounds. Skin: General: Skin is warm and dry. Neurological: Mental Status: He is alert. Assessment and Plan ASSESSMENT/PLAN: 1. URI, acute - ICD9: 465.9, ICD10: J06.9 - Discussed viral etiology and rationale for treatment. - Symptomatic treatment with prn analgesia - Supportive care with fluids and rest - Rx for Bromfed - Rx for Flonase - (more content not included)... Normal [facility] COVID AND INFLUENZA A/B AND RSV NAAT, ROUTINEon 06-12-2024 SARS-CoV-2 (COVID-19) RNA [place]+probe Ql (Unsp spec) COVID 19 RESULT: Not detected The method used is RT-PCR or an equivalent NAAT method. Reference Range (the expected result in uninfected individuals): Not detected INFLUENZA A PCR: Not detected INFLUENZA B PCR: Not detected RSV PCR: Not detected Normal [facility] Comment on above: Performed By: #### C VFS ####[facility] LABCLIA [id number] [place] [address] [place] CNPTana 03-06-2024 CNPN Telephone ([facility]) SANTY ALANIS ([id number]) 1995 M CHCarlos Date Time Provider Department 03/06/24 MECCA UMANZOR During your visit today, we recorded the following information about you: Mecca Umanzor APRN.CNP 03/06/2024 10:40 AM Signed TSH just above normal range. Recommend take one tablet Tuesday- Tuesday and two on Tuesday and Tuesday. Recheck level in 6-8 weeks MACHO Del Castillo Michelle, LPN 03/06/2024 11:36 AM Signed Message left for patient to call office back for update. JOSIAS Phelps M Robin, RN 03/06/2024 11:39 AM Signed Pt returned call and given provider's message below with verbalized understanding. Patient agreeable. Allergies As of Date: 03/06/2024 Noted Allergy Reaction BEE VENOM PROTEIN (HONEY BEE) 06/07/2019 7 - Swelling CONCERTA (METHYLPHENIDATE ANALOGU*06/08/2018 1 - Mental Status Change Date Reviewed: 10/31/2023 Reviewed by: Clara Varner LPN - Fully Assessed Reason for Visit: Results [95] Visit Diagnosis:Post-surgi daryl hypothyroidism [E89.0] Order(s):levothyroxi ne (LEVOXYL) 112 mcg tabletTake one Tuesday-Tuesday and two tablets on Tuesday and Tuesday. Take on empty stomachDisp: 94 tabletRfl: 0 THYROID STIMULATING HORMONE [SQTSH] Order #: [id number] FUTURE Prescriptions as of 03/06/2024 - levothyroxine (LEVOXYL) 112 mcg tablet Take one Tuesday-Tuesday and two tablets on Tuesday and Tuesday. Take on empty stomach - EPINEPHrine (EPIPEN) 0.3 mg/0.3 mL auto-injector Inject 0.3 mL intramuscularly as needed (For allergic reaction). - albuterol HFA (PROVENTIL HFA, VENTOLIN HFA) 90 mcg/actuation inhaler Inhale 2-4 Puffs as instructed every 2 hours as needed for wheezing/shortness of breath. - ipratropium-albutero l (DUONEB) 0.5 mg-3 mg(2.5 mg base)/3 mL nebu Inhale 3 mL as instructed every 6 hours as needed for wheezing/shortness of breath. - albuterol HFA (PROVENTIL HFA, VENTOLIN HFA) 90 mcg/actuation inhaler Inhale 2 Puffs as instructed every 6 hours as needed for wheezing/shortness of breath. Problem List As Of Date 03/06/2024 Noted Resolved ADHD (attention deficit hyperactivity disorder)*06/18/2020 Anxiety [F41.9] 03/10/2022 Post-surgical hypothyroidism [E89.0] 03/10/2022 Tobacco use [Z72.0] 03/10/2022 Morbid obesity with BMI of 40.0-44.9, adult (HC*03/10/2022 Current moderate episode of major depressive di*03/10/2022 Prescriptions ordered this encounter Disp Refills Start End LEVOTHYROXINE 112 MCG TABLET 94 t* 0 03/06/2024 Class: Med Update Sig: Take one Tuesday-Tuesday and two tablets on Tuesday and Tuesday. Take on empty stomach Medications Discontinued During This Encounter Prescriptions - levothyroxine (LEVOXYL) 112 mcg tablet (Discontinued) Take one Tuesday-Tuesday and two tablets on Tuesday. Take on empty stomach Encounter Status:Closed by William ROSS on 03/06/24 [facility] TSH SerPl-aCncon 03-02-2024 TSH Qn 4.330 m[IU]/L High 0.270-4.200 [facility] Comment on above: Order Comment: Speci men Type: BLOOD SPECIMENOrdering Facility: [facility] Address: [address] [place] [address] Performed By: #### 3 016-3 ####[facility] LABCLIA [id number] [place] [address] [place] Influenza virus A and B and SARS-CoV-2 (COVID-19) identified [place]+probe Nom (Resp)Ordered By: Jessica Tai on 02-08-2024 FLUAV RNA [place]+probe Ql (Resp) Not detected Not Detected [facility] FLUBV RNA [place]+probe Ql (Resp) Not detected Not Detected [facility] Interpretation and review of laboratory results Normal [facility] SARS-CoV-2 (COVID-19) RNA [place]+probe Ql (Resp) Not detected Not Detected [facility] This assay has received FDA Emergency Use Authorization (EUA) and is only authorized for the duration of time that circumstances exist to justify the authorization of the emergency use of in vitro diagnostic tests for the detection of SARS-CoV-2 virus and/or diagnosis of COVID-19 infection under section 564(b)(1) of the Act, 21 U.S.C. 360bbb-3(b)(1). Testing for SARS-CoV-2 is only recommended for patients who meet current clinical and/or epidemiological criteria as defined by federal, state, or local public health directives. This assay is an in vitro diagnostic nucleic acid amplification test for the qualitative detection of SARS-CoV-2, Influenza A, and Influenza B from nasopharyngeal specimens and has been validated for use at [facility]. Negative results do not preclude COVID-19 infections or Influenza A/B infections, and should not be used as the sole basis for diagnosis, treatment, or other management decisions. If Influenza A/B and RSV PCR results are negative, testing for Parainfluenza virus, Adenovirus and Metapneumovirus is routinely performed for [facility] pediatric oncology and intensive care inpatients, and is available on other patients by placing an add-on request. [facility] Influenza virus A and B and SARS-CoV-2 (COVID-19) identified [place]+probe Nom (Resp)on 02-07-2024 FLUAV RNA [place]+probe Ql (Resp) Not detected Normal Not Detected [facility] Comment on above: Order Comment: This assay has received FDA Emergency Use Authorization (EUA) and is only authorized for the duration of time that circumstances exist to justify the authorization of the emergency use of in vitro diagnostic tests for the detection of SARS-CoV-2 virus and/or diagnosis of COVID-19 infection under section 564(b)(1) of the Act, 21 U.S.C. 360bbb-3(b)(1). Testing for SARS-CoV-2 is only recommended for patients who meet current clinical and/or epidemiological criteria as defined by federal, state, or local public health directives. This assay is an in vitro diagnostic nucleic acid amplification test for the qualitative detection of SARS-CoV-2, Influenza A, and Influenza B from nasopharyngeal specimens and has been validated for use at [facility]. Negative results do not preclude COVID-19 infections or Influenza A/B infections, and should not be used as the sole basis for diagnosis, treatment, or other management decisions. If Influenza A/B and RSV PCR results are negative, testing for Parainfluenza virus, Adenovirus and Metapneumovirus is routinely performed for [facility] pediatric oncology and intensive care inpatients, and is available on other patients by placing an add-on request. Performed By: #### 9 5423-0 #### DEBBIE Brooks ([id number]) [facility] ([facility]) [address] [place] [address] FLUBV RNA [place]GIA+probe Ql (Resp) Not detected Normal Not Detected [facility] Comment on above: Order Comment: This assay has received FDA Emergency Use Authorization (EUA) and is only authorized for the duration of time that circumstances exist to justify the authorization of the emergency use of in vitro diagnostic tests for the detection of SARS-CoV-2 virus and/or diagnosis of COVID-19 infection under section 564(b)(1) of the Act, 21 U.S.C. 360bbb-3(b)(1). Testing for SARS-CoV-2 is only recommended for patients who meet current clinical and/or epidemiological criteria as defined by federal, state, or local public health directives. This assay is an in vitro diagnostic nucleic acid amplification test for the qualitative detection of SARS-CoV-2, Influenza A, and Influenza B from nasopharyngeal specimens and has been validated for use at [facility]. Negative results do not preclude COVID-19 infections or Influenza A/B infections, and should not be used as the sole basis for diagnosis, treatment, or other management decisions. If Influenza A/B and RSV PCR results are negative, testing for Parainfluenza virus, Adenovirus and Metapneumovirus is routinely performed for [facility] pediatric oncology and intensive care inpatients, and is available on other patients by placing an add-on request. Performed By: #### 9 5423-0 #### DEBBIE Brooks ([id number]) [facility] ([facility]) [address] [place] [id number] SARS-CoV-2 (COVID-19) RNA [place]IA+probe Ql (Resp) Not detected Normal Not Detected [facility] Comment on above: Order Comment: This assay has received FDA Emergency Use Authorization (EUA) and is only authorized for the duration of time that circumstances exist to justify the authorization of the emergency use of in vitro diagnostic tests for the detection of SARS-CoV-2 virus and/or diagnosis of COVID-19 infection under section 564(b)(1) of the Act, 21 U.S.C. 360bbb-3(b)(1). Testing for SARS-CoV-2 is only recommended for patients who meet current clinical and/or epidemiological criteria as defined by federal, state, or local public health directives. This assay is an in vitro diagnostic nucleic acid amplification test for the qualitative detection of SARS-CoV-2, Influenza A, and Influenza B from nasopharyngeal specimens and has been validated for use at [facility]. Negative results do not preclude COVID-19 infections or Influenza A/B infections, and should not be used as the sole basis for diagnosis, treatment, or other management decisions. If Influenza A/B and RSV PCR results are negative, testing for Parainfluenza virus, Adenovirus and Metapneumovirus is routinely performed for [facility] pediatric oncology and intensive care inpatients, and is available on other patients by placing an add-on request. Performed By: #### 9 [id number] #### DEBBIE Brooks ([id number]) [facility] ([facility]) [address] [place] [address] POCT Influenza A/B manually resultedon 02-07-2024 Interpretation and review of laboratory results Normal [facility] Work Phone: POC Rapid Influenza A Negative Negative [facility] Work Phone: POC Rapid Influenza B Negative Negative [facility] Work Phone: [facility] SANTY ALANIS ([id number]) 1995 M T Date Time Provider Department 01/17/24 TOSHA FULTON During your visit today, we recorded the following information about you: Macey Manuel RN 01/17/2024 9:47 AM Signed was called on January 17, 2024 to be rescheduled for an appointment with the [facility] that was either cancelled or the patient was a no show on 11/28/23. Mr. Alanis is interested in rescheduling with [facility] but states will call back to schedule. Macey Manuel RN Allergies As of Date: 01/17/2024 Noted Allergy Reaction BEE VENOM PROTEIN (HONEY BEE) 06/07/2019 7 - Swelling CONCERTA (METHYLPHENIDATE ANALOGU*06/08/2018 1 - Mental Status Change Date Reviewed: 10/31/2023 Reviewed by: Clara Varner LPN - Fully Assessed Reason for Visit: Appointment [186] Cmt: [facility] No Show/Cancellation Call - Attempt 2 Prescriptions as of 01/17/2024 - levothyroxine (LEVOXYL) 112 mcg tablet Take one Tuesday-Tuesday and two tablets on Tuesday. Take on empty stomach - EPINEPHrine (EPIPEN) 0.3 mg/0.3 mL auto-injector Inject 0.3 mL intramuscularly as needed (For allergic reaction). - albuterol HFA (PROVENTIL HFA, VENTOLIN HFA) 90 mcg/actuation inhaler Inhale 2-4 Puffs as instructed every 2 hours as needed for wheezing/shortness of breath. - ipratropium-albutero l (DUONEB) 0.5 mg-3 mg(2.5 mg base)/3 mL nebu Inhale 3 mL as instructed every 6 hours as needed for wheezing/shortness of breath. - albuterol HFA (PROVENTIL HFA, VENTOLIN HFA) 90 mcg/actuation inhaler Inhale 2 Puffs as instructed every 6 hours as needed for wheezing/shortness of breath. Problem List As Of Date 01/17/2024 Noted Resolved ADHD (attention deficit hyperactivity disorder)*06/18/2020 Anxiety [F41.9] 03/10/2022 Post-surgical hypothyroidism [E89.0] 03/10/2022 Tobacco use [Z72.0] 03/10/2022 Morbid obesity with BMI of 40.0-44.9, adult (HC*03/10/2022 Current moderate episode of major depressive di*03/10/2022 Encounter Status:Closed by MACEY MANUEL on 01/17/24 [facility] CNPTana 01-10-2024 [facility] SANTY ALANIS ([id number]) 1995 [facility] Date Time Provider Department 01/10/24 TOSHA FULTON [facility] During your visit today, we recorded the following information about you: Allergies As of Date: 01/10/2024 Noted Allergy Reaction BEE VENOM PROTEIN (HONEY BEE) 06/07/2019 7 - Swelling CONCERTA (METHYLPHENIDATE ANALOGU*06/08/2018 1 - Mental Status Change Date Reviewed: 10/31/2023 Reviewed by: Clara Varner LPN - Fully Assessed Reason for Visit: Appointment [186] Cmt: [facility] No Show/Cancellation Call - Attempt 1 Prescriptions as of 01/10/2024 - levothyroxine (LEVOXYL) 112 mcg tablet Take one Tuesday-Tuesday and two tablets on Tuesday. Take on empty stomach - EPINEPHrine (EPIPEN) 0.3 mg/0.3 mL auto-injector Inject 0.3 mL intramuscularly as needed (For allergic reaction). - albuterol HFA (PROVENTIL HFA, VENTOLIN HFA) 90 mcg/actuation inhaler Inhale 2-4 Puffs as instructed every 2 hours as needed for wheezing/shortness of breath. - ipratropium-albutero l (DUONEB) 0.5 mg-3 mg(2.5 mg base)/3 mL nebu Inhale 3 mL as instructed every 6 hours as needed for wheezing/shortness of breath. - albuterol HFA (PROVENTIL HFA, VENTOLIN HFA) 90 mcg/actuation inhaler Inhale 2 Puffs as instructed every 6 hours as needed for wheezing/shortness of breath. Problem List As Of Date 01/10/2024 Noted Resolved ADHD (attention deficit hyperactivity disorder)*06/18/2020 Anxiety [F41.9] 03/10/2022 Post-surgical hypothyroidism [E89.0] 03/10/2022 Tobacco use [Z72.0] 03/10/2022 Morbid obesity with BMI of 40.0-44.9, adult (HC*03/10/2022 Current moderate episode of major depressive di*03/10/2022 Encounter Status:Closed [facility] SH[facility] SANTY ALANIS ([id number]) 1995 [facility] Date Time Provider Department 01/10/24 MECCA UMANZOR During your visit today, we recorded the following information about you: Mecca Umanzor APRN.DINORAH 01/10/2024 7:13 AM Addendum TSH level still showing he is not getting enough replacement. He can continue to take the same dose but needs to take an extra one once a week. Recheck level in 6-8 weeks. Mecca Umanzor APRN.Roshan Benitez LPN 01/10/2024 9:07 AM Signed Spoke with pt and information listed below given. Pt verbalizes understanding. Roshan Deng LPN Allergies As of Date: 01/10/2024 Noted Allergy Reaction BEE VENOM PROTEIN (HONEY BEE) 06/07/2019 7 - Swelling CONCERTA (METHYLPHENIDATE ANALOGU*06/08/2018 1 - Mental Status Change Date Reviewed: 10/31/2023 Reviewed by: Clara Varner LPN - Fully Assessed Reason for Visit: Results [95] Visit Diagnosis:Post-surgi daryl hypothyroidism [E89.0] Order(s):levothyroxi ne (LEVOXYL) 112 mcg tabletTake one Tuesday-Tuesday and two tablets on Tuesday. Take on empty stomachDisp: 94 tabletRfl: 0 TSH BLD [SQTS] Order #: [id number] FUTURE Prescriptions as of 01/10/2024 - levothyroxine (LEVOXYL) 112 mcg tablet Take one Tuesday-Tuesday and two tablets on Tuesday. Take on empty stomach - EPINEPHrine (EPIPEN) 0.3 mg/0.3 mL auto-injector Inject 0.3 mL intramuscularly as needed (For allergic reaction). - albuterol HFA (PROVENTIL HFA, VENTOLIN HFA) 90 mcg/actuation inhaler Inhale 2-4 Puffs as instructed every 2 hours as needed for wheezing/shortness of breath. - ipratropium-albutero l (DUONEB) 0.5 mg-3 mg(2.5 mg base)/3 mL nebu Inhale 3 mL as instructed every 6 hours as needed for wheezing/shortness of breath. - albuterol HFA (PROVENTIL HFA, VENTOLIN HFA) 90 mcg/actuation inhaler Inhale 2 Puffs as instructed every 6 hours as needed for wheezing/shortness of breath. Problem List As Of Date 01/10/2024 Noted Resolved ADHD (attention deficit hyperactivity disorder)*06/18/2020 Anxiety [F41.9] 03/10/2022 Post-surgical hypothyroidism [E89.0] 03/10/2022 Tobacco use [Z72.0] 03/10/2022 Morbid obesity with BMI of 40.0-44.9, adult (HC*03/10/2022 Current moderate episode of major depressive di*03/10/2022 Prescriptions ordered this encounter Disp Refills Start End LEVOTHYROXINE 112 MCG TABLET 94 t* 0 01/10/2024 Sig: Take one Tuesday-Tuesday and two tablets on Tuesday. Take on empty stomach Medications Discontinued During This Encounter Prescriptions - levothyroxine (LEVOXYL) 112 mcg tablet (Discontinued) Take 1 tablet by mouth once daily. Take on empty stomach. For thyroid. Encounter Status:Closed by ROSHAN DENG on 01/10/24 Normal [facility] CBC W Auto Differential pane l (Bld)on 01-09-2024 Basophils (Bld) [#/Vol] 0.09 10*3/uL Normal <0.11 [facility] Comment on above: Order Comment: Speci men Type: BLOOD SPECIMENOrdering Facility: [facility] Address: [address] [place] [address] Performed By: #### 5 7021-8 ####[facility] LABCLIA [id number] [place] [address] [place] Basophils/100 WBC (Bld) 0.8 % Normal [facility] Comment on above: Order Comment: Speci men Type: BLOOD SPECIMENOrdering Facility: [facility] Address: [address] [place] [address] Performed By: #### 5 7021-8 ####[facility] LABCLIA [id number] [place] [address] [place] Differential cell count method Nom (Bld) Auto Normal [facility] Comment on above: Order Comment: Speci men Type: BLOOD SPECIMENOrdering Facility: [facility] Address: [address] [place] [address] Performed By: #### 5 7021-8 ####[facility] LABCLIA [id number] [place] [address] [place] Eosinophils (Bld) [#/Vol] 0.57 10*3/uL High <0.46 [facility] Comment on above: Order Comment: Speci men Type: BLOOD SPECIMENOrdering Facility: [facility] Address: [address] [place] [address] Performed By: #### 5 7021-8 ####[facility] LABCLIA [id number] [place] [address] [place] Eosinophils/100 WBC (Bld) 5.2 % Normal [facility] Comment on above: Order Comment: Speci men Type: BLOOD SPECIMENOrdering Facility: [facility] Address: [address] [place] [address] Performed By: #### 5 7021-8 ####[facility] LABCLIA [id number] [place] [address] [place] Erythrocyte distribution width (RBC) [Ratio] 12.5 % Normal 11.5-15.0 [facility] Comment on above: Order Comment: Speci men Type: BLOOD SPECIMENOrdering Facility: [facility] Address: [address] [place] [address] Performed By: #### 5 7021-8 ####[facility] LABCLIA [id number] [place] [address] [place] Hematocrit (Bld) [Volume fraction] 48.3 % Normal 39.0-51.0 [facility] Comment on above: Order Comment: Speci men Type: BLOOD SPECIMENOrdering Facility: [facility] Address: [address] [place] [address] Performed By: #### 5 7021-8 ####[facility] LABCLIA [id number] [place] [address] [place] Hemoglobin (Bld) [Mass/Vol] 16.4 g/dL Normal 13.0-17.0 [facility] Comment on above: Order Comment: Speci men Type: BLOOD SPECIMENOrdering Facility: [facility] Address: [address] [place] [address] Performed By: #### 5 7021-8 ####[facility] LABCLIA [id number] [place] [address] [place] Immature granulocytes (Bld) [#/Vol] 0.04 10*3/uL Normal <0.10 [facility] Comment on above: Order Comment: Speci men Type: BLOOD SPECIMENOrdering Facility: [facility] Address: [address] [place] [address] Performed By: #### 5 7021-8 ####[facility] LABCLIA [id number] [place] [address] [place] Immature granulocytes/100 WBC (Bld) 0.4 % Normal [facility] Comment on above: Order Comment: Speci men Type: BLOOD SPECIMENOrdering Facility: [facility] Address: [address] [place] [address] Performed By: #### 5 7021-8 ####[facility] LABCLIA [id number] [place] [address] [place] Lymphocytes (Bld) [#/Vol] 4.18 10*3/uL High 1.00-4.00 [facility] Comment on above: Order Comment: Speci men Type: BLOOD SPECIMENOrdering Facility: [facility] Address: [address] [place] [address] Performed By: #### 5 7021-8 ####[facility] LABCLIA [id number] [place] [address] [place] Lymphocytes/100 WBC (Bld) 38.4 % Normal [facility] Comment on above: Order Comment: Speci men Type: BLOOD SPECIMENOrdering Facility: [facility] Address: [address] [place] [address] Performed By: #### 5 7021-8 ####[facility] LABCLIA [id number] [place] [address] [place] MCH (RBC) [Entitic mass] 29.8 pg Normal 26.0-34.0 [facility] Comment on above: Order Comment: Speci men Type: BLOOD SPECIMENOrdering Facility: [facility] Address: [address] [place] [address] Performed By: #### 5 7021-8 ####[facility] LABCLIA [id number] [place] [address] [place] MCHC (RBC) [Mass/Vol] 34.0 g/dL Normal 30.5-36.0 [facility] Comment on above: Order Comment: Speci men Type: BLOOD SPECIMENOrdering Facility: [facility] Address: [address] [place] [address] Performed By: #### 5 7021-8 ####[facility] LABCLIA [id number] [place] [address] [place] MCV (RBC) [Entitic vol] 87.8 fL Normal 80.0-100.0 [facility] Comment on above: Order Comment: Speci men Type: BLOOD SPECIMENOrdering Facility: [facility] Address: [address] [place] [address] Performed By: #### 5 7021-8 ####[facility] LABIA [id number] [place] [address] [place] Monocytes (Bld) [#/Vol] 0.60 10*3/uL Normal <0.87 [facility] Comment on above: Order Comment: Speci men Type: BLOOD SPECIMENOrdering Facility: [facility] Address: [address] [place] [address] Performed By: #### 5 7021-8 ####[facility] LABCLIA [id number] [place] [address] [place] Monocytes/100 WBC (Bld) 5.5 % Normal [facility] Comment on above: Order Comment: Speci men Type: BLOOD SPECIMENOrdering Facility: [facility] Address: [address] [place] [address] Performed By: #### 5 7021-8 ####[facility] LABCLIA [id number] [place] [address] [place] Neutrophils (Bld) [#/Vol] 5.41 10*3/uL Normal 1.45-7.50 [facility] Comment on above: Order Comment: Speci men Type: BLOOD SPECIMENOrdering Facility: [facility] Address: [address] [place] [address] Performed By: #### 5 7021-8 ####[facility] LABCLIA [id number] [place] [address] [place] Neutrophils/100 WBC (Bld) 49.7 % Normal [facility] Comment on above: Order Comment: Speci men Type: BLOOD SPECIMENOrdering Facility: [facility] Address: [address] [place] [address] Performed By: #### 5 7021-8 ####[facility] LABCLIA [id number] [place] [address] [place] Nucleated RBC (Bld) [#/Vol] 10*3/uL Normal <0.01 [facility] Comment on above: Order Comment: Speci men Type: BLOOD SPECIMENOrdering Facility: [facility] Address: [address] [place] [address] Performed By: #### 5 7021-8 ####[facility] LABCLIA [id number] [place] [address] [place] Nucleated RBC/100 WBC (Bld) [Ratio] 0.0 /100 WBC Normal [facility] Comment on above: Order Comment: Speci men Type: BLOOD SPECIMENOrdering Facility: [facility] Address: [address] [place] [address] Performed By: #### 5 7021-8 ####[facility] LABCLIA [id number] [place] [address] [place] Platelet mean volume (Bld) [Entitic vol] 10.3 fL Normal 9.0-12.7 [facility] Comment on above: Order Comment: Speci men Type: BLOOD SPECIMENOrdering Facility: [facility] Address: [address] [place] [address] Performed By: #### 5 7021-8 ####[facility] LABCLIA [id number] [place] [address] [place] Platelets (Bld) [#/Vol] 217 10*3/uL Normal 150-400 [facility] Comment on above: Order Comment: Speci men Type: BLOOD SPECIMENOrdering Facility: [facility] Address: [address] [place] [address] Result Comment: Resu lts checked and verified.No clot detected. Performed By: #### 5 7021-8 ####[facility] LABCLIA [id number] [place] [address] [place] RBC (Bld) [#/Vol] 5.50 10*6/uL Normal 4.20-6.00 [facility] Comment on above: Order Comment: Speci men Type: BLOOD SPECIMENOrdering Facility: [facility] Address: [address] [place] [address] Performed By: #### 5 7021-8 ####[facility] LABCLIA [id number] [place] [address] [place] WBC (Bld) [#/Vol] 10.89 10*3/uL Normal 3.70-11.00 [facility] Comment on above: Order Comment: Speci men Type: BLOOD SPECIMENOrdering Facility: [facility] Address: [address] [place] [address] Result Comment: Resu lts checked and verified.No clot detected. Performed By: #### 5 7021-8 ####[facility] LABCLIA [id number] [place] [address] [place] TSH SerPl-aCncon 01-09-2024 TSH Qn 13.600 m[IU]/L High 0.270-4.200 [facility] Comment on above: Order Comment: Speci men Type: BLOOD SPECIMENOrdering Facility: [facility] Address: [address] [place] [address] Performed By: #### 3 016-3 ####[facility] ELISSA [id number] [id number] [id number] [place] Ramos 11-07-2023 [facility] SANTY ALANIS ([id number]) 1995 M T Date Time Provider Department 11/07/23 FULTONTOSHA During your visit today, we recorded the following information about you: Sherlyn Riddle RN 11/07/2023 2:52 PM Signed Did the patient test positive for COVID (antibody testing NOT accepted): Yes Date of Positive Test: 07/28/23, two other times asked to bring dates to appointment Type of test (home test or PCR): PCR COVID vaccine type and dates (if not already on file): No We have a few questions about any ongoing symptoms to help prepare you and your provider for your visit. 2. Is the patient seeing us for taste/smell changes? No 3. Is patient traveling far (1 hour+) or coming from another state: Yes 3A. Does the patient have SOB? Yes A little bit 3B. Does the patient have any chest pain or palptations? Yes palpitations Patient then stated he only lives 25 minutes away, orders not pended for PFTs/Echo Patient C/O fatigue, dizziness and POTS 4. Please inform patient of the below information if they have not been sent [facility] appt reminder: [facility] functions as a referral service. You will have an initial visit as well as one follow-up virtual visit in which all [facility] testing, imaging, and labs will be discussed. From there on it is expected that you continue to follow up with your PCP and the specialist(s) established through this program. We do not manage symptoms or follow patients terminal clerk. COVID [facility] intake team is not able to assist with disability requests, including work restrictions or clearances as we do not do active treatment and management of long-COVID symptoms, and are not actively involved in long-term care after your 2 visits. Your primary care provider and the consulted specialists we discuss during our visit(s) are better suited for assisting with disability requests. Those providers are welcome use our office note and testing to help support their plans of care. Patients will be expected to have labs, testing, and consults done through [facility]; we cannot fax orders to outside facilities, and do not have acess to outside providers. Please be prepared that you may need to travel to [place] multiple times to get all testing done and see the consulted specialist(s). Please arrive 15 minutes early to your appointment and complete the questionnaires you have received via [employer] ahead of time. If you are more than 10 minutes late to your appointment you may be asked to reschedule. If you have outside testing you would like to be entered into your chart, please fax it to [phone]. Records brought in same day of visit may not be reviewed until after the visit due to time constraints. Allergies As of Date: 11/07/2023 Noted Allergy Reaction BEE VENOM PROTEIN (HONEY BEE) 06/07/2019 7 - Swelling CONCERTA (METHYLPHENIDATE ANALOGU*06/08/2018 1 - Mental Status Change Date Reviewed: 10/31/2023 Reviewed by: Clara Varner LPN - Fully Assessed Reason for Visit: Intake [[id number]] Cmt: [facility] pre-visit phone call Prescriptions as of 11/07/2023 - levothyroxine (LEVOXYL) 112 mcg tablet Take 1 tablet by mouth once daily. Take on empty stomach. For thyroid. - EPINEPHrine (EPIPEN) 0.3 mg/0.3 mL auto-injector Inject 0.3 mL intramuscularly as needed (For allergic reaction). - albuterol HFA (PROVENTIL HFA, VENTOLIN HFA) 90 mcg/actuation inhaler Inhale 2-4 Puffs as instructed every 2 hours as needed for wheezing/shortness of breath. - ipratropium-albutero l (DUONEB) 0.5 mg-3 mg(2.5 mg base)/3 mL nebu Inhale 3 mL as instructed every 6 hours as needed for wheezing/shortness of breath. - albuterol HFA (PROVENTIL HFA, VENTOLIN HFA) 90 mcg/actuation inhaler Inhale 2 Puffs as instructed every 6 hours as needed for wheezing/shortness of breath. Problem List As Of Date 11/07/2023 Noted Resolved ADHD (attention deficit hyperactivity disorder)*06/18/2020 Anxiety [F41.9] 03/10/2022 Post-surgical hypothyroidism [E89.0] 03/10/2022 Tobacco use [Z72.0] 03/10/2022 Morbid obesity with BMI of 40.0-44.9, adult (HC*03/10/2022 Current moderate episode of major depressive di*03/10/2022 Encounter Status:Closed by SHERLYN RIDDLE [facility] 11[facility]07/[facility]) SANTY ALANIS ([id number]) 1995 [facility] Date Time Provider Department 11/01/23 MECCA UMANZOR During your visit today, we recorded the following information about you: Mecca Umanzor APRN.CNP 11/01/2023 8:29 AM Signed TSH very elevated meaning. Since he has been out of his medication for a month he should restart and recheck level in 6-8 weeks. White blood cell count mildly elevated. The rest of his blood work is in acceptable ranges. Keep appointment with COVID-19 clinic. Will recheck white count with TSH in 6-8 weeks. MACHO Del Castillo Amanda, RN 11/01/2023 9:44 AM Signed Pt called and is notified of providers results and instructions. Pt voices understanding. Pt asking if having the long Covid could be causing hie WBC to be elevated. CIPRIANO Warren Julie, APRN.CNP 11/01/2023 3:02 PM Signed I can't say it would or would not cause this. In my experience I haven't seen this, however I do not deal exclusively with long haul COVID-19. That is a great thing to discuss with the COVID-19 recovery clinic. Mecca Umanzor APRN.DINORAH ColeEsthela montemayorRAINA 11/01/2023 3:13 PM Signed TC to patient who verbalized understanding of providers message below and has no further questions at this time. RAINA Banda Allergies As of Date: 11/01/2023 Noted Allergy Reaction BEE VENOM PROTEIN (HONEY BEE) 06/07/2019 7 - Swelling CONCERTA (METHYLPHENIDATE ANALOGU*06/08/2018 1 - Mental Status Change Date Reviewed: 10/31/2023 Reviewed by: Clara Varner LPN - Fully Assessed Reason for Visit: Results [95] Orders [681] Primary Visit Diagnosis:Leukocytos is, unspecified type [D72.829] Other Visit Diagnosis:Post-surgi daryl hypothyroidism [E89.0] Order(s):TSH BLD [SQTSH] Order #: [id number] FUTURE CBC + DIFF [SQCBCDIF] Order #: [id number] FUTURE Prescriptions as of 11/01/2023 - levothyroxine (LEVOXYL) 112 mcg tablet Take 1 tablet by mouth once daily. Take on empty stomach. For thyroid. - EPINEPHrine (EPIPEN) 0.3 mg/0.3 mL auto-injector Inject 0.3 mL intramuscularly as needed (For allergic reaction). - albuterol HFA (PROVENTIL HFA, VENTOLIN HFA) 90 mcg/actuation inhaler Inhale 2-4 Puffs as instructed every 2 hours as needed for wheezing/shortness of breath. - ipratropium-albutero l (DUONEB) 0.5 mg-3 mg(2.5 mg base)/3 mL nebu Inhale 3 mL as instructed every 6 hours as needed for wheezing/shortness of breath. - albuterol HFA (PROVENTIL HFA, VENTOLIN HFA) 90 mcg/actuation inhaler Inhale 2 Puffs as instructed every 6 hours as needed for wheezing/shortness of breath. Problem List As Of Date 11/01/2023 Noted Resolved ADHD (attention deficit hyperactivity disorder)*06/18/2020 Anxiety [F41.9] 03/10/2022 Post-surgical hypothyroidism [E89.0] 03/10/2022 Tobacco use [Z72.0] 03/10/2022 Morbid obesity with BMI of 40.0-44.9, adult (HC*03/10/2022 Current moderate episode of major depressive di*03/10/2022 Encounter Status:Closed by ESTHELA CERVANTES on 11/01/23 Normal [facility] CBC W Auto Differential pane l (Bld)on 10-31-2023 Basophils (Bld) [#/Vol] 0.10 10*3/uL <0.11 k/uL [facility] Basophils/100 WBC (Bld) 0.8 % [facility] Differential cell count method Nom (Bld) Auto [facility] Eosinophils (Bld) [#/Vol] 0.60 10*3/uL High <0.46 k/uL [facility] Eosinophils/100 WBC (Bld) 4.7 % [facility] Erythrocyte distribution width (RBC) [Ratio] 12.1 % 11.5 - 15.0 % [facility] Hematocrit (Bld) [Volume fraction] 47.6 % 39.0 - 51.0 % [facility] Hemoglobin (Bld) [Mass/Vol] 16.3 g/dL 13.0 - 17.0 g/dL [facility] Immature granulocytes (Bld) [#/Vol] 0.06 10*3/uL <0.10 k/uL [facility] Immature granulocytes/100 WBC (Bld) 0.5 % [facility] Lymphocytes (Bld) [#/Vol] 4.60 10*3/uL High 1.00 - 4.00 k/uL [facility] Lymphocytes/100 WBC (Bld) 35.9 % [facility] MCH (RBC) [Entitic mass] 29.7 pg 26.0 - 34.0 pg [facility] MCHC (RBC) [Mass/Vol] 34.2 g/dL 30.5 - 36.0 g/dL [facility] MCV (RBC) [Entitic vol] 86.7 fL 80.0 - 100.0 fL [facility] Monocytes (Bld) [#/Vol] 0.73 10*3/uL <0.87 k/uL [facility] Monocytes/100 WBC (Bld) 5.7 % [facility] Neutrophils (Bld) [#/Vol] 6.72 10*3/uL 1.45 - 7.50 k/uL [facility] Neutrophils/100 WBC (Bld) 52.4 % [facility] Nucleated RBC (Bld) [#/Vol] <0.01 k/uL [facility] Nucleated RBC/100 WBC (Bld) [Ratio] 0.0 /100 WBC [facility] Platelet mean volume (Bld) [Entitic vol] 9.7 fL 9.0 - 12.7 fL [facility] Platelets (Bld) [#/Vol] 239 10*3/uL 150 - 400 k /uL [facility] RBC (Bld) [#/Vol] 5.49 10*6/uL 4.20 - 6.0 0 m/uL [facility] WBC (Bld) [#/Vol] 12.81 10*3/uL High 3.70 - 11 .00 k/uL [facility] Basophils (Bld) [#/Vol] 0.10 10*3/uL Normal <0.11 [facility] Comment on above: Order Comment: Speci men Type: BLOOD SPECIMENOrdering Facility: [facility] Address: [address] [place] [address] Performed By: #### 5 7021-8 ####[facility] LABCLIA [id number] [place] [address] [place] Basophils/100 WBC (Bld) 0.8 % Normal [facility] Comment on above: Order Comment: Speci men Type: BLOOD SPECIMENOrdering Facility: [facility] Address: [address] [place] [address] Performed By: #### 5 7021-8 ####[facility] LABIA [id number] [place] [address] [place] Differential cell count method Nom (Bld) Auto Normal [facility] Comment on above: Order Comment: Speci men Type: BLOOD SPECIMENOrdering Facility: [facility] Address: [address] [place] [address] Performed By: #### 5 7021-8 ####[facility] LABCLIA [id number] [place] [address] [place] Eosinophils (Bld) [#/Vol] 0.60 10*3/uL High <0.46 [facility] Comment on above: Order Comment: Speci men Type: BLOOD SPECIMENOrdering Facility: [facility] Address: [address] [place] [address] Performed By: #### 5 7021-8 ####[facility] LABCLIA [id number] [place] [address] [place] Eosinophils/100 WBC (Bld) 4.7 % Normal [facility] Comment on above: Order Comment: Speci men Type: BLOOD SPECIMENOrdering Facility: [facility] Address: [address] [place] [address] Performed By: #### 5 7021-8 ####[facility] LABCLIA [id number] [place] [address] [place] Erythrocyte distribution width (RBC) [Ratio] 12.1 % Normal 11.5-15.0 [facility] Comment on above: Order Comment: Speci men Type: BLOOD SPECIMENOrdering Facility: [facility] Address: [address] [place] [address] Performed By: #### 5 7021-8 ####[facility] LABCLIA [id number] [place] [address] [place] Hematocrit (Bld) [Volume fraction] 47.6 % Normal 39.0-51.0 [facility] Comment on above: Order Comment: Speci men Type: BLOOD SPECIMENOrdering Facility: [facility] Address: [address] [place] [address] Performed By: #### 5 7021-8 ####[facility] LABCLIA [id number] [id number] [address] [place] Hemoglobin (Bld) [Mass/Vol] 16.3 g/dL Normal 13.0-17.0 [facility] Comment on above: Order Comment: Speci men Type: BLOOD SPECIMENOrdering Facility: [facility] Address: [address] [place] [address] Performed By: #### 5 7021-8 ####[facility] LABCLIA [id number] [place] [address] [place] Immature granulocytes (Bld) [#/Vol] 0.06 10*3/uL Normal <0.10 [facility] Comment on above: Order Comment: Speci men Type: BLOOD SPECIMENOrdering Facility: [facility] Address: [address] [place] [address] Performed By: #### 5 7021-8 ####[facility] LABCLIA [id number] [place] [address] [place] Immature granulocytes/100 WBC (Bld) 0.5 % Normal [facility] Comment on above: Order Comment: Speci men Type: BLOOD SPECIMENOrdering Facility: [facility] Address: [address] [place] [address] Performed By: #### 5 7021-8 ####[facility] LABCLIA [id number] [place] [address] [place] Lymphocytes (Bld) [#/Vol] 4.60 10*3/uL High 1.00-4.00 [facility] Comment on above: Order Comment: Speci men Type: BLOOD SPECIMENOrdering Facility: [facility] Address: [address] [place] [address] Performed By: #### 5 7021-8 ####[facility] LABCLIA [id number] [place] [address] [place] Lymphocytes/100 WBC (Bld) 35.9 % Normal [facility] Comment on above: Order Comment: Speci men Type: BLOOD SPECIMENOrdering Facility: [facility] Address: [address] [place] [address] Performed By: #### 5 7021-8 ####[facility] LABIA [id number] [place] [address] [place] MCH (RBC) [Entitic mass] 29.7 pg Normal 26.0-34.0 [facility] Comment on above: Order Comment: Speci men Type: BLOOD SPECIMENOrdering Facility: [facility] Address: [address] [place] [address] Performed By: #### 5 7021-8 ####[facility] LABIA [id number] [place] [address] [place] MCHC (RBC) [Mass/Vol] 34.2 g/dL Normal 30.5-36.0 [facility] Comment on above: Order Comment: Speci men Type: BLOOD SPECIMENOrdering Facility: [facility] Address: [address] [place] [address] Performed By: #### 5 7021-8 ####[facility] LABIA [id number] [place] [address] [place] MCV (RBC) [Entitic vol] 86.7 fL Normal 80.0-100.0 [facility] Comment on above: Order Comment: Speci men Type: BLOOD SPECIMENOrdering Facility: [facility] Address: [address] [place] [address] Performed By: #### 5 7021-8 ####[facility] LABCLIA [id number] [place] [address] [place] Monocytes (Bld) [#/Vol] 0.73 10*3/uL Normal <0.87 [facility] Comment on above: Order Comment: Speci men Type: BLOOD SPECIMENOrdering Facility: [facility] Address: [address] [place] [address] Performed By: #### 5 7021-8 ####[facility] LABCLIA [id number] [place] [address] [place] Monocytes/100 WBC (Bld) 5.7 % Normal [facility] Comment on above: Order Comment: Speci men Type: BLOOD SPECIMENOrdering Facility: [facility] Address: [address] [place] [address] Performed By: #### 5 7021-8 ####[facility] LABCLIA [id number] [place] [address] [place] Neutrophils (Bld) [#/Vol] 6.72 10*3/uL Normal 1.45-7.50 [facility] Comment on above: Order Comment: Speci men Type: BLOOD SPECIMENOrdering Facility: [facility] Address: [address] [place] [address] Performed By: #### 5 7021-8 ####[facility] LABCLIA [id number] [place] [address] [place] Neutrophils/100 WBC (Bld) 52.4 % Normal [facility] Comment on above: Order Comment: Speci men Type: BLOOD SPECIMENOrdering Facility: [facility] Address: [address] [place] [address] Performed By: #### 5 7021-8 ####[facility] LABCLIA [id number] [place] [address] [place] Nucleated RBC (Bld) [#/Vol] 10*3/uL Normal <0.01 [facility] Comment on above: Order Comment: Speci men Type: BLOOD SPECIMENOrdering Facility: [facility] Address: [address] [place] [address] Performed By: #### 5 7021-8 ####[facility] LABCLIA [id number] [place] [address] [place] Nucleated RBC/100 WBC (Bld) [Ratio] 0.0 /100 WBC Normal [facility] Comment on above: Order Comment: Speci men Type: BLOOD SPECIMENOrdering Facility: [facility] Address: [address] [place] [address] Performed By: #### 5 7021-8 ####[facility] LABCLIA [id number] [place] [address] [place] Platelet mean volume (Bld) [Entitic vol] 9.7 fL Normal 9.0-12.7 [facility] Comment on above: Order Comment: Speci men Type: BLOOD SPECIMENOrdering Facility: [facility] Address: [address] [place] [address] Performed By: #### 5 7021-8 ####[facility] LABCLIA [id number] [place] [address] [place] Platelets (Bld) [#/Vol] 239 10*3/uL Normal 150-400 [facility] Comment on above: Order Comment: Speci men Type: BLOOD SPECIMENOrdering Facility: [facility] Address: [address] [place] [address] Performed By: #### 5 7021-8 ####[facility] LABIA [id number] [place] [address] [place] RBC (Bld) [#/Vol] 5.49 10*6/uL Normal 4.20-6.00 [facility] Comment on above: Order Comment: Speci men Type: BLOOD SPECIMENOrdering Facility: [facility] Address: [address] [place] [address] Performed By: #### 5 7021-8 ####[facility] LABCLIA [id number] [place] [address] [place] WBC (Bld) [#/Vol] 12.81 10*3/uL High 3.70-11.00 [facility] Comment on above: Order Comment: Speci men Type: BLOOD SPECIMENOrdering Facility: [facility] Address: [address] [place] [address] Performed By: #### 5 7021-8 ####[facility] LABCLIA [id number] [facility] [id number] [place] [address] [place] CNOVon 10-31-2023 CNOV Office Visit (JASSONPWS) SANTY ALANIS ([id number]) 1995 M T Date Time Provider Department 10/31/23 2:40 PM EDENILSONLOGMECCA SWENSON During your visit today, we recorded the following information about you: Pulse Respiration Blood pressure Weight 105/minute 18/minute 124/86 124.9 kg Mecca Umanzor APRN.BROACH OPERATOR 10/31/2023 3:52 PM Signed 10/31/2023 Patient presents with: Covid Follow Up: Had covid in July, has had issues with fatigue, dizziness, vision changes while at the store, blurry and eyes hurt. States they are dry. Feels a tremor every so often inside body, isn't sure if its a palpitation. Body aches all the time. SUBJECTIVE: This is a 28 year old that is here today for Above Complaints. Diagnosed with COVID-19 in July,. Since that time has had dizziness, fatigue, blurry vision, eyes constantly feel dry and burn, fatigue, maybe feels palpitations, chest feels shaky and body aches. Also admits to mild SOB and nausea at times. Reports his dizziness is like a brain fog. Worsened by walking around at the stores looking at things. He reports he saw an ENT who did a hearing test and this was normal. Has upcoming appointment with [facility] for an EKG that was abnormal. Denies weight loss, fevers, chills, sore throat, rhinorrhea, nasal congestion, loss of taste or smell, diplopia, dyspnea, wheezing, chest pain, abdominal pain, vomiting, constipation or diarrhea Has been out of his synthroid for about a week. Reports he has been taking consisently on an empty stomach until the last week. PAST MEDICAL HISTORY Diagnosis Date ADHD Anxiety Childhood asthma URI induced as an adult Current moderate episode of major depressive disorder without prior episode (HCC) Family history of heart attack Graves disease History of chlamydia Lung nodule age 19 Morbid obesity with BMI of 40.0-44.9, adult (HCC) Panic disorder Post-surgical hypothyroidism Tobacco use ALLERGIES Bee Venom Protein (Honey Bee) and Concerta [Methylphenidate Analogues] MEDICATIONS Current Outpatient Medications Medication Sig levothyroxine (LEVOXYL) 112 mcg tablet Take 1 tablet by mouth once daily. Take on empty stomach. For thyroid. EPINEPHrine (EPIPEN) 0.3 mg/0.3 mL auto-injector Inject 0.3 mL intramuscularly as needed (For allergic reaction). albuterol HFA (PROVENTIL HFA, VENTOLIN HFA) 90 mcg/actuation inhaler Inhale 2-4 Puffs as instructed every 2 hours as needed for wheezing/shortness of breath. (Patient not taking: Reported on 08/20/2023) ipratropium-albutero l (DUONEB) 0.5 mg-3 mg(2.5 mg base)/3 mL nebu Inhale 3 mL as instructed every 6 hours as needed for wheezing/shortness of breath. albuterol HFA (PROVENTIL HFA, VENTOLIN HFA) 90 mcg/actuation inhaler Inhale 2 Puffs as instructed every 6 hours as needed for wheezing/shortness of breath. No current facility-administere d medications for this visit. Medications and allergies reviewed by this provider. SOCIAL HISTORY Social History Tobacco Use Smoking status: Every Day Packs/day: 1.00 Years: 9.00 Additional pack years: 0.00 Total pack years: 9.00 Types: Cigarettes Smokeless tobacco: Never Vaping Use Vaping Use: Never used Substance Use Topics Alcohol use: No Drug use: Never REVIEW OF SYSTEMS All other reviewed and negative other than HPI. OBJECTIVE: BP 120/84 Pulse 100 Resp 18 Wt 124.9 kg (275 lb 6.4 oz) SpO2 94% BMI 39.52 kg/m? . Vital signs reviewed by this provider. APPEARANCE Well appearing, alert, in no acute distress, well-hydrated, well nourished. EYES PERRLA, conjunctiva and sclera normal. EARS External ears normal, canals clear THROAT normal, no erythema NECK Supple, no adenopathy; thyroid symmetric, normal size, no bruits HEART RRR with normal S1 and S2, no murmurs, no gallops, no JVD appreciated LUNG clear to auscultation. No wheezes, rhonchi or rales EXTREMITIES Extremities normal, No deformities, No skin discoloration, and No edema NEURO Awake, alert and oriented x 3, Cranial nerves II-XII grossly intact, Reflexes symmetrical, Normal gait, No involuntary motions., and negative findings: speech normal, mental status intact, cranial nerves 2-12 intact, Romberg negative, muscle tone normal, muscle strength normal, rapid alternating movements normal, finger to nose normal, reflexes normal and symmetric, plantar response downgoing bilaterally SKIN Skin color, texture, turgor normal, no suspicious rashes or lesions to exposed skin Hepatitis B Vaccine(1 of 3 - 3-dose series) Never done Covid-19 Vaccine(1) Never done Pneumococcal Vaccine(1 - PCV) Never done Influenza Vaccine(1) due on 07/22/2023 Annual PCP Team Chronic Disease Visit due on 10/31/2024 DTaP,Tdap,Td Vaccine(3 - Td or Tdap) due on 07/15/2030 Hepatitis C Screening Completed HPV Vaccine Aged Out HIV Screening Di (more content not included)... Normal [facility] Comprehensive metabolic 2000 panelon 10-31-2023 Albumin [Mass/Vol] 4.7 g/dL Normal 3.9-4.9 [facility] Comment on above: Order Comment: Speci men Type: BLOOD SPECIMENOrdering Facility: [facility] Address: [address] [place] [address] Performed By: #### 2 4323-8, 3 ####[facility] LABCLIA [id number] [place] [address] [address] [place] ALP [Catalytic activity/Vol] 93 U/L Normal 38-113 [facility] Comment on above: Order Comment: Speci men Type: BLOOD SPECIMENOrdering Facility: [facility] Address: [address] [place] [address] Performed By: #### 2 4323-8, 3015-3 ####[facility] LABCLIA [id number] [place] [id number] [place] ALT [Catalytic activity/Vol] 34 U/L Normal 10-54 [facility] Comment on above: Order Comment: Speci men Type: BLOOD SPECIMENOrdering Facility: [facility] Address: [address] [place] [address] Performed By: #### 2 4323-8, 3016-3 ####[facility] LABCLIA [id number] [place] [id number] [place] Anion gap [Moles/Vol] 11 mmol/L Normal 9-18 [facility] Comment on above: Order Comment: Speci men Type: BLOOD SPECIMENOrdering Facility: [facility] Address: [address] [place] [address] Performed By: #### 2 4323-8, 3015-3 ####[facility] LABCLIA [id number] [place] [address] [place] AST [Catalytic activity/Vol] 20 U/L Normal 14-40 [facility] Comment on above: Order Comment: Speci men Type: BLOOD SPECIMENOrdering Facility: [facility] Address: [address] [place] [address] Performed By: #### 2 4323-8, 6-3 ####[facility] LABCLIA [id number] [place] [address] [place] Bilirubin [Mass/Vol] 0.2 mg/dL Normal 0.2-1.3 [facility] Comment on above: Order Comment: Speci men Type: BLOOD SPECIMENOrdering Facility: [facility] Address: [address] [place] [address] Performed By: #### 2 4323-8, 6-3 ####[facility] LABCLIA [id number] [place] [id number] [place] Calcium [Mass/Vol] 10.1 mg/dL Normal 8.5-10.2 [facility] Comment on above: Order Comment: Speci men Type: BLOOD SPECIMENOrdering Facility: [facility] Address: [address] [place] [address] Performed By: #### 2 4323-8, 3016-3 ####[facility] LABCLIA [id number] [address] [address] [place] Chloride [Moles/Vol] 104 mmol/L Normal 97-105 [facility] Comment on above: Order Comment: Speci men Type: BLOOD SPECIMENOrdering Facility: [facility] Address: [address] [place] [address] Performed By: #### 2 4323-8, 6-3 ####[facility] LABCLIA [id number] [place] [address] [place] CO2 [Moles/Vol] 24 mmol/L Normal 22-30 [facility] Comment on above: Order Comment: Speci men Type: BLOOD SPECIMENOrdering Facility: [facility] Address: [address] [place] [address] Performed By: #### 2 4323-8, 3016-3 ####[facility] LABCLIA [id number] [place] [address] [place] Creatinine [Mass/Vol] 1.11 mg/dL Normal 0.73-1.22 [facility] Comment on above: Order Comment: Speci men Type: BLOOD SPECIMENOrdering Facility: [facility] Address: [address] [place] [address] Performed By: #### 2 4323-8, 3016-3 ####[facility] LABCLIA [id number] [place] [address] [place] Creatinine and Glomerular filtration rate.predicted panel (S/P/Bld) 93 mL/min/1.73m??? Normal >=60 [facility] Comment on above: Order Comment: Speci men Type: BLOOD SPECIMENOrdering Facility: [facility] Address: [address] [place] [address] Result Comment: Bindu mated Glomerular Filtration Rate (eGFR) is calculated using the 2020 CKD-EPI creatinine equation. This equation utilizes serum creatinine, sex, and age as parameters. The creatinine assay has traceable calibration to isotope dilution-mass spectrometry. Refer to KDIGO guidelines for clinical interpretation. In patients with unstable renal function, e.g. those with acute kidney injury, the eGFR may not accurately reflect actual GFR. Performed By: #### 2 4323-8, 3015-3 ####[facility] LABCLIA [id number] [place] [address] [place] Glucose [Mass/Vol] 92 mg/dL Normal 74-99 [facility] Comment on above: Order Comment: Ariana valderrama Type: BLOOD SPECIMENOrdering Facility: [facility] Address: [address] [place] [address] Result Comment: The [place] Diabetes Association (ADA) provides guidance for cutoff values for fasting glucose and random glucose. The ADA defines fasting as no caloric intake for at least 8 hours. Fasting plasma glucose results between 100 to 125 mg/dL indicate increased risk for diabetes (prediabetes). Fasting plasma glucose results greater than or equal to 126 mg/dL meet the criteria for diagnosis of diabetes. In the absence of unequivocal hyperglycemia, results should be confirmed by repeat testing. In a patient with classic symptoms of hyperglycemia or hyperglycemic crisis, random plasma glucose results greater than or equal to 200 mg/dL meet the criteria for diagnosis of diabetes. Reference: Standards of Medical Care in Diabetes 2016, [place] Diabetes Association. Diabetes Care. 2016.39(Suppl 1). Performed By: #### 2 4323-8, 3015-3 ####[facility] LABIA [id number] [place] [address] [place] Potassium [Moles/Vol] 4.5 mmol/L Normal 3.7-5.1 [facility] Comment on above: Order Comment: Ariana valderrama Type: BLOOD SPECIMENOrdering Facility: [facility] Address: [address] [place] [address] Performed By: #### 2 4323-8, 3015-3 ####[facility] LABCLIA [id number] [place] [address] [place] Protein [Mass/Vol] 7.2 g/dL Normal 6.3-8.0 [facility] Comment on above: Order Comment: Speci men Type: BLOOD SPECIMENOrdering Facility: [facility] Address: [address] [place] [address] Performed By: #### 2 4323-8, 3016-3 ####[facility] LABCLIA [id number] [place] [address] [place] Sodium [Moles/Vol] 139 mmol/L Normal 136-144 [facility] Comment on above: Order Comment: Speci men Type: BLOOD SPECIMENOrdering Facility: [facility] Address: [address] [place] [address] Performed By: #### 2 4323-8, 3016-3 ####[facility] LABIA [id number] [place] [address] [place] Urea nitrogen [Mass/Vol] 13 mg/dL Normal 9-24 [facility] Comment on above: Order Comment: Speci men Type: BLOOD SPECIMENOrdering Facility: [facility] Address: [address] [place] [address] Performed By: #### 2 4323-8, 3016-3 ####[facility] LABIA [id number] [place] [address] [place] TSH SerPl-aCncon 10-31-2023 TSH Qn 49.700 m[IU]/L High 0.270-4.200 [facility] Comment on above: Order Comment: Speci men Type: BLOOD SPECIMENOrdering Facility: [facility] Address: [address] [place] [address] Performed By: #### 2 4323-8, 3016-3 ####[facility] LABCLIA [id number] [place] [address] [place] CNCOon 10-17-2023 CNCO Letter Text Normal [facility] CNCOon 09-26-2023 CNCO Letter Text Normal [facility] Basic metabolic 2000 panelon 09-16-2023 Anion gap [Moles/Vol] 6 mmol/L Low 9-18 [facility] Comment on above: Order Comment: Speci men Type: BLOOD SPECIMEN [facility] Address: [address] [place] [address] Performed By: #### 2 4321-2 #### [facility] CLIA [id number] [address] [place] [address] [place] Calcium [Mass/Vol] 9.9 mg/dL Normal 8.5-10.2 [facility] Comment on above: Order Comment: Speci men Type: BLOOD SPECIMEN [facility] Address: [address] [place] [address] Performed By: #### 2 4321-2 #### [facility] CLIA [id number] [address] [place] [address] [place] Chloride [Moles/Vol] 109 mmol/L High 97-105 [facility] Comment on above: Order Comment: Speci men Type: BLOOD SPECIMEN [facility] Address: [address] [place] [address] Performed By: #### 2 4321-2 #### [facility] CLIA [id number] [address] [place], [place] [id number] [place] CO2 [Moles/Vol] 27 mmol/L Normal 22-30 [facility] Comment on above: Order Comment: Speci men Type: BLOOD SPECIMEN [facility] Address: [address] [place] [address] Performed By: #### 2 4321-2 #### [facility] CLIA [id number] [address] [place], [place] [id number] [place] Creatinine [Mass/Vol] 1.09 mg/dL Normal 0.73-1.22 [facility] Comment on above: Order Comment: Speci men Type: BLOOD SPECIMEN [facility] Address: [address] [place] [address] Result Comment: Use of this assay is not recommended for patients undergoing treatment with phenindione, due to the potential for falsely depressed results. Performed By: #### 2 4321-2 #### [facility] CLIA [id number] [address] [place] [address] [place] Creatinine and Glomerular filtration rate.predicted panel (S/P/Bld) 95 mL/min/1.73m??? Normal >=60 [facility] Comment on above: Order Comment: Ariana valderrama Type: BLOOD SPECIMEN [facility]: [facility] Address: [address] [place] [address] Result Comment: Bindu mated Glomerular Filtration Rate (eGFR) is calculated using the 2020 CKD-EPI creatinine equation. This equation utilizes serum creatinine, sex, and age as parameters. The creatinine assay has traceable calibration to isotope dilution-mass spectrometry. Refer to KDIGO guidelines for clinical interpretation. In patients with unstable renal function, e.g. those with acute kidney injury, the eGFR may not accurately reflect actual GFR. Performed By: #### 2 4321-2 #### [facility] CLIA [id number] [address] [place] [address] [place] Glucose [Mass/Vol] 94 mg/dL Normal 74-99 [facility] Comment on above: Order Comment: Ariana valderrama Type: BLOOD SPECIMEN [facility]: [facility] Address: [address] [place] [address] Result Comment: The [place] Diabetes Association (ADA) provides guidance for cutoff values for fasting glucose and random glucose. The ADA defines fasting as no caloric intake for at least 8 hours. Fasting plasma glucose results between 100 to 125 mg/dL indicate increased risk for diabetes (prediabetes). Fasting plasma glucose results greater than or equal to 126 mg/dL meet the criteria for diagnosis of diabetes. In the absence of unequivocal hyperglycemia, results should be confirmed by repeat testing. In a patient with classic symptoms of hyperglycemia or hyperglycemic crisis, random plasma glucose results greater than or equal to 200 mg/dL meet the criteria for diagnosis of diabetes. Reference: Standards of Medical Care in Diabetes 2016, [place] Diabetes Association. Diabetes Care. 2016.39(Suppl 1). Performed By: #### 2 4321-2 #### [facility] CLIA [id number] [address] [place] [address] [place] Potassium [Moles/Vol] 4.2 mmol/L Normal 3.7-5.1 [facility] Comment on above: Order Comment: Speci men Type: BLOOD SPECIMEN [facility]: [facility] Address: [address] [place] [address] Performed By: #### 2 4321-2 #### [facility] CLIA [id number] [address] [place] [address] [place] Sodium [Moles/Vol] 142 mmol/L Normal 136-144 [facility] Comment on above: Order Comment: Speci men Type: BLOOD SPECIMEN [facility]ing [facility]: [facility] Address: [address] [place] [address] Performed By: #### 2 4321-2 #### [facility] CLIA [id number] [address] [place] [address] [place] Urea nitrogen [Mass/Vol] 15 mg/dL Normal 9-24 [facility] Comment on above: Order Comment: Speci men Type: BLOOD SPECIMEN [facility]: [facility] Address: [address] [place] [address] Performed By: #### 2 4321-2 #### [facility] CLIA [id number] [address] [place] [address] [place] CBC W Auto Differential pane l (Bld)on 09-16-2023 Basophils (Bld) [#/Vol] 0.06 10*3/uL Normal <0.11 [facility] Comment on above: Order Comment: Speci men Type: URINE SPECIMEN [facility]: [facility] Address: [address] [place] [address] Performed By: #### U TOX2 #### [facility] CLIA [id number] [address] [place] [address] [place] Basophils/100 WBC (Bld) 0.5 % Normal [facility] Comment on above: Order Comment: Speci men Type: URINE SPECIMEN [facility]: [facility] Address: [address] [place] [address] Performed By: #### U TOX2 #### [facility] CLIA [id number] [address] [place], [place] [id number] [facility] [place] Differential cell count method Nom (Bld) Auto Normal [facility] Comment on above: Order Comment: Speci men Type: URINE SPECIMEN [facility]: [facility] Address: [address] [place] [address] Performed By: #### U TOX2 #### [facility] CLIA [id number] [address] [place] [address] [place] Eosinophils (Bld) [#/Vol] 0.87 10*3/uL High <0.46 [facility] Comment on above: Order Comment: Speci men Type: URINE SPECIMEN [facility]: [facility] Address: [address] [place] [address] Performed By: #### U TOX2 #### [facility] CLIA [id number] [address] [place] [address] [place] Eosinophils/100 WBC (Bld) 7.8 % Normal [facility] Comment on above: Order Comment: Speci men Type: URINE SPECIMEN Ordering Facility: [facility] Address: [address] [place] [address] Performed By: #### U TOX2 #### [facility] CLIA [id number] [address] [place], [place] [id number] [place] Erythrocyte distribution width (RBC) [Ratio] 12.3 % Normal 11.5-15.0 [facility] Comment on above: Order Comment: Speci men Type: URINE SPECIMEN Ordering Facility: [facility] Address: [address] [place] [address] Performed By: #### U TOX2 #### [facility] CLIA [id number] [address] [place], [place] [id number] [facility] Hematocrit (Bld) [Volume fraction] 45.9 % Normal 39.0-51.0 [facility] Comment on above: Order Comment: Speci men Type: URINE SPECIMEN Ordering Facility: [facility] Address: [address] [place] [address] Performed By: #### U TOX2 #### [facility] CLIA [id number] [address] [place] [address] [place] Hemoglobin (Bld) [Mass/Vol] 15.8 g/dL Normal 13.0-17.0 [facility] Comment on above: Order Comment: Speci men Type: URINE SPECIMEN Ordering Facility: [facility] Address: [address] [place] [address] Performed By: #### U TOX2 #### [facility] CLIA [id number] [address] [place] [address] [place] Immature granulocytes (Bld) [#/Vol] 10*3/uL Normal <0.10 [facility] Comment on above: Order Comment: Speci men Type: URINE SPECIMEN Ordering Facility: [facility] Address: [address] [place] [address] Performed By: #### U TOX2 #### [facility] CLIA [id number] [address] [place] [address] [place] Immature granulocytes/100 WBC (Bld) 0.2 % Normal [facility] Comment on above: Order Comment: Speci men Type: URINE SPECIMEN Ordering Facility: [facility] Address: [address] [place] [address] Performed By: #### U TOX2 #### [facility] CLIA [id number] [address] [place] [address] [place] Lymphocytes (Bld) [#/Vol] 4.35 10*3/uL High 1.00-4.00 [facility] Comment on above: Order Comment: Speci men Type: URINE SPECIMEN Ordering Facility: [facility] Address: [address] [place] [address] Performed By: #### U TOX2 #### [facility] CLIA [id number] [address] [place], [place] [id number] [place] Lymphocytes/100 WBC (Bld) 38.8 % Normal [facility] Comment on above: Order Comment: Speci men Type: URINE SPECIMEN Ordering Facility: [facility] Address: [address] [place] [address] Performed By: #### U TOX2 #### [facility] CLIA [id number] [address] [place] [address] MCH (RBC) [Entitic mass] 29.7 pg Normal 26.0-34.0 [facility] Comment on above: Order Comment: Speci men Type: URINE SPECIMEN Ordering Facility: [facility] Address: [address] [place] [address] Performed By: #### U TOX2 #### [facility] CLIA [id number] [address] [place] [address] [place] MCHC (RBC) [Mass/Vol] 34.4 g/dL Normal 30.5-36.0 [facility] Comment on above: Order Comment: Speci men Type: URINE SPECIMEN Ordering Facility: [facility] Address: [address] [place] [address] Performed By: #### U TOX2 #### [facility] CLIA [id number] [address] [place] [address] [place] MCV (RBC) [Entitic vol] 86.3 fL Normal 80.0-100.0 [facility] Comment on above: Order Comment: Speci men Type: URINE SPECIMEN Ordering Facility: [facility] Address: [address] [place] [address] Performed By: #### U TOX2 #### [facility] CLIA [id number] [address] [place] [address] [place] Monocytes (Bld) [#/Vol] 0.76 10*3/uL Normal <0.87 [facility] Comment on above: Order Comment: Speci men Type: URINE SPECIMEN Ordering Facility: [facility] Address: [address] [place] [address] Performed By: #### U TOX2 #### [facility] CLIA [id number] [address] [place] [address] Monocytes/100 WBC (Bld) 6.8 % Normal [facility] Comment on above: Order Comment: Speci men Type: URINE SPECIMEN Ordering Facility: [facility] Address: [address] [place] [address] Performed By: #### U TOX2 #### [facility] CLIA [id number] [address] [place] [address] [place] Neutrophils (Bld) [#/Vol] 5.15 10*3/uL Normal 1.45-7.50 [facility] Comment on above: Order Comment: Speci men Type: URINE SPECIMEN Ordering Facility: [facility] Address: [address] [place] [address] Performed By: #### U TOX2 #### [facility] CLIA [id number] [address] [place], [place] [id number] [place] Neutrophils/100 WBC (Bld) 45.9 % Normal [facility] Comment on above: Order Comment: Speci men Type: URINE SPECIMEN Ordering Facility: [facility] Address: [address] [place] [address] Performed By: #### U TOX2 #### [facility] CLIA [id number] [address] [place], [place] [address] [place] Nucleated RBC (Bld) [#/Vol] Normal [facility] Comment on above: Order Comment: Speci men Type: URINE SPECIMEN Ordering Facility: [facility] Address: [address] [place] [address] Performed By: #### U TOX2 #### [facility] CLIA [id number] [address] [place], [place] [address] [place] Nucleated RBC/100 WBC (Bld) [Ratio] Normal [facility] Comment on above: Order Comment: Speci men Type: URINE SPECIMEN Ordering Facility: [facility] Address: [address] [place] [address] Performed By: #### U TOX2 #### [facility] CLIA [id number] [address] [place], [place] [address] [place] Platelet mean volume (Bld) [Entitic vol] 9.8 fL Normal 9.0-12.7 [facility] Comment on above: Order Comment: Speci men Type: URINE SPECIMEN Ordering Facility: [facility] Address: [address] [place] [address] Performed By: #### U TOX2 #### [facility] CLIA [id number] [address] [place], [place] [address] [facility] Platelets (Bld) [#/Vol] 199 10*3/uL Normal 150-400 [facility] Comment on above: Order Comment: Speci men Type: URINE SPECIMEN Ordering Facility: [facility] Address: [address] [place] [address] Performed By: #### U TOX2 #### [facility] CLIA [id number] [address] [place], [place] [address] [facility] RBC (Bld) [#/Vol] 5.32 10*6/uL Normal 4.20-6.00 [facility] Comment on above: Order Comment: Speci men Type: URINE SPECIMEN Ordering Facility: [facility] Address: [address] [place] [address] Performed By: #### U TOX2 #### [facility] CLIA [id number] [address] [place] [address] WBC (Bld) [#/Vol] 11.21 10*3/uL High 3.70-11.00 [facility] Comment on above: Order Comment: Speci men Type: URINE SPECIMEN Ordering Facility: [facility] Address: [address] [place] [address] Performed By: #### U TOX2 #### [facility] CLIA [id number] [address] [place], [place] [address] [facility] ED NOTEon 09-16-2023 ED NOTE HNO ID: [id number] Author: Nahomy White RN Service: Emergency Medicine Author Type: Registered Nurse Type: ED Notes Filed: 09/16/2023 9:25 AM Note Text: Emergency Services: ED Call Back Questionnaire SERVICE DATE: 09/15/2023 Are you feeling better? Yes Any questions about discharge instructions and follow-up care? No Were you able to make a follow up appointment? Yes Do you have any further questions? No Is there anything that we could have done differently to improve your ED visit? No SIGNATURE: Nahomy White RN PATIENT NAME: Santy Alanis DATE: September 16, 2023 TIME: 9:24 AM Normal [facility] ED NOTE HNO ID: [id number] Author: Mahsa Yepez, CIPRIANO Service: Emergency Medicine Author Type: Registered Nurse Type: ED Notes Filed: 09/15/2023 10:52 PM Note Text: Pt to room with c/o dizziness intermittently x2-3 weeks. Pt states it is worse with position changes and when he ambulates. Denies any feelings of near syncope. States he saw ENT already for same issue. AANDOx3. WTBS. Normal [facility] ED NOTE HNO ID: [id number] Author: Uma Mitchell, CIPRIANO Service: Emergency Medicine Author Type: Registered Nurse Type: ED Notes Filed: 09/15/2023 10:11 PM Note Text: Diziness x 2 weeks , tx in ed for same -referred AND tx. 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 Home test neg., hamida. Ears feel clogged c/o 'shaking inside. C/o always tired Normal [facility] ED PROV NOTEon 09-16-2023 ED PROV NOTE HNO ID: [id number] Author: Silvestre Palmer MD Service: Emergency Medicine Author Type: Resident Type: ED Provider Notes Filed: 09/16/2023 12:18 AM Note Text: Attestation signed by Jodi Martin MD at 09/17/2023 8:53 AM Attending Note I evaluated the patient and personally participated in the lopez components. I agree with the resident's findings and plan as documented and have discussed the case and management of the patient's care with the resident. 28-year-old male presents the emergency department with multiple weeks of generalized weakness, fatigue and malaise. He reports that he had COVID <2 months ago. He is here today with the previously mentioned symptoms. He has no chest pain or shortness of breath. He occasionally feels lightheaded and dizzy. He denies a headache, nausea or vomiting. States that he feels slow while he is at work. He has a history of thyroid disease, states that he sometimes takes his medication. He has no abdominal pain. On exam he has a nonfocal neurologic exam. His vitals are within normal limits. Cranial nerves II through XII intact. He appears well, speech is clear conversing on FaceTime during evaluation. MDM/plan: Patient presents with symptoms of chronic fatigue and malaise. He is less than 2 months post documented COVID infection. His work-up here in the emergency department was benign. No metabolic or infectious etiology identified. Plan for referral to functional medicine clinic for long COVID type syndrome and appropriate outpatient workup as indicated. Encourage compliance with levothyroxine. Patient discharged from the Emergency Department. I do not feel that the patient's evaluation reveals any acute reason for admission at this time. I instructed them to either follow up with their primary care physician or promptly return to the Emergency Department for reevaluation should symptoms worsen or new symptoms develop. I explained what symptoms would indicate the need to return to the Emergency Department. Shared decision making was used. The patient voiced understanding of the treatment plan and is agreeable to plan. Signature: Jodi Martin MD Date: 09/17/2023 Time: 8:51 AM ED Provider Note Patient Name: Santy Alanis : 1995 SERVICE DATE: 09/15/23 History Patient presents with: Dizziness 28-year-old male presents emergency department for several weeks of generalized weakness. History of thyroid disease. Patient was diagnosed with COVID several months ago. States that he has been feeling weak for the last several weeks. States that this is present primarily when he goes from a sitting to standing position. States that this acutely changed today because it was worse than normal. He does not have any room spinning sensation. Did not lose consciousness. He denies any focal weakness. Denies any numbness or tingling. No changes in vision. No chest pain or shortness of breath. No abdominal pain. No urinary symptoms. PAST MEDICAL HISTORY Diagnosis Date ADHD Anxiety Childhood asthma URI induced as an adult Current moderate episode of major depressive disorder without prior episode (HCC) Family history of heart attack Graves disease History of chlamydia Lung nodule age 19 Morbid obesity with BMI of 40.0-44.9, adult (HCC) Panic disorder Post-surgical hypothyroidism Tobacco use PAST SURGICAL HISTORY Procedure Laterality Date LAPS SURG CHOLECYSTECTOMY W/CHOLANGIOGRAPHY 08/09/2021 THYROIDECTOMY TOTAL/COMPLETE FAMILY HISTORY Problem Relation Age of Onset Thyroid Mother Heart Attack Mother 40 Heart disease Mother 16 COPD Father Bipolar disorder Brother Diabetes Maternal Grandfather Stroke Maternal Grandfather COPD Paternal Grandfather Social History Tobacco Use Smoking status: Every Day Packs/day: 1.00 Years: 9.00 Additional pack years: 0.00 Total pack years: 9.00 Types: Cigarettes Smokeless tobacco: Never Vaping Use Vaping Use: Never used Substance and Sexual Activity Alcohol use: No Drug use: Never Sexual activity: Yes Partners: Female ALLERGIES Allergen Reactions Bee Venom Protein (* Swelling Concerta [Methylphe* Mental Status Change Review of Systems Constitutional: Negative for chills and fever. HENT: Negative for congestion, sinus pressure and sinus pain. Eyes: Negative for pain, redness and visual disturbance. Respiratory: Negative for cough and shortness of breath. Cardiovascular: Negative for chest pain, palpitations and leg swelling. Gastrointestinal: Negative for abdominal pain, nausea and vomiting. Genitourinary: Negative for dysuria and hematuria. Musculoskeletal: Negative for neck pain and neck stiffness. Neurological: Positive for weakness. Physical Ex (more content not included)... Normal [facility] TOX SCREEN ROUT URon 09-16- 023 Amphetamines Confirm (U) [Mass/Vol] Negative Normal Negative [facility] Comment on above: Order Comment: Speci men Type: URINE SPECIMEN Ordering Facility: [facility] Address: [address] [place] [address], [place] [address] Result Comment: Cuto ff threshold at 1000 ng/mL. Performed By: #### U TOX2 #### [facility] CLIA [id number] [address] [place] [address] [place] BARBITURATES, URINE Negative Normal Negative [facility] Comment on above: Order Comment: Speci men Type: URINE SPECIMEN Ordering Facility: [facility] Address: [address] [place] [address] Result Comment: Cuto ff threshold at 200 ng/mL. Performed By: #### U TOX2 #### [facility] CLIA [id number] [address] [place] [address] [place] BENZODIAZEPINES, UR Negative Normal Negative [facility] Comment on above: Order Comment: Speci men Type: URINE SPECIMEN Ordering Facility: [facility] Address: [address] [place] [address] Result Comment: Cuto ff threshold at 200 ng/mL. Performed By: #### U TOX2 #### [facility] CLIA [id number] [address] [place] [address] [place] Cannabinoids Screen Ql (U) Negative Normal Negative [facility] Comment on above: Order Comment: Speci men Type: URINE SPECIMEN Ordering Facility: [facility] Address: [address] [place] [address] Result Comment: Cuto ff threshold at 50 ng/mL. Performed By: #### U TOX2 #### [facility] CLIA [id number] [address] [place] [address] [place] Cocaine Ql (U) Negative Normal Negative [facility] Comment on above: Order Comment: Speci men Type: URINE SPECIMEN Ordering Facility: [facility] Address: [address] [place] [address] Result Comment: Cuto ff threshold at 300 ng/mL. Performed By: #### U TOX2 #### [facility] CLIA [id number] [address] [place] [address] [place] Ethanol (U) [Mass/Vol] <10 Normal <11 [facility] Comment on above: Order Comment: Speci men Type: URINE SPECIMEN Ordering Facility: [facility] Address: [address] [place] [address] Performed By: #### U TOX2 #### [facility] CLIA [id number] [address] [place] [address] [place] Opiates Screen Ql (U) Negative Normal Negative [facility] Comment on above: Order Comment: Speci men Type: URINE SPECIMEN Ordering Facility: [facility] Address: [address] [place] [address] Result Comment: Cuto ff threshold at 300 ng/mL. Performed By: #### U TOX2 #### [facility] CLIA [id number] [address] [place] [address] [place] oxyCODONE cutoff Screen (U) [Mass/Vol] Negative Normal Negative [facility] Comment on above: Order Comment: Speci men Type: URINE SPECIMEN Ordering Facility: [facility] Address: [address] [place] [address] Result Comment: Cuto ff threshold at 100 ng/mL. Performed By: #### U TOX2 #### [facility] CLIA [id number] [address] [place] [address] Phencyclidine Ql (U) Negative Normal Negative [facility] Comment on above: Order Comment: Speci men Type: URINE SPECIMEN Ordering Facility: [facility] Address: [address] [place] [address] Result Comment: Cuto ff threshold at 25 ng/mL. Performed By: #### U TOX2 #### [facility] CLIA [id number] [address] [place] [address] [place] Urinalysis complete panel (U )on 09-16-2023 Bacteria LM.HPF (Urine sed) [#/Area] Rare Abnormal None Seen [facility] Comment on above: Order Comment: Speci men Type: URINE SPECIMEN Ordering Facility: [facility] Address: [address] [place] [address] Performed By: #### 2 4356-8 #### [facility] CLIA [id number] [address] [place] [address] [place] Bilirubin Ql (U) Negative Normal Negative [facility] Comment on above: Order Comment: Speci men Type: URINE SPECIMEN Ordering Facility: [facility] Address: [address] [place] [address] Performed By: #### 2 4356-8 #### [facility] CLIA [id number] [address] [place], [place] [id number] [place] Clarity (Unsp spec) Clear Normal Clear [facility] Comment on above: Order Comment: Speci men Type: URINE SPECIMEN Ordering Facility: [facility] Address: [address] [place] [address] Performed By: #### 2 4356-8 #### [facility] CLIA [id number] [address] [place], [place] [address] [place] Color (U) Yellow Normal Yellow [facility] Comment on above: Order Comment: Speci men Type: URINE SPECIMEN Ordering Facility: [facility] Address: [address] [place] [address] Performed By: #### 2 4356-8 #### [facility] CLIA [id number] [address] [place], [place] [address] [place] Epithelial cells LM.HPF (Urine sed) [#/Area] Few Normal [facility] Comment on above: Order Comment: Speci men Type: URINE SPECIMEN Ordering Facility: [facility] Address: [address] [place] [address] Performed By: #### 2 4356-8 #### [facility] CLIA [id number] [address] [place], [place] [address] [place] Glucose Test strip (U) [Mass/Vol] Negative Normal Negative [facility] Comment on above: Order Comment: Speci men Type: URINE SPECIMEN Ordering Facility: [facility] Address: [address] [place] [address] Performed By: #### 2 4356-8 #### [facility] CLIA [id number] [address] [place] [address] [place] Hemoglobin Ql (U) Negative Normal Negative [facility] Comment on above: Order Comment: Speci men Type: URINE SPECIMEN Ordering Facility: [facility] Address: [address] [place] [address] Performed By: #### 2 4356-8 #### [facility] CLIA [id number] [address] [place] [address] [place] Ketones Ql (U) Negative Normal Negative [facility] Comment on above: Order Comment: Speci men Type: URINE SPECIMEN Ordering Facility: [facility] Address: [address] [place] [address] Performed By: #### 2 4356-8 #### [facility] CLIA [id number] [address] [place] [address] [place] Leukocyte esterase Test strip Ql (U) Negative Normal Negative [facility] Comment on above: Order Comment: Speci men Type: URINE SPECIMEN Ordering Facility: [facility] Address: [address] [place] [address] Performed By: #### 2 4356-8 #### [facility] CLIA [id number] [address] [place] [address] [place] Nitrite Ql (U) Negative Normal Negative [facility] Comment on above: Order Comment: Speci men Type: URINE SPECIMEN Ordering Facility: [facility] Address: [address] [place] [address] Performed By: #### 2 4356-8 #### [facility] CLIA [id number] [address] [place] [address] [place] pH (U) 5.5 [pH] Normal 5.0-8.0 [facility] Comment on above: Order Comment: Speci men Type: URINE SPECIMEN Ordering Facility: [facility] Address: [address] [place] [address] Performed By: #### 2 4356-8 #### [facility] CLIA [id number] [address] [place], [place] [id number] [place] Protein (U) [Mass/Vol] Negative Normal Negative [facility] Comment on above: Order Comment: Speci men Type: URINE SPECIMEN Ordering Facility: [facility] Address: [address] [place] [address] Performed By: #### 2 4356-8 #### [facility] CLIA [id number] [address] [place] [address] [place] RBC LM.HPF (Urine sed) [#/Area] 0-3 /HPF Normal 0-3 /HPF [facility] Comment on above: Order Comment: Speci men Type: URINE SPECIMEN Ordering Facility: [facility] Address: [address] [place] [address] Performed By: #### 2 4356-8 #### [facility] CLIA [id number] [address] [place] [address] Specific gravity (U) [Rel density] >=1.030 High 1.005-1.030 [facility] Comment on above: Order Comment: Speci men Type: URINE SPECIMEN Ordering Facility: [facility] Address: [address] [place] [address] Performed By: #### 2 4356-8 #### [facility] CLIA [id number] [address] [place] [address] Urobilinogen Ql (U) 0.2 EU/dL Normal 0.2-1.0 EU/dL [facility] Comment on above: Order Comment: Speci men Type: URINE SPECIMEN Ordering Facility: [facility] Address: [address] [place] [address] Performed By: #### 2 4356-8 #### [facility] CLIA [id number] [address] [place] [address] WBC LM.HPF (Urine sed) [#/Area] 0-5 /HPF Normal 0-5 /HPF [facility] Comment on above: Order Comment: Speci men Type: URINE SPECIMEN Ordering Facility: [facility] Address: [address] [place] [address] Performed By: #### 2 4356-8 #### [facility] CLIA [id number] [address] [place] [address] OF [place] XR CHEST 1V FRONTALon 2022 XR CHEST 1V FRONTAL * * *Final Report* * * DATE OF EXAM: Sep 15 2023 11:49PM ANX [id number] - XR CHEST 1V FRONTAL / PROCEDURE REASON: Fatigue and malaise * * * * Physician Interpretation * * * * EXAMINATION: CHEST RADIOGRAPH (SINGLE VIEW AP OR PA) CLINICAL HISTORY: Fatigue and malaise MQ: XC1_5 Comparison: Chest 07/28/2023. RESULT: Lines, tubes, and devices: None. Lungs and pleura: Subsegmental atelectasis in left lung base. Hazy right basilar opacity. No other consolidation. No sizable pleural effusion. No pneumothorax. Cardiomediastinal silhouette: Unchanged. Other: No acute bony findings. IMPRESSION: Hazy right basilar opacities favored to represent atelectasis with pneumonia or other airspace disease considered less likely. Schedule Analyst: JF Transcribe Date/Time: Sep 16 2023 12:27A Dictated by : SJ SHINE DO This examination was interpreted and the report reviewed and electronically signed by: SJ SHINE DO on Sep 16 2023 12:28AM EST [id number] [facility] 08-22-2023 [facility] Telephone (FAMPWS) SANTY ALANIS ([id number]) 1995 [facility] Date Time Provider Department 08/22/23 [facility] During your visit today, we recorded the following information about you: Nydia Brown MA 08/22/2023 10:15 AM Signed ER summary received from [facility]. Given to PCP for review. Nydia Brown MA Allergies As of Date: 08/22/2023 Noted Allergy Reaction BEE VENOM PROTEIN (HONEY BEE) 06/07/2019 7 - Swelling CONCERTA (METHYLPHENIDATE ANALOGU*06/08/2018 1 - Mental Status Change Date Reviewed: 08/20/2023 Reviewed by: Yusra Wilcox MA - Fully Assessed Reason for Visit: ER F/U [41] Prescriptions as of 08/22/2023 - levothyroxine (LEVOXYL) 112 mcg tablet Take 1 tablet by mouth once daily. Take on empty stomach. For thyroid. - EPINEPHrine (EPIPEN) 0.3 mg/0.3 mL auto-injector Inject 0.3 mL intramuscularly as needed (For allergic reaction). - albuterol HFA (PROVENTIL HFA, VENTOLIN HFA) 90 mcg/actuation inhaler Inhale 2-4 Puffs as instructed every 2 hours as needed for wheezing/shortness of breath. - ipratropium-albutero l (DUONEB) 0.5 mg-3 mg(2.5 mg base)/3 mL nebu Inhale 3 mL as instructed every 6 hours as needed for wheezing/shortness of breath. - albuterol HFA (PROVENTIL HFA, VENTOLIN HFA) 90 mcg/actuation inhaler Inhale 2 Puffs as instructed every 6 hours as needed for wheezing/shortness of breath. Problem List As Of Date 08/22/2023 Noted Resolved ADHD (attention deficit hyperactivity disorder)*06/18/2020 Anxiety [F41.9] 03/10/2022 Post-surgical hypothyroidism [E89.0] 03/10/2022 Tobacco use [Z72.0] 03/10/2022 Morbid obesity with BMI of 40.0-44.9, adult (HC*03/10/2022 Current moderate episode of major depressive di*03/10/2022 Encounter Status:Closed by NYDIA BROWN on 08/22/23 [facility] 08-20-2023 CNOV Office Visit (UCWSTR) SANTY ALANIS ([id number]) 1995 [facility] Date Time Provider Department 08/20/23 3:00 PM JESSICA COPE RUSTTR During your visit today, we recorded the following information about you: Temperature Pulse Respiration Blood pressure 98.6 degrees 101/minute 16/minute 138/92 Weight 121.2 kg Jessica Cope APRN.BROACH OPERATOR 08/20/2023 3:05 PM Signed Patient came in with complaints of dizziness and feeling off balance. Patient is 4 weeks post-COVID. Weeks ago patient had abnormal EKG reviewed and troponin levels. Patient has cardiology appointment scheduled but has not seen them for follow-up yet. Patient says his symptoms seem to be getting worse. Patient says he feels his heart beating out of his chest. Patient feels short of breath when doing normal tasks. At this time patient was encouraged to go to the emergency room to be evaluated for further cardiac issues. Patient was okay with this care plan and wants to take himself. Allergies As of Date: 08/20/2023 Noted Allergy Reaction BEE VENOM PROTEIN (HONEY BEE) 06/07/2019 7 - Swelling CONCERTA (METHYLPHENIDATE ANALOGU*06/08/2018 1 - Mental Status Change Date Reviewed: 08/20/2023 Reviewed by: Yusra Wilcox MA - Fully Assessed Reason for Visit: Dizziness [36] Cmt: Off balance intermittent x 2 weeks Primary Visit Diagnosis:Dizziness [R42] Prescriptions as of 08/20/2023 - levothyroxine (LEVOXYL) 112 mcg tablet Take 1 tablet by mouth once daily. Take on empty stomach. For thyroid. - EPINEPHrine (EPIPEN) 0.3 mg/0.3 mL auto-injector Inject 0.3 mL intramuscularly as needed (For allergic reaction). - albuterol HFA (PROVENTIL HFA, VENTOLIN HFA) 90 mcg/actuation inhaler Inhale 2-4 Puffs as instructed every 2 hours as needed for wheezing/shortness of breath. - ipratropium-albutero l (DUONEB) 0.5 mg-3 mg(2.5 mg base)/3 mL nebu Inhale 3 mL as instructed every 6 hours as needed for wheezing/shortness of breath. - albuterol HFA (PROVENTIL HFA, VENTOLIN HFA) 90 mcg/actuation inhaler Inhale 2 Puffs as instructed every 6 hours as needed for wheezing/shortness of breath. Problem List As Of Date 08/20/2023 Noted Resolved ADHD (attention deficit hyperactivity disorder)*06/18/2020 Anxiety [F41.9] 03/10/2022 Post-surgical hypothyroidism [E89.0] 03/10/2022 Tobacco use [Z72.0] 03/10/2022 Morbid obesity with BMI of 40.0-44.9, adult (HC*03/10/2022 Current moderate episode of major depressive di*03/10/2022 Encounter Status:Closed by JESSICA COPE on 08/20/23 [facility] 08-16-2023 [facility] HNO ID: [id number] Author: Dejah Mchugh RT(R) Service: Radiology Author Type: Technologist Type: Allied Health Filed: 08/16/2023 8:29 PM Note Text: Radiology Service Progress Note DATE OF SERVICE: August 16, 2023 TIME: 8:29 PM PATIENT IDENTITY VERIFICATION COMPLETED USING TWO (2) STANDARD IDENTIFIERS: Name and Date of confirmed by patient verbally and Name and Date of confirmed by identification band. FALL SCREENING: Has the patient had 2 falls in the last year or 1 fall with injury or currently using an Ambulatory Assistive Device (Walker, Cane, Wheelchair, Crutches, etc.)? Emergency Room Patient: Screened in ED PATIENT GENDER DATA: Male PATIENT RELEVANT IMPLANT DATA REVIEWED: Not Applicable ALLERGIES: Reviewed and unchanged CONTRAST ALLERGY: NO. EXAM: CT -CONTRAST INDUCED NEPHROPATHY RISK FACTORS: Not applicable CREATININE: Creatinine Date Value Ref Range Status 08/16/2023 1.20 0.60 - 1.30 mg/dL Final Comment: Use of this assay is not recommended for patients undergoing treatment with phenindione, due to the potential for falsely depressed results. 07/31/2023 1.16 0.73 - 1.22 mg/dL Final 01/12/2021 1.06 0.73 - 1.22 mg/dL Final Estimated Glomerular Filtration Rate Date Value Ref Range Status 08/16/2023 85 >=60 mL/min/1.73m? Final Comment: Estimated Glomerular Filtration Rate (eGFR) is calculated using the 2020 CKD-EPI creatinine equation. This equation utilizes serum creatinine, sex, and age as parameters. The creatinine assay has traceable calibration to isotope dilution-mass spectrometry. Refer to KDIGO guidelines for clinical interpretation. In patients with unstable renal function, e.g. those with acute kidney injury, the eGFR may not accurately reflect actual GFR. eGFR- Date Value Ref Range Status 07/31/2023 > 60 ml/min/1.73m2 Final Comment: eGFR >= 60 Indicates normal kidney function. * eGFR IS AN ESTIMATE * (AFR LALO = ) (non-AFR AM = NON-) MDRD calculation used in the eGFR should not be used to dose medications. For further limitations of the eGFR please refer to the Physician Website or the National Kidney Disease Education Program website (www.nkdep.nih.gov). P.O.C.T. RESULTS: POC done: Yes, See Lab Tab August 16, 2023 TREATMENT: N/A and No Hydration needed. PERIPHERAL IV DATA: Inpatient - refer to [facility] documentation RADIOLOGY DEPARTMENT: CT; Exam(s) Completed: Abdomen/Pelvis SIGNATURE: RT Andrew(R) PATIENT NAME: Santy Alanis DATE: August 16, 2023 TIME: 8:29 PM Normal [facility] C. trachomatis+N. gonorrhoea e DNA [place]+probe Ql (Unsp spec)on 08-16-2023 C. trachomatis rRNA [place]+probe Ql (Unsp spec) Negative Normal Negative for Chlamydia trachomatis by amplificaton [facility] Comment on above: Order Comment: Speci men Type: URINE SPECIMEN Ordering Facility: [facility] Address: [address] [place] [phone] Performed By: #### 3 6902-5 #### [facility] CLIA [id number] [address] [place] N. gonorrhoeae rRNA [place]+probe Ql (Unsp spec) Negative Normal Negative for Neisseria gonorrhoeae by amplification [facility] Comment on above: Order Comment: Speci men Type: URINE SPECIMEN Ordering Facility: [facility] Address: [address] [place], [place] [phone] Performed By: #### 3 6902-5 #### [facility] CLIA [id number] [address] STATES OF [facility] CBC W Auto Differential pane l (Bld)on 08-16-2023 Basophils (Bld) [#/Vol] 0.05 10*3/uL Normal <0.11 [facility] Comment on above: Order Comment: Speci men Type: BLOOD SPECIMEN Ordering Facility: [facility] Address: [address] [place] [address] Performed By: #### 5 7021-8 #### [facility] CLIA [id number] [address] [place] [address] STATES [place] [facility] Basophils/100 WBC (Bld) 0.5 % Normal [facility] Comment on above: Order Comment: Speci men Type: BLOOD SPECIMEN Ordering Facility: [facility] Address: [address] [place] [address] Performed By: #### 5 7021-8 #### [facility] CLIA [id number] [address] [place] [address] Differential cell count method Nom (Bld) Auto Normal [facility] Comment on above: Order Comment: Speci men Type: BLOOD SPECIMEN Ordering Facility: [facility] Address: [address] [place] [address] Performed By: #### 5 7021-8 #### [facility] CLIA [id number] [address] [place] [address] [place] Eosinophils (Bld) [#/Vol] 0.33 10*3/uL Normal <0.46 [facility] Comment on above: Order Comment: Speci men Type: BLOOD SPECIMEN Ordering Facility: [facility] Address: [address] [address] Performed By: #### 5 7021-8 #### [facility] CLIA [id number] [address] [place] [address] [place] Eosinophils/100 WBC (Bld) 3.4 % Normal [facility] Comment on above: Order Comment: Speci men Type: BLOOD SPECIMEN Ordering Facility: [facility] Address: [address] [address] Performed By: #### 5 7021-8 #### [facility] CLIA [id number] [address] [place] [address] [place] Erythrocyte distribution width (RBC) [Ratio] 12.3 % Normal 11.5-15.0 [facility] Comment on above: Order Comment: Speci men Type: BLOOD SPECIMEN Ordering Facility: [facility] Address: [address] [address] Performed By: #### 5 7021-8 #### [facility] CLIA [id number] [address] [place] [address] [place] Hematocrit (Bld) [Volume fraction] 44.1 % Normal 39.0-51.0 [facility] Comment on above: Order Comment: Speci men Type: BLOOD SPECIMEN Ordering Facility: [facility] Address: [address] [address] Performed By: #### 5 7021-8 #### [facility] CLIA [id number] [address] [place] [address] [place] Hemoglobin (Bld) [Mass/Vol] 15.6 g/dL Normal 13.0-17.0 [facility] Comment on above: Order Comment: Speci men Type: BLOOD SPECIMEN Ordering Facility: [facility] Address: [address] [address] Performed By: #### 5 7021-8 #### [facility] CLIA [id number] [address] [place] [address] [place] Immature granulocytes (Bld) [#/Vol] 10*3/uL Normal <0.10 [facility] Comment on above: Order Comment: Speci men Type: BLOOD SPECIMEN Ordering Facility: [facility] Address: [address] [address] Performed By: #### 5 7021-8 #### [facility] CLIA [id number] [address] [place] [address] [place] Immature granulocytes/100 WBC (Bld) 0.1 % Normal [facility] Comment on above: Order Comment: Speci men Type: BLOOD SPECIMEN Ordering Facility: [facility] Address: [address] [place] [address] Performed By: #### 5 7021-8 #### [facility] CLIA [id number] [address] [place] [address] [place] Lymphocytes (Bld) [#/Vol] 3.41 10*3/uL Normal 1.00-4.00 [facility] Comment on above: Order Comment: Speci men Type: BLOOD SPECIMEN Ordering Facility: [facility] Address: [address] [place] [address] Performed By: #### 5 7021-8 #### [facility] CLIA [id number] [address] [place] [address] Lymphocytes/100 WBC (Bld) 35.0 % Normal [facility] Comment on above: Order Comment: Speci men Type: BLOOD SPECIMEN Ordering Facility: [facility] Address: [address] [place] [address] Performed By: #### 5 7021-8 #### [facility] CLIA [id number] [address] [place] [address] [place] MCH (RBC) [Entitic mass] 29.9 pg Normal 26.0-34.0 [facility] Comment on above: Order Comment: Speci men Type: BLOOD SPECIMEN Ordering Facility: [facility] Address: [address] [place] [address] Performed By: #### 5 7021-8 #### [facility] CLIA [id number] [address] [place] [address] [place] MCHC (RBC) [Mass/Vol] 35.4 g/dL Normal 30.5-36.0 [facility] Comment on above: Order Comment: Speci men Type: BLOOD SPECIMEN Ordering Facility: [facility] Address: [address] [place] [address] Performed By: #### 5 7021-8 #### [facility] CLIA [id number] [address] [place] [address] [place] MCV (RBC) [Entitic vol] 84.6 fL Normal 80.0-100.0 [facility] Comment on above: Order Comment: Speci men Type: BLOOD SPECIMEN Ordering Facility: [facility] Address: [address] [place] [address] Performed By: #### 5 7021-8 #### [facility] CLIA [id number] [address] [place] [address] [place] Monocytes (Bld) [#/Vol] 0.61 10*3/uL Normal <0.87 [facility] Comment on above: Order Comment: Speci men Type: BLOOD SPECIMEN Ordering Facility: [facility] Address: [address] [place] [address] Performed By: #### 5 7021-8 #### [facility] CLIA [id number] [address] [place] [address] [place] Monocytes/100 WBC (Bld) 6.3 % Normal [facility] Comment on above: Order Comment: Speci men Type: BLOOD SPECIMEN Ordering Facility: [facility] Address: [address] [place] [address] Performed By: #### 5 7021-8 #### [facility] CLIA [id number] [address] [place] [address] [place] Neutrophils (Bld) [#/Vol] 5.32 10*3/uL Normal 1.45-7.50 [facility] Comment on above: Order Comment: Speci men Type: BLOOD SPECIMEN Ordering Facility: [facility] Address: [address] [place] [address] Performed By: #### 5 7021-8 #### [facility] CLIA [id number] [address] [place] [address] [place] Neutrophils/100 WBC (Bld) 54.7 % Normal [facility] Comment on above: Order Comment: Speci men Type: BLOOD SPECIMEN Ordering Facility: [facility] Address: [address] [address] Performed By: #### 5 7021-8 #### [facility] CLIA [id number] [address] [place] [address] [place] Nucleated RBC (Bld) [#/Vol] Normal [facility] Comment on above: Order Comment: Speci men Type: BLOOD SPECIMEN Ordering Facility: [facility] Address: [address] [address] Performed By: #### 5 7021-8 #### [facility] CLIA [id number] [address] [place] [address] [place] Nucleated RBC/100 WBC (Bld) [Ratio] Normal [facility] Comment on above: Order Comment: Speci men Type: BLOOD SPECIMEN Ordering Facility: [facility] Address: [address] [address] Performed By: #### 5 7021-8 #### [facility] CLIA [id number] [address] [place] [address] [place] Platelet mean volume (Bld) [Entitic vol] 9.6 fL Normal 9.0-12.7 [facility] Comment on above: Order Comment: Speci men Type: BLOOD SPECIMEN Ordering Facility: [facility] Address: [address] [address] Performed By: #### 5 7021-8 #### [facility] CLIA [id number] [address] [place] [address] [place] Platelets (Bld) [#/Vol] 208 10*3/uL Normal 150-400 [facility] Comment on above: Order Comment: Speci men Type: BLOOD SPECIMEN Ordering Facility: [facility] Address: [address] [address] Performed By: #### 5 7021-8 #### [facility] CLIA [id number] [address] [place] [address] [place] RBC (Bld) [#/Vol] 5.21 10*6/uL Normal 4.20-6.00 [facility] Comment on above: Order Comment: Speci men Type: BLOOD SPECIMEN Ordering Facility: [facility] Address: [address] Performed By: #### 5 7021-8 #### [facility] CLIA [id number] [address] [place] [address] [place] WBC (Bld) [#/Vol] 9.73 10*3/uL Normal 3.70-11.00 [facility] Comment on above: Order Comment: Speci men Type: BLOOD SPECIMEN Ordering Facility: [facility] Address: [address] [address] Performed By: #### 5 7021-8 #### [facility] CLIA [id number] [address] [place] [address] ABD/PEL W IVCONon 023 CT ABD/PEL W IVCON * * *Final Report* * * DATE OF EXAM: Aug 16 2023 8:26PM [facility] 0530 - CT ABD/PEL W IVCON / PROCEDURE REASON: RLQ abdominal pain (Age >= 14y) * * * * Physician Interpretation * * * * EXAMINATION: CT ABDOMEN AND PELVIS WITH IV CONTRAST CLINICAL HISTORY: Right flank pain TECHNIQUE: CT of the abdomen and pelvis was performed using standard technique, scanning from just above the dome of the diaphragm to the symphysis pubis. MQ: CTAP_3 Contrast: IV: 100 ml of Omnipaque 350 CT Radiation dose: Integrated Dose-length product (DLP) for this visit = 1184 mGy*cm. CT Dose Reduction Employed: mAs-kVp adjusted based on patient size-age COMPARISON: CT 01/13/2015 RESULT: Liver: No mass. Biliary: No bile duct dilation. Cholecystectomy. Spleen: No mass. No splenomegaly. Pancreas: No mass or duct dilation. Adrenals: No mass. Kidneys: No mass, calculus or hydronephrosis. GI tract: No dilation or wall thickening. Normal appendix. Lymph nodes: No abdominal or pelvic lymphadenopathy. Mesentery/Peritoneum : No ascites or mass. Retroperitoneum: No mass. Vasculature: - Abdominal aorta and iliac arteries: No aneurysm. - Celiac and SMA: Patent without stenosis. - Portal venous system (SMV, splenic vein, portal vein and branches): Patent. - Hepatic veins: Patent. Pelvis: No mass, ascites or fluid collection. Bones/Soft Tissues: Small fat-containing umbilical hernia. Lower thorax: Stable benign 6 mm right lower lobe nodule. Architectural Drafting Instructor (topogram) images: No additional findings. IMPRESSION: No acute process in the abdomen or pelvis. Schedule Analyst: PSCB Transcribe Date/Time: Aug 16 2023 8:34P Dictated by : CLEMENTINA AN MD This examination was interpreted and the report reviewed and electronically signed by: CLEMENTINA AN MD on Aug 16 2023 8:39PM EST [id number] CN Normal [facility] Comprehensive metabolic 2000 panelon 08-16-2023 Albumin [Mass/Vol] 4.5 g/dL Normal 3.5-5.7 [facility] Comment on above: Order Comment: Speci men Type: BLOOD SPECIMEN Ordering Facility: [facility] Address: [address] [address] Performed By: #### 2 4323-8, 3040-3 #### [facility] CLIA [id number] [address] [place] [address] [place] ALP [Catalytic activity/Vol] 73 U/L Normal 34-104 [facility] Comment on above: Order Comment: Speci men Type: BLOOD SPECIMEN Ordering Facility: [facility] Address: [address] [address] Performed By: #### 2 4323-8, 3040-3 #### [facility] CLIA [id number] [address] [place] [address] [place] ALT [Catalytic activity/Vol] 40 U/L Normal 7-52 [facility] Comment on above: Order Comment: Speci men Type: BLOOD SPECIMEN Ordering Facility: [facility] Address: [address] [address] Performed By: #### 2 4323-8, 3040-3 #### [facility] CLIA [id number] [address] [place] [address] [place] Anion gap [Moles/Vol] 6 mmol/L Low 9-18 [facility] Comment on above: Order Comment: Speci men Type: BLOOD SPECIMEN Ordering Facility: [facility] Address: [address] [address] Performed By: #### 2 4323-8, 0-3 #### [facility] CLIA [id number] [address] [place] [address] [place] AST [Catalytic activity/Vol] 17 U/L Normal 13-39 [facility] Comment on above: Order Comment: Speci men Type: BLOOD SPECIMEN Ordering Facility: [facility] Address: [address] [address] Performed By: #### 2 38, 3039-3 #### [facility] CLIA [id number] [address] [place] [address] [place] Bilirubin [Mass/Vol] 0.4 mg/dL Normal 0.3-1.0 [facility] Comment on above: Order Comment: Speci men Type: BLOOD SPECIMEN Ordering Facility: [facility] Address: [address] [address] Result Comment: Use of this assay is not recommended for patients undergoing treatment with eltrombopag due to the potential for falsely elevated results. Performed By: #### 2 4323-8, 0-3 #### [facility] CLIA [id number] [address] [place] [address] [place] Calcium [Mass/Vol] 9.6 mg/dL Normal 8.6-10.3 [facility] Comment on above: Order Comment: Speci men Type: BLOOD SPECIMEN Ordering Facility: [facility] Address: [address] [address] Performed By: #### 2 4323-8, 0-3 #### [facility] CLIA [id number] [address] [place] [address] [place] Chloride [Moles/Vol] 108 mmol/L High 98-107 [facility] Comment on above: Order Comment: Speci men Type: BLOOD SPECIMEN Ordering Facility: [facility] Address: [address] [address] Performed By: #### 2 4323-8, 3039-3 #### [facility] CLIA [id number] [address] [place] [address] [place] CO2 [Moles/Vol] 25 mmol/L Normal 21-31 [facility] Comment on above: Order Comment: Speci men Type: BLOOD SPECIMEN Ordering Facility: [facility] Address: [address] [address] Performed By: #### 2 4323-8, 3039-3 #### [facility] CLIA [id number] [address] [place] [address] [place] Creatinine [Mass/Vol] 1.20 mg/dL Normal 0.60-1.30 [facility] Comment on above: Order Comment: Speci men Type: BLOOD SPECIMEN Ordering Facility: [facility] Address: [address] [place] [address] Result Comment: Use of this assay is not recommended for patients undergoing treatment with phenindione, due to the potential for falsely depressed results. Performed By: #### 2 4323-8, 3039-3 #### [facility] CLIA [id number] [address] [place] [address] Creatinine and Glomerular filtration rate.predicted panel (S/P/Bld) 85 mL/min/1.73m??? Normal >=60 [facility] Comment on above: Order Comment: Speci men Type: BLOOD SPECIMEN Ordering Facility: [facility] Address: [address] [place] [address] Result Comment: Bindu mated Glomerular Filtration Rate (eGFR) is calculated using the 2020 CKD-EPI creatinine equation. This equation utilizes serum creatinine, sex, and age as parameters. The creatinine assay has traceable calibration to isotope dilution-mass spectrometry. Refer to KDIGO guidelines for clinical interpretation. In patients with unstable renal function, e.g. those with acute kidney injury, the eGFR may not accurately reflect actual GFR. Performed By: #### 2 4323-8, 3039-3 #### [facility] CLIA [id number] [facility] [place] [address] [place] Glucose [Mass/Vol] 112 mg/dL High 74-99 [facility] Comment on above: Order Comment: Ariana valderrama Type: BLOOD SPECIMEN Ordering Facility: [facility] Address: [address] [place] [address] Result Comment: The [place] Diabetes Association (ADA) provides guidance for cutoff values for fasting glucose and random glucose. The ADA defines fasting as no caloric intake for at least 8 hours. Fasting plasma glucose results between 100 to 125 mg/dL indicate increased risk for diabetes (prediabetes). Fasting plasma glucose results greater than or equal to 126 mg/dL meet the criteria for diagnosis of diabetes. In the absence of unequivocal hyperglycemia, results should be confirmed by repeat testing. In a patient with classic symptoms of hyperglycemia or hyperglycemic crisis, random plasma glucose results greater than or equal to 200 mg/dL meet the criteria for diagnosis of diabetes. Reference: Standards of Medical Care in Diabetes 2016, [place] Diabetes Association. Diabetes Care. 2016.39(Suppl 1). Performed By: #### 2 4323-8, 3039-3 #### [facility] CLIA [id number] [address] [place] [address] [place] Potassium [Moles/Vol] 4.0 mmol/L Normal 3.4-4.5 [facility] Comment on above: Order Comment: Ariana valderrama Type: BLOOD SPECIMEN Ordering Facility: [facility] Address: [address] [place] [address] Performed By: #### 2 43238, 3039-3 #### [facility] CLIA [id number] [address] [place] [address] [place] Protein [Mass/Vol] 6.8 g/dL Normal 6.4-8.9 [facility] Comment on above: Order Comment: Ariana valderrama Type: BLOOD SPECIMEN Ordering Facility: [facility] Address: [address] [place] [address] Performed By: #### 2 4323-8, 3039-3 #### [facility] CLIA [id number] [address] [place] [address] Sodium [Moles/Vol] 139 mmol/L Normal 136-145 [facility] Comment on above: Order Comment: Speci men Type: BLOOD SPECIMEN Ordering Facility: [facility] Address: [address] [address] Performed By: #### 2 4323-8, 3040-3 #### [facility] CLIA [id number] [address] [place] [address] Urea nitrogen [Mass/Vol] 14 mg/dL Normal 7-25 [facility] Comment on above: Order Comment: Speci men Type: BLOOD SPECIMEN Ordering Facility: [facility] Address: [address] [address] Performed By: #### 2 4323-8, 3040-3 #### [facility] CLIA [id number] [address] [place] [address] ED NOTEon 08-16-2023 ED NOTE HNO ID: [id number] Author: Lawrence Brown RN Service: ? Author Type: Registered Nurse Type: ED Notes Filed: 08/16/2023 8:57 PM Note Text: Provider previously at bedside discussing results/findings. Discharge instructions, follow up recommendations and medications reviewed with patient. Pt advised to return to ED with worsening symptoms. Pt verbalizes understanding. Stable and ambulatory upon d/c [facility] ED NOTE HNO ID: [id number] Author: Ana Laura Brownlee RN Service: ? Author Type: Registered Nurse Type: ED Notes Filed: 08/16/2023 7:42 PM Note Text: Pt ambulated to bathroom independently at this time, gait steady. Urine specimen obtained and sent to lab. [facility] ED NOTE HNO ID: [id number] Author: Ana Laura Brownlee, CIPRIANO Service: ? Author Type: Registered Nurse Type: ED Notes Filed: 08/16/2023 7:40 PM Note Text: Pt presents at this time with c/o right flank pain starting today. Pt had COVID last week and not feeling well since. Pt states pain 5/10, right flank, nausea, and diarrhea. Pt states frequency of urine, cloudy. Normal [facility] ED PROV NOTEon 08-16-2023 ED PROV NOTE HNO ID: [id number] Author: Nisha Miguel APRN.CNP Service: Emergency Medicine Author Type: Nurse Practitioner Type: ED Provider Notes Filed: 08/16/2023 8:54 PM Note Text: ED Provider Note Patient Name: Santy Alanis : 1995 SERVICE DATE: 08/16/23 History Patient presents with: Flank Pain: Pt states right flank pain starting today rated 5/10, pt states diarrhea x 1 week, urinary frequency. Pt states possible hx of kidney stones. HPI this is an alert and oriented 28-year-old male that presents to the emergency department with complaints of right flank pain that started today. He states that he recently did have COVID and is still having some intermittent nausea and diarrhea. Denies fever. He states he would also like to be checked for STDs as he recently had a new partner. Denies penile discharge. PAST MEDICAL HISTORY Diagnosis Date ADHD Anxiety Childhood asthma URI induced as an adult Current moderate episode of major depressive disorder without prior episode (HCC) Family history of heart attack Graves disease History of chlamydia Lung nodule age 19 Morbid obesity with BMI of 40.0-44.9, adult (HCC) Panic disorder Post-surgical hypothyroidism Tobacco use PAST SURGICAL HISTORY Procedure Laterality Date LAPS SURG CHOLECYSTECTOMY W/CHOLANGIOGRAPHY 08/09/2021 THYROIDECTOMY TOTAL/COMPLETE FAMILY HISTORY Problem Relation Age of Onset Thyroid Mother Heart Attack Mother 40 Heart disease Mother 16 COPD Father Bipolar disorder Brother Diabetes Maternal Grandfather Stroke Maternal Grandfather COPD Paternal Grandfather Social History Tobacco Use Smoking status: Every Day Packs/day: 1.00 Years: 9.00 Additional pack years: 0.00 Total pack years: 9.00 Types: Cigarettes Smokeless tobacco: Never Vaping Use Vaping Use: Never used Substance and Sexual Activity Alcohol use: No Drug use: Never Sexual activity: Yes Partners: Female ALLERGIES Allergen Reactions Bee Venom Protein (* Swelling Concerta [Methylphe* Mental Status Change Review of Systems Constitutional: Negative for chills and fever. HENT: Negative for congestion. Respiratory: Negative for chest tightness and shortness of breath. Cardiovascular: Negative for chest pain. Gastrointestinal: Positive for abdominal pain, diarrhea and nausea. Genitourinary: Negative for dysuria, flank pain, penile discharge and penile pain. Musculoskeletal: Negative for arthralgias and back pain. Neurological: Negative for dizziness. All other systems reviewed and are negative. Physical Exam Vitals [08/16/231935] BP Pulse Temp Temp src Resp SpO2 Weight Height 142/91 (!) 104 36 ?C (96.8 ?F) Temporal Art 18 98 % 117.9 kg (260 lb) 1.803 m (5' 11) Physical Exam Vitals and nursing note reviewed. Constitutional: General: He is not in acute distress. Appearance: He is well-developed and normal weight. HENT: Head: Normocephalic. Right Ear: External ear normal. Left Ear: External ear normal. Nose: Nose normal. Eyes: Pupils: Pupils are equal, round, and reactive to light. Cardiovascular: Rate and Rhythm: Normal rate and regular rhythm. Pulmonary: Effort: Pulmonary effort is normal. No respiratory distress. Abdominal: General: Abdomen is flat. Bowel sounds are normal. There is no distension. Palpations: Abdomen is soft. Tenderness: There is abdominal tenderness in the right lower quadrant and suprapubic area. There is no right CVA tenderness, left CVA tenderness, guarding or rebound. Musculoskeletal: General: No deformity. Cervical back: Normal range of motion. Skin: General: Skin is warm and dry. Neurological: General: No focal deficit present. Mental Status: He is alert and oriented to person, place, and time. Psychiatric: Mood and Affect: Mood normal. Diagnostic Testing ED Labs Ordered and Reviewed URINALYSIS WITH MICROSCOPIC, REFLEX CULTURE - Abnormal; Notable for the following components: Result Value Ref Range Bacteria Rare (*) None Seen /HPF All other components within normal limits COMP METABOLIC PANEL - Abnormal; Notable for the following components: Glucose 112 (*) 74 - 99 mg/dL Chloride 108 (*) 98 - 107 mmol/L Anion Gap 6 (*) 9 - 18 mmol/L All other components within normal limits LIPASE BLD - Normal CBC + DIFF GONORRHEA/CHLAMYDIA NAAT TRICHOMONAS VAGINALIS NAAT Results for orders placed or performed during the hospital encounter of 08/16/23 URINALYSIS WITH MICROSCOPIC, REFLEX CULTURE Specimen: URINE-MIDSTREAM CLEAN CATCH Result Value Ref Range Color Yellow Yellow Clarity Clear Clear Glucose, Urine Negative Negative Bilirubin, Urine Negative Negative Ketones, Urine Negative Negative Specific [place], Ur 1.020 1.005 - 1.030 Hemoglobin/Blood,Ur Negative Negative pH, Urine 6.5 5.0 - 8.0 Protein, Urine Negative Negative Urobilinogen 1.0 EU/dL 0.2-1.0 EU/dL Nitrites Negati (more content not included)... Normal [facility] Lipase SerPl-cCncon 08-16-20 23 Lipase [Catalytic activity/Vol] 23 U/L Normal [facility] Comment on above: Order Comment: Speci men Type: BLOOD SPECIMEN Ordering Facility: [facility] Address: [address] [address] Performed By: #### 2 4323-8, 3040-3 #### [facility] CLIA [id number] [address] [place] [address] [place] TRICHOMONAS VAGINALIS NAATon 08-16-2023 T. vaginalis DNA [place]+probe Ql (Unsp spec) Negative Normal Negative for Trichomonas vaginalis by amplification [facility] Comment on above: Order Comment: Speci men Type: URINE SPECIMEN Ordering Facility: [facility] Address: [address] [address] Performed By: #### T RVAMP #### [facility] CLIA [id number] [address] [facility] [place] [address] [place] Urinalysis complete panel (U )on 08-16-2023 Bacteria LM.HPF (Urine sed) [#/Area] Rare Abnormal None Seen [facility] Comment on above: Order Comment: Speci men Type: URINE SPECIMEN Ordering Facility: [facility] Address: [address] [address] Performed By: #### 2 4356-8 #### [facility] CLIA [id number] [address] [place] [address] [place] Bilirubin Ql (U) Negative Normal Negative [facility] Comment on above: Order Comment: Speci men Type: URINE SPECIMEN Ordering Facility: [facility] Address: [address] [address] Performed By: #### 2 4356-8 #### [facility] CLIA [id number] [address] [place] [address] [place] Clarity (Unsp spec) Clear Normal Clear [facility] Comment on above: Order Comment: Speci men Type: URINE SPECIMEN Ordering Facility: [facility] Address: [address] [address] Performed By: #### 2 4356-8 #### [facility] CLIA [id number] [address] [place] [address] [place] Color (U) Yellow Normal Yellow [facility] Comment on above: Order Comment: Speci men Type: URINE SPECIMEN Ordering Facility: [facility] Address: [address] [address] Performed By: #### 2 4356-8 #### [facility] CLIA [id number] [address] [place] [address] [place] Glucose Test strip (U) [Mass/Vol] Negative Normal Negative [facility] Comment on above: Order Comment: Speci men Type: URINE SPECIMEN Ordering Facility: [facility] Address: [address] [address] Performed By: #### 2 4356-8 #### [facility] CLIA [id number] [address] [place] [address] [place] Hemoglobin Ql (U) Negative Normal Negative [facility] Comment on above: Order Comment: Speci men Type: URINE SPECIMEN Ordering Facility: [facility] Address: [address] [address] Performed By: #### 2 4356-8 #### [facility] CLIA [id number] [address] [place] [address] [place] Ketones Ql (U) Negative Normal Negative [facility] Comment on above: Order Comment: Speci men Type: URINE SPECIMEN Ordering Facility: [facility] Address: [address] [address] Performed By: #### 2 4356-8 #### [facility] CLIA [id number] [address] [place] [address] Leukocyte esterase Test strip Ql (U) Negative Normal Negative [facility] Comment on above: Order Comment: Speci men Type: URINE SPECIMEN Ordering Facility: [facility] Address: [address] [place] [address] Performed By: #### 2 4356-8 #### [facility] CLIA [id number] [address] [place] [address] [place] Nitrite Ql (U) Negative Normal Negative [facility] Comment on above: Order Comment: Speci men Type: URINE SPECIMEN Ordering Facility: [facility] Address: [address] [place] [address] Performed By: #### 2 4356-8 #### [facility] CLIA [id number] [address] [place] [address] [place] pH (U) 6.5 [pH] Normal 5.0-8.0 [facility] Comment on above: Order Comment: Speci men Type: URINE SPECIMEN Ordering Facility: [facility] Address: [address] [place] [address] Performed By: #### 2 4356-8 #### [facility] CLIA [id number] [address] [place] [address] STATES [facility] Protein (U) [Mass/Vol] Negative Normal Negative [facility] Comment on above: Order Comment: Speci men Type: URINE SPECIMEN Ordering Facility: [facility] Address: [address] [address] Performed By: #### 2 4356-8 #### [facility] CLIA [id number] [address] [place] [address] [place] RBC LM.HPF (Urine sed) [#/Area] 0-3 /HPF Normal 0-3 /HPF [facility] Comment on above: Order Comment: Speci men Type: URINE SPECIMEN Ordering Facility: [facility] Address: [address] [place] [address] Performed By: #### 2 4356-8 #### [facility] CLIA [id number] [address] [place] [address] [place] Specific gravity (U) [Rel density] 1.020 Normal 1.005-1.030 [facility] Comment on above: Order Comment: Speci men Type: URINE SPECIMEN Ordering Facility: [facility] Address: [address] [place] [address] Performed By: #### 2 4356-8 #### [facility] CLIA [id number] [address] [place] [address] [place] Urobilinogen Ql (U) 1.0 EU/dL Normal 0.2-1.0 EU/dL [facility] Comment on above: Order Comment: Speci men Type: URINE SPECIMEN Ordering Facility: [facility] Address: [address] [place] [address] Performed By: #### 2 4356-8 #### [facility] CLIA [id number] [address] [place] [address] WBC LM.HPF (Urine sed) [#/Area] 0-5 /HPF Normal 0-5 /HPF [facility] Comment on above: Order Comment: Speci men Type: URINE SPECIMEN Ordering Facility: [facility] Address: [address] [place] [address] Performed By: #### 2 4356-8 #### [facility] CLIA [id number] [address] [place] [address] [place] CNCOon 08-04-2023 CNCO Letter Text Normal [facility] CBCon 07-31-2023 BASO# 0.04 x10(3) Normal 0.00-0.10 [facility] Comment on above: Performed By: #### L 200.0010 #### [facility] - LAB[facility]ATORY [address] [place] [address] Basophils/100 WBC (Bld) 0.4 % Normal 0.0-1.0 [facility] Comment on above: Performed By: #### L 200.0010 #### [facility] [address] [place] [address] EOS# 0.16 x10(3) Normal 0.00-0.54 [facility] Comment on above: Performed By: #### L 200.0010 #### [facility] [address] [place] [address] Eosinophils/100 WBC (Bld) 1.7 % Normal 0.5-4.9 [facility] Comment on above: Performed By: #### L 200.0010 #### [facility] [address] [place] [address] Erythrocyte distribution width (RBC) [Ratio] 12.1 % Low 12.7-15.3 [facility] Comment on above: Performed By: #### L 200.0010 #### [facility] [address] [place] [address] Hematocrit (Bld) [Volume fraction] 43.3 % Normal 42.0-51.0 [facility] Comment on above: Performed By: #### L 200.0010 #### [facility] [address] [place] [address] Hemoglobin (Bld) [Mass/Vol] 14.8 g/dL Normal 14.0-17.2 [facility] Comment on above: Performed By: #### L 200.0010 #### [facility] [address] [place] [address] IMM GRAN# 0.05 x10(3) High 0-0 [facility] Comment on above: Performed By: #### L 200.0010 #### [facility] [address] [place] [address] IMM GRAN% 0.5 % Normal [facility] Comment on above: Performed By: #### L 200.0010 #### [facility] [address] [place] [address] LYMPH# 3.63 x10(3) High 1.00-3.50 [facility] Comment on above: Performed By: #### L 200.0010 #### [facility] [address] [place] [address] Lymphocytes/100 WBC (Bld) 39.1 % Normal 16.0-48.0 [facility] Comment on above: Performed By: #### L 200.0010 #### [facility] [address] [place] [address] 65513 MCH (RBC) [Entitic mass] 29.5 pg Normal 28.8-32.2 [facility] Comment on above: Performed By: #### L 200.0010 #### [facility] [address] [place] [address]169 MCHC (RBC) [Mass/Vol] 34.2 g/dL Normal 33.0-36.0 [facility] Comment on above: Performed By: #### L 200.0010 #### [facility] [address] [place] [address]366 MCV (RBC) [Entitic vol] 86.4 fL Normal 80.0-94.0 [facility] Comment on above: Performed By: #### L 200.0010 #### [facility] [address] [place] [address] MONO# 0.77 x10(3) Normal 0.30-0.80 [facility] Comment on above: Performed By: #### L 200.0010 #### [facility] [address] [place] [address]9076 Monocytes/100 WBC (Bld) 8.3 % Normal 4.3-11.2 [facility] Comment on above: Performed By: #### L 200.0010 #### [facility] [address] [place] [address] NEUT# 4.64 x10(3) Normal 1.40-6.50 [facility] Comment on above: Performed By: #### L 200.0010 #### [facility] [address] [place] [address]15 Neutrophils/100 WBC (Bld) 50.0 % Normal 45.0-73.0 [facility] Comment on above: Performed By: #### L 200.0010 #### [facility] [address] [place] [address] 01975 Platelet mean volume (Bld) [Entitic vol] 9.7 fL High 7.4-9.2 [facility] Comment on above: Performed By: #### L 200.0010 #### [facility] [address] [place] [address] 57336 PLT 183 X10(3) Normal 150-450 [facility] Comment on above: Performed By: #### L 200.0010 #### [facility] [address] [place] [address] 26341 RBC 5.01 x10(6) Normal 4.80-5.50 [facility] Comment on above: Performed By: #### L 200.0010 #### [facility] [address] [place] [address] 27205 WBC 9.3 x10(3) Normal 4.5-10.0 [facility] Comment on above: Performed By: #### L 200.0010 #### [facility] [address] [place] [address] CMPon 07-31-2023 A:G RATIO 2.04 Normal 1.1-2.5 [facility] Comment on above: Performed By: #### L 100.0005, L100.0390 #### [facility] [address] [place] [address] 38494 Albumin [Mass/Vol] 4.5 g/dL Normal 3.5-5.2 [facility] Comment on above: Performed By: #### L 100.0005, L100.0390 #### [facility] [address] [place] [address] 62662 ALK. PHOS 76 U/L Normal 40-130 [facility] Comment on above: Performed By: #### L 100.0005, L100.0390 #### [facility] [address] [place] [address] 33972 ALT [Catalytic activity/Vol] 36 U/L Normal 5-41 [facility] Comment on above: Performed By: #### L 100.0005, L100.0390 #### [facility] [address] [place] [address] 26167 Anion gap [Moles/Vol] 12.9 mmol/L Low 15-22 [facility] Comment on above: Performed By: #### L 100.0005, L100.0390 #### [facility] [address] [place] [address] 02797 AST [Catalytic activity/Vol] 18 U/L Normal 5-40 [facility] Comment on above: Performed By: #### L 100.0005, L100.0390 #### [facility] [address] [place] [address] 80699 Bilirubin [Mass/Vol] 0.6 mg/dL Normal 0.2-1.2 [facility] Comment on above: Performed By: #### L 100.0005, L100.0390 #### [facility] [address] [place] [address] 10985 Calcium [Mass/Vol] 9.0 mg/dL Normal 8.6-10.0 [facility] Comment on above: Performed By: #### L 100.0005, L100.0390 #### [facility] [address] [place] [address] 68080 Chloride [Moles/Vol] 104 mmol/L Normal 98-107 [facility] Comment on above: Performed By: #### L 100.0005, L100.0390 #### [facility] [address] [place] [address] 00427 CO2 [Moles/Vol] 26 mmol/L Normal 22-29 [facility] Comment on above: Performed By: #### L 100.0005, L100.0390 #### [facility] [address] [place] [address] 33042 Creatinine [Mass/Vol] 1.16 mg/dL Normal 0.73-1.22 [facility] Comment on above: Performed By: #### L 100.0005, L100.0390 #### [facility] [address] [place] [address] 17943 eGFR if AFR LALO > 60 ml/min/1.73m2 Normal Critical [facility] Comment on above: Result Comment: eGFR >= 60 Indicates normal kidney function. * eGFR IS AN ESTIMATE * (AFR LALO = ) (non-AFR AM = NON-) MDRD calculation used in the eGFR should not be used to dose medications. For further limitations of the eGFR please refer to the Physician Website or the National Kidney Disease Education Program website (www.nkdep.nih.gov). Performed By: #### L 100.0005, L100.0390 #### [facility] - LABORATORY [address] [place] [address] eGFR nonAFR Lalo > 60 ml/Min/1.73m2 Normal [facility] Comment on above: Performed By: #### L 100.0005, L100.0390 #### [facility] [address] [place] [address] Globulin (S) [Mass/Vol] 2.2 g/dL Normal 1.5-4.5 [facility] Comment on above: Performed By: #### L 100.0005, L100.0390 #### [facility] - [facility]ATORY [address] [place] [address]173 Glucose [Mass/Vol] 89 mg/dL Normal 74-106 [facility] Comment on above: Performed By: #### L 100.0005, L100.0390 #### [facility] - LAB[facility]ATORY [address] [place] [address] Potassium [Moles/Vol] 3.9 mmol/L Normal 3.5-5.0 [facility] Comment on above: Performed By: #### L 100.0005, L100.0390 #### [facility] - LABORATORY [address] [place] [address]32 Protein [Mass/Vol] 6.7 g/dL Normal 6.4-8.3 [facility] Comment on above: Performed By: #### L 100.0005, L100.0390 #### [facility] - [facility]ATORY [address] [place] [address] 15215 Sodium [Moles/Vol] 139 mmol/L Normal 135-145 [facility] Comment on above: Performed By: #### L 100.0005, L100.0390 #### [facility] [address] [place] [address] Urea nitrogen [Mass/Vol] 14 mg/dL Normal 6-20 [facility] Comment on above: Performed By: #### L 100.0005, L100.0390 #### [facility] [address] [place] [address] MAGNESIUMon 07-31-2023 Magnesium [Mass/Vol] 2.0 mg/dL Normal 1.6-2.6 [facility] Comment on above: Performed By: #### L 100.0005, L100.0390 #### [facility] [address] [place] [address] [facility] [place] [address] HEALTH INFORMATION MANAGEMENT EMERGENCY DEPARTMENT REPORT Patient: ZEKESANTY MARK N M.D. [id number] [age] M Status: DEP ER ED Date of Service: 07/28/23 CHIEF COMPLAINT: COVID positive, cough, shortness of breath. HISTORY OF PRESENT ILLNESS: This 28-year-old white male with history of asthma presents with the above complaints. The patient states he was seen at Urgent Care, was given a prescription for Paxlovid, just got it, has not yet began to take it. He does states he has had some shortness of breath, also had a little bit of pressure on his chest, did not seem to be paranoid, he did tell the nurse, it seemed to be on exertion. He is rkrs-wvw-dan smoker. He is prediabetic. He does not have a history of diabetes. He is on levothyroxine, albuterol inhaler. He has had fever, cough, headache, diarrhea mainly as his main complaints as well as a recent increase in his shortness of breath. SOCIAL HISTORY: He is single, rather cooi-zol-xxu smoker. No alcohol use. PAST SURGICAL HISTORY: Cholecystectomy. PAST MEDICAL HISTORY: Prediabetes. FAMILY HISTORY: Cancer. PHYSICAL EXAMINATION: GENERAL: This is a well-appearing male, resting quietly, in no apparent distress, smiling, completely nontoxic and non-ill in appearance HEENT: Normocephalic and atraumatic. Eyes; pupils are grossly normal. Mucous membranes are moist. No pharyngitis. NECK: Supple. There is no meningismus or stridor. No difficulty swallowing or drooling. LUNGS: Sounds clear and equal. Just minimal occasional wheeze, otherwise clear. HEART: Regular rate and rhythm without murmur, rub, or gallop. ABDOMEN: Soft, nontender. EXTREMITIES: Unremarkable. SKIN: No rash. No petechiae or purpura. NEUROLOGIC: Yamila Coma scale is 15. No gross focal deficits. ED COURSE: The patient has signs and symptoms here consistent with pain. I think this pain is not cardiac. I am going to get an EKG here. I do not think the troponin is necessary. He is PERC negative. I do not feel D-dimer is necessary here. It does not appear to be pleuritic. He does not appear hypoxic in any way. I do not feel we need labs here. Chest x -ray will be obtained. EKG is pending. Report#: Dict ID [id number] / Int ID [id number] 07/31/232052 _ NADEGE VILCHIS M.D. cc: NADEGE VILCHIS M.D. << Signature on File>> Reported By: NADEGE VILCHIS M.D. Signed By: NADEGE VILCHIS M.D. Tests performed at: [address] [address] Normal [facility] CHEST (TWO VIEWS) - CXRon CHEST (TWO VIEWS) - CXR [address] [address] Name: SANTY ALANIS Phys: NADEGE VILCHIS M.D. : [birth year] Age: 28 Sex: M Acct: [id number] Loc: ED Exam Date: 07/28/23 Status: REG ER Radiology No.: Unit Number: [id number] Exam # Type/Exam [id number] RAD / CHEST (TWO VIEWS) - CXR EXAMINATION: TWO XRAY VIEWS OF THE CHEST07/28/2023 3:49 pm CHEST AP/PA and LATERAL EXAM DESCRIPTION: COMPARISON: None available HISTORY: ORDERING SYSTEM PROVIDED HISTORY: TECHNOLOGIST PROVIDED HISTORY: Reason for Exam: Short of breath FINDINGS: PA and lateral radiographs of the chest were obtained. The lungs are clear without evidence of focal consolidation, mass, pleural effusion, or pneumothorax. The cardiomediastinal silhouette is unremarkable. The bones and soft tissues are unremarkable. IMPRESSION: No acute cardiopulmonary disease. Electronically signed By Gary Mendoza MD 07/28/2023 6:09:54 PM EST Workstation ID : [id number] < > Reported By: GARY MENDOZA M.D. Signed In Fluency By: GARY MENDOZA M.D. << Signature on File>> Reported By: GARY MENDOZA M.D. Signed By: GARY MENDOZA M.D. Tests performed at: [address] [address] Normal [facility] ELECTROCARDIOGRAMon 07-28-20 23 [place] [address] HEALTH INFORMATION MANAGEMENT ELECTROCARDIOGRAM REPORT Patient: SANTY ALANIS Ordering: NADEGE VILCHIS M.D. [id number] [age] M Exam Date: 07/28/23 Report #: [id number] Status: DEP ER ED Test Reason : Blood Pressure : / mmHG Vent. Rate : 077 BPM Atrial Rate : 077 BPM P-R Int : 200 ms QRS Dur : 088 ms QT Int : 356 ms P-R-T Axes : 004 037 016 degrees QTc Int : 402 ms Normal sinus rhythm Inferior infarct , age undetermined Abnormal ECG Confirmed by ROSARIO LEON MD ([id number]) on 08/01/2023 1:40:43 PM Referred By: NADEGE VILCHIS Confirmed By:ROSARIO LEON MD Signed in [facility] 08/01/23 1341 ROSARIO LEON M.D. cc: << Signature on File>> Reported By: ROSARIO LEON M.D. Signed By: ROSARIO LEON M.D. Tests performed at: [address] [address] Normal [facility] hsTROP Ton 07-28-2023 hsTROP T <6.0 Low 6-12 [facility] Comment on above: Result Comment: When assessing risk for acute coronary syndromes: In patients undergoing blood draw greater than 2 hours from symptom onset, with history of very low to moderate risk and non-ischemic ECG, an initial hs-Troponin T less than 12 ng/L AND a 1 hour delta hs-Troponin T less than 3 ng/L should be considered very low risk for 30 day MACE. Performed By: #### L 301.0080 #### [facility] [address] [place] [address] ECG COMPLETEon 04-30-2023 ECG COMPLETE Ventricular Rate : 78 BPM Atrial Rate : 78 BPM P-R Interval : 194 ms QRS Duration : 88 ms Q-T Interval : 354 ms QTC Calculation(Bazett) : 403 ms Calculated P [place] : 18 degrees Calculated R [place] : 34 degrees Calculated T [place] : 32 degrees NORMAL SINUS RHYTHM CANNOT RULE OUT INFERIOR INFARCT , AGE UNDETERMINED ABNORMAL ECG NO PREVIOUS ECGS AVAILABLE Confirmed by MD FAN PATRICIA ([id number]) on 04/30/2023 2:18:00 PM NAME : SANTY ALANIS PID : [id number] : 1995 Gender : Male Race : ORD : [id number] Procedure Date : Apr 30 2023 11:34:22 Edit Date : Apr 30 2023 14:18:01 Diagnosis: NORMAL SINUS RHYTHM CANNOT RULE OUT INFERIOR INFARCT , AGE UNDETERMINED ABNORMAL ECG NO PREVIOUS ECGS AVAILABLE Confirmed by MD FAN PATRICIA ([id number]) on 04/30/2023 2:18:00 PM Test Reason : Chest Pain Location : 144 : HWS-ED 3 Overread By : MD FAN PATRICIA Edited By : MD FAN PATRICIA Referred By : , Acquired by : SAMANTHA JORDAN [facility] ED NOTEon 04-30-2023 ED NOTE HNO ID: [id number] Author: Sangita Shaffer RN Service: Emergency Medicine Author Type: Registered Nurse Type: ED Notes Filed: 04/30/2023 1:47 PM Note Text: Discharge instructions and prescriptions given to pt. Pt verbalized understanding of follow up with PCP and s/s to return to ED. All questions answered. Pt ambulatory by self on departure. Normal [facility] ED PROV NOTEon 04-30-2023 ED PROV NOTE HNO ID: [id number] Author: Yanet Fan MD Service: Emergency Medicine Author Type: Physician Type: ED Provider Notes Filed: 05/04/2023 8:06 AM Note Text: ED Provider Note Patient Name: Santy Alanis : 1995 SERVICE DATE: 04/30/23 History Patient presents with: Cough: Cough x 6 days. Nonproductive. Denies known fever. +sinus drainage/stuffy nose. +sore throat but pt thinks it is from coughing. Pt was seen at [facility] on Tuesday and given a steroid which he finished taking 2 days ago, but pt feels like he is getting worse. 27-year-old male history of asthma presents to the emergency department for 6 days of dry nonproductive cough associated with shortness of breath, wheezing, chest congestion, chest pressure. States that he was initially seen in urgent care and was given prednisone for 5 days, but this has not been helping him. He has been trying to use his albuterol inhaler at home without much help as well. He denies any fevers or chills, sick contacts or travel, nausea or vomiting, diarrhea, leg pain or swelling. PAST MEDICAL HISTORY Diagnosis Date ADHD Anxiety Childhood asthma URI induced as an adult Current moderate episode of major depressive disorder without prior episode (HCC) Family history of heart attack Graves disease History of chlamydia Lung nodule age 19 Morbid obesity with BMI of 40.0-44.9, adult (HCC) Panic disorder Post-surgical hypothyroidism Tobacco use PAST SURGICAL HISTORY Procedure Laterality Date LAPS SURG CHOLECYSTECTOMY W/CHOLANGIOGRAPHY 08/09/2021 THYROIDECTOMY TOTAL/COMPLETE FAMILY HISTORY Problem Relation Age of Onset Thyroid Mother Heart Attack Mother 40 Heart disease Mother 16 COPD Father Bipolar disorder Brother Diabetes Maternal Grandfather Stroke Maternal Grandfather COPD Paternal Grandfather Social History Tobacco Use Smoking status: Every Day Packs/day: 1.00 Years: 9.00 Pack years: 9.00 Types: Cigarettes Smokeless tobacco: Never Vaping Use Vaping Use: Never used Substance and Sexual Activity Alcohol use: No Drug use: Never Sexual activity: Yes Partners: Female ALLERGIES Allergen Reactions Bee Venom Protein (* Swelling Concerta [Methylphe* Mental Status Change Review of Systems Constitutional: Negative for chills and fever. HENT: Positive for congestion. Negative for voice change. Eyes: Negative for visual disturbance. Respiratory: Positive for cough. Negative for shortness of breath. Cardiovascular: Positive for chest pain. Negative for palpitations and leg swelling. Gastrointestinal: Negative for abdominal distention, constipation, diarrhea, nausea and vomiting. Musculoskeletal: Negative for back pain. Skin: Negative for rash and wound. Neurological: Negative for weakness and headaches. Physical Exam Vitals [04/30/23 1048] BP Pulse Temp Temp src Resp SpO2 Weight Height 120/72 76 36.8 ?C (98.2 ?F) Temporal 18 96 % 117.9 kg (260 lb) 1.803 m (5' 11) Physical Exam Vitals reviewed. Constitutional: Appearance: Normal appearance. HENT: Head: Normocephalic and atraumatic. Right Ear: Tympanic membrane and ear canal normal. Left Ear: Tympanic membrane and ear canal normal. Nose: Nose normal. Mouth/Throat: Mouth: Mucous membranes are moist. Eyes: General: Right eye: No discharge. Left eye: No discharge. Extraocular Movements: Extraocular movements intact. Pupils: Pupils are equal, round, and reactive to light. Comments: Mild bilateral conjunctival injection Cardiovascular: Rate and Rhythm: Normal rate and regular rhythm. Pulses: Normal pulses. Heart sounds: Normal heart sounds. No murmur heard. No friction rub. No gallop. Pulmonary: Effort: Pulmonary effort is normal. No respiratory distress. Breath sounds: No stridor. Wheezing (Diffuse end inspiratory and full expiratory wheezes.) present. No rhonchi. Abdominal: General: Abdomen is flat. Bowel sounds are normal. Palpations: Abdomen is soft. Musculoskeletal: Right lower leg: No edema. Left lower leg: No edema. Skin: General: Skin is warm. Capillary Refill: Capillary refill takes less than 2 seconds. Neurological: General: No focal deficit present. Mental Status: He is alert and oriented to person, place, and time. Psychiatric: Mood and Affect: Mood normal. Behavior: Behavior normal. Diagnostic Testing ED Labs Ordered and Reviewed HIGH SENSITIVITY TROPONIN I - Normal XR CHEST 2V FRONTAL/LAT Final Result IMPRESSION: No radiographic evidence of acute cardiopulmonary process. Schedule Analyst: JF Transcribe Date/Time: Apr 30 2023 12:30P Dictated by : GIL GARCIA MD This examination was interpreted and the report reviewed and electronically signed by: GIL GARCIA MD on Apr 30 2023 12:31PM EST Procedures ED Course / Clinical Impression Clinical Impressions as of 05/04/23 0803 Exacerbation of asthma, unspec (more content not included)... Normal [facility] HIGH SENSITIVITY TROPONIN Io n 04-30-2023 Tropinin I.cardiac panel High sensitivity method <2.0 Normal <=20.7 [facility] Comment on above: Order Comment: Speci men Type: URINE SPECIMEN Ordering Facility: [facility] Address: [address] [place] [id number] Result Comment: New methodology (high sensitivity troponin I)/new testing platform; please note change in reference range. Performed By: #### 3 [id number] #### [facility] CLIA [id number] [address] [facility] XR CHEST 2V FRONTAL/LATon XR CHEST 2V FRONTAL/LAT * * *Final Repor t* * * DATE OF EXAM: Apr 30 2023 11:52AM ANX 5291 - XR CHEST 2V FRONTAL/LAT / PROCEDURE REASON: Chest pain, nonspecific * * * * Physician Interpretation * * * * EXAMINATION: CHEST RADIOGRAPH (2 VIEW FRONTAL and LATERAL) CLINICAL HISTORY: Chest pain, nonspecific cough MQ: XC2_6 EXAM DATE/TIME: 04/30/2023 11:52 AM COMPARISON: 10/10/2022. RESULT: Lines, tubes, and devices: None. Lungs and pleura: No consolidation. No pleural effusion. No pneumothorax. Cardiomediastinal silhouette: Normal cardiomediastinal silhouette. Bones and soft tissues: Mild thoracal lumbar scoliosis. No radiographic evidence of acute osseous abnormalities. IMPRESSION: No radiographic evidence of acute cardiopulmonary process. Schedule Analyst: JF Transcribe Date/Time: Apr 30 2023 12:30P Dictated by : GIL GARCIA MD This examination was interpreted and the report reviewed and electronically signed by: GIL GARCIA MD on Apr 30 2023 12:31PM EST [id number] Normal [facility] 12-27-2022 36 No answer, voice mailbox not set up Normal [facility] 12-25-2022 36 S: Patient spoke with [facility] nurse regarding trouble hearing out of right ear B: Onset of symptoms/concern over a week A: Pt was in the ED a week ago. Told has a lot of wax and possible infection. Referred to ENT for follow up. Pt calling stating that he is supposed to be seen as soon as possible. Pt is having trouble hearing out of his right ear. Has some white discharge out of his ear. Has had dizziness, headache and ringing in the ear at times. The headache is on the right side. Rates 3/10 when he has it. Denies fever, swelling, ear pain, or trouble with vision. R: There is no one available to schedule a new pt appointment. Please contact pt at [phone] with an appointment time. Patient understands care advice. Instructed to call back with any further questions or concerns. Reason for Disposition [1] Decreased hearing in 1 ear AND [2] gradual onset Answer Assessment - Initial Assessment Questions 1. DESCRIPTION: What type of hearing problem are you having? Describe it for me. (e.g., complete hearing loss, partial loss) Decreased hearing 2. LOCATION: One or both ears? If one, ask: Which ear? right 3. SEVERITY: Can you hear anything? If Yes, ask: What can you hear? (e.g., ticking watch, whisper, talking) - MILD: Difficulty hearing soft speech, quiet library sounds, or speech from a distance or over background noise. - MODERATE: Difficulty hearing normal speech even at closed distances. - SEVERE: Unable to hear most normal conversation and talking; only able to hear loud sounds such as an alarm clock. yes 4. ONSET: When did this begin? Did it start suddenly or come on gradually? Over a week 5. PATTERN: Does this come and go, or has it been constant since it started? constant 6. PAIN: Is there any pain in your ear(s)? (Scale 1-10; or mild, moderate, severe) - NONE (0): no pain - MILD (1-3): doesn't interfere with normal activities - MODERATE (4-7): interferes with normal activities or awakens from sleep - SEVERE (8-10): excruciating pain, unable to do any normal activities no 7. CAUSE: What do you think is causing this hearing problem? unknown 8. OTHER SYMPTOMS: Do you have any other symptoms? (e.g., dizziness, ringing in ears) Dizziness, ringing in ears 9. : Is there any chance you are ? When was your last menstrual period? no Protocols used: Hearing Loss or [id number] [facility] ALLIED HEALTHon 10-18-2022 ALLIED HEALTH HNO ID: [id number] Author: APRYL Tucker) Service: Radiology Author Type: Technologist Type: Allied Health Filed: 10/18/2022 3:26 PM Note Text: Radiology Service Progress Note PATIENT NAME: Santy Alanis DATE OF SERVICE: October 18, 2022 TIME: 3:26 PM PATIENT IDENTITY VERIFICATION COMPLETED USING TWO (2) IDENTIFIERS: Name and Date of confirmed by patient verbally. FALL SCREENING: Has the patient had 2 falls in the last year or 1 fall with injury or currently using an Ambulatory Assistive Device (Walker, Cane, Wheelchair, Crutches, etc.)? Emergency Room Patient: Screened in ED PATIENT GENDER DATA: Male PATIENT RELEVANT IMPLANT DATA REVIEWED: Not Applicable RADIOLOGY DEPARTMENT: General X-ray: Exam(s) Completed: Chest X-Ray PERIPHERAL IV DATA: Not applicable SIGNED BY: RT Garrett(Reyna) October 18, 2022 3:26 PM [facility] ED NOTEon 10-18-2022 ED NOTE HNO ID: [id number] Author: Eileen Riggins RN Service: ? Author Type: Registered Nurse Type: ED Notes Filed: 10/18/2022 3:15 PM Note Text: Cough/ sob on exertion for 2 days. [facility] ED PROV NOTEon 10-18-2022 ED PROV NOTE HNO ID: [id number] Author: Nadege Hassan APRN.CNP Service: Emergency Medicine Author Type: Nurse Practitioner Type: ED Provider Notes Filed: 10/18/2022 6:33 PM Note Text: ED Provider Note Patient Name: Santy Alanis : 1995 SERVICE DATE: 10/18/22 History Patient presents with: Cough Shortness of Breath 27-year-old male with a history of asthma presenting to the emergency department for complaint of shortness of breath. He states that he has been sick over the last couple days with a cough, headache, diarrhea. He states that he has several kids that are sick at home and has had nausea and vomiting as well as diarrhea. He denies any high fevers, chills, neck pain, he does endorse sore throat, he denies any productive mucus, vomiting, dysuria. PAST MEDICAL HISTORY Diagnosis Date ADHD Anxiety Childhood asthma URI induced as an adult Current moderate episode of major depressive disorder without prior episode (HCC) Family history of heart attack Graves disease History of chlamydia Lung nodule age 19 Morbid obesity with BMI of 40.0-44.9, adult (HCC) Panic disorder Post-surgical hypothyroidism Tobacco use PAST SURGICAL HISTORY Procedure Laterality Date LAPS SURG CHOLECYSTECTOMY W/CHOLANGIOGRAPHY 08/09/2021 THYROIDECTOMY TOTAL/COMPLETE FAMILY HISTORY Problem Relation Age of Onset Thyroid Mother Heart Attack Mother 40 Heart disease Mother 16 COPD Father Bipolar disorder Brother Diabetes Maternal Grandfather Stroke Maternal Grandfather COPD Paternal Grandfather Social History Tobacco Use Smoking status: Every Day Packs/day: 1.00 Years: 9.00 Pack years: 9.00 Types: Cigarettes Smokeless tobacco: Never Vaping Use Vaping Use: Never used Substance and Sexual Activity Alcohol use: No Drug use: Never Sexual activity: Yes Partners: Female ALLERGIES Allergen Reactions Bee Venom Protein (* Swelling Concerta [Methylphe* Mental Status Change Review of Systems Constitutional: Negative for activity change, appetite change, chills and fever. HENT: Negative for congestion and sore throat. Eyes: Negative for discharge and itching. Respiratory: Positive for cough, chest tightness and shortness of breath. Cardiovascular: Negative for chest pain and leg swelling. Gastrointestinal: Positive for diarrhea. Negative for abdominal distention and nausea. Endocrine: Negative for cold intolerance and heat intolerance. Genitourinary: Negative for dysuria and frequency. Musculoskeletal: Negative for arthralgias and back pain. Skin: Negative for color change and pallor. Neurological: Positive for headaches. Negative for dizziness. Hematological: Negative for adenopathy. Does not bruise/bleed easily. Psychiatric/Behavior al: Negative for agitation and confusion. Physical Exam Vitals BP Pulse Temp Temp src Resp SpO2 Weight Height 10/18/22 1513 10/18/22 1513 10/18/22 1513 10/18/22 1513 10/18/22 1513 10/18/22 1503 10/18/22 1513 -- 140/87 (!) 99 36.9 ?C (98.4 ?F) Temporal Art 18 100 % 127.5 kg (281 lb) Physical Exam Constitutional: General: He is not in acute distress. Appearance: He is normal weight. He is not ill-appearing. HENT: Head: Normocephalic and atraumatic. Mouth/Throat: Mouth: Mucous membranes are moist. Pharynx: Oropharynx is clear. Eyes: Extraocular Movements: Extraocular movements intact. Cardiovascular: Rate and Rhythm: Normal rate and regular rhythm. Pulmonary: Effort: Pulmonary effort is normal. No tachypnea or respiratory distress. Breath sounds: Decreased breath sounds present. Musculoskeletal: General: Normal range of motion. Cervical back: Normal range of motion and neck supple. Skin: General: Skin is warm and dry. Capillary Refill: Capillary refill takes less than 2 seconds. Neurological: General: No focal deficit present. Mental Status: He is alert and oriented to person, place, and time. Psychiatric: Mood and Affect: Mood normal. Behavior: Behavior normal. Diagnostic Testing ED Labs Ordered and Reviewed - No data to display Procedures ED Course / Clinical Impression Clinical Impressions as of 10/18/22 1831 Mild intermittent asthma with exacerbation Viral syndrome MDM / Disposition / Plan 27-year-old male with a history of asthma presenting to the emergency department for complaint of shortness of breath. He states that he has been sick over the last couple days with a cough, headache, diarrhea. He states that he has several kids that are sick at home and has had nausea and vomiting as well as diarrhea. He denies any high fevers, chills, neck pain, he does endorse sore throat, he denies any productive mucus, vomiting, dysuria. Patient had a normal chest x-ray and a stable pulse ox on room air with normal respirations. Lung sounds appeared slightly diminished. He was offered testing for COVID-19, influenza and RSV but he declined. He was (more content not included)... Normal [facility] XR CHEST 2V FRONTAL/LATon XR CHEST 2V FRONTAL/LAT * * *Final Repor t* * * DATE OF EXAM: Oct 18 2022 3:25PM ANX 5291 - XR CHEST 2V FRONTAL/LAT / PROCEDURE REASON: Cough, new onset * * * * Physician Interpretation * * * * EXAMINATION: CHEST RADIOGRAPH (2 VIEW FRONTAL and LATERAL) CLINICAL HISTORY: Cough, new onset MQ: XC2_6 EXAM DATE/TIME: 10/18/2022 3:25 PM COMPARISON: No relevant prior studies available. RESULT: Lines, tubes, and devices: None. Lungs and pleura: No consolidation. No lung mass. No pleural effusion. No pneumothorax. Subsegmental atelectasis or scarring in the left lung base. Cardiomediastinal silhouette: Normal cardiomediastinal silhouette. Bones and soft tissues: Unremarkable. IMPRESSION: No acute radiographic abnormality. Schedule Analyst: PSCMaye Transcribe Date/Time: Oct 18 2022 3:29P Dictated by : МАРИЯ YORK MD This examination was interpreted and the report reviewed and electronically signed by: МАРИЯ YORK MD on Oct 18 2022 3:36PM EST [id number] CN Normal [facility] Comprehensive Panelon 2017 ALP [Catalytic activity/Vol] 89 U/L Normal 46-116 [facility] Comment on above: Performed By: #### P 14 #### [facility] [address] [place], [place] [address] Bilirubin [Mass/Vol] 0.5 mg/dL Normal 0.2-1.0 [facility] Comment on above: Performed By: #### P 14 #### [facility] [address] [place], [place] [address] Protein [Mass/Vol] 7.4 g/dL Normal 6.4-8.2 [facility] Comment on above: Performed By: #### P 14 #### [facility] [address] [place], [place] [address] ALT [Catalytic activity/Vol] 40 U/L Normal 12-78 [facility] Comment on above: Performed By: #### P 14 #### [facility] [address] [place], [place] [address] AST [Catalytic activity/Vol] 16 U/L Normal 9-37 [facility] Comment on above: Performed By: #### P 14 #### [facility] [address] [place], [place] [address] Creatinine [Mass/Vol] 1.31 mg/dL High 0.67-1.17 [facility] Comment on above: Performed By: #### P 14 #### [facility] [address] [place], [place] [address] Albumin [Mass/Vol] 3.9 g/dL Normal 3.4-5.0 [facility] Comment on above: Performed By: #### P 14 #### [facility] [address] [place], [place] [address] Glucose [Mass/Vol] 93 mg/dL Normal 70-99 [facility] Comment on above: Performed By: #### P 14 #### [facility] [address] [place], [place] [address] Urea nitrogen [Mass/Vol] 13 mg/dL Normal 7-18 [facility] Comment on above: Performed By: #### P 14 #### [facility] [address] [place], [place] [address] Anion gap [Moles/Vol] 8 mmol/L Normal 8-16 [facility] Comment on above: Performed By: #### P 14 #### [facility] [address] [place], [place] [address] Calcium [Mass/Vol] 8.8 mg/dL Normal 8.5-10.1 [facility] Comment on above: Performed By: #### P 14 #### [facility] [address] [place], [place] [address] CO2 [Moles/Vol] 27 mmol/L Normal 21-32 [facility] Comment on above: Performed By: #### P 14 #### [facility] [address] [place], [place] [address] Chloride [Moles/Vol] 107 mmol/L Normal 98-107 [facility] Comment on above: Performed By: #### P 14 #### [facility] [address] [place] [address] Potassium [Moles/Vol] 4.4 mmol/L Normal 3.5-5.1 [facility] Comment on above: Performed By: #### P 14 #### [facility] [address] [place] [address] Sodium [Moles/Vol] 138 mmol/L Normal 136-145 [facility] Comment on above: Performed By: #### P 14 #### [facility] [address] [place] [address] Hemogram/Diffon 06-09-2018 Abs Immature Grans 0.07 thou/cmm High 0.00-0.05 [facility] Comment on above: Performed By: #### C BCD1 #### [facility] [address] [place] [address] Abs. Baso 0.07 thou/cmm Normal 0.01-0.08 [facility] Comment on above: Performed By: #### C BCD1 #### [facility] [address] [place] [address] Abs. Dare 0.77 thou/cmm Normal 0.30-0.82 [facility] Comment on above: Performed By: #### C BCD1 #### [facility] [address] [place] [address] Abs. Neut (ANC) 8.04 thou/cmm High 1.78-5.38 [facility] Comment on above: Performed By: #### C BCD1 #### [facility] [address] [place] [address] Basophils/100 WBC (Bld) 0.6 % Normal [facility] Comment on above: Performed By: #### C BCD1 #### [facility] [address] [place] [address] Eosinophils (Bld) [#/Vol] 0.54 thou/cmm Normal 0.04-0.54 [facility] Comment on above: Performed By: #### C BCD1 #### [facility] [address] [place], [place] [address] Eosinophils/100 WBC (Bld) 4.8 % Normal [facility] Comment on above: Performed By: #### C BCD1 #### [facility] [address] [place] [address] Erythrocyte distribution width (RBC) [Ratio] 12.8 % Normal 11.6-14.4 [facility] Comment on above: Performed By: #### C BCD1 #### [facility] [address] [place] [address] Hematocrit (Bld) [Volume fraction] 47.2 % Normal 40.1-51.0 [facility] Comment on above: Performed By: #### C BCD1 #### [facility] [address] [place] [address] Hemoglobin (Bld) [Mass/Vol] 16.4 g/dL Normal 13.7-17.5 [facility] Comment on above: Performed By: #### C BCD1 #### [place] [address] Immature Grans 0.60 % Normal [facility] Comment on above: Performed By: #### C BCD1 #### [place] [address] Lymphocytes (Bld) [#/Vol] 1.84 thou/cmm Normal 0.84-2.85 [facility] Comment on above: Performed By: #### C BCD1 #### [place] [address] Lymphocytes/100 WBC (Bld) 16.2 % Normal [facility] Comment on above: Performed By: #### C BCD1 #### [facility] [address] [place] [address] MCH (RBC) [Entitic mass] 30.2 pg Normal 25.7-32.2 [facility] Comment on above: Performed By: #### C BCD1 #### [place] [address] MCHC (RBC) [Mass/Vol] 34.7 % Normal 32.3-36.5 [facility] Comment on above: Performed By: #### C BCD1 #### [facility] [address] [place], [place] [address] MCV (RBC) [Entitic vol] 86.9 fL Normal 83.2-95.6 [facility] Comment on above: Performed By: #### C BCD1 #### [facility] [address] [place], [place] [address] Monocytes/100 WBC (Bld) 6.8 % Normal [facility] Comment on above: Performed By: #### C BCD1 #### [facility] [address] [place], [place] [address] Platelet mean volume (Bld) [Entitic vol] 9.9 fL Normal 8.7-12.0 [facility] Comment on above: Performed By: #### C BCD1 #### [facility] [address] [place] [address] Platelets (Bld) [#/Vol] 181 thou/cmm Normal 141-365 [facility] Comment on above: Performed By: #### C BCD1 #### [facility] [address] [place] [address] RBC (Bld) [#/Vol] 5.43 mil/cmm Normal 4.63-6.08 [facility] Comment on above: Performed By: #### C BCD1 #### [facility] [address] [place], [place] [address] RDW SD 40.0 fl Normal 36.1-45.8 [facility] Comment on above: Performed By: #### C BCD1 #### [facility] [address] [place], [place] [address] Seg Neutrophil 71.0 % Normal [facility] Comment on above: Performed By: #### C BCD1 #### [facility] [address] [place], [place] [address] WBC (Bld) [#/Vol] 11.33 thou/cmm High 4.23-9.07 [facility] Comment on above: Performed By: #### C BCD1 #### [facility] [address] [place], [place] [address] MDRD GFRon 06-09-2018 GFR/1.73 sq M predicted among non-blacks MDRD (S/P/Bld) [Vol rate/Area] mL/min/{1.73_m2} Normal >60mL/min/1.73m 2 [facility] Comment on above: Result Comment: If t he patient is , multiply the result by 1.210. Performed By: #### G FR #### [facility] [address] [place], [place] [address] TSH, 3rd generationon 2017 TSH, 3rd generation 66.600 uIU/mL High 0.358-3.740 [facility] Comment on above: Performed By: #### T SH3 #### [facility] [address] [place], [place] [address] Vital Signs Date Time Vital Sign Value Performing Clinician Sheyla ortiz 03-04-2025 09:49-0400 Body temperature 97.8 [degF] No Primary Care Physician [facility] 03-04-2025 09:49-0400 Diastolic blood pressure 91 mm[Hg] No Primary Care Physician [facility] 03-04-2025 09:49-0400 Heart rate 80 /min No Primary Care Physician [facility] 03-04-2025 09:49-0400 Respiratory rate 18 /min No Primary Care Physician [facility] 03-04-2025 09:49-0400 SaO2% (BldA) [Mass fraction] 16 % No Primary Care Physician [facility] 03-04-2025 09:49-0400 Systolic blood pressure 146 mm[Hg] No Primary Care Physician [facility] 03-04-2025 07:45-0400 Body height 177.8 cm No Primary Care Physician [facility] 03-04-2025 07:45-0400 Body mass index (BMI) [Ratio] 31.9 kg/m2 No Primary Care Physician [facility] 03-04-2025 07:45-0400 Body weight 100.92 kg No Primary Care Physician [facility] 01-18-2025 06:28-0500 Body height 177.8 cm No Primary Care Physician [facility] 01-18-2025 06:28-0500 Body mass index (BMI) [Ratio] 41.5 kg/m2 No Primary Care Physician [facility] 01-18-2025 06:28-0500 Body temperature 97.6 [degF] No Primary Care Physician [facility] 01-18-2025 06:28-0500 Body weight 131.54 kg No Primary Care Physician [facility] 01-18-2025 06:28-0500 Diastolic blood pressure 96 mm[Hg] No Primary Care Physician [facility] 01-18-2025 06:28-0500 Heart rate 106 /min No Primary Care Physician [facility] 01-18-2025 06:28-0500 Respiratory rate 20 /min No Primary Care Physician [facility] 01-18-2025 06:28-0500 SaO2% (BldA) [Mass fraction] 97 % No Primary Care Physician [facility] 01-18-2025 06:28-0500 Systolic blood pressure 151 mm[Hg] No Primary Care Physician [facility] 10-17-2024 20:44-0500 Body temperature 98.2 [degF] No Primary Care Physician [facility] 10-17-2024 20:44-0500 Diastolic blood pressure 62 mm[Hg] No Primary Care Physician [facility] 10-17-2024 20:44-0500 Heart rate 95 /min No Primary Care Physician [facility] 10-17-2024 20:44-0500 Respiratory rate 18 /min No Primary Care Physician [facility] 10-17-2024 20:44-0500 SaO2% (BldA) [Mass fraction] 97 % No Primary Care Physician [facility] 10-17-2024 20:44-0500 Systolic blood pressure 121 mm[Hg] No Primary Care Physician [facility] 10-17-2024 18:30-0500 Body mass index (BMI) [Ratio] 40.1 kg/m2 No Primary Care Physician [facility] 10-17-2024 18:30-0500 Body weight 127 kg No Primary Care Physician [facility] 07-25-2024 12:03-0400 Body mass index (BMI) [Ratio] 39.48 kg/m2 Sangita Sequeira APRN.BROACH OPERATOR Work Phone: [facility] 07-25-2024 12:03-0400 Body temperature 97.9 [degF] Sangita Sequeira CAPTION WRITER.BROACH OPERATOR Work Phone: [facility] 07-25-2024 12:03-0400 Body weight 124.8 kg Sangita Sequeira CAPTION WRITER.BROACH OPERATOR Work Phone: [facility] 07-25-2024 12:03-0400 Diastolic blood pressure 78 mm[Hg] Sangita Sequeira CAPTION WRITER.BROACH OPERATOR Work Phone: [facility] 07-25-2024 12:03-0400 Heart rate 86 /min Sangita Sequeira CAPTION WRITER.BROACH OPERATOR Work Phone: [facility] 07-25-2024 12:03-0400 Respiratory rate 16 /min Sangita Sequeira CAPTION WRITER.BROACH OPERATOR Work Phone: [facility] 07-25-2024 12:03-0400 SaO2% (BldA) [Mass fraction] 98 % Sangita Sequeira CAPTION WRITER.BROACH OPERATOR Work Phone: [facility] 07-25-2024 12:03-0400 Systolic blood pressure 122 mm[Hg] Sangita Sequeira CAPTION WRITER.BROACH OPERATOR Work Phone: [facility] 06-12-2024 19:50-0400 Body mass index (BMI) [Ratio] 39.48 kg/m2 Krislyn Aberegg PA Work Phone: [facility] 06-12-2024 19:50-0400 Body temperature 98.01 [degF] Krislyn Aberegg PA Work Phone: [facility] 06-12-2024 19:50-0400 Body weight 124.8 kg Krislyn Aberegg PA Work Phone: [facility] 06-12-2024 19:50-0400 Diastolic blood pressure 76 mm[Hg] Krislyn Aberegg PA Work Phone: [facility] 06-12-2024 19:50-0400 Heart rate 96 /min Krislyn Aberegg PA Work Phone: [facility] 06-12-2024 19:50-0400 Respiratory rate 16 /min Krislyn Aberegg PA Work Phone: [facility] 06-12-2024 19:50-0400 SaO2% (BldA) [Mass fraction] 98 % Krislyn Aberegg PA Work Phone: [facility] 06-12-2024 19:50-0400 Systolic blood pressure 124 mm[Hg] Krislyn Aberegg PA Work Phone: [facility] 02-07-2024 12:40-0400 Body temperature 97.59 [degF] Inez Loder PA-C Work Phone: [facility] 02-07-2024 12:40-0400 Diastolic blood pressure 75 mm[Hg] Inez Loder PA-C Work Phone: [facility] 02-07-2024 12:40-0400 Heart rate 92 /min Inez Loder PA-C Work Phone: [facility] 02-07-2024 12:40-0400 SaO2% (BldA) [Mass fraction] 97 % Inez Loder PA-C Work Phone: [facility] 02-07-2024 12:40-0400 Systolic blood pressure 118 mm[Hg] Inez Loder PA-C Work Phone: [facility] 10-31-2023 15:11-0500 Diastolic blood pressure 86 mm[Hg] Mecca Podlogar CAPTION WRITER.BROACH OPERATOR Work Phone: [facility] 10-31-2023 15:11-0500 Heart rate 105 /min Mecca Podlogar CAPTION WRITER.BROACH OPERATOR Work Phone: [facility] 10-31-2023 15:11-0500 Systolic blood pressure 124 mm[Hg] Mecca Podlogar CAPTION WRITER.BROACH OPERATOR Work Phone: [facility] 10-31-2023 14:41-0500 Body weight 124.92 kg Mecca Podlogar CAPTION WRITER.BROACH OPERATOR Work Phone: [facility] 10-31-2023 14:41-0500 Respiratory rate 18 /min Mecca Mclaughlinlogestela CAPTION WRITER.BROACH OPERATOR Work Phone: [facility] 10-31-2023 14:41-0500 SaO2% (BldA) [Mass fraction] 94 % Mecca Mclaughlinlogestela CAPTION WRITER.BROACH OPERATOR Work Phone: [facility] 08-20-2023 15:11-0400 Body height 180.34 cm [facility] 08-20-2023 15:11-0400 Body mass index (BMI) [Ratio] 37.3 kg/m2 [facility] 08-20-2023 15:11-0400 Body temperature 97.6 [degF] [facility] 08-20-2023 15:11-0400 Body weight 121.19 kg [facility] 08-20-2023 15:11-0400 Diastolic blood pressure 92 mm[Hg] [facility] 08-20-2023 15:11-0400 Heart rate 105 /min [facility] 08-20-2023 15:11-0400 Respiratory rate 14 /min [facility] 08-20-2023 15:11-0400 SaO2% (BldA) [Mass fraction] 98 % [facility] 08-20-2023 15:11-0400 Systolic blood pressure 145 mm[Hg] [facility] 08-20-2023 14:54-0400 Body temperature 98.6 [degF] Jessica Cope APRN.BROACH OPERATOR Work Phone: [facility] 08-20-2023 14:54-0400 Body weight 121.2 kg Jessica Cope APRN.BROACH OPERATOR Work Phone: [facility] 08-20-2023 14:54-0400 Diastolic blood pressure 92 mm[Hg] Jessica Cope APRN.BROACH OPERATOR Work Phone: [facility] 08-20-2023 14:54-0400 Heart rate 101 /min Jessica Cope APRN.BROACH OPERATOR Work Phone: [facility] 08-20-2023 14:54-0400 Respiratory rate 16 /min Jessica Cope APRN.BROACH OPERATOR Work Phone: [facility] 08-20-2023 14:54-0400 SaO2% (BldA) [Mass fraction] 98 % Jessica Cope APRN.BROACH OPERATOR Work Phone: [facility] 08-20-2023 14:54-0400 Systolic blood pressure 138 mm[Hg] Jessica Cope APRN.BROACH OPERATOR Work Phone: [facility] 05-01-2022 00:04-0400 Body height 180.34 cm [facility] Work Phone: 05-01-2022 00:04-0400 Body mass index (BMI) [Ratio] 37.6 kg/m2 [facility] Work Phone: 05-01-2022 00:04-0400 Body temperature 98.2 [degF] [facility] Work Phone: 05-01-2022 00:04-0400 Body weight 122.46 kg [facility] Work Phone: 05-01-2022 00:04-0400 Diastolic blood pressure 87 mm[Hg] [facility] Work Phone: 05-01-2022 00:04-0400 Heart rate 89 /min [facility] Work Phone: 05-01-2022 00:04-0400 Respiratory rate 17 /min [facility] Work Phone: 05-01-2022 00:04-0400 SaO2% (BldA) [Mass fraction] 99 % [facility] Work Phone: 05-01-2022 00:04-0400 Systolic blood pressure 131 mm[Hg] [facility] Work Phone: 03-10-2022 14:29-0400 Body height 177 cm Eleuterio Villatroo MD Work Phone: [facility] 03-10-2022 14:29-0400 Body temperature 97.39 [degF] Eleuterio Villatoro MD Work Phone: [facility] 03-10-2022 14:29-0400 Body weight 127.46 kg Eleuterio Villatoro MD Work Phone: [facility] 03-10-2022 14:29-0400 Diastolic blood pressure 78 mm[Hg] Eleuterio Villatoro MD Work Phone: [facility] 03-10-2022 14:29-0400 Heart rate 86 /min Eleuterio Villatoro MD Work Phone: [facility] 03-10-2022 14:29-0400 Respiratory rate 24 /min Eleuterio Villatoro MD Work Phone: [facility] 03-10-2022 14:29-0400 Systolic blood pressure 100 mm[Hg] Eleuterio Villatoro MD Work Phone: [facility] Encounters Encounter Date Encounter Type Care Provider Facility Start: 06-28-2025 ambulatory Kristina Perry GEARCASE ASSEMBLER Fac ility:[facility] Start: 05-14-2025 ambulatory Vidya Arias Facilit y:[facility] Start: 03-13-2025 ambulatory Vidya Arias Facilit y:[facility] Start: 03-09-2025 End: 03-09-[address] SERENITY MITCHELL MD Facility:A Start: 03-04-2025 End: 03-04-2025 Emergency department patient visit No Primary Care Physician -Emergency Department Work Phone: Start: 02-28-2025 Encounter for genera l adult medical examination without abnormal findings Rubia Ordoñez [facility] Start: 02-27-2025 ambulatory Vidya Arias Facilit y:[facility] Start: 02-25-2025 End: 02-25-2025 ambulatory No Primary Care Physician [facility] Work Phone: Start: 02-25-2025 End: 02-25-2025 Patient encounter procedure GEARCASE ASSEMBLER Rubia Ordoñez -Sleep Lab Work Phone: Start: 02-25-2025 End: 02-25-2025 ambulatory Vidya Arias Facility:[facility] Start: 02-15-2025 End: 02-16-2025 Emergency department patient visit VIDYA ARIAS Facility:[id number] Start: 02-04-2025 End: 02-04-2025 ambulatory No Primary Care Physician [facility] Work Phone: Start: 02-04-2025 End: 02-04-2025 Patient encounter procedure GEARCASE ASSEMBLER Rubia Ordoñez -Sleep Lab Work Phone: Start: 02-04-2025 End: 02-04-2025 ambulatory Vidya Arias Facility:[facility] Start: 02-01-2025 End: 02-01-2025 ambulatory No Primary Care Physician [facility] Work Phone: Start: 02-01-2025 End: 02-01-[address] [facility] Start: 02-01-2025 End: 02-01-2025 ambulatory Vidya Arias Facility:[facility] Start: 01-18-2025 End: 01-18-2025 Patient encounter procedure JORGE Ordoñez -[facility] Work Phone: Start: 01-18-2025 End: 01-18-2025 ambulatory Vidya Arias [facility] Start: 11-16-2024 End: 11-16-[address] [facility] Start: 11-15-2024 End: 11-15-2024 Patient encounter procedure Nelson Hand DC -[facility] Work Phone: Start: 11-15-2024 End: 11-16-2024 ambulatory Vidya Arias Facility:[facility] Start: 10-17-2024 End: 10-17-2024 Emergency department patient visit Dr. Adelaida Keith DO -Emergency Department Work Phone: Start: 07-25-2024 End: 07-25-2024 ambulatory SANGITA SEQUEIRA Facility:[facility] Start: 07-25-2024 End: 07-25-2024 Patient encounter procedure Sangita Sequeira CAPTION WRITER.BROACH OPERATOR Work Phone: [facility] Comment on above: COVID-19 (Primary Dx ) Start: 06-23-2024 Refill Mecca Podlogar CAPTION WRITER.BROACH OPERATOR Work Phone: [facility] Comment on above: Refill Request Start: 06-21-2024 End: 06-21-2024 ambulatory MECCA PODLOGAR Facility:[facility] Start: 06-21-2024 End: 06-21-2024 Patient encounter procedure Olivia JOSE Work Phone: [facility] Comment on above: Procedure not naomy d out (Primary Dx) Start: 06-13-2024 Telephone encounter Kenrick salinas APRN.BROACH OPERATOR Work Phone: [facility] Comment on above: Results Start: 06-12-2024 End: 06-12-2024 ambulatory MECCA PODLOGAR Facility:[facility] Start: 06-12-2024 End: 06-12-2024 Patient encounter procedure Olivia JOSE Work Phone: [facility] Comment on above: URI, acute (Primary Dx) Start: 04-03-2024 Refill Mecca Podlogar CAPTION WRITER.BROACH OPERATOR Work Phone: [facility] Comment on above: Refill Request Start: 03-06-2024 Telephone encounter Mecca Mclaughlinl ogar CAPTION WRITER.BROACH OPERATOR Work Phone: [facility] Comment on above: Results Start: 03-02-2024 End: 03-02-2024 ambulatory ELEUTERIO VILLATORO Facility:[facility] Start: 02-07-2024 End: 02-07-2024 ambulatory [facility] Ambulatory Start: 02-07-2024 End: 02-07-2024 Office outpatient new 30 minutes [facility] Nilesh PETERS Work Phone: [facility] Comment on above: Viral upper respirat ory tract infection (Primary Dx); Mild intermittent asthma with acute exacerbation Start: 01-17-2024 Telephone encounter Tosha ross PA-C [facility] Comment on above: Appointment (Recover No Show/Cancellation Call - Attempt 2/) Start: 01-10-2024 Telephone encounter Mecca san CAPTION WRITER.BROACH OPERATOR Work Phone: [facility] Comment on above: Results Appointment (Recover No Show/Cancellation Call - Attempt 1/) Start: 01-09-2024 End: 01-09-2024 ambulatory ELEUTERIO VILLATORO Facility:[facility] Start: 01-07-2024 Refill Mecca Umanzor CAPTION WRITER.BROACH OPERATOR Work Phone: [facility] Comment on above: Refill Request Start: 12-08-2023 End: 12-08-2023 Emergency department patient visit RICHARD RAMOS DO~[id number] [facility] Start: 11-07-2023 Telephone encounter Tosha ross PA-C Work Phone: [facility] Comment on above: Intake (Covid Recove r Clinic pre-visit phone call/) Start: 11-01-2023 Telephone encounter Mecca san CAPTION WRITER.BROACH OPERATOR Work Phone: [facility] Comment on above: Results; Orders Start: 10-31-2023 End: 10-31-2023 ambulatory ELEUTERIO VILLATORO Facility:[facility] Start: 10-31-2023 End: 10-31-2023 Patient encounter procedure Mecca Umanzor CAPTION WRITER.BROACH OPERATOR Work Phone: [facility] Comment on above: COVID-19 suzette perez (Primary Dx); Post-surgical hypothyroidism Start: 09-16-2023 End: 09-16-2023 Emergency department patient visit ELEUTERIO VILLATORO Facility:[facility] Start: 08-20-2023 End: 08-20-2023 Emergency department patient visit [facility] Work Phone: Start: 08-20-2023 End: 08-20-2023 ambulatory ELEUTERIO VILLATORO Facility:[facility] Start: 08-20-2023 End: 08-20-2023 Patient encounter procedure Jessica Cope APRN.CNP Work Phone: [facility] Comment on above: Dizziness (Primary D x) Start: 08-16-2023 End: 08-16-2023 Emergency department patient visit ELEUTERIO VILLATORO Facility:[facility] Start: 07-31-2023 End: 07-31-2023 Emergency department patient visit KEYSHA GARCIA Facility:[facility] Start: 07-28-2023 End: 07-28-2023 Emergency department patient visit NADEGE VILCHIS Facility:[facility] Start: 07-27-2023 End: 07-27-2023 ambulatory Eleuterio Villatoro MD Work Phone: [facility] [place] Comment on above: COVID-19 (Primary Dx ) Start: 07-27-2023 End: 07-27-2023 Telemedicine consultation with patient Eleuterio Villatoro MD Work Phone: [facility] Start: 07-26-2023 Telephone encounter Rafal Villatoro MD Work Phone: [facility] [place] Comment on above: Medication Request ( paxlovid ) Start: 05-19-2023 Refill Eleuterio Villatoro MD Work Phone: [facility] Comment on above: Refill Request Start: 04-30-2023 Emergency department patient visit ELEUTERIO VILLATORO Facility:[facility] Start: 04-25-2023 End: 04-25-2023 Emergency department patient visit MARY HERNANDEZ DO~[id number] [facility] Start: 02-12-2023 End: 02-12-2023 Emergency department patient visit NELSON HERNANDEZ DO [facility] Start: 01-31-2023 Telephone encounter Rafal Villatoro MD Work Phone: [facility] Comment on above: Appointment Start: 01-21-2023 Telephone encounter Rafal Villatoro MD Work Phone: [facility] Comment on above: Future Appointment ( COVID positive home test) Start: 01-21-2023 End: 03-03-2023 ambulatory Bernarda Tannhof CAPTION WRITER.BROACH OPERATOR Work Phone: [facility] Comment on above: COVID-19 (Primary Dx ) Start: 01-21-2023 End: 01-21-2023 Telemedicine consultation with patient Bernarda Todd CAPTION WRITER.BROACH OPERATOR Work Phone: [facility] Start: 12-29-2022 End: 12-29-2022 Emergency department patient visit NO PCP AA NO PCP [facility] Start: 12-25-2022 ambulatory [facility]ogue [facility] Start: 12-25-2022 Patient encounter procedure Ana Hogue RN [facility] Start: 11-23-2022 Refill Mecca Podlogar CAPTION WRITER.BROACH OPERATOR Work Phone: [facility] Comment on above: Refill Request Start: 10-18-2022 End: 10-18-2022 Emergency department patient visit ELEUTERIO VILLATORO Facility:[facility] Start: 08-06-2022 End: 08-06-2022 ambulatory Mecca Podlogar CAPTION WRITER.BROACH OPERATOR Work Phone: [facility] Comment on above: Telehealth encounter for confirmed COVID-19 (Primary Dx) Refill Request Start: 08-06-2022 Patient encounter procedure Eleuterio Villatoro MD Work Phone: [facility] Start: 08-06-2022 End: 08-06-2022 Telemedicine consultation with patient Mecca Mclaughlinlogar CAPTION WRITER.BROACH OPERATOR Work Phone: [facility] Start: 08-05-2022 ambulatory Daniela Santiago RN NURSE O N CALL Comment on above: Covid19 Concern Start: 05-01-2022 End: 05-01-2022 Emergency department patient visit [facility] Start: 03-10-2022 End: 03-10-2022 Patient encounter procedure Eleuterio Vlilatoro MD Work Phone: [facility] Comment on above: Annual physical exam (Primary Dx); Post-surgical hypothyroidism; ADHD (attention deficit hyperactivity disorder), combined type; Anxiety with depression; Morbid obesity with BMI of 40.0-44.9, adult (HCC); Tobacco use Procedures Date Procedure Procedure Detail Performing Clinician Start: 03-04-2025 CT of abdomen and pe lvis without contrast No Primary Care Physician Start: 02-07-2024 SARS-COV-2 AND INFLU TOVA A/B PCR INEZQUIANA GALLOWAY Start: 02-07-2024 POCT INFLUENZA A/B DOROTHY GALLOWAY Start: 02-07-2024 Influenza virus A an d B and SARS-CoV-2 (COVID-19) identified in Respiratory specimen by [place] with probe detection Inez Galloway PA-C Work Phone: Start: 02-07-2024 Iaadiadoo influenza James quiana William Nilesh JOSE-Mik Work Phone: Start: 12-25-2018 Follow-up visit Start: 12-25-2018 Thyrotropin [Units/v olume] in Serum or Plasma Inez JOSE-C Work Phone: Start: 12-21-2018 Follow-up visit Plan of Treatment Date Care Activity Detail Author Start: 2046 Zoster Vaccines (1 o f 2) Zoster Vaccines (1 of 2) [facility] Start: 07-15-2030 DTaP/Tdap/Td Vaccine s (2 - Td or Tdap) DTaP/Tdap/Td Vaccines (2 - Td or Tdap) [facility] Start: 07-15-2030 Urine microalbumin profile [facility] Start: 03-04-2025 [facility] Start: 10-31-2024 Annual PCP Team Ocular Care Technologist rosalia Disease Visit Annual PCP Team Chronic Disease Visit [facility] Start: 10-17-2024 [facility] Start: 07-27-2024 ANNUAL PCP TEAM CABINET AND TRIM INSTALLER ROSALIA DISEASE VISIT ANNUAL PCP TEAM CHRONIC DISEASE VISIT [facility] Start: 07-22-2024 Covid-19 Vaccine ( season) Covid-19 Vaccine ( season) [facility] Start: 07-22-2024 Influenza vaccination C [facility] Start: 04-17-2024 End: 07-17-2024 Thyrotropin [Units/volume] in Serum or Plasma THYROID STIMULATING HORMONE Lab Routine Post-surgical hypothyroidism Expected: 04/17/2024, Expires: 07/17/2024 [facility] Work Phone: Comment on above: Expected: 04/17/2024 , Expires: 07/17/2024 Start: 04-17-2024 End: 04-17-2024 ambulatory 04/17/2024 8:30 AM EDT Results Only [facility] Draw Station [address] [facility] [place] [address] [place] [facility] Station Start: 02-21-2024 End: 05-22-2024 Thyrotropin [Units/volume] in Serum or Plasma TSH BLD Lab Routine Post-surgical hypothyroidism Expected: 02/21/2024, Expires: 05/22/2024 [facility] Work Phone: Comment on above: Expected: 02/21/2024 , Expires: 05/22/2024 Start: 01-22-2024 ANNUAL PCP TEAM CABINET AND TRIM INSTALLER ROSALIA DISEASE VISIT ANNUAL PCP TEAM CHRONIC DISEASE VISIT [facility] Start: 12-13-2023 End: 03-13-2024 CBC W Auto Differential panel - Blood CBC + DIFF Lab Routine Leukocytosis, unspecified type Expected: 12/13/2023, Expires: 03/13/2024 [facility] Work Phone: Comment on above: Expected: 12/13/2023 , Expires: 03/13/2024 Start: 12-13-2023 End: 03-13-2024 Thyrotropin [Units/volume] in Serum or Plasma TSH BLD Lab Routine Post-surgical hypothyroidism Expected: 12/13/2023, Expires: 03/13/2024 [facility] Work Phone: Comment on above: Expected: 12/13/2023 , Expires: 03/13/2024 Start: 10-31-2023 End: 01-30-2024 Comprehensive metabolic 2000 panel - Serum or Plasma [facility] Work Phone: Comment on above: Expected: 10/31/2023 , Expires: 01/30/2024 Start: 10-31-2023 End: 01-30-2024 Thyrotropin [Units/volume] in Serum or Plasma [facility] Work Phone: Comment on above: Expected: 10/31/2023 , Expires: 01/30/2024 Start: 08-06-2023 ANNUAL PCP TEAM CABINET AND TRIM INSTALLER ROSALIA DISEASE VISIT ANNUAL PCP TEAM CHRONIC DISEASE VISIT [facility] Start: 07-22-2023 Covid-19 Vaccine ( season) Covid-19 Vaccine ( season) [facility] Start: 07-22-2023 Influenza vaccination C [facility] Start: 03-10-2023 ANNUAL PCP TEAM CABINET AND TRIM INSTALLER ROSALIA DISEASE VISIT ANNUAL PCP TEAM CHRONIC DISEASE VISIT [facility] Start: 03-10-2023 COVID-19 VACCINE (#1) COVID-19 VACCI NE (#1) [facility] Comment on above: Postponed from 11/02 (Declined at this time) Start: 03-10-2023 COVID-19 VACCINE (1) COVID-19 VACCIN E (1) [facility] Comment on above: Postponed from 05/03 (Declined at this time) Start: 03-10-2023 HPV VACCINE (1 - Mal e 2-dose series) HPV VACCINE (1 - Male 2-dose series) [facility] Comment on above: Postponed from 05/03 (Declined at this time) Start: 03-10-2023 ONE PNEUMOVAX PRIOR TO AGE 65 ONE PNEUMOVAX PRIOR TO AGE 65 [facility] Comment on above: Postponed from 05/03 (Declined at this time) Start: 03-10-2023 PNEUMOCOCCAL (1 - PCV) PNEUMOCOCCAL (1 - PCV) [facility] Comment on above: Postponed from 05/03 (Declined at this time) Start: 08-08-2022 End: 10-08-2022 CBC W Auto Differential panel - Blood CBC + DIFF Lab Routine Annual physical exam Expected: 08/08/2022, Expires: 10/08/2022 [facility] Work Phone: Comment on above: Expected: 08/08/2022 , Expires: 10/08/2022 Start: 08-08-2022 End: 10-08-2022 Comprehensive metabolic 2000 panel - Serum or Plasma COMP METABOLIC PANEL Lab Routine Annual physical exam Expected: 08/08/2022, Expires: 10/08/2022 [facility] Work Phone: Comment on above: Expected: 08/08/2022 , Expires: 10/08/2022 Start: 08-08-2022 End: 10-08-2022 Thyrotropin [Units/volume] in Serum or Plasma TSH BLD Lab Routine Post-surgical hypothyroidism Expected: 08/08/2022, Expires: 10/08/2022 [facility] Work Phone: Comment on above: Expected: 08/08/2022 , Expires: 10/08/2022 Start: 07-22-2022 Influenza vaccination C [facility] Start: 03-10-2022 End: 05-10-2022 CBC panel - Blood by Automated count CBC Lab Routine Annual physical exam Expected: 03/10/2022, Expires: 05/10/2022 [facility] Work Phone: Comment on above: Expected: 03/10/2022 , Expires: 05/10/2022 Start: 03-10-2022 End: 05-10-2022 Comprehensive metabolic 2000 panel - Serum or Plasma COMP METABOLIC PANEL Lab Routine Annual physical exam Expected: 03/10/2022, Expires: 05/10/2022 [facility] Work Phone: Comment on above: Expected: 03/10/2022 , Expires: 05/10/2022 Start: 03-10-2022 End: 05-10-2022 LIPID PANEL, NONFASTING LIPID PANEL, NONFASTING Lab Routine Annual physical exam Expected: 03/10/2022, Expires: 05/10/2022 [facility] Work Phone: Comment on above: Expected: 03/10/2022 , Expires: 05/10/2022 Start: 03-10-2022 End: 05-10-2022 PAIN PANEL, UR QUANT [facility] Work Phone: Comment on above: Expected: 03/10/2022 , Expires: 05/10/2022 Start: 03-10-2022 End: 05-10-2022 Thyrotropin [Units/volume] in Serum or Plasma TSH BLD Lab Routine Annual physical exam Post-surgical hypothyroidism Expected: 03/10/2022, Expires: 05/10/2022 [facility] Work Phone: Comment on above: Expected: 03/10/2022 , Expires: 05/10/2022 Start: 03-10-2022 End: 05-10-2022 TOX SCREEN ROUT UR [facility] Work Phone: Comment on above: Expected: 03/10/2022 , Expires: 05/10/2022 Start: 03-10-2022 End: 05-10-2022 Urinalysis complete panel - Urine [facility] Work Phone: Comment on above: Expected: 03/10/2022 , Expires: 05/10/2022 Start: 12-25-2019 Thyroid stimulating hormone measurement TSH Level [facility] Start: 2015 DTaP/Tdap/Td Vaccine s (1 - Tdap) DTaP/Tdap/Td Vaccines (1 - Tdap) [facility] Start: 2015 Hepatitis B Vaccine (1 of 3 - 19+ 3-dose series) Hepatitis B Vaccine (1 of 3 - 19+ 3-dose series) [facility] Start: 2014 Hepatitis C screening Hepatitis C [facility] Start: 2010 PEDS TO ADULT TRANSITION ANNUAL ASSESSMENT PEDS TO ADULT TRANSITION ANNUAL ASSESSMENT [facility] Start: 2008 PEDS TO ADULT TRANSITION INITIAL DISCUSSION PEDS TO ADULT TRANSITION INITIAL DISCUSSION [facility] Start: 2007 HPV Vaccines (1 - Ma le 2-dose series) HPV Vaccines (1 - Male 2-dose series) [facility] Start: 2002 PNEUMOCOCCAL (1 - PCV) PNEUMOCOCCAL (1 - PCV) [facility] Start: 2002 Pneumococcal vaccination [facility] Start: 2002 Pneumococcal Vaccine : Pediatrics (0 to 5 Years) and At-Risk Patients (6 to 64 Years) (1 - PCV) Pneumococcal Vaccine: Pediatrics (0 to 5 Years) and At-Risk Patients (6 to 64 Years) (1 - PCV) [facility] Start: 1997 MMR Vaccines (1 of 1 - Standard series) MMR Vaccines (1 of 1 - Standard series) [facility] Start: 1997 Varicella vaccination Varicell a Vaccines (1 of 2 - 2-dose childhood series) [facility] Start: 1996 COVID-19 VACCINE (#1) COVID-19 VACCI NE (#1) [facility] Start: 1996 HEPATITIS B (1 of 3 - 3-dose series) HEPATITIS B (1 of 3 - 3-dose series) [facility] Start: 1996 Hepatitis B Vaccine (1 of 3 - 3-dose series) Hepatitis B Vaccine (1 of 3 - 3-dose series) [facility] Start: 1996 Hepatitis B Vaccines (1 of 3 - 3-dose series) Hepatitis B Vaccines (1 of 3 - 3-dose series) [facility] Start: 1996 HIV screening HIV Screening [facility] Start: 1996 Lipid panel Lipid Panel [facility] Start: 1996 Yearly Adult Physical Yearly Adult P hysical [facility] COVID & INFLUENZA A/ B & RSV NAAT, ROUTINE COVID & INFLUENZA A/B & RSV NAAT, ROUTINE Microbiology Routine URI, acute 06/12/2024 7:57 PM EDT [facility] Work Phone: PAIN PANEL, UR QUANT PAIN PANEL, UR QUANT Lab Routine ADHD (attention deficit hyperactivity disorder), combined type 03/10/2022 3:30 PM EDT [facility] Work Phone: Patient Education [facility] Work Phone: Patient referral [facility] Work Phone: SPECIMEN VALIDITY, URINE SPECIMEN VALIDITY, URINE Lab Routine ADHD (attention deficit hyperactivity disorder), combined type 03/10/2022 3:30 PM EDT [facility] Work Phone: [facility] Immunizations Immunization Date Immunization Notes Care Provider Morgan cho 07-15-2020 tetanus toxoid, reduced diphtheria toxoid, and acellular pertussis vaccine, adsorbed Eleuterio Villatoro MD Work Phone: [facility] Work Phone: 08-27-2019 influenza virus vaccine, unspecified formulation Jessica Cope APRN.[facility] Work Phone: [facility] 08-07-2012 tetanus toxoid, reduced diphtheria toxoid, and acellular pertussis vaccine, adsorbed Eleuterio Villatoro MD Work Phone: [facility] Work Phone: Payers Date Payer Category Payer Self-pay [id number] 2021 [facility] MEDICAID [id number] 2021-Present [phone] [address] [place] [address] Medicaid [id number] 2021 Medicaid [id number]. [id number] 2021 Unknown [id number] 2018 Unknown [employer] BLUE CARD PPO OOS [id number] 2018-Present [phone] [address] [place] [address] PPO [id number] 2018 Unknown [id number] [id number]. [id number] 1996 Unknown [id number] [id number] 1996 Unknown [id number] [id number]8 1996 Unknown [id number] [id number]8 1996 Unknown [id number] 2.16.840.1.191101.3.579.2.598 1996 Unknown [id number] [id number]44 1996 Unknown [id number] 2.16.840.1.427575.3.579.2.627 1959 Medicaid [id number] Unknown [id number] Unknown [id number] Unknown [id number] [id number] Unknown [id number] 2.16.840.1.205832.3.579.2.462 Unknown [id number] 2.16840.1.441431.3.579.2.462 Unknown [id number] 2.840.1.869282.3.579.2.462 Unknown [id number] 2.840.1.679416.3.579.2.462 Unknown [id number] [id number] Unknown [id number] 2.16.840.1.719301.3.579.2.462 Unknown [id number] [id number] Unknown [id number] [id number] Unknown [id number] [id number] Unknown [id number] [id number] Unknown [id number] [id number] Unknown [id number] [id number] Social History Date Type Detail Facility Start: 06-08-2018 End: 03-04-2025 Tobacco smoking status NHIS Smokes tobacco daily [facility] End: 12-01-2016 History of tobacco use Cigarette Smoker [facility] Start: 06-08-2018 End: 08-04-2023 Cigarettes smoked current (pack per day) - Reported 0.5 [facility] Start: 06-08-2018 End: 07-25-2024 Tobacco use and exposure Smokeless tobacco non-user [facility] Start: 03-10-2022 End: 11-09-2022 Alcohol intake Current non-drinker of alcohol (finding) [facility] Start: 06-18-2020 End: 12-01-2022 History SDOH Alcohol Frequency 1 [facility] Start: 06-18-2020 End: 08-06-2022 History SDOH Alcohol Std Drinks 98 [facility] Start: 06-18-2020 End: 12-01-2022 History SDOH Social Connections Phone 5 [facility] Start: 06-18-2020 End: 12-01-2022 History SDOH Social Connections Membership 2 [facility] Start: 06-18-2020 End: 12-01-2022 History SDOH Social Connections Living 7 [facility] Start: 12-18-2020 End: 12-01-2022 History SDOH Housing Places Lived 3 [facility] Start: 06-18-2020 Education 10 [facility] Start: 1996 Sex Assigned At Not on file [facility] Start: 02-27-2022 End: 02-07-2024 Exposure to SARS-CoV-2 (event) Not sure [facility] Start: 05-01-2022 End: 08-20-2023 Tobacco smoking status WAIS Unknown if ever smoked [facility] Start: 07-15-2020 With Family [facility] Start: 1995 Sex Assigned At Male [facility] Start: 08-06-2022 History SDOH Alcohol Std Drinks 0 [facility] Start: 08-06-2022 End: 12-01-2022 History SDOH Stress 4 [facility] Start: 12-01-2022 End: 08-04-2023 Social connection and isolation panel [facility] Do you belong to any clubs or organizations such as methodist groups, unions, fraternal or athletic groups, or school groups? No [facility] Are you now , , , , never or living with a partner? Never [facility] How often to you hav e a drink containing alcohol? 2-3 time sa week [facility] How many standard dr inks containing alcohol do you have on a typical day? 5 or 6 [facility] How often do you hav e 6 or more drinks on 1 occasion? Less than monthly [facility] How hard is it for y ou to pay for the very basics like food, housing, medical care, and heating Not hard at all [facility] Do you feel stress - tense, restless, nervous, or anxious, or unable to sleep at night because your mind is troubled all the time - these days [OSQ] To some extent [facility] (I/We) worried will er (my/our) food would run out before (I/we) got money to buy more. Never true [facility] Start: 02-10-2025 End: 03-04-2025 Sex Male (finding) [facility] Sexual Orientation Heterosexual (finding) [facility] Medical Equipment Procedure Code Equipment Code Equipment Origin al Text Equipment Identifier Dates Cholecystocolostomy Plant polysa ccharide haemostatic agent, bioabsorbable [id number] [facility] Start: 08-09-2021 Cholecystocolostomy Ligation cli p, synthetic polymer, non-bioabsorbable ()[id number] FDA Start: 08-09-2021 Mental Status Date Assessment Result Facility 08-20-2023 Cognitive function Level Of Cons ciousness Awake;Alert;Appropriate;Follow s Commands [facility] Work Phone: Clinical Notes 03-10-2022 to 03-04-2025 Note Date & Type Note Facility 03-04-2025 Radiology Diagnostic study note [facility] Imaging Services [address] [place], [place] [id number] Abdomen/Pelvis without Cont MR#: [id number] Acct: [id number] Name: SANTY ALANIS MILLA Rep #: [id number] : 1995 M 29 From: Jaren Arreola MD PCP: Dr. Vidya Arias MD Status: RE G ER Study:Abdomen/Pelvis without Cont Date of Exa m: 03/04/25 Exam# [id number] Ordering Dr: Ana Gale DO PROCEDURE: ABDOMEN/PELVIS WITHOUT CONT 03/04/2025 REASON FOR EXAM: Right lower quadrant pain. Nausea and vomiting. TECHNIQUE: Abdomen and pelvis CT without intravenous contrast. Noncontrast technique limits evaluation of the abdominal and pelvic viscera. Coronal and Sagittal reconstruction series were provided. One or more dose reduction techniques were used (e.g., Automated exposure control, adjustment of the mA and/or kV according to patient size, use of iterative reconstruction technique). PATIENT PREPARATION: Per protocol ORAL CONTRAST TYPE: None. COMPARISON: None FINDINGS: Lung bases: Unremarkable Liver: Diffuse fatty infiltration. Gallbladder: Surgically absent. Spleen: Normal size. Pancreas: Normal size. No surrounding inflammation. Adrenals: Unremarkable Kidneys: Punctate nonobstructive calculus in the lower pole calyx of the left kidney. Bladder: Unremarkable Bowel: Colonic diverticulosis without diverticulitis. Appendix: The appendix is unremarkable. Lymph nodes: Unremarkable. Vasculature: The abdominal aorta and IVC contours are normal. Noncontrast technique limits evaluation. Peritoneum / Retroperitoneum: Unremarkable Bones: Unremarkable CT/Abdomen/Pelvis without Cont IMPRESSION: Status post cholecystectomy. Fatty infiltration of the liver. Punctate nonobstructive calculus in the lower pole calyx of the left kidney. Reading Location: [place] [address] CC: Dr. Vidya Arias MD; Dr. Eli Gale DO ~ Schedule Analyst: Signed [facility] 11-15-2024 Evaluation note Diagnosis Onset Date Resolution Strep throat acute October 9:21am Daytime hypersomnia acute Febru lex2024 1:49pm Smoking greater than 20 pack years acute January 18 1:49pm [facility] Work Phone: 1(714) 759-530809-04-2024 NoteHNO ID: [id number] Author: SANGITA SEQUEIRA APRN.BROACH OPERATOR Service: ? Author Type: Nurse Practitioner Type: Progress Notes Filed: 07/25/2024 15:43 Note Text: This note was created using goOutMapriter. Subjective Santy Alanis is a 29 year old male. Pertinent PMH reviewed: asthma, obesity, Graves disease and allergies reviewed 29 year old patient presenting today with shortness of breath, sinus pain, cough, chills and dizziness that started yesterday. Pt states he took a COVID test at home yesterday which was positive. His son was also positive for COVID Tuesday. Pt states he has had COVID x4 and each time is given Paxlovid which helps. He has been using Flonase and tylenol every 4 hours which have provided some relief. Pt denies nausea, vomiting, chest pain, fever and rash. The history is provided by the patient. No foreign languages department chair was used. URI He complains of shortness of breath. There is no wheezing. The current episode started yesterday. The problem has been unchanged. Associated symptoms include headaches. Pertinent negatives include no appetite change, chest pain, ear pain, fever, nasal congestion, postnasal drip, rhinorrhea or sore throat. His symptoms are aggravated by nothing. His symptoms are alleviated by nothing. His past medical history is significant for asthma. There is no history of COPD or pneumonia. PAST MEDICAL HISTORY No date: ADHD No date: Anxiety No date: Childhood asthma Comment: URI induced as an adult No date: Current moderate episode of major depressive disorder without prior episode (HCC) No date: Family history of heart attack No date: Graves disease No date: History of chlamydia No date: Lung nodule Comment: age 19 No date: Morbid obesity with BMI of 40.0-44.9, adult (HCC) No date: Panic disorder No date: Post-surgical hypothyroidism No date: Tobacco use PAST SURGICAL HISTORY 08/09/2021: LAPS SURG CHOLECYSTECTOMY W/CHOLANGIOGRAPHY No date: THYROIDECTOMY TOTAL/COMPLETE ALLERGIES Bee Venom Protein (Honey Bee) and Concerta [Methylphenidate Analogues] MEDICATIONS fluticasone (FLONASE) 50 mcg/actuation nasal spray Use 2 Sprays in each nostril once daily. Rinse mouth after use. Olnzowghwggfsdg-Rzhmveazq-SK (BROMFED DM) 2-30-10 mg/5 mL syrup Take 10 mL by mouth four times a day as needed. levothyroxine (LEVOXYL) 112 mcg tablet Take one Tuesday-Tuesday and two tablets on Tuesday and Tuesday. Take on empty stomach EPINEPHrine (EPIPEN) 0.3 mg/0.3 mL auto-injector Inject 0.3 mL intramuscularly as needed (For allergic reaction). ipratropium-albuterol (DUONEB) 0.5 mg-3 mg(2.5 mg base)/3 mL nebu Inhale 3 mL as instructed every 6 hours as needed for wheezing/shortness of breath. albuterol HFA (PROVENTIL HFA, VENTOLIN HFA) 90 mcg/actuation inhaler Inhale 2 Puffs as instructed every 6 hours as needed for wheezing/shortness of breath. nirmatrelvir tablet 300 mg (150 mg x 2) and ritonavir tablet 100 mg in a dose pack (PAXLOVID) Administer TWO pink nirmatrelvir 150 mg tablets and ONE white ritonavir 100 mg tablet for a total of three tablets twice daily. albuterol HFA (PROVENTIL HFA, VENTOLIN HFA) 90 mcg/actuation inhaler Inhale 2-4 Puffs as instructed every 2 hours as needed for wheezing/shortness of breath. (Patient not taking: Reported on 08/20/2023) FAMILY HISTORY Problem Relation Age of Onset Thyroid Mother Heart Attack Mother 40 Heart disease Mother 16 COPD Father Bipolar disorder Brother Diabetes Maternal Grandfather Stroke Maternal Grandfather COPD Paternal Grandfather Social History Tobacco Use Smoking status: Every Day Current packs/day: 1.00 Average packs/day: 1 pack/day for 9.0 years (9.0 ttl pk-yrs) Types: Cigarettes Smokeless tobacco: Never Vaping Use Vaping status: Never Used Substance Use Topics Alcohol use: No Drug use: Never Review of Systems Constitutional: Positive for chills and fatigue. Negative for appetite change, diaphoresis and fever. HENT: Positive for congestion, sinus pressure and sinus pain. Negative for ear discharge, ear pain, postnasal drip, rhinorrhea and sore throat. Eyes: Negative for pain, discharge and itching. Respiratory: Positive for shortness of breath. Negative for wheezing. Cardiovascular: Negative for chest pain and palpitations. Gastrointestinal: Negative for diarrhea, nausea and vomiting. Musculoskeletal: Negative for neck pain and neck stiffness. Skin: Negative for rash. Allergic/Immunologic: Positive for environmental allergies. Negative for food allergies. Neurological: Positive for dizziness and headaches. Objective BP 122/78 Pulse 86 Temp 36.6 ?C (97.9 ?F) (Tympanic) Resp 16 Wt 124.8 kg (275 lb 2.2 oz) SpO2 98% BMI 39.48 kg/m? Physical Exam Vitals and nursing note reviewed. Constitutional: Appearance: Normal appearance. He is obese. HENT: Head: Normocephalic and atraumatic. Right Ear: Tympanic membrane and ear canal normal. L (more content not included)...[facility]09-04-2024 History of Present illness Narrative* Sangita Sequeira APRN.BROACH OPERATOR - 07/25/2024 12:26 PM EDT This note was created using CorvisaCloud. Subjective Santy Alanis is a 29 year old male. Pertinent PMH reviewed: asthma, obesity, Graves disease and allergies reviewed 29 year old patient presenting today with shortness of breath, sinus pain, cough, chills and dizziness that started yesterday. Pt states he took a COVID test at home yesterday which was positive. Hisson was also positive for COVID Tuesday. Pt states he has had COVID x4 and each time is given Paxlovid which helps. He has been using Flonase and tylenol every 4 hours which have provided some relief.Pt denies nausea, vomiting, chest pain, fever and rash. The history is provided by the patient. No foreign languages department chair was used. URI He complains of shortness of breath. There is no wheezing. The current episode started yesterday. The problem has been unchanged. Associated symptoms include headaches. Pertinent negatives include noappetite change, chest pain, ear pain, fever, nasal congestion, postnasal drip, rhinorrhea or sore throat. His symptoms are aggravated by nothing. His symptoms are alleviated by nothing. His past medi daryl history is significant for asthma. There is no history of COPD or pneumonia. PAST MEDICAL HISTORY No date: ADHD No date: Anxiety No date: Childhood asthma Comment: URI induced as an adult No date: Current moderate episode of major depressive disorder without prior episode (HCC) No date: Family history of heart attack No date: Graves disease No date: History of chlamydia No date: Lung nodule Comment: age 19 No date: Morbid obesity with BMI of 40.0-44.9, adult (HCC) No date: Panic disorder No date: Post-surgical hypothyroidism No date: Tobacco use PAST SURGICAL HISTORY 08/09/2021: LAPS SURG CHOLECYSTECTOMY W/CHOLANGIOGRAPHY No date: THYROIDECTOMY TOTAL/COMPLETE ALLERGIES Bee Venom Protein (Honey Bee) and Concerta [Methylphenidate Analogues] MEDICATIONS fluticasone (FLONASE) 50 mcg/actuation nasal spray Use 2 Sprays in each nostril once daily. Rinse mouth after use. Gddpwpcltxonoic-Ptrnkvwec-JL (BROMFED DM) 2-30-10 mg/5 mL syrup Take 10 mL by mouth four times a day as needed. levothyroxine (LEVOXYL) 112 mcg tablet Take one Tuesday-Tuesday and two tablets on Tuesday and Tuesday. Take on empty stomach EPINEPHrine (EPIPEN) 0.3 mg/0.3 mL auto-injector Inject 0.3 mL intramuscularly as needed (For allergic reaction). ipratropium-albuterol (DUONEB) 0.5 mg-3 mg(2.5 mg base)/3 mL nebu Inhale 3 mL as instructed every 6hours as needed for wheezing/shortness of breath. albuterol HFA (PROVENTIL HFA, VENTOLIN HFA) 90 mcg/actuation inhaler Inhale 2 Puffs as instructed every 6 hours as needed for wheezing/shortness of breath. nirmatrelvir tablet 300 mg (150 mg x 2) and ritonavir tablet 100 mg in a dose pack (PAXLOVID) Administer TWO pink nirmatrelvir 150 mg tablets and ONE white ritonavir 100 mg tablet for a total of three tablets twice daily. albuterol HFA (PROVENTIL HFA, VENTOLIN HFA) 90 mcg/actuation inhaler Inhale 2-4 Puffs as instructedevery 2 hours as needed for wheezing/shortness of breath. (Patient not taking: Reported on 08/20/2023) FAMILY HISTORY Problem Relation Age of Onset Thyroid Mother Heart Attack Mother 40 Heart disease Mother 16 COPD Father Bipolar disorder Brother Diabetes Maternal Grandfather Stroke Maternal Grandfather COPD Paternal Grandfather Social History Tobacco Use Smoking status: Every Day Current packs/day: 1.00 Average packs/day: 1 pack/day for 9.0 years (9.0 ttl pk-yrs) Types: Cigarettes Smokeless tobacco: Never Vaping Use Vaping status: Never Used Substance Use Topics Alcohol use: No Drug use: Never Review of Systems Constitutional: Positive for chills and fatigue. Negative for appetite change, diaphoresis and fever. HENT: Positive for congestion, sinus pressure and sinus pain. Negative for ear discharge, ear pain,postnasal drip, rhinorrhea and sore throat. Eyes: Negative for pain, discharge and itching. Respiratory: Positive for shortness of breath. Negative for wheezing. Cardiovascular: Negative for chest pain and palpitations. Gastrointestinal: Negative for diarrhea, nausea and vomiting. Musculoskeletal: Negative for neck pain and neck stiffness. Skin: Negative for rash. Allergic/Immunologic: Positive for environmental allergies. Negative for food allergies. Neurological: Positive for dizziness and headaches. Objective BP 122/78 Pulse 86 Temp 36.6 C (97.9 F) (Tympanic) Resp 16 Wt 124.8 kg (275 lb 2.2 oz) SpO2 98% BMI 39.48 kg/m Physical Exam Vitals and nursing note reviewed. Constitutional: Appearance: Normal appearance. He is obese. HENT: Head: Normocephalic and atraumatic. Right Ear: Tympanic membrane and ear canal normal. Left Ear: Tympanic membrane and ear canal normal. Nose: No rhinorrhea. Eyes: Conjunctiva/sclera: Conjunctivae normal. Pupils: Pupils are equal, round, and reactive to light. Cardiovascular: Rate and Rhythm: Normal rate and regular rhythm. Pulses: Normal pulses. Heart sounds: Normal heart sounds. Pulmonary: Effort: Pulmonary effort is normal. No respiratory distress. Breath sounds: Normal breath sounds. Skin: General: Skin is warm. Capillary Refill: Capillary refill takes less than 2 seconds. Neurological: Mental Status: He is alert. Psychiatric: Mood and Affect: Mood normal. Behavior: Behavior normal. Assessment and Plan ASSESSMENT/PLAN: 1. COVID-19 - ICD9: 079.89, ICD10: U07.1 Home test POSITIVE Onset of symptoms yesterday BMP obtained today -Creatine Clearance 77 okay to give Paxlovid - NIRMATRELVIR 300 MG (150 MG X2)-RITONAVIR 100 MG TABLET,DOSE PACK Discussed supportive measures OTC Yaneth Muse Student TEACHING PROVIDER (Physician/PA/CAPTION WRITER) NOTE OF PERSONAL INVOLVEMENT IN CARE: I have personally seen and examined the patient and performed the medical decision-making components. I have reviewed the Advanced Practice Registered Nurse (CAPTION WRITER) Student's documentation and verified the findings in the note as written. Any additions or changes are noted in bold/italics. Signature: Sangita Sequeira Date: 07/25/2024 Time: 3:41 PM documented in this encounter[facility] NoteHNO ID: [id number] Author: OLIVIA ALMONTE PA Service: ? Author Type: Physician Sculpture Conservator Type: Progress Notes Filed: 06/21/2024 11:35 Note Text: I was asked to triage this patient by nursing staff. Patient comes in complaining of dizziness, chest discomfort, tingling in the fingers. Patient states that he has had dizziness worsening over the past week. He states he has nasal congestion and sinus pressure. He is also having neck pain and headaches. Patient states that today he started noticing tingling in all of his fingertips. He states he has been having some intermittent chest discomfort, states he is a smoker and also vapes. He has been coughing and feels short of breath. Patient states he had COVID last year and had an abnormal EKG after this and was seen by cardiology and was told everything was fine. Patient is also reporting that hisurine smells like chlorine. He is concerned he may have to be dehydrated. Due to all of patient's symptoms including chest discomfort, tingling, dizziness, I did recommend evaluation in the emergency room. Patient in no acute distress at this time. He declines EMS, will drive himself.[facility] History of Present illness Narrative* Olivia Almonte PA - 06/21/2024 11:32 AM EDT I was asked to triage this patient by nursing staff. Patient comes in complaining of dizziness, chest discomfort, tingling in the fingers. Patient states that he has had dizziness worsening over the past week. He states he has nasal congestion and sinus pressure. He is also having neck pain and headaches. Patient states that today he started noticing tingling in all of his fingertips. He states he has been having some intermittent chest discomfort, states he is a smoker and also vapes. He has been coughing and feels short of breath. Patient states he had COVID last year and had an abnormal EKG after this and was seen by cardiology and was told everything was fine. Patient is also reporting that his urine smells like chlorine. He is concerned he may have to be dehydrated. Due to all of patient's symptoms including chest discomfort, tingling, dizziness, I did recommend evaluation in theemergency room. Patient in no acute distress at this time. He declines EMS, will drive himself. documented in this encounterSelect [facility]24 Telephone encounter Note * Telephone Encounter - Kristin White MA - 06/13/2024 7:38 AM EDT Patient notified of results, verbalized understanding of instructions given. Kristin White MA [facility]07-24-2024 Miscellaneous Notes* Telephone Encounter - Kristin White MA - 06/13/2024 7:38 AM EDT Patient notified of results, verbalized understanding of instructions given. Kristin White MA * Telephone Encounter - Kenrick Brown APRN.CNP - 06/13/2024 7:05 AM EDT Please notify that covid/flu/rsv testing negative. Continue with plan of care as discussed during visit. documented in this encounterSelect [facility]07-[facility]-2024 Telephone encounter Note * Telephone Encounter - Kenrick Brown APRN.CNP - 06/13/2024 7:05 AM EDT Please notify that covid/flu/rsv testing negative. Continue with plan of care as discussed during visit. [facility] Work Phone: [phone]) 444-338007-23-2024 NoteHNO ID: [id number] Author: OLIVIA ALMONTE PA Service: ? Author Type: Physician Sculpture Conservator Type: Progress Notes Filed: 06/12/2024 20:01 Note Text: This note was created using CorvisaCloud. Subjective Santy Alanis is a 29 year old male. HPI 29-year-old male presents for nasal congestion, sinus pressure, sinus pain, headache, cough x 3 days. Patient states he started getting nasal congestion about 3 days ago. He has a lot of sinus pressure and headache. He states he feels a little bit dizzy from the sinus pressure. This has been going on for about 3 days. He states he has a chronic cough because he is a smoker. Cough is unchanged. He denies any fevers. No vomiting or diarrhea. Still able to eat and drink. Patient states he has had sick contacts, no known exposure to COVID. Patient did have COVID last year and states that this feels similar. He is requesting a test for COVID. He does have history of asthma. No increase in wheezing or shortness of breath. No other complaint. PAST MEDICAL HISTORY Diagnosis Date ADHD Anxiety Childhood asthma URI induced as an adult Current moderate episode of major depressive disorder without prior episode (HCC) Family history of heart attack Graves disease History of chlamydia Lung nodule age 19 Morbid obesity with BMI of 40.0-44.9, adult (HCC) Panic disorder Post-surgical hypothyroidism Tobacco use PAST SURGICAL HISTORY Procedure Laterality Date LAPS SURG CHOLECYSTECTOMY W/CHOLANGIOGRAPHY 08/09/2021 THYROIDECTOMY TOTAL/COMPLETE ALLERGIES Bee Venom Protein (Honey Bee) and Concerta [Methylphenidate Analogues] MEDICATIONS levothyroxine (LEVOXYL) 112 mcg tablet Take one Tuesday-Tuesday and two tablets on Tuesday and Tuesday. Take on empty stomach EPINEPHrine (EPIPEN) 0.3 mg/0.3 mL auto-injector Inject 0.3 mL intramuscularly as needed (For allergic reaction). ipratropium-albuterol (DUONEB) 0.5 mg-3 mg(2.5 mg base)/3 mL nebu Inhale 3 mL as instructed every 6 hours as needed for wheezing/shortness of breath. albuterol HFA (PROVENTIL HFA, VENTOLIN HFA) 90 mcg/actuation inhaler Inhale 2 Puffs as instructed every 6 hours as needed for wheezing/shortness of breath. fluticasone (FLONASE) 50 mcg/actuation nasal spray Use 2 Sprays in each nostril once daily. Rinse mouth after use. Fczamapzzccbbto-Eshestsal-XO (BROMFED DM) 2-30-10 mg/5 mL syrup Take 10 mL by mouth four times a day as needed. albuterol HFA (PROVENTIL HFA, VENTOLIN HFA) 90 mcg/actuation inhaler Inhale 2-4 Puffs as instructed every 2 hours as needed for wheezing/shortness of breath. (Patient not taking: Reported on 08/20/2023) FAMILY HISTORY Problem Relation Age of Onset Thyroid Mother Heart Attack Mother 40 Heart disease Mother 16 COPD Father Bipolar disorder Brother Diabetes Maternal Grandfather Stroke Maternal Grandfather COPD Paternal Grandfather Social History Tobacco Use Smoking status: Every Day Packs/day: 1.00 Years: 9.00 Additional pack years: 0.00 Total pack years: 9.00 Types: Cigarettes Smokeless tobacco: Never Vaping Use Vaping Use: Never used Substance Use Topics Alcohol use: No Drug use: Never Review of Systems Constitutional: Negative for chills and fever. HENT: Positive for congestion, sinus pressure and sinus pain. Negative for sore throat. Respiratory: Positive for cough. Negative for shortness of breath. Gastrointestinal: Negative for diarrhea and vomiting. Neurological: Positive for dizziness and headaches. Objective BP 124/76 Pulse 96 Temp 36.7 ?C (98 ?F) Resp 16 Wt 124.8 kg (275 lb 2.2 oz) SpO2 98% BMI 39.48 kg/m? Physical Exam Vitals and nursing note reviewed. Constitutional: General: He is not in acute distress. Appearance: Normal appearance. He is not toxic-appearing. HENT: Right Ear: Tympanic membrane and ear canal normal. Left Ear: Tympanic membrane and ear canal normal. Nose: Congestion present. Right Sinus: Maxillary sinus tenderness present. Left Sinus: Maxillary sinus tenderness present. Mouth/Throat: Mouth: Mucous membranes are moist. Eyes: Conjunctiva/sclera: Conjunctivae normal. Cardiovascular: Rate and Rhythm: Normal rate and regular rhythm. Pulmonary: Effort: Pulmonary effort is normal. Breath sounds: Normal breath sounds. Skin: General: Skin is warm and dry. Neurological: Mental Status: He is alert. Assessment and Plan ASSESSMENT/PLAN: 1. URI, acute - ICD9: 465.9, ICD10: J06.9 - Discussed viral etiology and rationale for treatment. - Symptomatic treatment with prn analgesia - Supportive care with fluids and rest - Rx for Bromfed - Rx for Flonase - COVID AND INFLUENZA A/B AND RSV NAAT, ROUTINE -Patient is in window for Paxlovid. He states that he is interested in Paxlovid if covid positive. He has taken in the past. As he is higher risk due to history of asthma, hypothyroidism and smoker. - Lab 10/2023 GFR 93 Diagnosis and treatme (more content not included)...[facility] 06-12-2024 History of Present illness Narrative* Olivia Almonte PA - 06/12/2024 7:56 PM EDT This note was created using goOutMapriter. Subjective Santy Alanis is a 29 year old male. HPI 29-year-old male presents for nasal congestion, sinus pressure, sinus pain, headache, cough x 3days. Patient states he started getting nasal congestion about 3 days ago. He has a lot of sinus pressure and headache. He states he feels a little bit dizzy from the sinus pressure. This has been going on for about 3 days. He states he has a chronic cough because he is a smoker. Cough is unchanged. He denies any fevers. No vomiting or diarrhea. Still able to eat and drink. Patient states he has had sick contacts, no known exposure to COVID. Patient did have COVID last year and states that thisfeels similar. He is requesting a test for COVID. He does have history of asthma. No increase in whe ezing or shortness of breath. No other complaint. PAST MEDICAL HISTORY Diagnosis Date ADHD Anxiety Childhood asthma URI induced as an adult Current moderate episode of major depressive disorder without prior episode (HCC) Family history of heart attack Graves disease History of chlamydia Lung nodule age 19 Morbid obesity with BMI of 40.0-44.9, adult (HCC) Panic disorder Post-surgical hypothyroidism Tobacco use PAST SURGICAL HISTORY Procedure Laterality Date LAPS SURG CHOLECYSTECTOMY W/CHOLANGIOGRAPHY 08/09/2021 THYROIDECTOMY TOTAL/COMPLETE ALLERGIES Bee Venom Protein (Honey Bee) and Concerta [Methylphenidate Analogues] MEDICATIONS levothyroxine (LEVOXYL) 112 mcg tablet Take one Tuesday-Tuesday and two tablets on Tuesday and Tuesday. Take on empty stomach EPINEPHrine (EPIPEN) 0.3 mg/0.3 mL auto-injector Inject 0.3 mL intramuscularly as needed (For allergic reaction). ipratropium-albuterol (DUONEB) 0.5 mg-3 mg(2.5 mg base)/3 mL nebu Inhale 3 mL as instructed every 6hours as needed for wheezing/shortness of breath. albuterol HFA (PROVENTIL HFA, VENTOLIN HFA) 90 mcg/actuation inhaler Inhale 2 Puffs as instructed every 6 hours as needed for wheezing/shortness of breath. fluticasone (FLONASE) 50 mcg/actuation nasal spray Use 2 Sprays in each nostril once daily. Rinse mouth after use. Ebfyxyhtcbvjfyb-Eoulxkcwy-GK (BROMFED DM) 2-30-10 mg/5 mL syrup Take 10 mL by mouth four times a day as needed. albuterol HFA (PROVENTIL HFA, VENTOLIN HFA) 90 mcg/actuation inhaler Inhale 2-4 Puffs as instructedevery 2 hours as needed for wheezing/shortness of breath. (Patient not taking: Reported on 08/20/2023) FAMILY HISTORY Problem Relation Age of Onset Thyroid Mother Heart Attack Mother 40 Heart disease Mother 16 COPD Father Bipolar disorder Brother Diabetes Maternal Grandfather Stroke Maternal Grandfather COPD Paternal Grandfather Social History Tobacco Use Smoking status: Every Day Packs/day: 1.00 Years: 9.00 Additional pack years: 0.00 Total pack years: 9.00 Types: Cigarettes Smokeless tobacco: Never Vaping Use Vaping Use: Never used Substance Use Topics Alcohol use: No Drug use: Never Review of Systems Constitutional: Negative for chills and fever. HENT: Positive for congestion, sinus pressure and sinus pain. Negative for sore throat. Respiratory: Positive for cough. Negative for shortness of breath. Gastrointestinal: Negative for diarrhea and vomiting. Neurological: Positive for dizziness and headaches. Objective BP 124/76 Pulse 96 Temp 36.7 C (98 F) Resp 16 Wt 124.8 kg (275 lb 2.2 oz) SpO2 98% BMI 39.48 kg/m Physical Exam Vitals and nursing note reviewed. Constitutional: General: He is not in acute distress. Appearance: Normal appearance. He is not toxic-appearing. HENT: Right Ear: Tympanic membrane and ear canal normal. Left Ear: Tympanic membrane and ear canal normal. Nose: Congestion present. Right Sinus: Maxillary sinus tenderness present. Left Sinus: Maxillary sinus tenderness present. Mouth/Throat: Mouth: Mucous membranes are moist. Eyes: Conjunctiva/sclera: Conjunctivae normal. Cardiovascular: Rate and Rhythm: Normal rate and regular rhythm. Pulmonary: Effort: Pulmonary effort is normal. Breath sounds: Normal breath sounds. Skin: General: Skin is warm and dry. Neurological: Mental Status: He is alert. Assessment and Plan ASSESSMENT/PLAN: 1. URI, acute - ICD9: 465.9, ICD10: J06.9 - Discussed viral etiology and rationale for treatment. - Symptomatic treatment with prn analgesia - Supportive care with fluids and rest - Rx for Bromfed - Rx for Flonase - COVID & INFLUENZA A/B & RSV NAAT, ROUTINE -Patient is in window for Paxlovid. He states that he is interested in Paxlovid if covid positive. He has taken in the past. As he is higher risk due to history of asthma, hypothyroidism and smoker. - Lab 10/2023 GFR 93 Diagnosis and treatment plan were discussed and questions were answered to the patient's satisfaction. Pt acknowledged understanding of concepts and follow up plan. Specific signs and symptoms that would indicate the need for higher level of care were discussed in detail warranting prompt ER evaluation. REBECA Hamilton documented in this encounterSelect [facility]24 Telephone encounter Note * Telephone Encounter - Mecca Umanzor APRN.BROACH OPERATOR - 04/04/2024 4:57 PM EDT Did not see he has been discharged. Will need to find new PCP for refills. Mecca Umanzor APRN.DINORAH [facility]05-15-20[facility] Miscellaneous Notes* Telephone Encounter - Mecca Umanzor APRN.CNP - 04/04/2024 4:57 PM EDT Did not see he has been discharged. Will need to find new PCP for refills. Mecca Umanzor APRN.CNP * Telephone Encounter - Clara Varner LPN - 04/04/2024 4:52 PM EDT Patient has been discharged. Do you still want him to schedule a follow up as requested? Clara Varner LPN * Telephone Encounter - Bob Ann LPN - 04/04/2024 10:56 AM EDT Patient has been identified by name and date of : Yes Patient phones for refill(s): Requested Prescriptions Pending Prescriptions Disp Refills levothyroxine (LEVOXYL) 112 mcg tablet 94 tablet 0 Sig: Take one Tuesday-Tuesday and two tablets on Tuesday and Tuesday. Take on empty stomach Date of last office visit in primary care: 10/31/2023 Date of next office visit in primary care: Visit date not found Please advise. Thank you. Bob Ann LPN. documented in this encounterSelect [facility]05-[facility]-2024 Telephone encounter Note * Telephone Encounter - Clara Varner LPN - 04/04/2024 4:52 PM EDT Patient has been discharged. Do you still want him to schedule a follow up as requested? Clara Varner LPN [facility]05-[facility] Telephone encounter Note* Telephone Encounter - Bob Ann LPN - 04/04/2024 10:56 AM EDT Patient has been identified by name and date of : Yes Patient phones for refill(s): Requested Prescriptions Pending Prescriptions Disp Refills levothyroxine (LEVOXYL) 112 mcg tablet 94 tablet 0 Sig: Take one Tuesday-Tuesday and two tablets on Tuesday and Tuesday. Take on empty stomach Date of last office visit in primary care: 10/31/2023 Date of next office visit in primary care: Visit date not found Please advise. Thank you. Bob Ann LPN. [facility]04-16-2024 Miscellaneous Notes* Telephone Encounter - William Ross RN - 03/06/2024 11:38 AM EDT Pt returned call and given provider's message below with verbalized understanding. Patient agreeable. * Telephone Encounter - Clara Varner LPN - 03/06/2024 11:35 AM EDT Message left for patient to call office back for update. Clara Varner LPN * Telephone Encounter - Mecca Umanzor APRN.CNP - 03/06/2024 10:38 AM EDT TSH just above normal range. Recommend take one tablet Tuesday- Tuesday and two on Tuesday and Tuesday. Recheck level in 6-8 weeks Mecca Umanzor APRN.BROACH OPERATOR documented in this encounterSelect Medical [facility]03-19-2024 History of Present illness Narrative* Inez Galloway PA-C - 02/07/2024 11:55 AM EDT Subjective Santy Alanis is a 28 y.o. male who presents for Cough. Patient presents with production cough, sinus congestion/drainage, sore throat, and loose stools for the last 1-2 days. He states that his kids were sick about a week ago. He reports a history of asthma and smoking. History provided by: Patient and medical records Cough The cough is Productive of sputum. Associated symptoms include headaches, nasal congestion, postnasal drip, rhinorrhea and a sore throat. Pertinent negatives include no chest pain, chills, ear pain, fever, myalgias, rash, shortness of breath, sweats or wheezing. Risk factors for lung disease include smoking/tobacco exposure. He has tried OTC cough suppressant for the symptoms. The treatment provided mild relief. His past medical history is significant for asthma. BP 118/75 Pulse 92 Temp 36.4 C (97.6 F) SpO2 97% All vitals have been reviewed and are stable. Review of Systems Constitutional: Negative for chills and fever. HENT: Positive for postnasal drip, rhinorrhea and sore throat. Negative for ear pain. Respiratory: Positive for cough. Negative for shortness of breath and wheezing. Cardiovascular: Negative for chest pain. Musculoskeletal: Negative for myalgias. Skin: Negative for rash. Neurological: Positive for headaches. Objective Physical Exam Vitals and nursing note reviewed. Constitutional: General: He is not in acute distress. Appearance: Normal appearance. He is ill-appearing. HENT: Head: Normocephalic and atraumatic. Right Ear: External ear normal. Left Ear: External ear normal. Nose: Mucosal edema, congestion and rhinorrhea present. Mouth/Throat: Lips: [place]. Mouth: Mucous membranes are moist. Palate: No lesions. Pharynx: Uvula midline. Oropharyngeal exudate and posterior oropharyngeal erythema present. Tonsils: No tonsillar exudate. Eyes: Extraocular Movements: Extraocular movements intact. Conjunctiva/sclera: Conjunctivae normal. Right eye: Right conjunctiva is not injected. Left eye: Left conjunctiva is not injected. Pupils: Pupils are equal, round, and reactive to light. Cardiovascular: Rate and Rhythm: Normal rate and regular rhythm. Heart sounds: Normal heart sounds. Pulmonary: Effort: Pulmonary effort is normal. No respiratory distress. Breath sounds: Normal breath sounds and air entry. Transmitted upper airway sounds present. No stridor. No wheezing, rhonchi or rales. Abdominal: General: Abdomen is flat. Palpations: Abdomen is soft. Tenderness: There is no abdominal tenderness. Musculoskeletal: General: Normal range of motion. Cervical back: Normal range of motion and neck supple. Lymphadenopathy: Cervical: No cervical adenopathy. Skin: General: Skin is warm and dry. Neurological: General: No focal deficit present. Mental Status: He is alert and oriented to person, place, and time. Mental status is at baseline. Psychiatric: Mood and Affect: Mood normal. Behavior: Behavior normal. Assessment/Plan Problem List Items Addressed This Visit Mild intermittent asthma Relevant Medications albuterol (Ventolin HFA) 90 mcg/actuation inhaler methylPREDNISolone (Medrol Dospak) 4 mg tablets Other Visit Diagnoses Viral upper respiratory tract infection - Primary Relevant Medications albuterol (Ventolin HFA) 90 mcg/actuation inhaler methylPREDNISolone (Medrol Dospak) 4 mg tablets tputfzremwwzkxz-mxzblsegs-MI 2-30-10 mg/5 mL syrup benzonatate (Tessalon) 200 mg capsule Other Relevant Orders POCT Influenza A/B manually resulted (Completed) Sars-CoV-2 and Influenza A/B PCR Red flags for reporting to ER have been reviewed with the patient. Current diagnosis, any medication changes, and all in-office lab or radiologic results have been reviewed with the patient at the time of the visit. If symptoms do not improve or worsen, patient is to follow up with PCP or report to the emergency room. Patient is alert and oriented x3 and non-toxic appearing. Vital signs are stable. Patient and/or guardian has sufficient decision-making capabilities at this time and reports understanding and agreement with the treatment plan made through shared decision-making. [facility] Work Phone: [phone]) 166-186402-27-2024 Miscellaneous Notes* Telephone Encounter - Macey Manuel RN - 01/17/2024 9:44 AM EST was called on January 17, 2024 to be rescheduled for an appointment with the [facility] that was either cancelled or the patient was a no show on 11/28/23. Mr. Alanis is interested in rescheduling with [facility] but states will call back to schedule. Macey Manuel RN documented in this encounterSelect Medical [facility]02-20-2024 Miscellaneous Notes* Telephone Encounter - Roshan Deng LPN - 01/10/2024 9:07 AM EST Spoke with pt and information listed below given. Pt verbalizes understanding. Roshan Deng LPN * Telephone Encounter - Mecca Umanzor APRN.DINORAH - 01/10/2024 7:09 AM EST TSH level still showing he is not getting enough replacement. He can continue to take the same dosebut needs to take an extra one once a week. Recheck level in 6-8 weeks. Mecca Umanzor APRN.DINORAH documented in this encounterSelect Medical [facility]02-20-2024 Miscellaneous Notes* Telephone Encounter - Roshan Deng LPN - 01/10/2024 9:04 AM EST See phone encounter dated 01/10/24. Roshan Deng LPN * Telephone Encounter - Roshan Deng LPN - 01/09/2024 4:37 PM EST Keep open till lab is completed and send to provider to decide on what dose pt needs to be on. Roshan Deng LPN * Telephone Encounter - Mecca Umanzor APRN.CNP - 01/09/2024 2:15 PM EST Sorry I missed she had just had appointment. She had TSH level today so I will wait for that in case I need to make changes. Thanks, Mecca * Telephone Encounter - Roshan Deng LPN - 01/09/2024 2:08 PM EST Please clarify when apt is due. Last OV has 10/31/24 (1 year). Checking to make sure not sooner. Roshan Deng LPN * Telephone Encounter - Mecca Umanzor APRN.CNP - 01/09/2024 10:44 AM EST Needs appointment. Please assist in scheduling Mecca Umanzor APRN.DINORAH * Telephone Encounter - Cece Loya Ma - 01/09/2024 10:37 AM EST Patient has been identified by name and date of : Yes, Provider Eleuterio Villatoro MD DateFebruary 2023 Time 10:37 AM Patient phones for refill(s): Requested Prescriptions Pending Prescriptions Disp Refills levothyroxine (LEVOXYL) 112 mcg tablet 30 tablet 2 Sig: Take 1 tablet by mouth once daily. Take on empty stomach. For thyroid. Date of last office visit in primary care: 10/31/2023 Date of next office visit in primary care: none Please advise. Thank you. Cece Loya Ma. documented in this encounterSelect Medical [facility]12-18-2023 Miscellaneous Notes* Telephone Encounter - Sherlyn Riddle, CIPRIANO - 11/07/2023 2:32 PM EST Did the patient test positive for COVID (antibody testing NOT accepted): Yes Date of Positive Test: 07/28/23, two other times asked to bring dates to appointment Type of test (home test or PCR): PCR COVID vaccine type and dates (if not already on file): No We have a few questions about any ongoing symptoms to help prepare you and your provider for your visit. 2. Is the patient seeing us for taste/smell changes? No 3. Is patient traveling far (1 hour+) or coming from another state: Yes 3A. Does the patient have SOB? Yes A little bit 3B. Does the patient have any chest pain or palptations? Yes palpitations Patient then stated he only lives 25 minutes away, orders not pended for PFTs/Echo Patient C/O fatigue, dizziness and POTS 4. Please inform patient of the below information if they have not been sent [facility] appt reminder: [facility] clinic functions as a referral service. You will have an initial visit as well as one follow-up virtual visit in which all [facility] clinic testing, imaging, and labs will be discussed. From there on it is expected that you continue to follow up with your PCP and the specialist(s) established through this program. We do not manage symptoms or follow patients detention. [facility] intake team is not able to assist with disability requests, including work restrictions or clearances as we do not do active treatment and management of long-COVID symptoms, and are not actively involved in long-term care after your 2 visits. Your primary care provider and the consulted specialists we discuss during our visit(s) are better suited for assisting with disabilityrequests. Those providers are welcome use our office note and testing to help support their plans of care. Patients will be expected to have labs, testing, and consults done through [facility]; we cannot fax orders to outside facilities, and do not have acess to outside providers. Please be prepared that you mayneed to travel to [place] multiple times to get all testing done and see the consulted specialist(s). Please arrive 15 minutes early to your appointment and complete the questionnaires you have received via [facility] ahead of time. If you are more than 10 minutes late to your appointment you may be asked to reschedule. If you have outside testing you would like to be entered into your chart, please fax it to [phone]. Records brought in same day of visit may not be reviewed until after the visit due to time constraints. documented in this encounterSelect Medical [facility]12-12-2023 Miscellaneous Notes* Telephone Encounter - Esthela Cervantes OCCA - 11/01/2023 3:13 PM EST TC to patient who verbalized understanding of providers message below and has no further questions at this time. RAINA Banda * Telephone Encounter - Mecca Umanzor APRN.CNP - 11/01/2023 3:02 PM EST I can't say it would or would not cause this. In my experience I haven't seen this, however I do not deal exclusively with long haul COVID-19. That is a great thing to discuss with the COVID-19 recovery clinic. Mecca Umanzor APRN.DINORAH * Telephone Encounter - Kelly Gonzalez RN - 11/01/2023 9:42 AM EST Pt called and is notified of providers results and instructions. Pt voices understanding. Pt askingif having the long Covid could be causing hie WBC to be elevated. Kelly Gonzalez RN * Telephone Encounter - Mecca Umanzor APRN.CNP - 11/01/2023 8:26 AM EST TSH very elevated meaning. Since he has been out of his medication for a month he should restart and recheck level in 6-8 weeks. White blood cell count mildly elevated. The rest of his blood work is in acceptable ranges. Keep appointment with COVID-19 clinic. Will recheck white count with TSH in 6-8 weeks. Mecca Umanzor APRN.DINORAH documented in this encounterSelect Medical [facility]health [facility] Hospital12-11-2023 NoteHNO ID: [id number] Author: Mecca Umanzor APRN.CNP Service: ? Author Type: Nurse Practitioner Type: Progress Notes Filed: 10/31/2023 3:52 PM Note Text: 10/31/2023 Patient presents with: Covid Follow Up: Had covid in July, has had issues with fatigue, dizziness, vision changes while at the store, blurry and eyes hurt. States they are dry. Feels a tremor every so often inside body, isn't sure if its a palpitation. Body aches all the time. SUBJECTIVE: This is a 28 year old that is here today for Above Complaints. Diagnosed with COVID-19 in July,. Since that time has had dizziness, fatigue, blurry vision, eyes constantly feel dry and burn, fatigue, maybe feels palpitations, chest feels shaky and body aches. Also admits to mild SOB and nausea at times. Reports his dizziness is like a brain fog. Worsened by walking around at the stores looking at things. He reports he saw an ENT who did a hearing test and this was normal. Has upcoming appointment with [facility] for an EKG that was abnormal. Denies weight loss, fevers, chills, sore throat, rhinorrhea, nasal congestion, loss of taste or smell, diplopia, dyspnea, wheezing, chest pain, abdominal pain, vomiting, constipation or diarrhea Has been out of his synthroid for about a week. Reports he has been taking consisently on an empty stomach until the last week. PAST MEDICAL HISTORY Diagnosis Date ADHD Anxiety Childhood asthma URI induced as an adult Current moderate episode of major depressive disorder without prior episode (HCC) Family history of heart attack Graves disease History of chlamydia Lung nodule age 19 Morbid obesity with BMI of 40.0-44.9, adult (HCC) Panic disorder Post-surgical hypothyroidism Tobacco use ALLERGIES Bee Venom Protein (Honey Bee) and Concerta [Methylphenidate Analogues] MEDICATIONS Current Outpatient Medications Medication Sig levothyroxine (LEVOXYL) 112 mcg tablet Take 1 tablet by mouth once daily. Take on empty stomach. For thyroid. EPINEPHrine (EPIPEN) 0.3 mg/0.3 mL auto-injector Inject 0.3 mL intramuscularly as needed (For allergic reaction). albuterol HFA (PROVENTIL HFA, VENTOLIN HFA) 90 mcg/actuation inhaler Inhale 2-4 Puffs as instructed every 2 hours as needed for wheezing/shortness of breath. (Patient not taking: Reported on 08/20/2023) ipratropium-albuterol (DUONEB) 0.5 mg-3 mg(2.5 mg base)/3 mL nebu Inhale 3 mL as instructed every 6 hours as needed for wheezing/shortness of breath. albuterol HFA (PROVENTIL HFA, VENTOLIN HFA) 90 mcg/actuation inhaler Inhale 2 Puffs as instructed every 6 hours as needed for wheezing/shortness of breath. No current facility-administered medications for this visit. Medications and allergies reviewed by this provider. SOCIAL HISTORY Social History Tobacco Use Smoking status: Every Day Packs/day: 1.00 Years: 9.00 Additional pack years: 0.00 Total pack years: 9.00 Types: Cigarettes Smokeless tobacco: Never Vaping Use Vaping Use: Never used Substance Use Topics Alcohol use: No Drug use: Never REVIEW OF SYSTEMS All other reviewed and negative other than HPI. OBJECTIVE: BP 120/84 Pulse 100 Resp 18 Wt 124.9 kg (275 lb 6.4 oz) SpO2 94% BMI 39.52 kg/m? . Vital signs reviewed by this provider. APPEARANCE Well appearing, alert, in no acute distress, well-hydrated, well nourished. EYES PERRLA, conjunctiva and sclera normal. EARS External ears normal, canals clear THROAT normal, no erythema NECK Supple, no adenopathy; thyroid symmetric, normal size, no bruits HEART RRR with normal S1 and S2, no murmurs, no gallops, no JVD appreciated LUNG clear to auscultation. No wheezes, rhonchi or rales EXTREMITIES Extremities normal, No deformities, No skin discoloration, and No edema NEURO Awake, alert and oriented x 3, Cranial nerves II-XII grossly intact, Reflexes symmetrical, Normal gait, No involuntary motions., and negative findings: speech normal, mental status intact, cranial nerves 2-12 intact, Romberg negative, muscle tone normal, muscle strength normal, rapid alternating movements normal, finger to nose normal, reflexes normal and symmetric, plantar response downgoing bilaterally SKIN Skin color, texture, turgor normal, no suspicious rashes or lesions to exposed skin Hepatitis B Vaccine(1 of 3 - 3-dose series) Never done Covid-19 Vaccine(1) Never done Pneumococcal Vaccine(1 - PCV) Never done Influenza Vaccine(1) due on 07/22/2023 Annual PCP Team Chronic Disease Visit due on 10/31/2024 DTaP,Tdap,Td Vaccine(3 - Td or Tdap) due on 07/15/2030 Hepatitis C Screening Completed HPV Vaccine Aged Out HIV Screening Discontinued ASSESSMENT/PLAN: 1. COVID-19 suzette perez - ICD9: 139.8, ICD10: U09.9 (primary diagnosis) - follow-up with [facility] as scheduled - normal orthostatics in office today - CONSULT TO COVID RECOVER CLINIC - TSH BLD - CBC + DIFF (more content not included)...[facility]12-11-2023 History of Present illness Narrative* Mecca Umanzor APRN.BROACH OPERATOR - 10/31/2023 2:41 PM EST 10/31/2023 Patient presents with: Covid Follow Up: Had covid in July, has had issues with fatigue, dizziness, vision changes while at the store, blurry and eyes hurt. States they are dry. Feels a tremor every so often inside body, isn't sure if its a palpitation. Body aches all the time. SUBJECTIVE: This is a 28 year old that is here today for Above Complaints. Diagnosed with COVID-19 in July,. Since that time has had dizziness, fatigue, blurry vision, eyes constantly feel dry and burn, fatigue, maybe feels palpitations, chest feels shaky and bodyaches. Also admits to mild SOB and nausea at times. Reports his dizziness is like a brain fog. Worsened by walking around at the stores looking at things. He reports he saw an ENT who did a hearingtest and this was normal. Has upcoming appointment with [facility] for an EKG that was abnormal. Denies weight loss, fevers, chills, sore throat, rhinorrhea, nasal congestion, loss of taste or smell, diplopia, dyspnea, wheezing, chest pain, abdominal pain, vomiting, constipation or diarrhea Has been out of his synthroid for about a week. Reports he has been taking consisently on an empty stomach until the last week. PAST MEDICAL HISTORY Diagnosis Date ADHD Anxiety Childhood asthma URI induced as an adult Current moderate episode of major depressive disorder without prior episode (HCC) Family history of heart attack Graves disease History of chlamydia Lung nodule age 19 Morbid obesity with BMI of 40.0-44.9, adult ([facility]) Panic disorder Post-surgical hypothyroidism Tobacco use ALLERGIES Bee Venom Protein (Honey Bee) and Concerta [Methylphenidate Analogues] MEDICATIONS Current Outpatient Medications Medication Sig levothyroxine (LEVOXYL) 112 mcg tablet Take 1 tablet by mouth once daily. Take on empty stomach. For thyroid. EPINEPHrine (EPIPEN) 0.3 mg/0.3 mL auto-injector Inject 0.3 mL intramuscularly as needed (For allergic reaction). albuterol HFA (PROVENTIL HFA, VENTOLIN HFA) 90 mcg/actuation inhaler Inhale 2-4 Puffs as instructedevery 2 hours as needed for wheezing/shortness of breath. (Patient not taking: Reported on 08/20/2023) ipratropium-albuterol (DUONEB) 0.5 mg-3 mg(2.5 mg base)/3 mL nebu Inhale 3 mL as instructed every 6hours as needed for wheezing/shortness of breath. albuterol HFA (PROVENTIL HFA, VENTOLIN HFA) 90 mcg/actuation inhaler Inhale 2 Puffs as instructed every 6 hours as needed for wheezing/shortness of breath. No current facility-administered medications for this visit. Medications and allergies reviewed by this provider. SOCIAL HISTORY Social History Tobacco Use Smoking status: Every Day Packs/day: 1.00 Years: 9.00 Additional pack years: 0.00 Total pack years: 9.00 Types: Cigarettes Smokeless tobacco: Never Vaping Use Vaping Use: Never used Substance Use Topics Alcohol use: No Drug use: Never REVIEW OF SYSTEMS All other reviewed and negative other than HPI. OBJECTIVE: BP 120/84 Pulse 100 Resp 18 Wt 124.9 kg (275 lb 6.4 oz) SpO2 94% BMI 39.52 kg/m . Vital signs reviewed by this provider. APPEARANCE Well appearing, alert, in no acute distress, well-hydrated, well nourished. EYES PERRLA, conjunctiva and sclera normal. EARS External ears normal, canals clear THROAT normal, no erythema NECK Supple, no adenopathy; thyroid symmetric, normal size, no bruits HEART RRR with normal S1 and S2, no murmurs, no gallops, no JVD appreciated LUNG clear to auscultation. No wheezes, rhonchi or rales EXTREMITIES Extremities normal, No deformities, No skin discoloration, and No edema NEURO Awake, alert and oriented x 3, Cranial nerves II-XII grossly intact, Reflexes symmetrical, Normal gait, No involuntary motions., and negative findings: speech normal, mental status intact, cranial nerves 2-12 intact, Romberg negative, muscle tone normal, muscle strength normal, rapid alternating movements normal, finger to nose normal, reflexes normal and symmetric, plantar response downgoing bilaterally SKIN Skin color, texture, turgor normal, no suspicious rashes or lesions to exposed skin Hepatitis B Vaccine(1 of 3 - 3-dose series) Never done Covid-19 Vaccine(1) Never done Pneumococcal Vaccine(1 - PCV) Never done Influenza Vaccine(1) due on 07/22/2023 Annual PCP Team Chronic Disease Visit due on 10/31/2024 DTaP,Tdap,Td Vaccine(3 - Td or Tdap) due on 07/15/2030 Hepatitis C Screening Completed HPV Vaccine Aged Out HIV Screening Discontinued ASSESSMENT/PLAN: 1. COVID-19 suzette perez - ICD9: 139.8, ICD10: U09.9 (primary diagnosis) - follow-up with [facility] as scheduled - normal orthostatics in office today - CONSULT TO COVID RECOVER CLINIC - TSH BLD - CBC + DIFF - COMP METABOLIC PANEL 2. Post-surgical hypothyroidism - ICD9: 244.0, ICD10: E89.0 - Instructed patient on importance of taking on an empty stomach either first thing in the morning or at bedtime. - check TSH today - continue current dose of Synthroid 0.112 mg - follow-up pending blood work Mecca Umanzor, CAPTION WRITER.BROACH OPERATOR Prescription instructions reviewed with patient as applicable. Patient advised if symptoms do not improve or if symptoms worsen sooner, to contact their primary care physician. Potential red flag symptoms discussed with the patient. Reviewed appropriate action plan to take if red flag symptoms occur. Patient agreeable to treatment plan. I spent a total of 30 minutes on the date of the service which included preparing to see the patient, [id number] patient care, completing clinical documentation, obtaining and/or reviewing separately obtained history, performing a medically appropriate examination, counseling and educating the pat ient/family/caregiver, and ordering medications, tests, or procedures. documented in this encounterSelect Medical [facility]10-14-2023 NoteHNO ID: [id number] Author: Note, Interface Service: ? Author Type: ? Type: Progress Notes Filed: 09/03/2023 4:59 AM Note Text: Epic Scheduled Downtime: 09/03/2023 1:00:00 AM to 09/03/2023 1:28:00 AM[facility] NoteHNO ID: [id number] Author: Jessica Cope APRN.DINORAH Service: ? Author Type: Nurse Practitioner Type: Progress Notes Filed: 08/20/2023 3:05 PM Note Text: Patient came in with complaints of dizziness and feeling off balance. Patient is 4 weeks post-COVID. Weeks ago patient had abnormal EKG reviewed and troponin levels. Patient has cardiology appointment scheduled but has not seen them for follow-up yet. Patient says his symptoms seem to be getting worse. Patient says he feels his heart beating out of his chest. Patient feels short of breath when doing normal tasks. At this time patient was encouraged to go to the emergency room to be evaluated for further cardiac issues. Patient was okay with this care plan and wants to take himself.[facility]09[facility]30[facility] History of Present illness Narrative* Jessica Cope APRN.DINORAH - 08/20/2023 3:03 PM EDT Patient came in with complaints of dizziness and feeling off balance. Patient is 4 weeks post-COVID. Weeks ago patient had abnormal EKG reviewed and troponin levels. Patient has cardiology appointment scheduled but has not seen them for follow-up yet. Patient says his symptoms seem to be getting worse. Patient says he feels his heart beating out of his chest. Patient feels short of breath when doing normal tasks. At this time patient was encouraged to go to the emergency room to be evaluated for further cardiac issues. Patient was okay with this care plan and wants to take himself. documented in this encounterSelect Medical [facility]health [facility]09-06-2023 Instructions* Patient Instructions* Eleuterio Villatoro MD - 07/27/2023 8:13 AM EDT Images from the original note were not included. FACT SHEET FOR PATIENTS, PARENTS, AND CAREGIVERS EMERGENCY USE AUTHORIZATION (EUA) OF PAXLOVID FOR CORONAVIRUS DISEASE 2019 (COVID-19) You are being given this Fact Sheet because your healthcare provider believes it is necessary to provide you with PAXLOVID for the treatment of usvj-xv-uzkajzwd coronavirus disease (COVID-19) caused by the SARS-CoV-2 virus. This Fact Sheet contains information to help you understand the risks and benefits of taking the PAXLOVID you may receive. This Fact Sheet also contains information about how to take PAXLOVID and how to report side effects or problems with the appearance or packaging of PAXLOVID. The [place].S. Food and Drug Administration (FDA) has issued an Emergency Use Authorization (EUA) to makePAXLOVID available for the treatment of oxlc-cp-wdmhuude COVID-19 in adults and children 12 years of age and older weighing at least 88 pounds (40 kg) who are at high risk for progression to severe COVID-19, including hospitalization or (for more details about an EUA please see What is an Emergency Use Authorization? at the end of this document). Read this Fact Sheet for information about PAXLOVID. Talk to your healthcare provider about your options or if you have any questions. It is your choice to take PAXLOVID. What is COVID-19? COVID-19 is caused by a virus called a coronavirus. You can get COVID-19 through close contact withanother person who has the virus. COVID-19 illnesses have ranged from very milx-kk-hynchi, including illness resulting in . While information so far suggests that most COVID-19 illness is mild, serious illness can happen and maycause some of your other medical conditions to become worse. Older people and people of all ages with severe, long lasting (chronic) medical conditions like heart disease, lung disease, and diabetes,for example seem to be at higher risk of being hospitalized for COVID-19. What is PAXLOVID? PAXLOVID is a medicine that is available under EUA for the treatment of eumj-fg-ueeyumyt COVID-19 in adults and children 12 years of age and older weighing at least 88 pounds (40 kg) who are at high risk for progression to severe COVID-19, including hospitalization or . Although PAXLOVID is FDA- approved for the treatment of COVID-19 in certain adults (see section What other treatment choicesare there?), PAXLOVID use in children remains investigational because it is still being studied. There is limited information about the safety and effectiveness of using PAXLOVID to treat children with yovq-tj-vvjxgoel COVID-19. What is the most important information I should know about PAXLOVID? PAXLOVID can interact with other medicines causing severe or life-threatening side effects or . It is important to know the medicines that should not be taken with PAXLOVID. Do not take PAXLOVID if: you are taking any of the following medicines: o alfuzosin o amiodarone o apalutamide o carbamazepine o colchicine o dihydroergotamine o dronedarone o eletriptan o eplerenone o ergotamine o finerenone o flecainide o flibanserin o ivabradine o lomitapide o lovastatin o lumacaftor/ivacaftor o lurasidone o methylergonovine o midazolam (oral) o naloxegol o phenobarbital o phenytoin o pimozide o primidone o propafenone o quinidine o ranolazine o rifampin o rifapentine o Scott s Wort (hypericum perforatum) o sildenafil (Revatio ) for pulmonary arterial hypertension o silodosin o simvastatin o tolvaptan o triazolam o ubrogepant o voclosporin These are not the only medicines that may cause serious or life-threatening side effects if taken with PAXLOVID. PAXLOVID may increase or decrease the levels of multiple other medicines. It is very important to tell your healthcare provider about all of the medicines you are taking because additional laboratory tests or changes in the dose of your other medicines may be necessary during treatment with PAXLOVID. Your healthcare provider may also tell you about specific symptoms to watch out for that may indicate that you need to stop or decrease the dose of some of your other medicines. you are allergic to nirmatrelvir, ritonavir, or any of the ingredients in PAXLOVID. See the end of this leaflet for a complete list of ingredients in PAXLOVID. See What are the important possible side effects of PAXLOVID? for signs and symptoms of allergic reactions. What should I tell my healthcare provider before I take PAXLOVID? Tell your healthcare provider if you: have kidney problems. You may need a different dose of PAXLOVID. have liver problems, including hepatitis. have Human Immunodeficiency Virus 1 (HIV-1) infection. PAXLOVID may lead to some HIV-1 medicines not working as well in the future. are or plan to become . It is not known if PAXLOVID can harm your unborn baby. Tell your healthcare provider right away if you are or if you become . are or plan to breastfeed. It is not known if PAXLOVID can pass into your breast milk. Talk to your healthcare provider about the best way to feed your baby during treatment with PAXLOVID. Some medicines may interact with PAXLOVID and may cause serious side effects. Tell your healthcare provider about all the medicines you take, including prescription and fyho-isw-othameb medicines, vitamins, and herbal supplements. Your healthcare provider can tell you if it is safe to take PAXLOVID with other medicines. You can ask your healthcare provider or pharmacist for a list of medicines that interact with PAXLOVID. Do not start taking a new medicine without telling your healthcare provider. Tell your healthcare provider if you are taking combined control (hormonal contraceptive). PAXLOVID may affect how your hormonal contraceptives work. Females who are able to become should use another effective alternative form of contraception or an additional barrier method of contraception during treatment with PAXLOVID. Talk to your healthcare provider if you have any questions about contraceptive methods that might be right for you. How do I take PAXLOVID? Take PAXLOVID exactly as your healthcare provider tells you to take it. PAXLOVID consists of 2 medicines: nirmatrelvir tablets and ritonavir tablets. The 2 medicines are taken together 2 times each day for 5 days. Nirmatrelvir is an oval, pink tablet. Ritonavir is a white or off-white tablet. PAXLOVID is available in 2 Dose Packs (see Figures A and B below). Your healthcare provider will prescribe the PAXLOVID Dose Pack that is right for you. If you have kidney disease, your healthcare provider may prescribe a lower dose (see Figure B). Talk to your healthcare provider to make sure you receive the correct Dose Pack. Do not remove your PAXLOVID tablets from the blister card before you are ready to take your dose. Take your first dose of PAXLOVID in the morning or evening, depending on when you scrap picker your prescription, or as your healthcare provider tells you to. Swallow the tablets whole. Do not chew, break, or crush the tablets. Take PAXLOVID with or without food. Do not stop taking PAXLOVID without talking to your healthcare provider, even if you feel better. If you miss a dose of PAXLOVID within 8 hours of the time it is usually taken, take it as soon as you remember. If you miss a dose by more than 8 hours, skip the missed dose and take the next dose atyour regular time. Do not take 2 doses of PAXLOVID at the same time. If you take too much PAXLOVID, call your healthcare provider or go to the nearest hospital emergency room right away. If you are taking a ritonavir- or cobicistat-containing medicine to treat hepatitis C or HIV-1 infection, you should continue to take your medicine as prescribed by your healthcare provider. Talk to your healthcare provider if you do not feel better or if you feel worse after 5 days. What are the important possible side effects of PAXLOVID? PAXLOVID may cause serious side effects, including: Allergic reactions, including severe allergic reactions (anaphylaxis) have happened during treatment with PAXLOVID. Stop taking PAXLOVID and get medical help right away if you get any of the following symptoms of an allergic reaction: o skin rash, hives, blisters or peeling skin o painful sores or ulcers in the mouth, nose, throat or genital area o swelling of the mouth, lips, tongue or face o trouble swallowing or breathing o throat tightness o hoarseness Liver Problems. Tell your healthcare provider right away if you get any of the following signs and symptoms of liver problems during treatment with PAXLOVID: o loss of appetite o yellowing of your skin and the white of eyes o dark-colored urine o pale colored stools o itchy skin o stomach-area (abdominal) pain The most common side effects of PAXLOVID include: altered sense of taste and diarrhea. Other possible side effects include: headache vomiting abdominal pain nausea high blood pressure feeling generally unwell These are not all the possible side effects of PAXLOVID. For more information, ask your healthcare provider or pharmacist. What other treatment choices are there? PAXLOVID is FDA-approved for the treatment of gzqf-qq-kwjmhqvp COVID-19 in certain adults; however,there are not sufficient quantities of the approved presentations (i.e., dose packs) of PAXLOVID atthis time. This EUA continues to authorize the emergency use of PAXLOVID for the approved patient population to ensure continued access in order to meet the public health need. VEKLURY (remdesivir) is FDA-approved for the treatment of ubik-tw-cearxmhf COVID-19 in certain adults and children. Talk with your healthcare provider to see if VEKLURY is appropriate for you. For information on the emergency use of other medicines that are authorized by FDA to treat people with COVID-19, please go to https://www.fda.gov/cxjasyzbn-qtplfiyytmeg-acp-response/tya-eltfw-qhkbadp mqr-wte-sshgvy-framework/hdcrvawmg-thk-dftgaytvvdknd. Your healthcare provider may talk with you about clinical trials for which you may be eligible. It is your choice to be treated or not to be treated with PAXLOVID. Should you decide not to receive it or for your child not to receive it, it will not change your standard medical care. What if I am or ? There is limited experience treating women or mothers with PAXLOVID. For a mother and unborn baby, the benefit of taking PAXLOVID may be greater than the risk from the treatment. If you are , discuss your options and specific situation with your healthcare provider. If you are , discuss your options and specific situation with your healthcare provider. How do I report side effects or problems with the appearance or packaging of PAXLOVID? Contact your healthcare provider if you have any side effects that bother you or do not go away. Report side effects or problems with the appearance or packaging of PAXLOVID (see Figures A and B above for examples of PAXLOVID Dose Packs) to FDA [employer] at www.fda.gov/medwatch or call 0-227-QTE-0931 or you can report side effects to [employer]. at the contact information provided below. How should I store PAXLOVID? Store PAXLOVID tablets at room temperature, between 68?F to 77?F (20?C to 25?C). Keep PAXLOVID and all medicines out of the reach of children. What if I have questions about the expiration date for my PAXLOVID? The FDA has extended the expiration date (shelf-life) for some lots of PAXLOVID. To find the extended expiration date, enter the lot number found on the side of carton or bottom of blister pack at this website: https://www.paxlovidlotexLearnSomething.[employer]/ or talk with your healthcare provider. Information onthe authorized shelf-life extensions for PAXLOVID may also be found at https://www.fda.gov/emergency -zfqmxfntxwwm-rln-ynipxulk/jmz-oxlmy-psimbvypem-eyj-mnlbwe-clvlnsxuw/expiration- dating-extension. How can I learn more about COVID-19? Ask your healthcare provider. Visit https://www.cdc.gov/COVID19. Contact your local or state public health department. What is an Emergency Use Authorization (EUA)? The [place] FDA has made PAXLOVID available under an emergency access mechanism called an Emergency Use Authorization (EUA). The EUA is supported by a [place] of Health and Human Services (HHS) declaration that circumstances exist to justify the emergency use of drugs and biological products during the COVID-19 pandemic. In issuing an EUA, the FDA has determined, among other things, that based on the total amount of scientific evidence available including data from adequate and well-controlled clinical trials, if available, it is reasonable to believe that the product may be effective for diagnosing, treating, or preventing COVID-19, or a serious or life-threatening disease or condition caused by COVID-19; that the known and potential benefits of the product, when used to diagnose, treat, or prevent such disease or condition, outweigh the known and potential risks of such product; and that there are no adequate, approved, and available alternatives. All of these criteria must be met to allow for the product to be available under an EUA. The EUA for PAXLOVID is in effect for the duration of the COVID-19 declaration justifying emergency use of this product, unless the relevant EUA declaration is terminated or the EUA revoked (after which the products may no longer be used under the EUA). What are the ingredients in PAXLOVID? Active ingredient: nirmatrelvir and ritonavir Nirmatrelvir inactive ingredients: colloidal silicon dioxide, croscarmellose sodium, lactose monohydrate, microcrystalline cellulose, and sodium stearyl fumarate. Film-coating contains: hydroxy propyl methylcellulose, iron oxide red, polyethylene glycol, and titanium dioxide. Ritonavir inactive ingredients: anhydrous dibasic calcium phosphate, colloidal silicon dioxide, copovidone, sodium stearyl fumarate, and sorbitan monolaurate. The film coating may contain: colloidal anhydrous silica, colloidal silicon dioxide, hydroxypropyl cellulose, hypromellose, polyethylene glycol, polysorbate 80, talc, and titanium dioxide. Additional Information For general questions, visit the website or call the telephone number provided below. Website: [email or web address] Telephone number: (1-877-c19-PACK) Distributed by [employer] [place] [address] [id number] Revised: 03/2023 documented in [facility] NoteHNO ID: [id number] Author: Eleuterio Villatoro MD Service: ? Author Type: Physician Type: Progress Notes Filed: 07/27/2023 8:16 AM Note Text: Telemedicine Evaluation for COVID-19 Infection MyChart video visit was used for evaluation of this patient. I have communicated my name and active licensure. The patient's identity and physical location were verified at the time of this visit. Either the patient or their legal labor union business representative has been informed of the risks and benefits of -- and alternatives to -- treatment through a remote evaluation and consents to proceed with the evaluation remotely. SUBJECTIVE Santy Alanis is a 28 year old male who presents with 3 days of symptoms that are improving. Symptoms include: Fever (?100.4F): Yes Tmax: 100.5 or Chills: No Cough: Yes Shortness of breath: No or Difficulty breathing: No Fatigue: Yes Muscle aches: Yes Headache: Yes New loss of smell or taste: No Sore throat: Yes Nasal congestion: Yes or Rhinorrhea: No Nausea: No or Vomiting: No Diarrhea: Yes OTC meds/remedies that patient has tried: Dayquil, OTC cold and flu medication, albuterol inhaler PRN. High risk category assessment Obesity BMI >30 Exposures: Sick contacts? Yes-Kids Family or close contacts with confirmed/probable COVID-19 in last 14 days? Yes OBJECTIVE VIDEO EXAM None reported from today. Temp Yesterday: 97.0 GENERAL: Ill-appearing, but non-toxic HEENT: no conjunctival injection, pupils equal, moist mucous membranes, sinuses non-tender to self-palpation, and no cervical adenopathy by self-palpation PULMONARY: breathing comfortably on room air , no coughing noted, and no wheezing noted ASSESSMENT/PLAN (U07.1) COVID-19 (primary encounter diagnosis) Recommend rest, supportive care, and should isolate until: At least 5 days have passed since symptoms first appeared and At least 24 hours have passed since last fever without the use of fever-reducing medications and Symptoms (e.g., cough, shortness of breath) have improved. Should wear mask for at least 5 days after he ends isolation to prevent spread to others. - Discussed symptom monitoring and supportive care - Red flag symptoms requiring follow up discussed Nirmatrelvir/Ritonavir (Paxlovid) Considerations Paxlovid is FDA-approved for treatment of mild to moderate COVID-19 in adults who are at high risk for progression to severe COVID-19. Consider use of Paxlovid in the following examples of high risk patients (list is not all inclusive): Age over 65 years Cardiovascular and cerebrovascular disease Chronic disease state (kidney, liver, lung) Diabetes (type 1 or type 2) Immunocompromised state (cancer, solid organ or blood stem cell transplant, HIV) Obesity Paxlovid warnings include serious drug interactions (co-administration with drugs highly dependent on CYP3A for clearance), hypersensitivity reactions, hepatotoxicity, and risk of HIV-1 resistance development. Eleuterio Villatoro MD July 27, 2023 8:11 AM This patient encounter involved the screening or treatment of novel coronavirus infection (COVID-19). Nirmatrelvir/Ritonavir (Paxlovid) Considerations Paxlovid is FDA-approved for treatment of mild to moderate COVID-19 in adults who are at high risk for progression to severe COVID-19. Consider use of Paxlovid in the following examples of high risk patients (list is not all inclusive): Age over 65 years Cardiovascular and cerebrovascular disease Chronic disease state (kidney, liver, lung) Diabetes (type 1 or type 2) Immunocompromised state (cancer, solid organ or blood stem cell transplant, HIV) Obesity Paxlovid warnings include serious drug interactions (co-administration with drugs highly dependent on CYP3A for clearance), hypersensitivity reactions, hepatotoxicity, and risk of HIV-1 resistance development. I spent a total of 15 minutes on the date of the service which included preparing to see the patient, lxmr-sk-banj patient care, completing clinical documentation, obtaining and/or reviewing separately obtained history, performing a medically appropriate examination, counseling and educating the patient/family/caregiver, and ordering medications, tests, or procedures. Eleuterio Villatoro MD July 27, 2023 8:13 [facility]09-06-2023 History of Present illness Narrative* Eleuterio Villatoro MD - 07/27/2023 8:01 AM EDT Telemedicine Evaluation for COVID-19 Infection MyChart video visit was used for evaluation of this patient. I have communicated my name and active licensure. The patient's identity and physical location wereverified at the time of this visit. Either the patient or their legal labor union business representative has been informed of the risks and benefits of -- and alternatives to -- treatment through a remote evaluation andconsents to proceed with the evaluation remotely. SUBJECTIVE Santy Alanis is a 28 year old male who presents with 3 days of symptoms that are improving. Symptoms include: Fever (?100.4F): Yes Tmax: 100.5 or Chills: No Cough: Yes Shortness of breath: No or Difficulty breathing: No Fatigue: Yes Muscle aches: Yes Headache: Yes New loss of smell or taste: No Sore throat: Yes Nasal congestion: Yes or Rhinorrhea: No Nausea: No or Vomiting: No Diarrhea: Yes OTC meds/remedies that patient has tried: Dayquil, OTC cold and flu medication, albuterol inhaler PRN. High risk category assessment Obesity BMI >30 Exposures: Sick contacts? Yes-Kids Family or close contacts with confirmed/probable COVID-19 in last 14 days? Yes OBJECTIVE VIDEO EXAM None reported from today. Temp Yesterday: 97.0 GENERAL: Ill-appearing, but non-toxic HEENT: no conjunctival injection, pupils equal, moist mucous membranes, sinuses non-tender to self-palpation, and no cervical adenopathy by self-palpation PULMONARY: breathing comfortably on room air , no coughing noted, and no wheezing noted ASSESSMENT/PLAN (U07.1) COVID-19 (primary encounter diagnosis) Recommend rest, supportive care, and should isolate until: At least 5 days have passed since symptoms first appeared and At least 24 hours have passed since last fever without the use of fever-reducing medications and Symptoms (e.g., cough, shortness of breath) have improved. Should wear mask for at least 5 days after he ends isolation to prevent spread to others. - Discussed symptom monitoring and supportive care - Red flag symptoms requiring follow up discussed Nirmatrelvir/Ritonavir (Paxlovid) Considerations Paxlovid is FDA-approved for treatment of mild to moderate COVID-19 in adults who are at high risk for progression to severe COVID-19. Consider use of Paxlovid in the following examples of high risk patients (list is not all inclusive): Age over 65 years Cardiovascular and cerebrovascular disease Chronic disease state (kidney, liver, lung) Diabetes (type 1 or type 2) Immunocompromised state (cancer, solid organ or blood stem cell transplant, HIV) Obesity Paxlovid warnings include serious drug interactions (co-administration with drugs highly dependent on CYP3A for clearance), hypersensitivity reactions, hepatotoxicity, and risk of HIV-1 resistance development. Eleuterio Villatoro MD July 27, 2023 8:11 AM This patient encounter involved the screening or treatment of novel coronavirus infection (COVID-19). Nirmatrelvir/Ritonavir (Paxlovid) Considerations Paxlovid is FDA-approved for treatment of mild to moderate COVID-19 in adults who are at high risk for progression to severe COVID-19. Consider use of Paxlovid in the following examples of high risk patients (list is not all inclusive): Age over 65 years Cardiovascular and cerebrovascular disease Chronic disease state (kidney, liver, lung) Diabetes (type 1 or type 2) Immunocompromised state (cancer, solid organ or blood stem cell transplant, HIV) Obesity Paxlovid warnings include serious drug interactions (co-administration with drugs highly dependent on CYP3A for clearance), hypersensitivity reactions, hepatotoxicity, and risk of HIV-1 resistance development. I spent a total of 15 minutes on the date of the service which included preparing to see the patient, fcpq-rj-kwnj patient care, completing clinical documentation, obtaining and/or reviewing separately obtained history, performing a medically appropriate examination, counseling and educating the pat ient/family/caregiver, and ordering medications, tests, or procedures. Eleuterio Villatoro MD July 27, 2023 8:13 AM documented in [facility] Miscellaneous Notes* Telephone Encounter - Roz Ashley LPN - 07/26/2023 7:20 PM EDT Patient on schedule for tomorrow morning via VV. Patient also has scheduled his annual physical with [facility] for 08/04/23. * Telephone Encounter - Clara Rachel RN - 07/26/2023 6:05 PM EDT PATIENT NOTIFIED OF INFORMATION [facility] * Telephone Encounter - Roz Ashley LPN - 07/26/2023 5:50 PM EDT Attempted to phone patient and received recording that stated The person you have dialed can not accept calls at this time. Will send theAudiencehart message to patient. * Telephone Encounter - Eleuterio Villatoro MD - 07/26/2023 5:33 PM EDT Needs VV to discuss treatment options, risks and benefits. * Telephone Encounter - Clara Rachel RN - 07/26/2023 5:09 PM EDT patient is calling in stating that he just tested positive for covid on a home kit and is requesting to have paxlovid called in due to being over weight and asthma. patient states that s/s started 2 days ago. Please review and advise patient needs called with information. documented in this [facility] Miscellaneous Notes* Telephone Encounter - Sun Best LPN - 05/20/2023 11:28 AM EDT TC to Pt. Updated Pt on having to make appt. Pt stated he will. Also let Pt know we're only giving 30 tabs. Pt agreed. Sun Best LPN Patient phones requesting refills as follows: Requested Prescriptions Pending Prescriptions Disp Refills levothyroxine (LEVOXYL) 112 mcg tablet 30 tablet 0 Sig: Take 1 tablet by mouth once daily. Take on empty stomach. For thyroid. Please review and advise. Sun Best LPN * Telephone Encounter - Eleuterio Villatoro MD - 05/19/2023 1:49 PM EDT Patient overdue for annual check up and labs. Please call to schedule OV. * Telephone Encounter - Cece Loya Ma - 05/19/2023 12:15 PM EDT Last office visit: 01/21/23 F/u scheduled: none Cece Loya Ma documented in this encounter[facility] Miscellaneous Notes* Telephone Encounter - Cece Loya Ma - 05/19/2023 12:13 PM EDT Last office visit: 01/21/23 F/u scheduled: none Cece Loya Ma documented in this encounter[facility]23 Miscellaneous Notes* Telephone Encounter - Roz Ashley LPN - 01/31/2023 8:46 AM EDT Patient scheduled for VV today for c/o stomach pain. Patient needs an in OV to properly address hiscomplaints. Message left for him to return call to change to OV or reschedule to time he can come in. documented in this encounterSelect [facility]-2023 History of Present illness Narrative* Bernarda Todd APRN.BROACH OPERATOR - 01/21/2023 1:40 PM EST Chief Complaint Patient presents with: Covid Positive This Team Access Model encounter involved medical decision making outside of a scheduled office visit. Patient was offered a virtual/telemedicine appointment in lieu of an office visit due to recommendations to reduce patient exposure to COVID-19. Video was used for evaluation of this patient. Patient agrees to the visit: Yes Patient Location: [facility] Santy Alanis is a 27 year old male who is contacted today for a virtual visit This is an established patient of Dr. Eleuterio Villatoro MD Reports: Covid + at home on today, symptoms of headache, diarrhea, cough, and sinus congestion started 01/20/2023. Cough is dry. No Fever, chills, sore throat, SOB. History of asthma, using albuterol as needed. Has had covid in the past. Took paxlovid. Past medical history, appointments, medications, allergies reviewed 01/21/2023 Previous Medical History PAST MEDICAL HISTORY Diagnosis Date ADHD Anxiety Childhood asthma URI induced as an adult Current moderate episode of major depressive disorder without prior episode (HCC) Family history of heart attack Graves disease History of chlamydia Lung nodule age 19 Morbid obesity with BMI of 40.0-44.9, adult (HCC) Panic disorder Post-surgical hypothyroidism Tobacco use Previous Surgical History PAST SURGICAL HISTORY Procedure Laterality Date LAPS SURG CHOLECYSTECTOMY W/CHOLANGIOGRAPHY 08/09/2021 THYROIDECTOMY TOTAL/COMPLETE Family History FAMILY HISTORY Problem Relation Age of Onset Thyroid Mother Heart Attack Mother 40 Heart disease Mother 16 COPD Father Bipolar disorder Brother Diabetes Maternal Grandfather Stroke Maternal Grandfather COPD Paternal Grandfather Patient Allergies ALLERGIES Allergen Reactions Bee Venom Protein (* Swelling Concerta [Methylphe* Mental Status Change Current Medications Current Outpatient Medications on File Prior to Visit Medication Sig albuterol HFA (PROVENTIL HFA, VENTOLIN HFA) 90 mcg/actuation inhaler Inhale 2 Puffs as instructed every 6 hours as needed for wheezing/shortness of breath. levothyroxine (LEVOXYL) 112 mcg tablet Take 1 tablet by mouth once daily. Take on empty stomach. For thyroid. EPINEPHrine (EPIPEN) 0.3 mg/0.3 mL auto-injector Inject 0.3 mL intramuscularly as needed (For allergic reaction). No current facility-administered medications on file prior to visit. Social History Social History Tobacco Use Smoking status: Every Day Packs/day: 1.00 Years: 9.00 Pack years: 9.00 Types: Cigarettes Smokeless tobacco: Never Vaping Use Vaping Use: Never used Substance Use Topics Alcohol use: No Drug use: Never Review of Symptoms GENERAL: No malaise or fatigue. No fevers. HEENT: Negative for headaches No eye discharge or redness No earaches No sore throat + Sinus congestion NECK: Negative for pain or swelling. No lumps RESPIRATORY: + Cough CARDIOVASCULAR: Negative for chest pain GI: + Diarrhea MUSCULOSKELETAL: Negative for bodyaches SKIN: Negative for rash or itching Neuro: + Headache EXAM: There were no vitals taken for this visit. Limited exam as visit was completed over the virtual platform. Virtual visit completed using video, limited exam completed. Patient sounds or appears ill: Yes General Appearance: Well appearing, alert, in no acute distress, well-hydrated, well nourished. Skin: Skin color normal Head: Normocephalic. No facial swelling or redness. EENT: Eyes nonreddened. No discharge. External ears nonreddened and no swelling. Neck: No mass or lesions. No swelling. FROM Patient is not able to speak in complete sentences: N/A Patient has labored breathing: No. Patient is audibly coughing: No Psych: Attitude - cooperative, easily engaged in conversation Affect - Euthymic, normal mood Mental status: Alert. Speech is clear and fluent with good repetition, comprehension Appearance - Normal hygiene and grooming appropriate Coordination: No abnormal or extraneous movements. Gait/Stance: Posture is normal. Health Maintenance List HEPATITIS B(1 of 3 - 3-dose series) Never done INFLUENZA(1) due on 07/22/2022 HPV VACCINE(1 - Male 2-dose series) due on 03/10/2023 COVID-19 VACCINE(1) due on 03/10/2023 PNEUMOCOCCAL(1 - PCV) due on 03/10/2023 ANNUAL PCP TEAM CHRONIC DISEASE VISIT due on 08/06/2023 DTAP,TDAP,TD(3 - Td or Tdap) due on 07/15/2030 HEPATITIS C SCREENING Completed HIV SCREENING Discontinued Data reviewed Last 5 Encounter BP Readings: Date: BP: 10/18/2022 140/87 03/10/2022 100/78 11/02/2021 128/82 08/05/2021 112/86 12/26/2019 118/74 BMI Readings from Last 5 Encounters: 10/18/22 : 40.68 kg/m 03/10/22 : 40.68 kg/m 11/02/21 : 38.85 kg/m 08/05/21 : 38.56 kg/m 12/26/19 : 37.83 kg/m Last 5 Encounter Wt Readings: Date: Wt: 10/18/2022 127.5 kg (281 lb) 03/10/2022 127.5 kg (281 lb) 11/02/2021 120.2 kg (265 lb) 08/05/2021 119.3 kg (263 lb) 12/26/2019 117 kg (258 lb) Medication and allergy list reviewed, reconciled and updated 01/21/2023 Total appointment time on virtual with patient = 21-30 minutes Nirmatrelvir/Ritonavir (Paxlovid) Eligibility and Patient Discussion [facility] Formulary Restriction Criteria: Adult outpatients 18 years and older with ALL of the following: [x] Patient has positive SARS-COV-2 viral test (PCR or antigen test) during current illness [x] Patient has symptoms for 5 days or less [x] Not requiring hospitalization at any time for management of COVID-19 [x] Not requiring supplemental oxygen or a change in baseline supplemental oxygen [x] Not utilized for pre-exposure or post-exposure prophylaxis for prevention of COVID-19 [x] Patient does not have severe renal impairment (eGFR < 30 mL/min) or severe hepatic impairment (Child-[place] Class C) [] Meeting at least one of the criteria for high risk of progression to severe COVID-19: [] Age over 65 years [] Cancer [] Chronic kidney disease [] Chronic liver disease [x] Chronic lung diseases, including cystic fibrosis [] Dementia or other neurological conditions [] Diabetes (type 1 or type 2) [] Disabilities, including Down syndrome and neurodevelopmental disorders [] Heart conditions [] HIV infection [] Immunocompromised state [] Mental health conditions [] Medical related technological dependence (tracheostomy, gastrostomy, or positive pressure ventilation (not related to COVID) [x] Overweight and obesity (BMI greater or equal to 25 for adults) [] Physical inactivity [] [] Sickle cell disease or thalassemia [] Smoking, current or former [] Solid organ or blood stem cell transplant [] Stroke or cerebrovascular disease [] Substance use disorders [] Tuberculosis [] People from racial and ethnic minority groups Criteria above are met: Yes Date of Positive Test:01/21/2023 Date of Symptom Onset: 01/20/2023 Patient received COVID vaccine: No Drug-Drug interactions reviewed: Yes. No drug interactions were identified. I have discussed the use of the investigational therapeutic, nirmatrelvir/ritonavir, for the treatment of mild to moderate COVID-19 and its use under Emergency Use Authorization with the patient. The patient was informed that nirmatrelvir/ritonavir is not an FDA approved drug and that it is authorized for use under this Emergency Use Authorization. The patient was also informed of the significant known benefits and potential risks of nirmatrelvir/ritonavir, and the extent to which such potential risks and benefits are unknown. The patient was informed that there is mandatory reporting of all medication errors and serious adverse events potentially related to nirmatrelvir/ritonavir treatment within 7 calendar days from the onset of the event and that events up to 28 days after completion of therapy need to be reported. The discussion included alternatives to receiving nirmatrelvir/rit onavir, including clinical trials, and potential the risks and benefits of those alternatives. The patient was provided electronically with the Fact Sheet for Patients, Parents and Caregivers. The patient was also instructed that in addition to the treatment with nirmatrelvir/ritonavir, he/she should continue to self-isolate and use infection control measures (e.g., wear mask, isolate, social distance, avoid sharing personal items, clean and disinfect high touch surfaces, and frequent h andwashing) according to CDC guidelines. The patient stated understanding and gave verbal consent to proceeding with nirmatrelvir/ritonavir treatment. Bernarda Todd APRN.BROACH OPERATOR January 21, 2023 1:54 PM ASSESSMENT/PLAN: 1. COVID-19 - ICD9: 079.89, ICD10: U07.1 - Start Paxlovid, take as directed. - Continue supportive care at home, may use mecm-ycu-lfqglju cold and cough medication as needed for symptom management. - Continue to use albuterol inhaler as needed for shortness of breath or wheezing. - Quarantine for 5 days from the onset of symptoms, wear a mask for an additional 5 days per the CDC guidelines. - Symptoms given to patient, he verbalizes understanding when to seek emergency care. - NIRMATRELVIR 300 MG (150 MG X2)-RITONAVIR 100 MG TABLET,DOSE PACK(EUA) Aloe up as needed or sooner if symptoms get worse or do not improve. Discussed treatment plan and patient voices understanding. Patient's questions answered appropriately. Medications and potential side effects were discussed and patient voices understanding. Bernarda Todd APRN.CNP This note was partially generated using [employer] voice recognition system. Note was reviewed for accuracy. There may be minor misspellings or grammar miscues with OrderGroove[employer] voice recognition. documented in this encounterSelect [facility]-03-2023 Instructions* Patient Instructions* Bernarda Todd APRN.CNP - 01/21/2023 1:33 PM EST Start paxlovid, take as directed. Continue supportive care at home. May use OTC cold and cough medications as needed. Continue with albuterol inhaler as needed. Red flag symptoms go to ER. Quarantine for 5 days from the onset of symptoms, wear a mask for an additional 5 days per the CDC guidelines. Follow up as needed. FACT SHEET FOR PATIENTS, PARENTS, AND CAREGIVERS EMERGENCY USE AUTHORIZATION (EUA) OF PAXLOVID FOR CORONAVIRUS DISEASE 2019 (COVID-19) You are being given this Fact Sheet because your healthcare provider believes it is necessary to provide you with PAXLOVID for the treatment of vzll-vy-pwlkajzb coronavirus disease (COVID-19) caused by the SARS-CoV-2 virus. This Fact Sheet contains information to help you understand the risks and benefits of taking the PAXLOVID you have received or may receive. The U.S. Food and Drug Administration (FDA) has issued an Emergency Use Authorization (EUA) to makePAXLOVID available during the COVID-19 pandemic (for more details about an EUA please see What is an Emergency Use Authorization? at the end of this document). PAXLOVID is not an FDA-approved medicine in the [place]. Read this Fact Sheet for information about PAXLOVID. Talk to your healthcareprovider about your options or if you have any questions. It is your choice to take PAXLOVID. What is COVID-19? COVID-19 is caused by a virus called a coronavirus. You can get COVID-19 through close contact withanother person who has the virus. COVID-19 illnesses have ranged from very tmlz-ro-hynfqa, including illness resulting in . While information so far suggests that most COVID-19 illness is mild, serious illness can happen and maycause some of your other medical conditions to become worse. Older people and people of all ages with severe, long lasting (chronic) medical conditions like heart disease, lung disease, and diabetes,for example seem to be at higher risk of being hospitalized for COVID-19. What is PAXLOVID? PAXLOVID is an investigational medicine used to treat ikar-ml-pahyfwkn COVID-19 in adults and children [12 years of age and older weighing at least 88 pounds (40 kg)] with positive results of direct SARS-CoV-2 viral testing, and who are at high risk for progression to severe COVID-19, including hospitalization or . PAXLOVID is investigational because it is still being studied. There is limited information about the safety and effectiveness of using PAXLOVID to treat people with gref-su-gztuzrwz COVID-19. The FDA has authorized the emergency use of PAXLOVID for the treatment of ptux-ze-ipubqmap COVID-19in adults and children [12 years of age and older weighing at least 88 pounds (40 kg)] with a positive test for the virus that causes COVID-19, and who are at high risk for progression to severe COVID-19, including hospitalization or , under an EUA. 1 Revised: 05 February 2022 What should I tell my healthcare provider before I take PAXLOVID? Tell your healthcare provider if you: Have any allergies Have liver or kidney disease Are or plan to become Are a child Have any serious illnesses Tell your healthcare provider about all the medicines you take, including prescription and bmhi-lgx-yzjafml medicines, vitamins, and herbal supplements. Some medicines may interact with PAXLOVID and may cause serious side effects. Keep a list of your medicines to show your healthcare provider and pharmacist when you get a new medicine. You can ask your healthcare provider or pharmacist for a list of medicines that interact with PAXLOVID. Do not start taking a new medicine without telling your healthcare provider. Your healthcare provider can tell you if it is safe to take PAXLOVID with other medicines. Tell your healthcare provider if you are taking combined hormonal contraceptive. PAXLOVID may affect how your control pills work. Females who are able to become should use another effective alternative form of contraception or an additional barrier method of contraception. Talk to your healthcare provider if you have any questions about contraceptive methods thatmight be right for you. How do I take PAXLOVID? PAXLOVID consists of 2 medicines: nirmatrelvir and ritonavir. Take 2 pink tablets of nirmatrelvir with 1 white tablet of ritonavir by mouth 2 times each day (in the morning and in the evening) for 5 days. For each dose, take all 3 tablets at the same time. If you have kidney disease, talk to your healthcare provider. You may need a different dose. Swallow the tablets whole. Do not chew, break, or crush the tablets. Take PAXLOVID with or without food. Do not stop taking PAXLOVID without talking to your healthcare provider, even if you feel better. If you miss a dose of PAXLOVID within 8 hours of the time it is usually taken, take it as soon as you remember. If you miss a dose by more than 8 hours, skip the missed dose and take the next dose atyour regular time. Do not take 2 doses of PAXLOVID at the same time. If you take too much PAXLOVID, call your healthcare provider or go to the nearest hospital emergency room right away. If you are taking a ritonavir-or cobicistat-containing medicine to treat hepatitis C or Human Immunodeficiency Virus (HIV), you should continue to take your medicine as prescribed by your healthcare provider. Talk to your healthcare provider if you do not feel better or if you feel worse after 5 days. Who should generally not take PAXLOVID? Do not take PAXLOVID if: You are allergic to nirmatrelvir, ritonavir, or any of the ingredients in PAXLOVID You are taking any of the following medicines: Alfuzosin Pethidine, propoxyphene Ranolazine Amiodarone, dronedarone, flecainide, propafenone, quinidine Colchicine Lurasidone, pimozide, clozapine Dihydroergotamine, ergotamine, methylergonovine Lovastatin, simvastatin Sildenafil (Revatio ) for pulmonary arterial hypertension (PAH) Triazolam, oral midazolam Apalutamide Carbamazepine, phenobarbital, phenytoin Rifampin Scott s Wort (hypericum perforatum) Taking PAXLOVID with these medicines may cause serious or life-threatening side effects or affect how PAXLOVID works. These are not the only medicines that may cause serious side effects if taken with PAXLOVID. PAXLOVID may increase or decrease the levels of multiple other medicines. It is very important to tell your healthcare provider about all of the medicines you are taking because additional laboratory tests or changes in the dose of your other medicines may be necessary while you are taking PAXLOVID. Your healthcare provider may also tell you about specific symptoms to watch out for that may indicate that you need to stop or decrease the dose of some of your other medicines. What are the important possible side effects of PAXLOVID? Possible side effects of PAXLOVID are: Allergic Reactions. Allergic reactions can happen in people taking PAXLOVID, even after only 1 dose. Stop taking PAXLOVID and call your healthcare provider right away if you get any of the following symptoms of an allergic reaction: hives trouble swallowing or breathing swelling of the mouth, lips, or face throat tightness hoarseness skin rash Liver Problems. Tell your healthcare provider right away if you have any of these signs and symptoms of liver problems: loss of appetite, yellowing of your skin and the whites of eyes (jaundice), dark-colored urine, pale colored stools and itchy skin, stomach area (abdominal) pain. Resistance to HIV Medicines. If you have untreated HIV infection, PAXLOVID may lead to some HIV medicines not working as well in the future. Other possible side effects include: altered sense of taste diarrhea high blood pressure muscle aches These are not all the possible side effects of PAXLOVID. Not many people have taken PAXLOVID. Serious and unexpected side effects may happen. PAXLOVID is still being studied, so it is possible that all of the risks are not known at this time. What other treatment choices are there? Veklury (remdesivir) is FDA-approved for the treatment of sqyx-lg-dmyyeehu COVID-19 in certain adults and children. Talk with your doctor to see if Veklury is appropriate for you. Like PAXLOVID, FDA may also allow for the emergency use of other medicines to treat people with COVID-19. Go to https://www.fda.gov/vkcodpspb-plgnmsybhvjn-qmyrxpkuebv/gkq-nplzn-exagzhymjp-and- policy-framework/upycgwhmp-mtl-eccngealemulr for information on the emergency use of other medicines that are authorized by FDA to treat people with COVID-19. Your healthcare provider may talk with you aboutclinical trials for which you may be eligible. It is your choice to be treated or not to be treated with PAXLOVID. Should you decide not to receive it or for your child not to receive it, it will not change your standard medical care. What if I am or ? There is classroom technology technician treating women or mothers with PAXLOVID. For a motherand unborn baby, the benefit of taking PAXLOVID may be greater than the risk from the treatment. Ifyou are , discuss your options and specific situation with your healthcare provider. It is recommended that you use effective barrier contraception or do not have sexual activity whiletaking PAXLOVID. If you are , discuss your options and specific situation with your healthcare provider. How do I report side effects with PAXLOVID? Contact your healthcare provider if you have any side effects that bother you or do not go away. Report side effects to [employer] at www.fda.gov/medSentisistch or call 0-679-LCV2053 or you can reportside effects to [employer] at the contact information provided below. Website Fax number Telephone number [employer] How should I store PAXLOVID? Store PAXLOVID tablets at room temperature, between 68?F to 77?F (20?C to 25?C). How can I learn more about COVID-19? Ask your healthcare provider. Visit https://www.cdc.gov/COVID19. Contact your local or state public health department. What is an Emergency Use Authorization (EUA)? The [place] FDA has made PAXLOVID available under an emergency access mechanism called an Emergency Use Authorization (EUA). The EUA is supported by a [place] of Health and Human Service (HHS) declaration that circumstances exist to justify the emergency use of drugs and biological productsduring the COVID-19 pandemic. PAXLOVID for the treatment of vhca-vs-bkqsyoju COVID-19 in adults and children [12 years of age andolder weighing at least 88 pounds (40 kg)] with positive results of direct SARS-CoV-2 viral testing, and who are at high risk for progression to severe COVID-19, including hospitalization or , has not undergone the same type of review as an FDA-approved product. In issuing an EUA under the COVID-19 public health emergency, the FDA has determined, among other things, that based on the total amount of scientific evidence available including data from adequate and well-controlled clinical trials, if available, it is reasonable to believe that the product may be effective for diagnosing, treating, or preventing COVID-19, or a serious or life-threatening disease or condition caused by COVID-19; that the known and potential benefits of the product, when used to diagnose, treat, or prevent such disease or condition, outweigh the known and potential risks of such product; and that there are no adequate, approved, and available alternatives. All of these criteria must be met to allow for the product to be used in the treatment of patients during the COVID-19 pandemic. The EUA for PAXLOVID is in effect for the duration of the COVID-19 declaration justifying emergency use of this product, unless terminated or revoked (after which the products may no longer be used under the EUA). Additional Information For general questions, visit the website or call the telephone number provided below. Website Telephone number [email or web address] (6-464-Y77-PACK) You can also go to www.[place] or call for more information. Pfizer Distributed by [employer] [place] [address] [id number] Revised: 05 February 2022 documented in this encounterSelect [facility]-2023 Miscellaneous Notes* Telephone Encounter - Roshan Deng LPN - 01/21/2023 12:12 PM EST Pt calls and states the following: COVID 19 positive. COVID -19 DIAGNOSIS: home test 01-21-23 COVID-19 EXPOSURE: unknown ONSET: symptoms 01/20/23, cough muscle pain, headache WORST SYMPTOM: a little chest pressure COUGH: cough, dry FEVER: no RESPIRATORY STATUS: a little chest pressure [id number]: better HIGH RISK DISEASE: asthma, over weight, smoke, immune compromised VACCINE: no OTHER SYMPTOMS: diarrhea,neck pain to the back on the right side DENIED: loss of smell or taste vomiting, sore throat Pt wants to be treated. Virtual apt booked. Unable to book pt's provider/team. Roshan Deng LPN documented in this encounterSelect [facility]-2023 Telephone encounter Note * Telephone Encounter - Ana Hogue RN - 12/25/2022 1:25 PM EST S: Patient spoke with [facility] nurse regarding trouble hearing out of right ear B: Onset of symptoms/concern over a week A: Pt was in the ED a week ago. Told has a lot of wax and possible infection. Referred to ENT for follow up. Pt calling stating that he is supposed to be seen as soon as possible. Pt is having trouble hearing out of his right ear. Has some white discharge out of his ear. Has had dizziness, headacheand ringing in the ear at times. The headache is on the right side. Rates 3/10 when he has it. Denies fever, swelling, ear pain, or trouble with vision. R: There is no one available to schedule a new pt appointment. Please contact pt at [phone] with an appointment time. Patient understands care advice. Instructed to call back with any further questions or concerns. Reason for Disposition [1] Decreased hearing in 1 ear AND [2] gradual onset Answer Assessment - Initial Assessment Questions 1. DESCRIPTION: What type of hearing problem are you having? Describe it for me. (e.g., complete hearing loss, partial loss) Decreased hearing 2. LOCATION: One or both ears? If one, ask: Which ear? right 3. SEVERITY: Can you hear anything? If Yes, ask: What can you hear? (e.g., ticking watch, whisper, talking) - MILD: Difficulty hearing soft speech, quiet library sounds, or speech from a distance or over background noise. - MODERATE: Difficulty hearing normal speech even at closed distances. - SEVERE: Unable to hear most normal conversation and talking; only able to hear loud sounds such as an alarm clock. yes 4. ONSET: When did this begin? Did it start suddenly or come on gradually? Over a week 5. PATTERN: Does this come and go, or has it been constant since it started? constant 6. PAIN: Is there any pain in your ear(s)? (Scale 1-10; or mild, moderate, severe) - NONE (0): no pain - MILD (1-3): doesn't interfere with normal activities - MODERATE (4-7): interferes with normal activities or awakens from sleep - SEVERE (8-10): excruciating pain, unable to do any normal activities no 7. CAUSE: What do you think is causing this hearing problem? unknown 8. OTHER SYMPTOMS: Do you have any other symptoms? (e.g., dizziness, ringing in ears) Dizziness, ringing in ears 9. : Is there any chance you are ? When was your last menstrual period? no Protocols used: Hearing Loss or [id number] [facility] [id number] Miscellaneous Notes* Telephone Encounter - Ana Hogue RN - 12/25/2022 1:25 PM EST S: Patient spoke with [facility] nurse regarding trouble hearing out of right ear B: Onset of symptoms/concern over a week A: Pt was in the ED a week ago. Told has a lot of wax and possible infection. Referred to ENT for follow up. Pt calling stating that he is supposed to be seen as soon as possible. Pt is having trouble hearing out of his right ear. Has some white discharge out of his ear. Has had dizziness, headacheand ringing in the ear at times. The headache is on the right side. Rates 3/10 when he has it. Denies fever, swelling, ear pain, or trouble with vision. R: There is no one available to schedule a new pt appointment. Please contact pt at [phone] with an appointment time. Patient understands care advice. Instructed to call back with any further questions or concerns. Reason for Disposition [1] Decreased hearing in 1 ear AND [2] gradual onset Answer Assessment - Initial Assessment Questions 1. DESCRIPTION: What type of hearing problem are you having? Describe it for me. (e.g., complete hearing loss, partial loss) Decreased hearing 2. LOCATION: One or both ears? If one, ask: Which ear? right 3. SEVERITY: Can you hear anything? If Yes, ask: What can you hear? (e.g., ticking watch, whisper, talking) - MILD: Difficulty hearing soft speech, quiet library sounds, or speech from a distance or over background noise. - MODERATE: Difficulty hearing normal speech even at closed distances. - SEVERE: Unable to hear most normal conversation and talking; only able to hear loud sounds such as an alarm clock. yes 4. ONSET: When did this begin? Did it start suddenly or come on gradually? Over a week 5. PATTERN: Does this come and go, or has it been constant since it started? constant 6. PAIN: Is there any pain in your ear(s)? (Scale 1-10; or mild, moderate, severe) - NONE (0): no pain - MILD (1-3): doesn't interfere with normal activities - MODERATE (4-7): interferes with normal activities or awakens from sleep - SEVERE (8-10): excruciating pain, unable to do any normal activities no 7. CAUSE: What do you think is causing this hearing problem? unknown 8. OTHER SYMPTOMS: Do you have any other symptoms? (e.g., dizziness, ringing in ears) Dizziness, ringing in ears 9. : Is there any chance you are ? When was your last menstrual period? no Protocols used: Hearing Loss or [id number]-MR documented in this [facility]01-03-2023 Miscellaneous Notes* Telephone Encounter - Yusra Wilcox MA - 11/23/2022 4:08 PM EST [facility] Miscellaneous Notes* Telephone Encounter - Cece Loya Ma - 08/12/2022 9:22 AM EDT Pt notified via mychart to get fasting labs done. Cece Loya Ma * Telephone Encounter - Yusra Mi Cma - 08/11/2022 8:49 AM EDT No answer and no VM set up will need to try back later Yusra Mi Cma * Telephone Encounter - Mecca Umanzor APRN.CNP - 08/08/2022 1:25 PM EDT Patient is due for blood work. Mecca Umanzor APRN.CNP * Telephone Encounter - Makayla Allen LPN - 08/06/2022 11:10 AM EDT Last office visit: 03/10/22 except was seen today for sick visit Next appointment scheduled: No future appointments scheduled at this time. Last labs: 01/12/21 Patient phones requesting refills as follows: Requested Prescriptions Pending Prescriptions Disp Refills levothyroxine (LEVOXYL) 112 mcg tablet 90 tablet 1 Sig: Take 1 tablet by mouth once daily. Take on empty stomach. For thyroid. Please review and advise. Makayla Allen LPN documented in this [facility] Instructions* Patient Instructions* Mecca Umanzor APRN.CNP - 08/06/2022 8:04 AM EDT FACT SHEET FOR PATIENTS, PARENTS, AND CAREGIVERS EMERGENCY USE AUTHORIZATION (EUA) OF PAXLOVID FOR CORONAVIRUS DISEASE 2019 (COVID-19) You are being given this Fact Sheet because your healthcare provider believes it is necessary to provide you with PAXLOVID for the treatment of rvow-ya-davmgqlg coronavirus disease (COVID-19) caused by the SARS-CoV-2 virus. This Fact Sheet contains information to help you understand the risks and benefits of taking the PAXLOVID you have received or may receive. The U.S. Food and Drug Administration (FDA) has issued an Emergency Use Authorization (EUA) to makePAXLOVID available during the COVID-19 pandemic (for more details about an EUA please see What is an Emergency Use Authorization? at the end of this document). PAXLOVID is not an FDA-approved medicine in the [place]. Read this Fact Sheet for information about PAXLOVID. Talk to your healthcareprovider about your options or if you have any questions. It is your choice to take PAXLOVID. What is COVID-19? COVID-19 is caused by a virus called a coronavirus. You can get COVID-19 through close contact withanother person who has the virus. COVID-19 illnesses have ranged from very qmjz-bc-rzrews, including illness resulting in . While information so far suggests that most COVID-19 illness is mild, serious illness can happen and maycause some of your other medical conditions to become worse. Older people and people of all ages with severe, long lasting (chronic) medical conditions like heart disease, lung disease, and diabetes,for example seem to be at higher risk of being hospitalized for COVID-19. What is PAXLOVID? PAXLOVID is an investigational medicine used to treat yvag-aw-xhyyhkyj COVID-19 in adults and children [12 years of age and older weighing at least 88 pounds (40 kg)] with positive results of direct SARS-CoV-2 viral testing, and who are at high risk for progression to severe COVID-19, including hospitalization or . PAXLOVID is investigational because it is still being studied. There is limited information about the safety and effectiveness of using PAXLOVID to treat people with zivu-ul-wghzljtu COVID-19. The FDA has authorized the emergency use of PAXLOVID for the treatment of pezr-lp-evyqfxhr COVID-19in adults and children [12 years of age and older weighing at least 88 pounds (40 kg)] with a positive test for the virus that causes COVID-19, and who are at high risk for progression to severe COVID-19, including hospitalization or , under an EUA. 1 Revised: 05 February 2022 What should I tell my healthcare provider before I take PAXLOVID? Tell your healthcare provider if you: Have any allergies Have liver or kidney disease Are or plan to become Are a child Have any serious illnesses Tell your healthcare provider about all the medicines you take, including prescription and cvko-ssi-ymkswgl medicines, vitamins, and herbal supplements. Some medicines may interact with PAXLOVID and may cause serious side effects. Keep a list of your medicines to show your healthcare provider and pharmacist when you get a new medicine. You can ask your healthcare provider or pharmacist for a list of medicines that interact with PAXLOVID. Do not start taking a new medicine without telling your healthcare provider. Your healthcare provider can tell you if it is safe to take PAXLOVID with other medicines. Tell your healthcare provider if you are taking combined hormonal contraceptive. PAXLOVID may affect how your control pills work. Females who are able to become should use another effective alternative form of contraception or an additional barrier method of contraception. Talk to your healthcare provider if you have any questions about contraceptive methods thatmight be right for you. How do I take PAXLOVID? PAXLOVID consists of 2 medicines: nirmatrelvir and ritonavir. Take 2 pink tablets of nirmatrelvir with 1 white tablet of ritonavir by mouth 2 times each day (in the morning and in the evening) for 5 days. For each dose, take all 3 tablets at the same time. If you have kidney disease, talk to your healthcare provider. You may need a different dose. Swallow the tablets whole. Do not chew, break, or crush the tablets. Take PAXLOVID with or without food. Do not stop taking PAXLOVID without talking to your healthcare provider, even if you feel better. If you miss a dose of PAXLOVID within 8 hours of the time it is usually taken, take it as soon as you remember. If you miss a dose by more than 8 hours, skip the missed dose and take the next dose atyour regular time. Do not take 2 doses of PAXLOVID at the same time. If you take too much PAXLOVID, call your healthcare provider or go to the nearest hospital emergency room right away. If you are taking a ritonavir-or cobicistat-containing medicine to treat hepatitis C or Human Immunodeficiency Virus (HIV), you should continue to take your medicine as prescribed by your healthcare provider. Talk to your healthcare provider if you do not feel better or if you feel worse after 5 days. Who should generally not take PAXLOVID? Do not take PAXLOVID if: You are allergic to nirmatrelvir, ritonavir, or any of the ingredients in PAXLOVID You are taking any of the following medicines: Alfuzosin Pethidine, propoxyphene Ranolazine Amiodarone, dronedarone, flecainide, propafenone, quinidine Colchicine Lurasidone, pimozide, clozapine Dihydroergotamine, ergotamine, methylergonovine Lovastatin, simvastatin Sildenafil (Revatio ) for pulmonary arterial hypertension (PAH) Triazolam, oral midazolam Apalutamide Carbamazepine, phenobarbital, phenytoin Rifampin [place] s Wort (hypericum perforatum) Taking PAXLOVID with these medicines may cause serious or life-threatening side effects or affect how PAXLOVID works. These are not the only medicines that may cause serious side effects if taken with PAXLOVID. PAXLOVID may increase or decrease the levels of multiple other medicines. It is very important to tell your healthcare provider about all of the medicines you are taking because additional laboratory tests or changes in the dose of your other medicines may be necessary while you are taking PAXLOVID. Your healthcare provider may also tell you about specific symptoms to watch out for that may indicate that you need to stop or decrease the dose of some of your other medicines. What are the important possible side effects of PAXLOVID? Possible side effects of PAXLOVID are: Allergic Reactions. Allergic reactions can happen in people taking PAXLOVID, even after only 1 dose. Stop taking PAXLOVID and call your healthcare provider right away if you get any of the following symptoms of an allergic reaction: hives trouble swallowing or breathing swelling of the mouth, lips, or face throat tightness hoarseness skin rash Liver Problems. Tell your healthcare provider right away if you have any of these signs and symptoms of liver problems: loss of appetite, yellowing of your skin and the whites of eyes (jaundice), dark-colored urine, pale colored stools and itchy skin, stomach area (abdominal) pain. Resistance to HIV Medicines. If you have untreated HIV infection, PAXLOVID may lead to some HIV medicines not working as well in the future. Other possible side effects include: altered sense of taste diarrhea high blood pressure muscle aches These are not all the possible side effects of PAXLOVID. Not many people have taken PAXLOVID. Serious and unexpected side effects may happen. PAXLOVID is still being studied, so it is possible that all of the risks are not known at this time. What other treatment choices are there? Veklury (remdesivir) is FDA-approved for the treatment of wcly-yp-nbuionjx COVID-19 in certain adults and children. Talk with your doctor to see if Veklury is appropriate for you. Like PAXLOVID, FDA may also allow for the emergency use of other medicines to treat people with COVID-19. Go to https://www.fda.gov/wvjpxbuvc-xeudsvmtlput-swffpspbunh/kmg-dpbcd-dlrmtzeqzg-and- policy-framework/uaorvlmri-hoo-oemgoyayfmrlq for information on the emergency use of other medicines that are authorized by FDA to treat people with COVID-19. Your healthcare provider may talk with you aboutclinical trials for which you may be eligible. It is your choice to be treated or not to be treated with PAXLOVID. Should you decide not to receive it or for your child not to receive it, it will not change your standard medical care. What if I am or ? There is classroom technology technician treating women or mothers with PAXLOVID. For a motherand unborn baby, the benefit of taking PAXLOVID may be greater than the risk from the treatment. Ifyou are , discuss your options and specific situation with your healthcare provider. It is recommended that you use effective barrier contraception or do not have sexual activity whiletaking PAXLOVID. If you are , discuss your options and specific situation with your healthcare provider. How do I report side effects with PAXLOVID? Contact your healthcare provider if you have any side effects that bother you or do not go away. Report side effects to FDA MedWatch at www.fda.gov/medwatch or call 1-188-AVK6354 or you can reportside effects to [employer]. at the contact information provided below. Website Fax number Telephone number [employer] How should I store PAXLOVID? Store PAXLOVID tablets at room temperature, between 68?F to 77?F (20?C to 25?C). How can I learn more about COVID-19? Ask your healthcare provider. Visit https://www.cdc.gov/COVID19. Contact your local or state public health department. What is an Emergency Use Authorization (EUA)? The [place] FDA has made PAXLOVID available under an emergency access mechanism called an Emergency Use Authorization (EUA). The EUA is supported by a Case Monitor of Health and Human Service (HHS) declaration that circumstances exist to justify the emergency use of drugs and biological productsduring the COVID-19 pandemic. PAXLOVID for the treatment of wjxk-qo-epddmyec COVID-19 in adults and children [12 years of age andolder weighing at least 88 pounds (40 kg)] with positive results of direct SARS-CoV-2 viral testing, and who are at high risk for progression to severe COVID-19, including hospitalization or , has not undergone the same type of review as an FDA-approved product. In issuing an EUA under the COVID-19 public health emergency, the FDA has determined, among other things, that based on the total amount of scientific evidence available including data from adequate and well-controlled clinical trials, if available, it is reasonable to believe that the product may be effective for diagnosing, treating, or preventing COVID-19, or a serious or life-threatening disease or condition caused by COVID-19; that the known and potential benefits of the product, when used to diagnose, treat, or prevent such disease or condition, outweigh the known and potential risks of such product; and that there are no adequate, approved, and available alternatives. All of these criteria must be met to allow for the product to be used in the treatment of patients during the COVID-19 pandemic. The EUA for PAXLOVID is in effect for the duration of the COVID-19 declaration justifying emergency use of this product, unless terminated or revoked (after which the products may no longer be used under the EUA). Additional Information For general questions, visit the website or call the telephone number provided below. Website Telephone number www.[employer] (1-877-c19-pack) You can also go to www.[employer] or call for more information. Pfizer Distributed by [employer] [place] [address] [id number] Revised: 05 February 2022 documented in this encounter[facility]22 History of Present illness Narrative* Mecca Umanzor APRN.CNP - 08/06/2022 7:52 AM EDT Telemedicine Evaluation for COVID-19 Infection MyChart video visit was used for evaluation of this patient. Location of patient: [place] In lieu of an in person visit due to coronavirus 19 pandemic concerns, a telephone /video visit wasperformed with patient. Patient is aware that I am not fully able to assess symptoms and do a full physical exam including vital signs at this time. Patient consents to the visit SUBJECTIVE Santy Alanis is a 27 year old male who presents with 2 days of symptoms that are stable. Tested positive last night at h ome Symptoms include: Fever (?100.4F): No or Chills: Yes Cough: Yes Shortness of breath: No or Difficulty breathing: No Fatigue: Yes Muscle aches: Yes Headache: Yes New loss of smell or taste: No Sore throat: No Nasal congestion: Yes or Rhinorrhea: No Nausea: No or Vomiting: No Diarrhea: Yes OTC meds/remedies that patient has tried: acetaminophen. High risk category assessment Morbid Obesity (BMI>40) Exposures: Sick contacts? No Family or close contacts with confirmed/probable COVID-19 in last 14 days? No He reports that he has been smoking cigarettes. He has a 4.50 pack-year smoking history. He has never used smokeless tobacco. OBJECTIVE VIDEO EXAM (if available) GENERAL: well appearing, alert, in no acute distress PULMONARY: breathing comfortably on room air , no coughing noted, no wheezing noted, and able to speak in full sentences without difficulty ASSESSMENT/PLAN ASSESSMENT/PLAN: 1. Telehealth encounter for confirmed COVID-19 - ICD9: 079.89, ICD10: U07.1 - no red flag symptoms - red flag symptoms discussed, verbalizes understanding - discussed EUA, risks, benefits and potential side effects of paxlovid treatment, patient verbalizes understanding - discussed COVID-19 symptom management and [facility] [place] 2[place] current isolatin guidelines, verbalizes understanding - NIRMATRELVIR 300 MG (150 MG X2)-RITONAVIR 100 MG TABLET,DOSE PACK(EUA) - follow-up if symptoms persist, to ER with red flag symptoms Mecca Umanzor APRN.BROACH OPERATOR Prescription instructions reviewed with patient as applicable. Patient advised if symptoms do not improve or if symptoms worsen sooner, to contact their primary care physician. Potential red flag symptoms discussed with the patient. Reviewed appropriate action plan to take if red flag symptoms occur. Patient agreeable to treatment plan. This patient encounter involved the screening or treatment of novel coronavirus infection (COVID-19). Nirmatrelvir/Ritonavir (Paxlovid) Eligibility and Patient Discussion [facility] Formulary Restriction Criteria: Adult outpatients 18 years and older with ALL of the following: [x] Patient has positive SARS-COV-2 viral test (PCR or antigen test) during current illness [x] Patient has symptoms for 5 days or less [x] Not requiring hospitalization at any time for management of COVID-19 [x] Not requiring supplemental oxygen or a change in baseline supplemental oxygen [x] Not utilized for pre-exposure or post-exposure prophylaxis for prevention of COVID-19 [x] Patient does not have severe renal impairment (eGFR < 30 mL/min) or severe hepatic impairment (Child-[place] Class C) [x] Meeting at least one of the criteria for high risk of progression to severe COVID-19: [] Age over 65 years [] Cancer [] Chronic kidney disease [] Chronic liver disease [] Chronic lung diseases, including cystic fibrosis [] Dementia or other neurological conditions [] Diabetes (type 1 or type 2) [] Disabilities, including Down syndrome and neurodevelopmental disorders [] Heart conditions [] HIV infection [] Immunocompromised state [] Mental health conditions [] Medical related technological dependence (tracheostomy, gastrostomy, or positive pressure ventilation (not related to COVID) [x] Overweight and obesity (BMI greater or equal to 25 for adults) [] Physical inactivity [] [] Sickle cell disease or thalassemia [x] Smoking, current or former [] Solid organ or blood stem cell transplant [] Stroke or cerebrovascular disease [] Substance use disorders [] Tuberculosis [] People from racial and ethnic minority groups Criteria above are met: Yes Date of Positive Test:08/05/2022 Date of Symptom Onset: 08/05/2022 Patient received COVID vaccine: No Drug-Drug interactions reviewed: Yes. No drug interactions were identified. I have discussed the use of the investigational therapeutic, nirmatrelvir/ritonavir, for the treatment of mild to moderate COVID-19 and its use under Emergency Use Authorization with the patient. The patient was informed that nirmatrelvir/ritonavir is not an FDA approved drug and that it is authorized for use under this Emergency Use Authorization. The patient was also informed of the significant known benefits and potential risks of nirmatrelvir/ritonavir, and the extent to which such potential risks and benefits are unknown. The patient was informed that there is mandatory reporting of all medication errors and serious adverse events potentially related to nirmatrelvir/ritonavir treatment within 7 calendar days from the onset of the event and that events up to 28 days after completion of therapy need to be reported. The discussion included alternatives to receiving nirmatrelvir/rit onavir, including clinical trials, and potential the risks and benefits of those alternatives. The patient was provided electronically with the Fact Sheet for Patients, Parents and Caregivers. The patient was also instructed that in addition to the treatment with nirmatrelvir/ritonavir, he/she should continue to self-isolate and use infection control measures (e.g., wear mask, isolate, social distance, avoid sharing personal items, clean and disinfect high touch surfaces, and frequent h andwashing) according to CDC guidelines. The patient stated understanding and gave verbal consent to proceeding with nirmatrelvir/ritonavir treatment. Mecca Umanzor APRN.CNP August 06, 2022 8:06 AM I spent a total of 20 minutes on the date of the service which included preparing to see the patient, kmlj-xk-rxst patient care, completing clinical documentation, obtaining and/or reviewing separately obtained history, performing a medically appropriate examination, counseling and educating the pat ient/family/caregiver, and ordering medications, tests, or procedures. documented in this encounterSelect [facility]22 Miscellaneous Notes* Telephone Encounter - Daniela Satniago RN - 08/05/2022 10:10 PM EDT Reason for Call: positive COVID-19 home test today. Outcome of Call: Physician on cl paged. Advised, per Dr. Kaiser, if any difficulty breathing go to ED, may call office tomorrow to schedule virtual appointment. Reason for Disposition HIGH RISK for severe COVID complications (e.g., weak immune system, age > 64 years, obesity withBMI > 25, , chronic lung disease or other chronic medical condition) (Exception: Alreadyseen by PCP and no new or worsening symptoms.) Answer Assessment - Initial Assessment Questions 1. COVID-19 DIAGNOSIS: positive COVID-19 test today 2. COVID-19 EXPOSURE: negative, per pt 3. ONSET: When did the COVID-19 symptoms start? today 4. WORST SYMPTOM: at onset of symptoms it was the h/a, h/a has resolved; at this time worst symptom isfeeling warm 5. COUGH: occasional moist cough, pt is a smoker, cough starting approximately 3 days ago 6. FEVER: temp 100 po, took Tylenol 1 1 2/ hrs ago 7. RESPIRATORY STATUS: no difficutly breathing 8. [id number]: getting better, per pt, h/a gone 9. HIGH RISK DISEASE: asthma, per pt; weight 10. VACCINE: negative 11. BOOSTER: Have you received your COVID-19 booster? negative 13. OTHER SYMPTOMS: chills, sweating, tiredness, pt stating slept most of day, discomfort in back with cough 14. O2 SATURATION MONITOR: 93% - 95% during day; during triage is 94-97% hr 95 - 115 Protocols used: Coronavirus (COVID-19) Diagnosed or [id number] documented in this encounterSelect [facility]04-20-2022 History of Present illness Narrative* Eleuterio Villatoro MD - 03/10/2022 2:31 PM EDT Chief Complaint Patient presents with: Physical HPI Santy Alanis is a 26 year old male who presents here today for Above Complaints. Anxiety: Patient has not been taking his Zoloft on a regular basis. Going to counseling and anger management once per week at [facility]. Admits to excessive worrying, inability to control his worrying,racing thoughts, sleep disturbance, increased irritability, panic symptoms. Also notes following depression symptoms x2 months: 03/10/22 1453 Last Filed Value PHQ-9 Little interest or pleasure in doing things Several days Several days Feeling down, depressed, or hopeless Several days Several days Trouble falling or staying asleep, or sleeping too much Several days Several days Feeling tired or having little energy Nearly every day Nearly every day Poor appetite or overeating Nearly every day Nearly every day Feeling bad about yourself - or that you are a failure or have let yourself or your family down Nearly every day Nearly every day Trouble concentrating on things, such as reading the newspaper or watching television Nearly every day Nearly every day Moving or speaking so slowly that other people could have noticed. Or the opposite - being so fidgety or restless that you have been moving around a lot more than usual Nearly every day Nearly every day Thoughts that you would be better off , or of hurting yourself in some way Not at all Not at all If you checked off any problems, how difficult have these problems made it for you to do your work,take care of things at home, or get along with other people? PHQ-9 score 18 18 PHQ-9 Score 18 18 PHQ-2 score 2 2 PHQ-2 Score 2 2 ADHD: Unable to concentrate without his Adderall XR. Last dose was aobut a month ago. States that his fiance tells him she cannot deal with him without his medication. Denies illicit drug use. Patient is up 16 lbs since last check at this office. Not eating healthy diet or exercising regularly. Taking his Levothyroxine as prescribed without side effects. Due for repeat TSH. Would like referral to dietitian for weight. Still smoking 1/2 pack per day. Wellbutrin did not help with cravings. Not ready to quit today. Refusing vaccinations today for COVID and pneumovax. Past medical history, appointments, medications, allergies reviewed. Previous Medical History PAST MEDICAL HISTORY Diagnosis Date ADHD Anxiety Childhood asthma URI induced as an adult Current moderate episode of major depressive disorder without prior episode (HCC) Family history of heart attack Graves disease History of chlamydia Lung nodule age 19 Morbid obesity with BMI of 40.0-44.9, adult (HCC) Panic disorder Post-surgical hypothyroidism Tobacco use Previous Surgical History PAST SURGICAL HISTORY Procedure Laterality Date LAPS SURG CHOLECYSTECTOMY W/CHOLANGIOGRAPHY 08/09/2021 THYROIDECTOMY TOTAL/COMPLETE Family History FAMILY HISTORY Problem Relation Age of Onset Thyroid Mother Heart Attack Mother 40 Heart disease Mother 16 COPD Father Bipolar disorder Brother Diabetes Maternal Grandfather Stroke Maternal Grandfather COPD Paternal Grandfather Patient Allergies ALLERGIES Allergen Reactions Bee Venom Protein (* Swelling Concerta [Methylphe* Mental Status Change Current Medications Current Outpatient Medications on File Prior to Visit Medication Sig levothyroxine (LEVOXYL) 112 mcg tablet Take 1 tablet by mouth once daily. Take on empty stomach. For thyroid. EPINEPHrine (EPIPEN) 0.3 mg/0.3 mL auto-injector Inject 0.3 mL intramuscularly as needed (For allergic reaction). sertraline (ZOLOFT) 50 mg tablet Take 1 tablet by mouth once daily. (Patient not taking: Reported on 03/10/2022 ) amphetamine-dextroamphetamine XR (ADDERALL XR) 15 mg 24 hr capsule Take 1 capsule by mouth once daily for 30 days. (Patient not taking: Reported on 03/10/2022) buPROPion SR (WELLBUTRIN SR) 150 mg 12 hr tablet Take 1 tablet by mouth twice daily. (Patient not taking: Reported on 08/05/2021 ) No current facility-administered medications on file prior to visit. Social History Social History Tobacco Use Smoking status: Current Every Day Smoker Packs/day: 0.50 Years: 9.00 Pack years: 4.50 Types: Cigarettes Smokeless tobacco: Never Used Substance Use Topics Alcohol use: No Drug use: Never Review of Symptoms REVIEW OF SYSTEMS GENERAL: No weight loss, malaise or fevers HEENT: Negative for frequent or significant headaches, No changes in hearing or vision, no nose bleeds or other nasal problems NECK: Complaining of right sided neck lump, nontender RESPIRATORY: Cough; dry With smoking. Denies wheezing or SOB. CARDIOVASCULAR: Negative for chest pain, leg swelling, hypertension, CHF or palpitations GI: No nausea, vomiting, or diarrhea : No history of dysuria, frequency or incontinence MUSCULOSKELETAL: Sciatica on left. SKIN: Negative for lesions, rash, and itching EXAM: BP 100/78 Pulse 86 Temp 36.3 C (97.4 F) (Tympanic) Resp 24 Ht 177 cm (5' 9.69) Wt 127.5 kg (281 lb) BMI 40.68 kg/m General Appearance: Well appearing, alert, in no acute distress, well-hydrated, well nourished.. Skin: Skin color, texture, turgor normal, no suspicious rashes or lesions. Head: Normocephalic, no masses, lesions, tenderness or abnormalities. Eyes: Anicteric sclera. Pupils are equally round and reactive to light. Extraocular movements are intact. . Ears: External ears normal, canals clear. Neck: Supple, no adenopathy; thyroid symmetric, normal size, no bruits. Lungs: Lungs clear to auscultation. No wheezing, rhonchi, rales.. Heart: RRR without murmur, gallop, or rubs. No ectopy. Abdomen: Normal abdominal exam, Abdomen soft, non-tender. Bowel sounds normal. No masses, organomegaly. Extremities: No deformities, edema, skin discoloration, clubbing or cyanosis. Good capillary refill. . Health Maintenance List COVID-19 VACCINE(1) Never done HPV VACCINE(1 - Male 2-dose series) Never done DTAP,TDAP,TD(1 - Tdap) Never done ONE PNEUMOVAX PRIOR TO AGE 65 Never done DEPRESSION SCREENING due on 12/18/2021 INFLUENZA(Season Ended) due on 07/22/2022 HEPATITIS C SCREENING Completed MENINGOCOCCAL CONJUGATE Aged Out HIV SCREENING Discontinued Data reviewed Component Latest Ref Rng & Units 01/12/2021 Protein, Total 6.3 - 8.0 g/dL 6.8 Albumin 3.9 - 4.9 g/dL 4.7 Calcium 8.5 - 10.2 mg/dL 9.9 Bilirubin, Total 0.2 - 1.3 mg/dL 0.4 Alkaline Phosphatase 38 - 113 U/L 97 AST 14 - 40 U/L 22 Glucose 74 - 99 mg/dL 97 BUN 9 - 24 mg/dL 11 Creatinine 0.73 - 1.22 mg/dL 1.06 Sodium 136 - 144 mmol/L 140 Potassium 3.7 - 5.1 mmol/L 4.2 Chloride 97 - 105 mmol/L 107 (H) CO2 22 - 30 mmol/L 22 Anion Gap 9 - 18 mmol/L 11 ALT 10 - 54 U/L 41 eGFR- >60 eGFR-All Other Races . >60 Creatinine, Ur Random (UCRR) 20 - 300 mg/dL 267.8 Albumin, Urine Random mg/L <12.0 Albumin/Creat Ratio <30 mg/g Not calculated Hemoglobin A1C 4.3 - 5.6 % 5.5 Estimated Average Glucose mg/dL 111 TSH 0.270 - 4.200 uU/mL 3.850 Hep C Antibody IA Negative Negative ASSESSMENT/PLAN: 1. Annual physical exam - ICD9: V70.0, ICD10: Z00.00 (primary diagnosis) - Counseled on healthy diet and regular exercise - Discussed need for and benefit of weight loss. BMI 40.68 kg/(m^2) - Smoking cessation encouraged; discussed risks to health and quitting strategies. Patient is not ready to quit - Follow up for annual exam in one year - CBC - COMP METABOLIC PANEL - LIPID PANEL, NONFASTING - TSH BLD - URINALYSIS, WITH MICROSCOPIC 2. Post-surgical hypothyroidism - ICD9: 244.0, ICD10: E89.0 - Instructed patient on importance of taking on an empty stomach either first thing in the morning or at bedtime. - check TSH today - continue current dose of Synthroid 0.112 mg - LEVOTHYROXINE 112 MCG TABLET - TSH BLD 3. ADHD (attention deficit hyperactivity disorder), combined type - ICD9: 314.01, ICD10: F90.2 Symptoms uncontrolled without rx. Will have patient sign controlled substance agreement and obtain urine drug screen. If negative, will resume previous dosage of Adderall XR and recheck in 4 weeks. - TOX SCREEN ROUT UR - PAIN PANEL, UR QUANT 4. Anxiety with depression - ICD9: 300.4, ICD10: F41.8 Uncontrolled with new dx of depression. Resume Zoloft 50 mg every day and recheck in 1 month. - SERTRALINE 50 MG TABLET 5. Morbid obesity with BMI of 40.0-44.9, adult (HCC) - ICD9: 278.01, V85.41, ICD10: E66.01, Z68.41 Weight increasing - Behavioral intervention and - Medical nutrition therapy with dietitian - CONSULT TO NUTRITION THERAPY 6. Tobacco use - ICD9: 305.1, ICD10: Z72.0 - Cessation encouraged. - Physiologic and physical aspects of tobacco addiction as well as strategies for quitting were discussed. - Counseling was given focusing on the harmful effects of this addiction especially given the patient's medical condition(s) which will be worsened because of the chemicals in tobacco. Eleuterio Villatoro MD documented in this encounterSelect Medical [facility] HospitalEvaluation note* Diagnosis Annual physical exam- Primary Routine general medical examination at a health care facility Post-surgical hypothyroidism Postsurgical hypothyroidism ADHD (attention deficit hyperactivity disorder), combined type Attention deficit disorder with hyperactivity Anxiety with depression Morbid obesity with BMI of 40.0-44.9, adult (HCC) Morbid obesity Tobacco use Tobacco use disorder documented in this encounter [facility] HospitalEvalumidd[facility] [facility] noteNo assessment information availableWSouthwest General [facility] Work Phone: Evaluation note* Diagnosis Telehealth encounter for confirmed COVID-19- [facility] Diagnosis Annual physical exam- Primary Routine general medical examination at a [facility] Post-surgical hypothyroidism Postsurgical hypothyroidism [facility] Diagnosis Post-surgical hypothyroidism Postsurgical hypothyroidism [facility] Diagnosis COVID-19- Primary [facility] Diagnosis Bee sting allergy Allergy to insects and arachnids [facility] Diagnosis Post-surgical hypothyroidism Postsurgical hypothyroidism [facility] Diagnosis COVID-19- Primary [facility]* Diagnosis Dizziness- Primary Dizziness and giddiness [facility] Diagnosis COVID-19 long hauler- Primary Post-surgical hypothyroidism Postsurgical hypothyroidism [facility] Diagnosis Leukocytosis, unspecified type- Primary Post-surgical hypothyroidism Postsurgical hypothyroidism [facility] Diagnosis Post-surgical hypothyroidism Postsurgical hypothyroidism [facility] Diagnosis Post-surgical hypothyroidism Postsurgical hypothyroidism [facility] Diagnosis Viral upper respiratory tract infection- Primary Acute upper respiratory infections of unspecified site Mild intermittent asthma with acute exacerbation documented in this encounter [facility] Work Phone: Evaluation note* Diagnosis Post-surgical hypothyroidism Postsurgical hypothyroidism documented in this encounter [facility] note* Diagnosis URI, acute- Primary Acute upper respiratory infections of unspecified site documented in this encounter [facility] note* Diagnosis Procedure not carried out- Primary Procedure not carried out for other reasons documented in this encounter [facility] note* Diagnosis Post-surgical hypothyroidism Postsurgical hypothyroidism documented in this encounter [facility] note* Diagnosis COVID-19- Primary documented in this encounter [facility] for referral (narrative)No reason for referral information availableWSouthwest General Health Center Work Phone: Summary Purpose Family History No Family History Records Found Relationship Condition Age at Onset Recorded Date/T melissa Not Specified Autoimmune disease Unknown Disorder of thyroid Unknown Relationship Condition Age at Onset Recorded Date/T melissa Not Specified Autoimmune disease Unknown mother Disorder of thyroid Unknown Myocardial infarction 40 Cardiac disease Unknown father Chronic obstructive pulmonary disease Unk nown brother Bipolar disorder Unknown grandfather Diabetes mellitus Unknown Cerebrovascular accident (CVA) Unknown grandfather Chronic obstructive pulmonary disease Unk nown Advance Directives No Advanced Directives Records FoundDocuments on File Type Date Recorded Patient Policeman Expl anation Advance Directive(s) 06/07/2019 11:58 AM Advance Directive(s) 06/09/2018 12:33 AM Advance Directive Response Recorded Date/ Time Living Will No May 01, 2022 12:18am Power of Hotel Breakfast Attendant No May 01 12:18am Advance Directive Response Recorded Date/ Time Living Will No August 20, 2023 5:19pm Power of Hotel Breakfast Attendant No July 5:19pm Advance Directive Response Recorded Date/ Time Living Will No October 17 024 7:32pm Do you have a Healthcare Power of Hotel Breakfast Attendant? Yes October 17, 2024 7:32pm Name of Medical Power of Hotel Breakfast Attendant Joseph October 17, 2024 7:32pm Advance Directive Response Recorded Date/ Time Living Will No March 04, 2025 7:55am Do you have a Healthcare Power of Hotel Breakfast Attendant? No March 04, 2025 7:55am Reason for Referral Specialty Diagnoses / Procedures Referred By Dominic t Referred To Contact Nutrition Diagnoses Morbid obesity with BMI of 40.0-44.9, adult (HCC) Procedures CONSULT TO NUTRITION THERAPY OFFICE/OUTPATIENT NEW HIGH MDM 60-74 MINUTES Eleuterio Villatoro MD [address] [place] [address] Referral ID Status Reason Start Date Expiration Date Visits Requested Visits Authorized [id number] Authorized PCP Requested Referral 03/10/2022 03/10/2023 1 1 Specialty Diagnoses / Procedures Referred By Dominic t Referred To Contact [facility] COVID-19 long hauler Procedures CONSULT TO [facility] [employer] APRN.BROACH OPERATOR [address] [place] [address] Pulm Covid Rec[facility] [address] [place] [address] Referral ID Status Reason Start Date Expiration Date Visits Requested Visits Authorized [id number] Authorized PCP Requested Referral 10/30/2024 3 3 Chief Complaint and Reason for Visit Chief Complaint COUGH Chief Complaint dizzy Chief Complaint Admit Date dental October 17, 2024 6:29pm FEVER/COUGH/SORE THROAT/SINUS October 222023 9:21am Suspected sleep apnea January 18 1:49pm G47.10 - Hypersomnia, unspecified February 04, 2025 1:18pm Reason for Visit Admit Date Strep throat November 15, 2024 9:21am Daytime hypersomnia January 18, 2025 1:49pm Smoking greater than 20 pack years Febru lex2024 1:49pm Chief Complaint Admit Date FEVER/COUGH/SORE THROAT/SINUS October 222023 9:21am Suspected sleep apnea January 18 1:49pm G47.10 - Hypersomnia, unspecified February 04, 2025 1:18pm NEW START WITH OWN MACHINE February 25 10:00am Chief Complaint Admit Date FEVER/COUGH/SORE THROAT/SINUS October 222023 9:21am Suspected sleep apnea January 18 1:49pm G47.10 - Hypersomnia, unspecified February 04, 2025 1:18pm NEW START WITH OWN MACHINE February 25 10:00am Abd pain March 04, 2025 7:4 4am Additional Source Comments (unrecognized sect ion and content) No Status Records FoundNo Status Records FoundNo Status Records FoundNo Status Records FoundNo Status Records FoundNo Status Records FoundNo Status Records FoundNo Status Records FoundNo Status Records FoundNo Status Records FoundNo Status Records Found INFORMATION SOURCE (unrecogn ized section and content) DATE CREATED AUTHOR 01/08/2019 [employer] DATE CREATED AUTHOR AUTHOR'S ORGANIZ ATION 06/07/2019 [facility] DATE CREATED AUTHOR AUTHOR'S ORGANIZ ATION 12/27/2022 [facility] DATE CREATED AUTHOR AUTHOR'S ORGANIZ ATION 08/03/2023 [facility] DATE CREATED AUTHOR AUTHOR'S ORGANIZ ATION 09/18/2023 [facility] DATE CREATED AUTHOR AUTHOR'S ORGANIZ ATION 12/15/2023 [facility] DATE CREATED AUTHOR AUTHOR'S ORGANIZ ATION 02/19/2024 [facility] DATE CREATED AUTHOR AUTHOR'S ORGANIZ ATION 07/26/2024 [facility] DATE CREATED AUTHOR AUTHOR'S ORGANIZ ATION 02/17/2025 [facility] DATE CREATED AUTHOR AUTHOR'S ORGANIZ ATION 03/11/2025 [facility] DATE CREATED AUTHOR AUTHOR'S ORGANIZ ATION 06/29/2025 [facility] Source Comments (unrecognize d section and content) In the event this informatio n is protected by the Federal Confidentiality of Alcohol and Drug Abuse Patient Records regulations: The Federal rules restrict any use of the information to criminally investigate or prosecute any alcohol or drug abuse patient.[facility] HospitalIn the event this information is protected by the Federal Confidentiality of Alcohol and Drug Abuse Patient Records regulations: The Federal rules restrict any use of the information to criminally investigate or prosecute any alcohol or drug abuse patient.[facility] the event this information is protected by the Federal Confidentiality of Alcohol and Drug Abuse Patient Records regulations: The Federal rules restrict any use of the information to criminally investigate or prosecute any alcohol or drug abuse patient.[facility] HospitalIn the event this information is protected by the Federal Confidentiality of Alcohol and Drug Abuse Patient Records regulations: The Federal rules restrict any use of the information to criminally investigate or prosecute any alcohol or drug abuse patient.[facility] HospitalIn the event this information is protected by the Federal Confidentiality of Alcohol and Drug Abuse Patient Records regulations: The Federal rules restrict any use of the information to criminally investigate or prosecute any alcohol or drug abuse patient.[facility] ClinicIn the event this information is protected by the Federal Confidentiality of Alcohol and Drug Abuse Patient Records regulations: The Federal rules restrict any use of the information to criminally investigate or prosecute any alcohol or drug abuse patient.[facility] HospitalIn the event this information is protected by the Federal Confidentiality of Alcohol and Drug Abuse Patient Records regulations: The Federal rules restrict any use of the information to criminally investigate or prosecute any alcohol or drug abuse patient.[facility] HospitalIn the event this information is protected by the Federal Confidentiality of Alcohol and Drug Abuse Patient Records regulations: The Federal rules restrict any use of the information to criminally investigate or prosecute any alcohol or drug abuse patient.[facility] HospitalIn the event this information is protected by the Federal Confidentiality of Alcohol and Drug Abuse Patient Records regulations: The Federal rules restrict any use of the information to criminally investigate or prosecute any alcohol or drug abuse patient.[facility] HospitalIn the event this information is protected by the Federal Confidentiality of Alcohol and Drug Abuse Patient Records regulations: The Federal rules restrict any use of the information to criminally investigate or prosecute any alcohol or drug abuse patient.[facility] HospitalIn the event this information is protected by the Federal Confidentiality of Alcohol and Drug Abuse Patient Records regulations: The Federal rules restrict any use of the information to criminally investigate or prosecute any alcohol or drug abuse patient.[facility] HospitalIn the event this information is protected by the Federal Confidentiality of Alcohol and Drug Abuse Patient Records regulations: The Federal rules restrict any use of the information to criminally investigate or prosecute any alcohol or drug abuse patient.[facility] HospitalIn the event this information is protected by the Federal Confidentiality of Alcohol and Drug Abuse Patient Records regulations: The Federal rules restrict any use of the information to criminally investigate or prosecute any alcohol or drug abuse patient.[facility] HospitalIn the event this information is protected by the Federal Confidentiality of Alcohol and Drug Abuse Patient Records regulations: The Federal rules restrict any use of the information to criminally investigate or prosecute any alcohol or drug abuse patient.[facility] HospitalIn the event this information is protected by the Federal Confidentiality of Alcohol and Drug Abuse Patient Records regulations: The Federal rules restrict any use of the information to criminally investigate or prosecute any alcohol or drug abuse patient.[facility] HospitalIn the event this information is protected by the Federal Confidentiality of Alcohol and Drug Abuse Patient Records regulations: The Federal rules restrict any use of the information to criminally investigate or prosecute any alcohol or drug abuse patient.[facility] HospitalIn the event this information is protected by the Federal Confidentiality of Alcohol and Drug Abuse Patient Records regulations: The Federal rules restrict any use of the information to criminally investigate or prosecute any alcohol or drug abuse patient.[facility] HospitalIn the event this information is protected by the Federal Confidentiality of Alcohol and Drug Abuse Patient Records regulations: The Federal rules restrict any use of the information to criminally investigate or prosecute any alcohol or drug abuse patient.[facility] HospitalIn the event this information is protected by the Federal Confidentiality of Alcohol and Drug Abuse Patient Records regulations: The Federal rules restrict any use of the information to criminally investigate or prosecute any alcohol or drug abuse patient.[facility] Hospital[facility] the event this information is protected by the Federal Confidentiality of Alcohol and Drug Abuse Patient Records regulations: The Federal rules restrict any use of the information to criminally investigate or prosecute any alcohol or drug abuse patient.[facility] Hospital[facility] the event this information is protected by the Federal Confidentiality of Alcohol and Drug Abuse Patient Records regulations: The Federal rules restrict any use of the information to criminally investigate or prosecute any alcohol or drug abuse patient.[facility] Hospital[facility] the event this information is protected by the Federal Confidentiality of Alcohol and Drug Abuse Patient Records regulations: The Federal rules restrict any use of the information to criminally investigate or prosecute any alcohol or drug abuse patient.[facility] Hospital[facility] the event this information is protected by the Federal Confidentiality of Alcohol and Drug Abuse Patient Records regulations: The Federal rules restrict any use of the information to criminally investigate or prosecute any alcohol or drug abuse patient.[facility] Hospital[facility] the event this information is protected by the Federal Confidentiality of Alcohol and Drug Abuse Patient Records regulations: The Federal rules restrict any use of the information to criminally investigate or prosecute any alcohol or drug abuse patient.[facility] HospitalIn the event this information is protected by the Federal Confidentiality of Alcohol and Drug Abuse Patient Records regulations: The Federal rules restrict any use of the information to criminally investigate or prosecute any alcohol or drug abuse patient.[facility] HospitalIn the event this information is protected by the Federal Confidentiality of Alcohol and Drug Abuse Patient Records regulations: The Federal rules restrict any use of the information to criminally investigate or prosecute any alcohol or drug abuse patient.[facility] HospitalIn the event this information is protected by the Federal Confidentiality of Alcohol and Drug Abuse Patient Records regulations: The Federal rules restrict any use of the information to criminally investigate or prosecute any alcohol or drug abuse patient.[facility] Reason for Visit (unrecogniz ed section and content) Reason Comments Physical Reason Comments Covid19 Concern Reason Onset Date Comments Refill Request 08/06/2022 Reason Onset Date Comments Refill Request 11/23/2022 Reason Comments Covid Positive Reason Comments Future Appointment COVID positive home test Reason Comments Appointment Reason Onset Date Comments Refill Request 05/19/2023 Reason Comments Medication Request paxlovid Reason Comments Dizziness Off balance intermit tent x 2 weeks Reason Comments Covid Follow Up Had covid in er, has had issues with fatigue, dizziness, vision changes while at the store, blurry and eyes hurt. States they are dry. Feels a tremor every so often inside body, isn't sure if its a palpitation. Body aches all the time. Reason Comments Results Orders Reason Comments Intake Covid [facility] pre-visit phone call Reason Onset Date Comments Refill Request 01/07/2024 Reason Comments Results Reason Comments Appointment Recover No Show/Canc ellation Call - Attempt 1 Reason Comments Appointment Recover No Show/Canc ellation Call - Attempt 2 Reason Comments Cough Reason Onset Date Comments Refill Request 04/03/2024 Reason Comments Sinus Problem sinus pressure, head ache, dizziness x 3d ays Reason Onset Date Comments Refill Request 06/23/2024 Reason Comments Covid Positive COVID positive-reque sting Paxlovid-x 1 day Reason Onset Date Comments trouble hearing 12/25/2022 Care Teams (unrecognized sec tion and content) Steam Cleaner Relationship Specialty Start Date End Date Eleuterio Villatoro MD [address] [place] [address] PCP - General Family Practice 12/26/19 Steam Cleaner Relationship Specialty Start Date End Date Eleuterio Villatoro MD [address] [place] [address] PCP - General Family Practice 12/26/19 Steam Cleaner Relationship Specialty Start Date End Date Eleuterio Villatoro MD [address] [facility] [place] [address] PCP - General Family Practice 12/26/19 Steam Cleaner Relationship Specialty Start Date End Date Eleuterio Villatoro MD [address] [facility] [place] [address] PCP - General Family Medicine 12/26/19 Steam Cleaner Relationship Specialty Start Date End Date Eleuterio Villatoro MD [address] [facility] [place] [address] PCP - General Family Medicine 12/26/19 Steam Cleaner Relationship Specialty Start Date End Date Eleuterio Villatoro MD [address] [facility] [place] [address] PCP - General Family Medicine 12/26/19 Steam Cleaner Relationship Specialty Start Date End Date Eleuterio Villatoro MD [address] [place] [address] PCP - General Family Medicine 12/26/19 Steam Cleaner Relationship Specialty Start Date End Date Eleuterio Villatoro MD [address] [place] [address] PCP - General Family Medicine 12/26/19 Steam Cleaner Relationship Specialty Start Date End Date Eleuterio Villatoro MD [address] [place] [address] PCP - General Family Medicine 12/26/19 Team Status: Active Member Role Status Dates No Primary Care Physician Family Provider Active Dr. Rafal Villatoro MD Primary Care Provider Acti ve Team Status: Inactive Member Role Status Dates Dr. Rafal Villatoro MD Primary Care Provider Acti ve Dr. Jose Jauregui MD Emergency Provider Active Steam Cleaner Relationship Specialty Start Date End Date Eleuterio Villatoro MD [address] [place] [address] PCP - General Family Medicine 12/26/19 Steam Cleaner Relationship Specialty Start Date End Date Eletuerio Villatoro MD [address] [place] [address] PCP - General Family Medicine 12/26/19 Steam Cleaner Relationship Specialty Start Date End Date Eleuterio Villatoro MD [address] [place] [address] PCP - General Family Medicine 12/26/19 Steam Cleaner Relationship Specialty Start Date End Date Eleuterio Villatoro MD [address] [place] [address] PCP - General Family Medicine 12/26/19 Steam Cleaner Relationship Specialty Start Date End Date Eleuterio Villatoro MD [address] [place], [place] [address] PCP - General Family Medicine 12/26/19 Steam Cleaner Relationship Specialty Start Date End Date Eleuterio Villatoro MD [address] [place], [place] [id number] PCP - General Family Medicine 12/26/19 Steam Cleaner Relationship Specialty Start Date End Date Eleuterio Villatoro MD [address] [place], [place] [address] PCP - General Family Medicine 12/26/19 Team Status: Active Member Role Status Dates Dr. Vidya Arias MD Primary Care Provider Active Team Status: Inactive Member Role Status Dates No Primary Care Physician Primary Care Provider Active Start: October 17, 2024 End: October 17, 2024 Dr. Adelaida Keith DO Attending Provider Active Start: October 17, 2024 End: October 17, 2024 Dr. Adelaida Keith DO Emergency Provider Active Start: October 17, 2024 End: October 17, 2024 Team Status: Inactive Member Role Status Dates No Primary Care Physician Primary Care Provider Active Start: November 15, 2024 End: November 15, 2024 No Primary Care Physician Referring Provider Active Start: November 15, 2024 End: November 15, 2024 Nelson JOSE PA Attending Provider Active St art: November 15, 2024 End: November 15, 2024 Team Status: Inactive Member Role Status Dates Dr. Vidya Arias MD Primary Care Provider Active Start: November 16, 2024 End: November 16, 2024 Dr. Vidya Arias MD Attending Provider Active Start: November 16, 2024 End: November 16, 2024 Dr. Vidya Arias MD Referring Provider Active Start: November 16, 2024 End: November 16, 2024 Team Status: Inactive Member Role Status Dates Dr. Vidya Arias MD Primary Care Provider Active Start: January 18, 2025 End: January 18, 2025 Dr. Vidya Arias MD Referring Provider Active Start: January 18, 2025 End: January 18, 2025 Rubia Ordoñez NP-C Attending Provider Active Start: January 18, 2025 End: January 18, 2025 Team Status: Inactive Member Role Status Dates Dr. Vidya Arias MD Primary Care Provider Active Start: February 01, 2025 End: February 01, 2025 Dr. Vidya Arias MD Attending Provider Active Start: February 01, 2025 End: February 01, 2025 Dr. Vidya Arias MD Referring Provider Active Start: February 01, 2025 End: February 01, 2025 Team Status: Active Member Role Status Dates Dr. Vidya Arias MD Primary Care Provider Active Start: February 04, 2025 Rubia Ordoñez NP-C Attending Provider Active Start: February 04, 2025 Rubia Ordoñez NP-Mik Referring Provider Active Start: February 04, 2025 Team Status: Inactive Member Role Status Dates Dr. Vidya Arias MD Primary Care Provider Active Start: February 04, 2025 End: February 04, 2025 Rubia Ordoñez NP-C Attending Provider Active Start: February 04, 2025 End: February 04, 2025 Rubia Ordoñez NP-C Referring Provider Active Start: February 04, 2025 End: February 04, 2025 Team Status: Inactive Member Role Status Dates Dr. Vidya Arias MD Primary Care Provider Active Start: February 25, 2025 End: February 25, 2025 Rubia Ordoñez NP-Mik Attending Provider Active Start: February 25, 2025 End: February 25, 2025 Team Status: Inactive Member Role Status Dates Dr. Vidya Arias MD Primary Care Provider Active Start: March 04, 2025 End: March 04, 2025 Dr. Eli Gale DO Emergency Provider Active S tart: March 04, 2025 End: March 04, 2025 Goals (unrecognized section and content) Goals may be documented in a n alternate sectionGoals may be documented in an alternate sectionGoals may be documented in an alternate sectionGoals may be documented in an alternate sectionGoals may be documented in an alternate sectionGoals may be documented in an alternate section FOR RECORDS PERTAINING TO PATIENTS WHO ARE OR HAVE BEEN ENROLLED IN A CHEMICAL DEPENDENCY/SUBSTANCEABUSE PROGRAM, SOME INFORMATION MAY BE OMITTED. This clinical summary was aggregated from multiple sources. Caution should be exercised in using it in the provision of clinical care. This summary normalizes information from multiple sources, and as a consequence, information in this document may materially change the coding, format and clinical context of patient data. In addition, data may be omitted in some cases. CLINICAL DECISIONS SHOULD BE BASED ON THE PRIMARY CLINICAL RECORDS. [facility]. provides no warranty or guarantee of the accuracy or completeness of information in this document.
--- NOTE | 2025-07-12 00:09 | EX.ED.DYSGE1 ---
HPI History of Present Illness Chief Complaint: Abd Pain Informant: patient and spouse/S.O. Narrative Narrative: Patient is a 30-year-old male with past medical history of obstructive sleep apnea anxiety and ADD. He states that he also has acid reflux and has been dealing with that for quite some time. However today he states that his normal abdominal pain has been more intense and even though there is pain in the upper abdomen where he typically has it associated with his acid reflux there is now pain in the right lower quadrant. He states there is been no real associated nausea vomiting diarrhea or dysuria. He denies any hematuria or history of kidney stone. He does admit that the pain seems to be more intermittent and sharp. He denies any fevers chills or known sick contacts. However he does have concern this could be his appendix based on the pain located in the right lower quadrant and therefore comes in for evaluation [facility] Medical History Peripheral vertigo Lung nodule Panic disorder Anxiety Abnormal EKG Smoker Asthma Elevated liver function tests Dental infection ADD (attention deficit disorder) Hypothyroidism Home Medications ?Medication ?Instructions ?Recorded ?Last Taken ?Type epinephrine 0.3 mg/0.3 mL 0.3 ml IM PRN allergic re 09/02/23 Unknown History injection, auto-injector albuterol sulfate 90 mcg/actuation 2 puff inhalation Q4H PRN 01/16/25 Unknown History aerosol inhaler shortness of breath or wheezing levothyroxine 150 mcg tablet 150 mcg PO QDAY 01/18/25 Unknown History Allergy/AdvReac Type Severity Reaction Status Date / Time bee venom protein (honey bee) Allergy Anaphylaxis Verified 07/11/25 23:33 methylphenidate (From AdvReac NEEDS Verified 07/11/25 23:33 Concerta) FOLLOW-UP Family History Mother Thyroid disorder Myocardial infarction, Onset Age: 40 Heart disease Father , heart attack 2009 COPD (chronic obstructive pulmonary disease) Brother Bipolar disorder Grandfather Diabetes CVA (cerebral vascular accident) Grandfather COPD (chronic obstructive pulmonary disease) Other Autoimmune disease Surgical History History of cholecystectomy Hx of thyroidectomy Social History household members: significant other number of children: 3 current occupational status: employed current occupation: [employer] sexually active: Yes Smoking Status: Current every day smoker tobacco type: cigarettes alcohol intake: never substance use type: does not use ROS ROS ED Constitutional Constitutional ED: Denies chills or fever(s) ENT ENT ED: Denies sore throat Cardiovascular Cardiovascular: Denies chest pain Respiratory/Chest Respiratory/Chest: Denies cough or dyspnea Gastrointestinal Gastrointestinal: Reports abdominal pain and constipation; Denies diarrhea, nausea or vomiting Genitourinary Genitourinary ED: Denies dysuria or hematuria Musculoskeletal Musculoskeletal: Reports back pain; Denies myalgias Integumentary Denies rash Neurologic Neurologic: Denies headache(s) Hematologic/Lymphatic Hematologic/Lymphatic: Denies easy bleeding or easy bruising EXAM Physical Exam Const Vital Signs: 07/11/25 23:33 07/12/25 01:33 Temperature 98.3 F Temperature Source Oral Pulse Rate 89 79 Respiratory Rate 18 18 Blood Pressure 126/78 H Blood Pressure Mean 94 Pulse Ox 99 98 Oxygen Delivery Method Room Air Room Air Positive well nourished, well developed and obese General Appearance ED: well developed; Negative for pallor Nutritional Appearance: obese HEENT HEENT Narrative: Normocephalic atraumatic Eyes PERRL and EOMs intact bilaterally General Eye ED: Negative for scleral icterus Neck supple Neck Narrative: No nuchal rigidity or meningeal signs Resp normal respiratory effort and clear to auscultation bilaterally Cardio regular rate and regular rhythm Rate: other Other Details: Heart is regular rate and rhythm without murmurs rubs or gallops Radial and carotid pulses are equal and symmetric GI non-distended and no masses GI Narrative: Soft and nondistended with normal active bowel sounds. There is pain on palpation in the midepigastric and right lower quadrant region. However no voluntary guarding or rigidity. No pulsatile mass or fluid wave. No peritoneal signs. Auscultation: normoactive bowel sounds Palpation: soft Back/Spine Back/Spine Narrative: Mild/faint right CVA pain noted Extremity normal to inspection Neuro oriented x3, CN's II-XII intact bilaterally and no sensory deficits noted Sensorium / Orientation: alert Motor Exam: strength 5/5 throughout Psych mental status grossly normal Skin no rashes or lesions noted Skin Narrative: No overlying soft tissue changes to suggest trauma or infection General Skin Exam: Negative for jaundice or pallor MDM MDM MDM Narrative Medical decision making narrative: Patient arrived to the ER with stable vitals. He reported pain in the midepigastric and right lower quadrant region. He states he has had worsening gastritis and does not take any type of H2 gladys or PPI on a daily basis. Based on the location of his pain he could have acute pancreatitis gastritis versus gastroduodenitis. With mild right CVA pain and right lower quadrant pain there is concern for kidney stone versus UTI or pyelonephritis. There is also potential appendicitis. Secondary to this I did feel the need to check basic laboratory studies with urine sample and CT scan. Labs revealed no leukocytosis or left shift. No signs of acute kidney injury or elevation to his lipase or electrolyte abnormality. Urine sample showed no blood going against kidney stone and had no sign of infection going against UTI or pyelonephritis. CT scan revealed no signs of kidney stone diverticulitis or acute appendicitis. After receiving a GI cocktail and Protonix the patient had improvement of his symptoms. On reevaluation his vitals are stable and his abdomen remains soft and nonsurgical. Therefore with normal vitals stable labs no findings of acute infection obstruction or perforation on CT scan and improvement of symptoms I do not feel there is need for further intervention or evaluation in the ER and he is otherwise safe for discharge History & Record Review Discussion w/independent historian: Patient and Significant other Lab Data Attestation: I reviewed the patient's lab results. Labs: Laboratory Results - last 24 hr 07/11/25 07/12/25 23:46 00:08 WBC 10.3 RBC 5.10 Hgb 15.4 Hct 43.5 MCV 85.3 MCH 30.2 MCHC 35.4 RDW Std Deviation 38.5 RDW Coeff of Daniel 12.5 Plt Count 219 MPV 9.6 Immature Gran % (Auto) 1.100 H Neut % (Auto) 42.1 L Lymph % (Auto) 43.6 H [place] % (Auto) 6.4 Eos % (Auto) 6.0 H Baso % (Auto) 0.8 Absolute Neuts (auto) 4.3 Absolute Lymphs (auto) 4.48 Nucleated RBC % 0 Sodium 139 Potassium 4.1 Chloride 104 Carbon Dioxide 21.9 Anion Gap 14 BUN 16 Creatinine 1.08 Estim Creat Clear Calc 145.52 Est GFR (MDRD) Non-Af 95 BUN/Creatinine Ratio 14.5 Glucose 115 H Calcium 9.6 Total Bilirubin 0.20 Direct Bilirubin 0.10 AST 25 ALT 47 Alkaline Phosphatase 93 Total Protein 6.8 Albumin 4.2 Globulin 2.6 Lipase 33 Urine Color Yellow Urine Clarity Clear Urine pH 6.0 Ur Specific [place] 1.025 Urine Protein 15 H Urine Glucose (UA) Normal Urine Ketones Negative Urine Occult Blood Negative Urine Nitrite Negative Urine Bilirubin Negative Urine Urobilinogen Normal Ur Leukocyte Esterase Negative Urine RBC 0 SEEN Urine WBC 0 SEEN Ur Squamous Epith Cells 0 SEEN Urine Bacteria 0 SEEN Urine Mucus 0 SEEN Radiography Diagnostic Testing: Clinical Impression(s) from Imaging Studies Abdomen/Pelvis CT 07/11/25 23:55 IMPRESSION: Normal appendix. No CT evidence of an acute abnormality. Reading Location: [place] [id number] Discharge Plan Triage Chief Complaint: Abd Pain ED Provider: Blaine Bangura Dx/Rx/DC Orders Clinical Impression: Nonspecific abdominal pain, DEDE (obstructive sleep apnea), Hypothyroidism Instructions: ED Abdominal Pain Unkn Cause Male... Prescriptions: No Action epinephrine 0.3 mg/0.3 mL auto-injector 0.3 ml IM PRN Patient Comments: INJECT 0.3 ML INTRAMUSCULARLY NEEDED FOR ALLERGIC REACTION albuterol sulfate 90 mcg/actuation HFA aerosol inhaler 2 puff inhalation Q4H PRN (Reason: shortness of breath or wheezing) levothyroxine 150 mcg tablet 150 mcg PO QDAY Stand Alone Forms: ED Work / School Excuse Primary Care Provider: Vickey Arias Referrals: Vickey Arias MD [Primary Care Provider] - Activity Restrictions/Additional Instructions: Your CT scan today showed no sign of appendicitis kidney stone pancreatitis or diverticulitis. Please begin taking [id number] omeprazole daily to help prevent any potential abdominal pain from gastritis. Follow-up with your family doctor to discuss GI referral and potential EGD to further assess any cause for your abdominal discomfort. Return to the ER should you have any further concerns Print Language: Japanese Disposition Disposition: Home, Self Care
[2025-07-12 00:12] LABS: Hematocrit 43.5 % (40-54); Hemoglobin 15.4 g/dL (13.0-16.5); Immature Granulocytes Count 0.110 X10^3/uL (0.0-0.0); Mean Corp Hgb Conc 35.4 g/dL (32-36); Mean Corpuscular Volume 85.3 fL (80-94); Mean Platelet Vol. 9.6 fl (6.2-12.0); NRBC Flagged by Analyzer 0 % (0-5); Platelet Count 219 K/mm3 (150-450); RBC Distribution Width CV 12.5 % (11.6-14.6); RBC Distribution Width SD 38.5 fl (35.1-43.9); Red Blood Count 5.10 M/mm3 (4.6-6.2); White Blood Count 10.3 K/mm3 (4.4-11.0)
[2025-07-12] MEDS: 0.9% Normal Saline (1000mL) 1,000 ML 999 ML IV (00:12)
[2025-07-12 00:14] LABS: Mucous, Urine 0 SEEN /hpf (<or=2+); Red Blood Cells-Urine 0 SEEN /hpf (0-5); Squamous Epithelial Cells - UA 0 SEEN /hpf (0-5)
[2025-07-12 00:19] LABS: Color, Urine Yellow (Yellow); Glucose, Dipstick Normal (Normal); Ketone-Dipstick Negative (Negative); Leukocyte Esterase-Dipstick Negative /ul (Negative); Nitrite-Dipstick Negative (Negative); Occult Blood-Urine Negative /ul (Negative); Protein-Dipstick 15 mg/dl (Negative); Specific Gravity, Urine 1.025 (1.002-1.030); Urine Bilirubin Dipstick Negative (Negative)
[2025-07-12 00:44] LABS: AST(SGOT) 25 U/L (<=37); Alanine Aminotransfer ALT/SGPT 47 U/L (<=46); Albumin, Serum 4.2 g/dL (3.5-5.0); Alkaline Phosphatase 93 U/L (40-129); Anion Gap 14 (5-15); BUN 16 mg/dL (4-19); BUN/Creat Ratio 14.5 RATIO (10-20); Bilirubin, Direct 0.10 mg/dL (0.00-0.30); Calcium,Total 9.6 mg/dL (7.6-11.0); Carbon Dioxide 21.9 mmol/L (21.0-32.0); Chloride 104 mmol/L (98-108); Estimated Creatinine Clearance 145.52 ml/min (50-250); Globulin 2.6 g/dL (2.2-4.2); Glucose 115 mg/dL (70-99); Lipase 33 U/L (13-75); Potassium 4.1 mmol/L (3.3-5.1)
[2025-07-12] MEDS: Lidocaine 2% Viscous15 ML UDC 15 ML PO (00:50)
[2025-07-12 01:33] VITALS: PULSE 79; RESP 18; O2SAT 98
[2025-07-12] MEDS: Pantoprazole Sodium 40 MG in 0.9% Normal Saline (100mL MB+) 100 ML 300 MG IV (01:33)
[2025-07-12 03:17] VITALS: BP 138/89; PULSE 82; RESP 18; TEMP 36.7; O2SAT 98
== END 2025-07-12 03:18 | disposition home or self-care (01) ==
PROVIDERS: Emergency Provider Emergency Medicine; PCP Family Medicine; Visit Provider Emergency Medicine
DX: R10.9 Unspecified abdominal pain (principal); G47.33 Obstructive sleep apnea (adult) (pediatric); E89.0 Postprocedural hypothyroidism; F17.210 Nicotine dependence, cigarettes, uncomplicated; K21.9 Gastro-esophageal reflux disease without esophagitis; J45.909 Unspecified asthma, uncomplicated; E66.9 Obesity, unspecified
CPT/HCPCS: 74177; 80048; 80076; 81001; 83690; 85025; 96361; 96365; 99284; Q9967